=== PATIENT | female | born 1945 | race Caucasian/White ===

== ENCOUNTER 2020-04-23 00:27 | Outpatient (CLI) | payer MEDICARE, SELFPAY ==
[2020-04-23 17:13] LABS: SARS-CoV-2 RNA PCR Negative
== END 2020-04-23 00:28 | disposition home or self-care (01) ==
LOC: ANHCOVIDDT 00:28
PROVIDERS: PCP Internal Medicine; Visit Provider Internal Medicine Gastroenterology
DX: Z01.812 Encounter for preprocedural laboratory examination (principal); Z11.59 Encounter for screening for other viral diseases
CPT/HCPCS: 87635; C9803; U0003

== ENCOUNTER 2020-04-25 02:31 | Day surgery (SDC) | payer MEDICARE, SELFPAY ==
[2020-04-19 12:35] VITALS: BMI 30.2
[2020-04-25 08:34] VITALS: BP 140/75; PULSE 105; RESP 16; TEMP 36.8; O2SAT 99; BMI 28.8
--- NOTE | 2020-04-25 08:42 | WPDANESEPPF ---
Anes - Initial Pre Proc Eval Procedure: Operation Date: 04/25/20 09:30 Proposed Procedures p Screening Colonoscopy - Angel Finch MD Date/Time: 04/25/20 08:42 Surgeon: Angel Finch MD Pre Op Diagnosis: Hx Colon Polyps Patient Data Age: 74 Gender: F Height: 1.57 m Weight: 71.6 kg Last Vital Signs Temp 36.8 C 04/25/20 08:34 Pulse 105 H 04/25/20 08:34 Resp 16 04/25/20 08:34 BP 140/75 04/25/20 08:34 Pulse Ox 99 04/25/20 08:34 Allergies Allergy/AdvReac Type Severity Reaction Status Date / Time No Known Allergies Allergy Verified 04/25/20 08:33 Home Medications Medication Instructions Recorded Confirmed Type No Home Medications 04/19/20 04/25/20 History Patient hx anesthesia problems: none Family hx anesthesia problems: none PMFSH Past Medical History Medical History (Updated 04/24/20 @ 09:02 by Alex Shha DO) Osteoarthritis Surgical History Surgical History (Updated 04/24/20 @ 09:02 by Alex Shah DO) H/O bilateral mastectomy History of partial hysterectomy Family History Family History (Updated 03/21/16 @ 10:16 by DOCTOR UNKNOWN) Other Diabetes mellitus Family history of cardiovascular disease Family history of malignant neoplasm Social History Social History Smoking status: Never smoker Alcohol intake: current Anes - Eval Final PreProcedure Day of Procedure 04/25/20 08:42 Patient weight: obese Heart: regular rate and rhythm Lungs: clear to auscultation and normal air movement Airway: Mallampati scale class III Neurological: alert and oriented Last oral intake: >/= 8 hours ASA classification: II Emergent: no Anesthetic plan: proceed Anesthesia type and monitoring: general GIVS Informed Consent: The patient's anesthetic plan and its attendant risks and benefits were discussed with the patient/family/POA. Questions were solicited and answers provided to the satisfaction of the patient/family/POA.
[2020-04-25] MEDS: LACTATED RINGERS 1,000 ML 150 ML IV CONT (09:02)
--- NOTE | 2020-04-25 09:19 | PM.HPGS ---
History of Present Illness History of Present Illness Consent: Risks, benefits, and alternatives have been discussed and questions answered. Patient agrees to proceed with procedure. Chief complaint: Hx Colon Polyps Narrative: Rosalba Ghosh is a 74 year old W female referred for colonoscopy secondary to history of colonic polyps and also couple year history of intermittent lower abdominal pain associated with gas and bloating. Patient has had no rectal bleeding no weight loss no fever chills or sweats. Last colonoscopy was in 2013 patient is found to have diverticular disease at that time. She has had a previous gastroscopy in 1999 16 revealing esophagitis. [facility] Past Medical History Medical History Osteoarthritis Surgical History Surgical History H/O bilateral mastectomy History of partial hysterectomy Family History Family History Other Diabetes mellitus Family history of cardiovascular disease Family history of malignant neoplasm Social History Social History Smoking status: Never smoker Alcohol intake: current Meds Home Medications and Allergies Home Medications Medication Instructions Recorded Confirmed Type No Home Medications 04/19/20 04/25/20 History Allergies Allergy/AdvReac Type Severity Reaction Status Date / Time No Known Allergies Allergy Verified 04/25/20 08:33 Vital Signs Vital Signs - 24 hr 04/25/20 08:34 Temperature 36.8 C Pulse Rate 105 H Respiratory Rate 16 Blood Pressure 140/75 Pulse Oximetry 99 Exam Const: Orientation/consciousness: patient oriented x3 Resp: Auscultation: clear to auscultation bilaterally Cardio: Rate: regular rate Rhythm: regular rhythm Heart sounds: no murmurs GI: GI Palp: Yes Soft to palpation, No Tenderness to palpation present (GI), Yes No hepatosplenomegaly present and No Palpable mass present Auscultation: normal bowel sounds Neuro: General: patient oriented x3 and no focal motor deficits Extrem: General: no pedal edema Assessment and Plan Additional Plan Screening colonoscopy secondary history of colonic polyps in addition to this lower abdominal pain gas bloating
[2020-04-25 10:23] VITALS: BP 123/67; PULSE 84; RESP 25; O2SAT 96
[2020-04-25 10:33] VITALS: BP 116/46; PULSE 83; RESP 13; O2SAT 100
[2020-04-25 10:43] VITALS: BP 113/44; PULSE 77; RESP 14; O2SAT 100
== END 2020-04-25 11:00 | disposition home or self-care (01) ==
PROVIDERS: PCP Internal Medicine; Visit Provider Internal Medicine Gastroenterology
PROC: 0DJD8ZZ Inspection of Lower Intestinal Tract, Via Natural or Artificial Opening Endoscopic (ICD-10-PCS; CPT 45378; principal; 2020-04-25 09:30)
DX: Z12.11 Encounter for screening for malignant neoplasm of colon (principal); R10.84 Generalized abdominal pain; R14.3 Flatulence; K63.5 Polyp of colon; K57.30 Diverticulosis of large intestine without perforation or abscess without bleeding
CPT/HCPCS: 45380; 88305; J2704; J7120

== ENCOUNTER 2021-03-03 20:42 | Emergency (ER) | payer MEDICARE, SELFPAY ==
[2021-03-03] VITALS (17 sets, daily range): BP systolic 100–168; BP diastolic 60–77; PULSE 75–99; RESP 7–20; O2SAT 97–100
--- NOTE | ~2021-03-03 | XR_ITS ---
EXAMINATION: XR chest 1V portable DATE: 03/03/2021 21:10 INDICATION: Chest pain TECHNIQUE: frontal view of the chest was obtained. COMPARISON: Chest radiograph and CT of the abdomen and pelvis dated 07/28/2016 FINDINGS: Calcified nodules at the left lung base along with calcified mediastinal and bilateral hilar lymph no abram consistent with old granulomatous disease. No other airspace opacities, pulmonary edema, pleural effusion or pneumothorax. Heart size is normal. Tortuous thoracic aorta. Surgical clips at the bilate ral breasts and axilla consistent with prior bilateral mastectomies, axillary lymph node dissections and TRAM flap reconstructions bladder better appreciated on prior CT. Heterotopic ossification likel y related to fat necrosis at the lateral right breast/chest wall. IMPRESSION: 1. No acute cardiopulmonary disease. Reviewed, dictated and finalized at location A.
--- NOTE | 2021-03-03 20:52 | ECG_ITS ---
Measurements Intervals [place] Rate: 83 P: 22 ME: 175 QRS: -3 QRSD: 89 T: 20 QT: 364 QTc: 429 Interpretive Statements SINUS RHYTHM VENTRICULAR PREMATURE COMPLEX EARLY PRECORDIAL R/S TRANSITION VOLTAGE CRITERIA FOR LVH BASELINE ARTIFACT- I, II, AVR, AVL BORDERLINE ECG Electronically Signed On 03-05-2021 15:57:59 CDT by Paras Andrade D.O.
[2021-03-03 21:43] LABS: Basophils Absolute Auto 0.1 K/mm3 (0.0-0.1); Basophils Percent Auto 0.8 % (0.2-1.2); Eosinophils Absolute Auto 0.3 K/mm3 (0-0.3); Eosinophils Percent Auto 3.5 % (0-4.4); Hematocrit 40.3 % (37.0-47.0); Hemoglobin 12.8 g/dL (12.0-15.0); Immature Granulocyte Absolute 0.02 K/mm3 (0.00-0.031); Immature Granulocyte Percent A 0.3 % (0-0.5); Lymphocytes Absolute Auto 1.55 K/mm3 (0.9-3.2); Lymphocytes Percent Auto 19.5 % (18.3-44.2); Mean Corpuscular HGB Conc 31.8 g/dl (32-36); Mean Corpuscular Hemoglobin 30.5 pg (26-34); Mean Platelet Volume 9.2 fl (7.4-10.4); Monocytes Absolute Auto 0.7 K/mm3 (0.1-0.6); Monocytes Percent Auto 8.2 % (2.6-8.5); Neutrophils Absolute Auto 5.4 K/mm3 (1.3-6.7); Neutrophils Percent Auto 67.7 % (45.5-73.1); Platelet Count Result 222 k/mm3 (150-375); Red Cell Distribution Width 13.8 % (11.5-14.5); White Blood Count 7.9 K/mm3 (4.5-10.0)
[2021-03-03 21:53] LABS: Alanine Aminotransferase 19 U/L (4-35); Alkaline Phosphatase 84 U/L (38-126); Anion Gap 6 mmol/L (8-16); Aspartate Amino Transferase 41 U/L (14-36); Bilirubin,Total 0.2 mg/dL (0.2-1.3); Blood Urea Nitrogen 23 mg/dL (7-17); Calcium 9.5 mg/dL (8.4-10.2); Carbon Dioxide 29 mmol/L (22-30); Chloride 102 mmol/L (98-107); Estimated CRCL calculation 52 ml/min; Estimated Glomerular Filt Rate > 60; Glucose 121 mg/dL (65-105); INR 0.9; Potassium 4.2 mmol/L (3.4-5.0); Prothrombin Time 13.1 Seconds (11.1-14.7); Sodium 137 mmol/L (137-145)
[2021-03-03 22:05] LABS: Troponin I < 0.012 ng/mL (0.000-0.034)
--- NOTE | 2021-03-03 22:09 | ED.CHESTPAIN ---
HPI - Chest Pain General Chief Complaint: Chest Pain Stated Complaint: chest discomfort Time Seen by Provider: 03/03/21 20:54 Source: patient and family Mode of arrival: ambulatory Limitations: no limitations History of Present Illness HPI narrative: 75-year-old with no major medical problems presents to the ER with complaints of chest pain associated with diaphoresis and profuse sweating started few hours ago however by the time she came to the ER her pain is much subsided. Patient states that she thought it was gas pain ate several tablets of Tums with no relief. Patient denies any shortness of breath, nausea or vomiting. Patient states that she had a cardiac ablation done 30 years ago. No recent stress test has been done. MD complaint: chest pain Pain location: left chest Pain radiation: abdomen Quality: heaviness Relieving factors: nothing Exacerbating factors: nothing Risk Factors Coronary artery disease risk factors: none Related Data Allergies Allergy/AdvReac Type Severity Reaction Status Date / Time No Known Allergies Allergy Verified 03/03/21 23:36 Review of Systems Review of Systems: All systems reviewed & are unremarkable except as noted in HPI and below Constitutional: Constitutional: Reports no additional constitutional complaints Eyes: Eyes: Reports no additional eye complaints ENT: Reports system reviewed and no additional complaints, except as documented Cardiovascular: Cardiovascular: Reports as per HPI Respiratory: Respiratory: Reports no additional respiratory complaints Gastrointestinal: Gastrointestinal: Reports no additional gastrointestinal complaints Musculoskeletal: Musculoskeletal: Reports no additional musculoskeletal complaints Neurologic: Reports system reviewed and no additional complaints, except as documented PMFSH Past Medical History Medical History (Updated 03/03/21 @ 23:49 by Piotr Pineda MD) Osteoarthritis Surgical History Surgical History H/O bilateral mastectomy History of partial hysterectomy Family History Family History Other Diabetes mellitus Family history of cardiovascular disease Family history of malignant neoplasm Social History Social History Smoking status: Never smoker Alcohol intake: current Exam Narrative: Exam Narrative: GENERAL: Well-appearing, well-nourished, and in no acute distress. HEAD: Normocephalic, atraumatic. EYES: PERRLA and EOMI. NECK: Supple. CHEST: Clear to auscultation. No respiratory distress. HEART: Regular rate and rhythm. No murmur heard. Normal peripheral pulses. ABDOMEN: Soft, nontender, nondistended, normal active bowel sounds. EXTREMITIES: Normal range of motion. No edema. SKIN: Warm, dry, no rash. NEURO: No focal deficits. Alert and oriented x3. PSYCH: Normal mood and affect. Course Course Emergency Course: Patient upon arrival to the ER pain is much subsided EKG is unremarkable. I discussed lab work with the patient. Patient declined admission. She states she wants to follow-up with her primary doctor. Vital Signs Vital signs: Vital Signs Pulse Rate 90 03/03/21 20:45 Respiratory Rate 15 03/03/21 20:45 Blood Pressure 153/77 H 03/03/21 20:45 Pulse Oximetry 97 03/03/21 20:45 Pulse Rate 90 03/03/21 23:19 Respiratory Rate 15 03/03/21 23:19 Blood Pressure 137/71 03/03/21 23:19 Pulse Oximetry 98 03/03/21 23:19 MDM - Chest Pain Lab Data Result diagrams: 03/03/21 21:37 03/03/21 21:37 Labs: Lab Results 03/03/21 03/03/21 03/03/21 Range/Units 21:36 21:37 21:37 WBC 7.9 (4.5-10.0) K/mm3 RBC 4.20 (4.2-5.4) M/mm3 Hgb 12.8 (12.0-15.0) g/dL Hct 40.3 (37.0-47.0) % MCV 96.0 (80-100) fl MCH 30.5 (26-34) pg MCHC 31.8 L (32-36) g/dl RDW 13.8 (
[2021-03-03 22:30] LABS: D Dimer 0.32 ug/mL (<0.48)
--- NOTE | 2021-03-03 23:50 | PC.NURSE ---
Repeat troponin collected and awaiting result. will continue to monitor. pt continues to deny c/o chest pain.
[2021-03-04 00:27] LABS: Troponin I 0.013 ng/mL (0.000-0.034)
== END 2021-03-04 00:56 | disposition home or self-care (01) ==
PROVIDERS: Emergency Provider Family Medicine; PCP Internal Medicine
DX: R07.9 Chest pain, unspecified (principal); M19.90 Unspecified osteoarthritis, unspecified site; Z90.13 Acquired absence of bilateral breasts and nipples; I49.3 Ventricular premature depolarization; R94.31 Abnormal electrocardiogram [ECG] [EKG]
CPT/HCPCS: 36415; 71045; 80053; 84484; 85025; 85380; 85610; 93005; 99284

== ENCOUNTER 2022-11-10 00:48 | Day surgery (SDC) | payer MEDICARE, SELFPAY ==
[2022-10-28 13:49] VITALS: BMI 29.7
--- NOTE | 2022-11-09 08:23 | PM.HPGS ---
History of Present Illness History of Present Illness Consent: Risks, benefits, and alternatives have been discussed and questions answered. Patient agrees to proceed with procedure. Chief complaint: hx of colon polyps Narrative: Rosalba Ghosh is a 77 year old female Referred for colonoscopy because of a history of a sessile serrated polyp removed about 3 years ago. Review of Systems Review of Systems: All systems reviewed & are unremarkable except as noted in HPI and below PMFSH Past Medical History Medical History Osteoarthritis Surgical History Surgical History H/O bilateral mastectomy History of partial hysterectomy Family History Family History Other Diabetes mellitus Family history of cardiovascular disease Family history of malignant neoplasm Social History Social History Smoking status: Never smoker Alcohol intake: current Substance use: never Substance use type: does not use Living arrangements: with family Spiritual care concerns: No Meds Home Medications and Allergies Home Medications Medication Instructions Recorded Confirmed Type alendronate 70 mg tablet 70 mg PO WEEKLY 10/28/22 10/28/22 History hydrocodone 7.5 mg-acetaminophen 1 tablet PO BID PRN Pain 10/28/22 10/28/22 History 325 mg tablet pantoprazole 40 mg tablet,delayed 40 mg PO DAILY 10/28/22 10/28/22 History release Allergies Allergy/AdvReac Type Severity Reaction Status Date / Time No Known Allergies Allergy Verified 11/10/22 09:53 Exam Const: General: alert Orientation/consciousness: patient oriented x3 Resp: Auscultation: clear to auscultation bilaterally Cardio: Rhythm: regular rhythm GI: GI Palp: Yes Soft to palpation and No Tenderness to palpation present (GI) Neuro: General: patient oriented x3 Assessment and Plan Assessment and plan (1) Colon cancer screening: Code(s): Z12.11 - Encounter for screening for malignant neoplasm of colon Status: Acute Assessment and Plan: Colonoscopy with possible biopsy or polypectomy or cautery or injection of substances.
[2022-11-10 09:55] VITALS: BP 143/74; PULSE 100; RESP 18; TEMP 36.8; O2SAT 100
[2022-11-10] MEDS: LACTATED RINGERS 1,000 ML 150 ML IV CONT (09:57)
--- NOTE | 2022-11-10 10:43 | P.PNAN_ITS ---
Anes - Initial Pre Proc Eval Procedure: Operation Date: 11/10/22 11:00 Proposed Procedures p Screening Colonoscopy - Yung Fernandez MD Date/Time: 11/10/22 10:43 Surgeon: Yung Fernandez MD Pre Op Diagnosis: hx of colon polyps Patient Data Age: 77 Gender: F Height: 1.52 m Weight: 69.2 kg Last Vital Signs Temp 98.2 F 11/10/22 09:55 Pulse 100 11/10/22 09:55 Resp 18 11/10/22 09:55 BP 143/74 H 11/10/22 09:55 Pulse Ox 100 11/10/22 09:55 O2 Del Method Room Air 11/10/22 09:55 Allergies Allergy/AdvReac Type Severity Reaction Status Date / Time No Known Allergies Allergy Verified 11/10/22 09:53 Home Medications Medication Instructions Recorded Confirmed Type alendronate 70 mg tablet 70 mg PO WEEKLY 10/28/22 10/28/22 History hydrocodone 7.5 mg-acetaminophen 1 tablet PO BID PRN Pain 10/28/22 10/28/22 History 325 mg tablet pantoprazole 40 mg tablet,delayed 40 mg PO DAILY 10/28/22 10/28/22 History release Patient hx anesthesia problems: none Family hx anesthesia problems: none Results Review: All pre-operative results and documents have been reviewed as part of the pre- operative evaluation. [facility] Past Medical History Medical History Osteoarthritis Surgical History Surgical History H/O bilateral mastectomy History of partial hysterectomy Family History Family History Other Diabetes mellitus Family history of cardiovascular disease Family history of malignant neoplasm Social History Social History Smoking status: Never smoker Alcohol intake: current Substance use: never Substance use type: does not use Living arrangements: with family Spiritual care concerns: No Anes - Eval Final PreProcedure Day of Procedure 11/10/22 10:43 Patient weight: normal Heart: regular rate and rhythm Lungs: clear to auscultation Airway: Mallampati scale class II Neurological: alert and oriented Last oral intake: >/= 8 hours ASA classification: III Emergent: no Anesthetic plan: proceed Anesthesia type and monitoring: general GIVS and standard monitoring Results Review: All pre-operative results and documents have been reviewed as part of the pre- operative evaluation. Informed Consent: The patient's anesthetic plan and its attendant risks and benefits were discussed with the patient/family/POA. Questions were solicited and answers provided to the satisfaction of the patient/family/POA.
[2022-11-10 11:05] VITALS: BP 131/57; PULSE 89; RESP 20; O2SAT 100
[2022-11-10 11:15] VITALS: BP 124/57; PULSE 86; RESP 20; O2SAT 100
[2022-11-10 11:25] VITALS: BP 137/64; PULSE 89; RESP 23; O2SAT 100
== END 2022-11-10 11:40 | disposition home or self-care (01) ==
PROVIDERS: PCP Internal Medicine; Visit Provider Internal Medicine Gastroenterology
PROC: 0DJD8ZZ Inspection of Lower Intestinal Tract, Via Natural or Artificial Opening Endoscopic (ICD-10-PCS; CPT 45378; principal; 2022-11-10 11:00)
DX: Z12.11 Encounter for screening for malignant neoplasm of colon (principal); K64.8 Other hemorrhoids; K57.30 Diverticulosis of large intestine without perforation or abscess without bleeding; Z86.010 Personal history of colon polyps
CPT/HCPCS: G0105; J2001; J2704; J7120

== ENCOUNTER 2023-10-27 00:54 | Day surgery (SDC) | payer MEDICARE, SELFPAY ==
[2023-10-16 15:23] VITALS: BMI 27.8
--- NOTE | 2023-10-23 08:44 | SUR.PREOP ---
Patient called regarding upcoming procedure. Reviewed preop instructions, appointment times, and procedure prep.
--- NOTE | 2023-10-23 13:51 | PM.HPGS ---
History of Present Illness History of Present Illness Consent: Risks, benefits, and alternatives have been discussed and questions answered. Patient agrees to proceed with procedure. Chief complaint: GERD Narrative: Rosalba Ghosh is a 78 year old female was undergoing endoscopy for assessment of reflux symptoms. She has chronic symptoms. She had endoscopy about 6 years ago to investigate acid reflux and was found have mild reflux esophagitis and diffuse gastritis. Review of Systems Review of Systems: All systems reviewed & are unremarkable except as noted in HPI and below PMFSH Past Medical History Medical History Osteoarthritis Surgical History Surgical History H/O bilateral mastectomy History of partial hysterectomy Family History Family History Other Diabetes mellitus Family history of cardiovascular disease Family history of malignant neoplasm Social History Social History Smoking status: Never smoker Alcohol intake: never Substance use: never Substance use type: does not use Living arrangements: with family Spiritual care concerns: No Meds Home Medications and Allergies Home Medications Medication Instructions Recorded Confirmed Type alendronate 70 mg tablet 70 mg PO WEEKLY 10/28/22 10/27/23 History hydrocodone 7.5 mg-acetaminophen 1 tablet PO BID PRN Pain 10/28/22 10/27/23 History 325 mg tablet pantoprazole 40 mg tablet,delayed 40 mg PO DAILY 10/28/22 10/27/23 History release Adults Multivitamin 1 gummy PO DAILY 10/16/23 10/27/23 History Calcium 600 + D(3) 1 tab-cap PO DAILY 10/16/23 10/27/23 History Allergies Allergy/AdvReac Type Severity Reaction Status Date / Time No Known Allergies Allergy Verified 10/27/23 08:07 Exam Const: General: alert Orientation/consciousness: patient oriented x3 Resp: Auscultation: clear to auscultation bilaterally Cardio: Rhythm: regular rhythm GI: GI Palp: Yes Soft to palpation and No Tenderness to palpation present (GI) Neuro: General: patient oriented x3 Assessment and Plan Assessment and plan (1) GERD (gastroesophageal reflux disease): Code(s): K21.9 - Gastro-esophageal reflux disease without esophagitis Status: Acute Assessment and Plan: EGD with possible biopsy or dilatation or cautery.
[2023-10-27 08:08] VITALS: BP 143/66; PULSE 106; RESP 17; TEMP 36.6; O2SAT 97; BMI 27.6
[2023-10-27] MEDS: LACTATED RINGERS 1,000 ML 150 ML IV CONT (08:16)
--- NOTE | 2023-10-27 08:57 | WPDANESEPPF ---
Anes - Initial Pre Proc Eval Procedure: Operation Date: 10/27/23 09:30 Proposed Procedures p Esophagogastroduodenoscopy - Yung Fernandez MD Date/Time: 10/27/23 08:57 Surgeon: Yung Fernandez MD Pre Op Diagnosis: GERD Patient Data Age: 78 Gender: F Height: 1.55 m Weight: 66.2 kg Last Vital Signs Temp 97.8 F 10/27/23 08:08 Pulse 106 H 10/27/23 08:08 Resp 17 10/27/23 08:08 BP 143/66 H 10/27/23 08:08 Pulse Ox 97 10/27/23 08:08 O2 Del Method Room Air 10/27/23 08:08 Allergies Allergy/AdvReac Type Severity Reaction Status Date / Time No Known Allergies Allergy Verified 10/27/23 08:07 Home Medications Medication Instructions Recorded Confirmed Type alendronate 70 mg tablet 70 mg PO WEEKLY 10/28/22 10/27/23 History hydrocodone 7.5 mg-acetaminophen 1 tablet PO BID PRN Pain 10/28/22 10/27/23 History 325 mg tablet pantoprazole 40 mg tablet,delayed 40 mg PO DAILY 10/28/22 10/27/23 History release Adults Multivitamin 1 gummy PO DAILY 10/16/23 10/27/23 History Calcium 600 + D(3) 1 tab-cap PO DAILY 10/16/23 10/27/23 History Patient hx anesthesia problems: none Family hx anesthesia problems: none Results Review: All pre-operative results and documents have been reviewed as part of the pre-operative evaluation. [facility] Past Medical History Medical History Osteoarthritis Surgical History Surgical History H/O bilateral mastectomy History of partial hysterectomy Family History Family History Other Diabetes mellitus Family history of cardiovascular disease Family history of malignant neoplasm Social History Social History Smoking status: Never smoker Alcohol intake: never Substance use: never Substance use type: does not use Living arrangements: with family Spiritual care concerns: No Anes - Eval Final PreProcedure Day of Procedure 10/27/23 08:57 Patient weight: normal Heart: regular rate and rhythm Lungs: clear to auscultation Airway: Mallampati scale class II Neurological: alert and oriented Last oral intake: >/= 8 hours ASA classification: III Emergent: no Anesthetic plan: proceed Anesthesia type and monitoring: general GIVS and standard monitoring Results Review: All pre-operative results and documents have been reviewed as part of the pre-operative evaluation. Informed Consent: The patient's anesthetic plan and its attendant risks and benefits were discussed with the patient/family/POA. Questions were solicited and answers provided to the satisfaction of the patient/family/POA.
[2023-10-27 09:30] VITALS: BP 133/58; PULSE 90; RESP 19; O2SAT 97
[2023-10-27 09:40] VITALS: BP 118/51; PULSE 86; RESP 21; O2SAT 96
[2023-10-27 09:50] VITALS: BP 129/50; PULSE 87; RESP 20; O2SAT 100
== END 2023-10-27 10:01 | disposition home or self-care (01) ==
PROVIDERS: PCP Internal Medicine; Visit Provider Internal Medicine Gastroenterology
PROC: 0DJ08ZZ Inspection of Upper Intestinal Tract, Via Natural or Artificial Opening Endoscopic (ICD-10-PCS; CPT 43235; principal; 2023-10-27 09:30)
DX: K21.9 Gastro-esophageal reflux disease without esophagitis (principal); K29.50 Unspecified chronic gastritis without bleeding; K25.9 Gastric ulcer, unspecified as acute or chronic, without hemorrhage or perforation; Z79.891 Long term (current) use of opiate analgesic; Z79.899 Other long term (current) drug therapy
CPT/HCPCS: 43239; 87081; 88305; J2001; J2704; J7120

== ENCOUNTER 2024-02-11 14:51 | Inpatient (IN) | payer MEDICARE, SELFPAY ==
--- NOTE | ~2024-02-11 | XR_ITS ---
EXAMINATION: XR hip RT 2V w AP pelvis DATE: 02/11/2024 15:33 INDICATION: Fall. TECHNIQUE: An anteroposterior view of the pelvis and 2 views of right hip were obtained. COMPARISON: CT abdomen and pelvis 07/28/2016 FINDINGS: There is lumbar dextroscoliosis and severe spondylosis. There is a subcapital fracture of r ight femoral neck. The distal fracture fragment demonstrates impaction and 25 degrees valgus angulati on. There is mild osteoarthritis of the hips. Osteitis pubis is noted. Surgical clips overlie the abd omen and pelvis. IMPRESSION: 1. Subcapital fracture of right femoral neck. 2. Mild osteoarthritis of the hips. Reviewed, dictated and finalized at location A.
--- NOTE | ~2024-02-11 | XR_ITS ---
EXAMINATION: XR chest 1V DATE: 02/11/2024 15:33 INDICATION: Fall. TECHNIQUE: A single frontal view of the chest was obtained. COMPARISON: None. FINDINGS: There is mild atelectasis at left lung base. Calcified pulmonary nodules and calcified chloe r and mediastinal lymph nodes are consistent with old granulomatous disease. No pleural effusion or p neumothorax. The heart size is normal. Surgical clips overlie the chest and abdomen. IMPRESSION: 1. Mild atelectasis at left lung base. Reviewed, dictated and finalized at location A.
--- NOTE | ~2024-02-11 | XR_ITS ---
EXAMINATION: XR surgery orthopedic DATE: 02/12/2024 10:20 CDT INDICATION: RIGHT HIP PINNING . TECHNIQUE: 2 fluoroscopic images of the right hip were obtained during right hip pinning, performed b diego Dean. I was not present during the procedure. Fluoroscopy exposure time was 1 minute and 56.7 seconds. Air Kerma 43.642 mGy. DAP 0.8651 mGym2. COMPARISON: 02/11/2024 FINDINGS/IMPRESSION: Fluoroscopic documentation of right hip pinning. Please refer to the operative note for complete proc edural details. Reviewed, dictated and finalized at location K.
--- NOTE | ~2024-02-11 | XR_ITS ---
EXAMINATION: XR chest 1V portable DATE: 02/13/2024 16:15 INDICATION: Chest tightness. TECHNIQUE: A single frontal view of the chest was obtained. COMPARISON: Chest single view 02/11/2024 FINDINGS: Calcified pulmonary nodules and calcified hilar and mediastinal lymph nodes are consistent with old granulomatous disease. There is mild atelectasis versus scarring in the lower lung zones. No pleural effusion or pneumothorax. The heart size is normal. Surgical clips overlie the chest. IMPRESSION: 1. Mild atelectasis versus scarring in the lower lung zones. Reviewed, dictated and finalized at location E.
[2024-02-11 14:55] VITALS: BP 153/71; PULSE 100; RESP 20; TEMP 36.6; O2SAT 95
--- NOTE | 2024-02-11 15:12 | ED.FALL ---
HPI - Fall General Chief Complaint: Fall Stated Complaint: fall, hip pain Time Seen by Provider: 02/11/24 14:58 History of Present Illness HPI Narrative: Patient is a 78-year-old female who presents ER after a fall down 2 steps. Landed on her right hip. Unable to get up due to pain. Did not strike her head or lose consciousness. No LOC. No numbness or tingling to the affected extremity. Patient is currently on [place] and amoxicillin for a gum surgery she had by her dentist. Related Data Home Medications Medication Instructions Recorded Confirmed alendronate 70 mg tablet 70 mg PO WEEKLY 10/28/22 11/20/23 hydrocodone 7.5 mg-acetaminophen 1 tablet PO BID PRN Pain 10/28/22 11/20/23 325 mg tablet pantoprazole 40 mg tablet,delayed 40 mg PO DAILY 10/28/22 11/20/23 release Adults Multivitamin 1 gummy PO DAILY 10/16/23 11/20/23 Calcium 600 + D(3) 1 tab-cap PO DAILY 10/16/23 11/20/23 Allergies Allergy/AdvReac Type Severity Reaction Status Date / Time No Known Allergies Allergy Verified 02/11/24 14:59 Review of Systems Review of Systems: All systems reviewed & are unremarkable except as noted in HPI and below Constitutional: Constitutional: Reports no additional constitutional complaints ENT: Reports system reviewed and no additional complaints, except as documented Cardiovascular: Cardiovascular: Reports no additional cardiovascular complaints Respiratory: Respiratory: Reports no additional respiratory complaints Gastrointestinal: Gastrointestinal: Reports no additional gastrointestinal complaints Musculoskeletal: Musculoskeletal: Denies back pain, Reports arthralgias, Denies joint swelling and Denies muscle cramps Neurologic: Reports system reviewed and no additional complaints, except as documented [facility] Past Medical History Medical History (Updated 02/11/24 @ 15:56 by Adriel Hill MD) Osteoarthritis Surgical History Surgical History H/O bilateral mastectomy History of partial hysterectomy Family History Family History Other Diabetes mellitus Family history of cardiovascular disease Family history of malignant neoplasm Social History Social History Smoking status: Never smoker Alcohol intake: never Substance use: never Substance use type: does not use Living arrangements: with family Spiritual care concerns: No Exam Narrative: GENERAL: Well-appearing, well-nourished, and in no acute distress. HEAD: Normocephalic, atraumatic. ENT: Mucous membranes moist. NECK: Supple. CHEST: Clear to auscultation. No respiratory distress. HEART: Regular rate and rhythm. Normal peripheral pulses. ABDOMEN: Soft, nontender, nondistended. EXTREMITIES: Right hip tolerates passive range of motion but has increased pain with internal external rotation. Unable to perform active range of motion due to pain. Neurovascularly intact. Normal upper extremities and left lower extremity. SKIN: Warm, dry, no rash. NEURO: Alert and oriented x3. PSYCH: Normal mood and affect. Course Course Emergency Course: Orthopedic surgery consulted. Admit the hospitalist service service. Patient has been informed of diagnosis and treatment plan. Patient does not require pain medication at this time. Vital Signs Vital signs: Vital Signs Temperature 97.8 F 02/11/24 14:55 Pulse Rate 100 02/11/24 14:55 Respiratory Rate 20 02/11/24 14:55 Blood Pressure 153/71 H 02/11/24 14:55 Pulse Oximetry 95 02/11/24 14:55 Oxygen Delivery Room Air 02/11/24 14:55 Temperature 97.8 F 02/11/24 14:55 Pulse Rate 90 02/11/24 16:43 Respiratory Rate 16 02/11/24 16:43 Blood Pressure 130/83 02/11/24 16:43 Pulse Oximetry 96 02/11/24 16:43 Oxygen Delivery Room Air 02/11/24 14:55 MDM - Fall Lab Data 02/11/24
[2024-02-11 15:50] LABS: Basophils Absolute Auto 0.1 K/mm3 (0.0-0.1); Basophils Percent Auto 0.8 % (0.2-1.2); Eosinophils Absolute Auto 0.1 K/mm3 (0-0.3); Eosinophils Percent Auto 1.7 % (0-4.4); Hematocrit 43.1 % (37.0-47.0); Hemoglobin 13.8 g/dL (12.0-15.0); Immature Granulocyte Absolute 0.04 K/mm3 (0.00-0.031); Immature Granulocyte Percent A 0.7 % (0-0.5); Lymphocytes Absolute Auto 1.79 K/mm3 (0.9-3.2); Lymphocytes Percent Auto 30.1 % (18.3-44.2); Mean Corpuscular Hemoglobin 29.7 pg (26-34); Mean Corpuscular Volume 92.9 fl (80-100); Mean Platelet Volume 10.4 fl (7.4-10.4); Monocytes Absolute Auto 0.6 K/mm3 (0.1-0.6); Monocytes Percent Auto 10.1 % (2.6-8.5); Neutrophils Absolute Auto 3.4 K/mm3 (1.3-6.7); Neutrophils Percent Auto 56.6 % (45.5-73.1); Platelet Count Result 170 k/mm3 (150-375); Red Blood Count 4.64 M/mm3 (4.2-5.4); Red Cell Distribution Width 13.9 % (11.5-14.5); White Blood Count 5.9 K/mm3 (4.5-10.0)
[2024-02-11 16:10] LABS: Alanine Aminotransferase 15 U/L (6-35); Albumin Level 4.3 g/dL (3.5-5.1); Alkaline Phosphatase 51 U/L (38-126); Anion Gap 8 mmol/L (4-12); Aspartate Amino Transferase 41 U/L (14-36); Bilirubin,Total 0.8 mg/dL (0.2-1.3); Blood Urea Nitrogen 15 mg/dL (7-17); Calcium 9.1 mg/dL (8.4-10.2); Carbon Dioxide 26 mmol/L (22-30); Chloride 101 mmol/L (98-107); Estimated CRCL calculation 50 ml/min; Estimated Glomerular Filt Rate > 60; Glucose 112 mg/dL (65-110); Potassium 4.4 mmol/L (3.4-5.0); Sodium 135 mmol/L (137-145)
[2024-02-11 16:15] LABS: Partial Thromboplastin Time 27.7 Seconds (22.3-36.8); Prothrombin Time 13.3 Seconds (11.1-14.7)
[2024-02-11 16:43] VITALS: BP 130/83; PULSE 90; RESP 16; O2SAT 96
--- NOTE | 2024-02-11 18:19 | PM.CNOR ---
Assessment and Plan Assessment and plan (1) Closed subcapital fracture of neck of right femur: Code(s): S72.011A - Unspecified intracapsular fracture of right femur, initial encounter for closed fracture Status: Acute Assessment and Plan: Recommend pinning Right Hip. History of Present Illness HPI Consult date: 02/11/24 Chief complaint: Subcapital Fracture of the Femoral Neck Rt Side Narrative: 78yo WF S/P fall with Right hip fracture. Review of Systems Musculoskeletal: Musculoskeletal: Reports arthralgias, Reports joint swelling and Reports stiffness [facility] Past Medical History Medical History (Updated 02/11/24 @ 15:56 by Adriel Hill MD) Osteoarthritis Surgical History Surgical History H/O bilateral mastectomy History of partial hysterectomy Family History Family History Other Diabetes mellitus Family history of cardiovascular disease Family history of malignant neoplasm Social History Social History Smoking status: Never smoker Alcohol intake: never Substance use: never Substance use type: does not use Living arrangements: with family Spiritual care concerns: No Meds Home Medications and Allergies Home Medications Medication Instructions Recorded Confirmed Type alendronate 70 mg tablet 70 mg PO WEEKLY 10/28/22 11/20/23 History hydrocodone 7.5 mg-acetaminophen 1 tablet PO BID PRN Pain 10/28/22 11/20/23 History 325 mg tablet pantoprazole 40 mg tablet,delayed 40 mg PO DAILY 10/28/22 11/20/23 History release Adults Multivitamin 1 gummy PO DAILY 10/16/23 11/20/23 History Calcium 600 + D(3) 1 tab-cap PO DAILY 10/16/23 11/20/23 History Allergies Allergy/AdvReac Type Severity Reaction Status Date / Time No Known Allergies Allergy Verified 02/11/24 14:59 Vital Signs Vital Signs - 24 hr 02/11/24 14:55 02/11/24 16:43 Temperature 97.8 F Pulse Rate 100 90 Respiratory Rate 20 16 Blood Pressure 153/71 H 130/83 Pulse Oximetry 95 96 Oxygen Delivery Room Air Exam Narrative: Pain with motion Right hip. Wiggle toes. Resp: Effort & Inspection: normal respiratory effort Cardio: Rate: regular rate Rhythm: regular rhythm Results Labs 02/11/24 15:45 02/11/24 15:45 Labs: Abnormal lab results 02/11/24 Range/Units 15:45 Immature Gran % (Auto) 0.7 H (0-0.5) % [place] % (Auto) 10.1 H (2.6-8.5) % Abs Immat Gran (auto) 0.04 H (0.00-0.031) K/mm3 Sodium 135 L (137-145) mmol/L Glucose 112 H (65-110) mg/dL AST 41 H (14-36) U/L H & H 02/11/24 Range/Units 15:45 Hgb 13.8 (12.0-15.0) g/dL Hct 43.1 (37.0-47.0) % Coagulation 02/11/24 Range/Units 15:45 INR 1.0 All other labs normal. [facility] Consult Billing Inpatient Consult Inpatient Consults: 52008 Initial Admit Mod
[2024-02-11] MEDS: MORPHINE SULFATE (*CRX) 2 MG/ML INJ IV PUSH ×3 (18:26→23:29)
[2024-02-11] MEDS: ONDANSETRON INJ 4 MG/2 ML VIAL IV PUSH (20:06)
[2024-02-11 21:13] VITALS: BP 138/58; PULSE 96; RESP 14; TEMP 36.7; O2SAT 95
--- NOTE | 2024-02-11 22:01 | PM.IMHP ---
H&P: HPI History of Present Illness Date/Time: 02/11/24 22:01 Chief Complaint: Fall Narrative: 78 y/o F presents here with fall and R hip pain with PMH of osteoarthritis and breast cancer (s/p bilateral mastectomy around 1999). Patient presents here for further evaluation of right hip pain secondary to ground level fall. Patient reports that she tripped while going down 2 steps with laundry onto her right hip. Patient was unable to ambulate post fall due to pain. Denies head strike, no syncope, or LOC. Denies numbness, tingling, or weakness to RLE. ROM limited due to pain. Patient is currently on norco and amoxicillin secondary to recent oral surgery (02/08) to comes performed by her dentist. Denies palpitations, chest pain, dizziness, lightheadedness, focal weakness, dysarthria, nausea, vomiting, or diarrhea. Does not need an assistive device at baseline, but will occasionally use a cane when she has to stand for long periods due to the curvature of her spine which causes her pain at times. Initial VS at presentation: 97.8? F, HR 100, RR 20, 153/71, and 95% on RA. ED workup showed: No leukocytosis, no anemia, INR 1.0, creatinine 0.7 with GFR >60, glucose 112, AST 41. XR of right hip showed subcapital fracture of the right femoral neck and osteoarthritis of the hips. CXR showed mild atelectasis of the left lung base. Review of Systems Review of Systems: All systems reviewed & are unremarkable except as noted in HPI and below [facility] Past Medical History Medical History (Updated 02/12/24 @ 00:04 by Leonor Rodriguez APRN) Abdominal aortic aneurysm stable, follows with CT Surgery at [facility] Acute biliary pancreatitis secondary to GB disease BRCA1 positive Hx of breast cancer Osteoarthritis Valvular insufficiency told she has a leaky valve , unsure which. Surgical History Surgical History (Updated 02/12/24 @ 00:00 by Leonor Rodriguez APRN) H/O bilateral mastectomy History of cholecystectomy History of partial hysterectomy Family History Family History Other Diabetes mellitus Family history of cardiovascular disease Family history of malignant neoplasm Social History Social History Smoking status: Never smoker Alcohol intake: never Substance use: never Substance use type: does not use Do You Feel Safe in your Home?: Yes Lack of Transportation: No Lack of Food: Never True Current Housing: I Have Housing Concerned About Future Housing: No Difficulty Paying Gas/Electric Bills: No Difficulty Paying for Meds: No Currently Unemployed: No Education: High School Diploma/GED Difficulty w/ Childcare or Family Care: No Living arrangements: with family Spiritual care concerns: No Meds Home Medications and Allergies Home Medications Medication Instructions Recorded Confirmed Type pantoprazole 40 mg tablet,delayed 40 mg PO DAILY 10/28/22 02/11/24 History release amoxicillin 500 mg-potassium 1 tablet PO TID 02/11/24 02/11/24 History clavulanate 125 mg tablet hydrocodone 5 mg-acetaminophen 325 1 tablet PO Q4H PRN Pain 02/11/24 02/11/24 History mg tablet Allergies Allergy/AdvReac Type Severity Reaction Status Date / Time No Known Allergies Allergy Verified 02/11/24 14:59 Vital Signs Vital Signs - 24 hr 02/11/24 14:55 02/11/24 16:43 02/11/24 21:13 Temperature 97.8 F 98.1 F Pulse Rate 100 90 96 Respiratory Rate 20 16 14 Blood Pressure 153/71 H 130/83 138/58 L Pulse Oximetry 95 96 95 Oxygen Delivery Room Air Exam Const: General: comfortable and no acute distress Other: , female, nontoxic apperance HENMT: Face/Nose/Sinus: Normal nares present Mouth: Yes moist mucous membranes Eyes: General: appearance normal, both eyes and all related structures Sclera: sclerae normal Pupils: Equal, round and reactive pupils
[2024-02-11 23:20] VITALS: O2SAT 95
[2024-02-11] MEDS: LACTATED RINGERS 1,000 ML 100 ML IV CONT (23:28)
[2024-02-12] VITALS (16 sets, daily range): BP systolic 105–144; BP diastolic 43–87; PULSE 72–99; RESP 12–20; TEMP 35.8–37; O2SAT 93–100
[2024-02-12] MEDS: MORPHINE SULFATE (*CRX) 2 MG/ML INJ IV PUSH ×4 (03:24→20:17)
[2024-02-12] MEDS: ONDANSETRON INJ 4 MG/2 ML VIAL IV PUSH ×2 (03:24→20:17)
[2024-02-12 06:33] LABS: Basophils Absolute Auto 0.1 K/mm3 (0.0-0.1); Eosinophils Absolute Auto 0.1 K/mm3 (0-0.3); Eosinophils Percent Auto 2.6 % (0-4.4); Hematocrit 37.6 % (37.0-47.0); Hemoglobin 11.8 g/dL (12.0-15.0); Immature Granulocyte Absolute 0.01 K/mm3 (0.00-0.031); Immature Granulocyte Percent A 0.2 % (0-0.5); Lymphocytes Absolute Auto 1.06 K/mm3 (0.9-3.2); Mean Corpuscular HGB Conc 31.4 g/dl (32-36); Mean Corpuscular Hemoglobin 29.3 pg (26-34); Mean Corpuscular Volume 93.3 fl (80-100); Monocytes Absolute Auto 0.6 K/mm3 (0.1-0.6); Monocytes Percent Auto 11.3 % (2.6-8.5); Neutrophils Absolute Auto 3.2 K/mm3 (1.3-6.7); Neutrophils Percent Auto 63.9 % (45.5-73.1); Platelet Count Result 150 k/mm3 (150-375); Red Blood Count 4.03 M/mm3 (4.2-5.4)
[2024-02-12 06:45] LABS: Anion Gap 1 mmol/L (4-12); Blood Urea Nitrogen 10 mg/dL (7-17); Calcium 8.7 mg/dL (8.4-10.2); Carbon Dioxide 31 mmol/L (22-30); Chloride 103 mmol/L (98-107); Estimated CRCL calculation 57 ml/min; Estimated Glomerular Filt Rate > 60; Glucose 96 mg/dL (65-110); Potassium 4.1 mmol/L (3.4-5.0); Sodium 135 mmol/L (137-145)
[2024-02-12] MEDS: PANTOPRAZOLE 40 MG TABLET PO (08:11)
[2024-02-12] MEDS: AMOXICILLIN/CLAVULANATE K 500-125 MG TAB 1 TABLET PO ×3 (08:49→17:18)
--- NOTE | 2024-02-12 08:58 | PM.IMPN ---
Progress Note: A&P Assessment and Plan (1) Closed subcapital fracture of neck of right femur: Code(s): S72.011A - Unspecified intracapsular fracture of right femur, initial encounter for closed fracture Status: Acute Assessment and Plan: - XR hip/pelvis: 1. Subcapital fracture of right femoral neck. 2. Mild osteoarthritis of the hips. - CXR: Mild atelectasis at left lung base. - EKG ordered - echo ordered, none on file and has murmur on exam. told she has a leaky valve previously. - ortho consulted, Jermaine KU recommend hip pinning - NPO at midnight - SCDs - urinary catheter - pain management - not good candidate for muscle relaxer given plan for surgical management and has previously not tolerated diazepam well (believes it made her dizzy) - zofran PRN for nausea - monitor labs in AM - CBC and BMP, add type and screen - bowel regimen: docusate/senna - maintenance fluids: LR 100 mL/hr x 1L 02/11: will plan to discontinue IV fluids when patient tolerating diet postoperative Plan echo pending due to mumur Home Meds/Chronic Conditions - continuing Augmentin from home oral surgery and home pantoprazole Code Status: Full code Time Spent With Patient Time with patient: 25 - 35 minutes Subjective Date/time seen: 02/12/24 08:58 Interval history: This is a 78-year-old female patient generally healthy he had a accidental all this to scabbed and landed on her right hip subcapital fracture planning to go to the operating room today for hip repair. She reports that she had recent oral surgery due to a dental implant that had migrated into her sinuses and she is supposed to be on Augmentin for such which she has missed a few doses already. for needed with nursing staff so patient could receive this medication preoperatively. Review of Systems Review of Systems: All systems reviewed & are unremarkable except as noted in HPI and below Exam Const: General: comfortable and no acute distress Other: , female, nontoxic apperance HENMT: Face/Nose/Sinus: Normal nares present Mouth: Yes moist mucous membranes Eyes: General: appearance normal, both eyes and all related structures Sclera: sclerae normal Pupils: Equal, round and reactive pupils present EOM: EOMs intact bilaterally Resp: Effort & Inspection: normal respiratory effort Auscultation: clear to auscultation bilaterally Cardio: Rate: tachycardic Rhythm: regular rhythm Heart sounds: Murmur heart sound present Other: whooshing quality, moderate. Skin: General skin exam: normal color and no rashes or lesions noted Wounds: no wounds Neuro: Cranial nerves: Yes Equal, round and reactive pupils present Speech: normal speech Motor exam (neuro): 5/5 motor strength present throughout Sensory Exam: normal sensation Other: RLE has limited ROM secondary to pain. A/Ox4. Extrem: General: normal to inspection Other: DP pulses intact bilaterally. Psych: Mental Status: mental status grossly normal Affect: normal affect Other: good insight and judgement. Objective Data Vital Signs Vital Signs: Vital Signs - 24 hr 02/11/24 14:55 02/11/24 16:43 02/11/24 21:13 Temperature 36.6 C 36.7 C Pulse Rate 100 90 96 Respiratory Rate 20 16 14 Blood Pressure 153/71 H 130/83 138/58 L Pulse Oximetry 95 96 95 Oxygen Delivery Room Air 02/11/24 23:20 02/12/24 05:54 Temperature 36.4 C L Pulse Rate 81 Respiratory Rate 14 Blood Pressure 110/44 L Pulse Oximetry 95 96 Oxygen Delivery Autopap Intake/Output Intake/Output: Intake & Output 02/09/24 02/10/24 02/11/24 02/12/24 23:59 23:59 23:59 23:59 Intake Total 250 Output Total 1100 Balance -850 Meds/Results Medications: Active Medications Generic Name Dose Route Start Last Admin Trade Name Freq PRN Reason Stop Dose Admin Acetaminophen 650 mg 02/11/24 15:53 Acetaminophen 325 Mg Tablet PO Q4H PRN Mild Pain (1-3
--- NOTE | 2024-02-12 09:21 | PC.NURSE ---
Addendum entered by Rosibel Chaney RN 02/12/24 09:22: To OR per bed, IV right arm, report given to merry Original Note: To OR per bed, IV Righ. Report given to [ ].
--- NOTE | 2024-02-12 09:36 | WPDANESEPPF ---
Anes - Initial Pre Proc Eval Procedure: Operation Date: 02/12/24 10:00 Proposed Procedures p Right Hip Pinning - Erickson Dean MD Date/Time: 02/12/24 09:36 Surgeon: Mazin Bianchi DO Pre Op Diagnosis: Subcapital Fracture of the Femoral Neck Rt Side Patient Data Age: 78 Gender: F Height: 1.55 m Weight: 62.5 kg Last Vital Signs Temp 36.4 C L 02/12/24 05:54 Pulse 81 02/12/24 05:54 Resp 14 02/12/24 05:54 BP 110/44 L 02/12/24 05:54 Pulse Ox 96 02/12/24 05:54 O2 Del Method Autopap 02/11/24 23:20 Allergies Allergy/AdvReac Type Severity Reaction Status Date / Time No Known Allergies Allergy Verified 02/11/24 14:59 Home Medications Medication Instructions Recorded Confirmed Type pantoprazole 40 mg tablet,delayed 40 mg PO DAILY 10/28/22 02/11/24 History release amoxicillin 500 mg-potassium 1 tablet PO TID 02/11/24 02/11/24 History clavulanate 125 mg tablet hydrocodone 5 mg-acetaminophen 325 1 tablet PO Q4H PRN Pain 02/11/24 02/11/24 History mg tablet Laboratory Tests 02/11/24 02/12/24 02/12/24 15:45 06:06 06:07 WBC 5.9 K/mm3 5.0 K/mm3 (4.5-10.0) (4.5-10.0) RBC 4.64 M/mm3 4.03 L M/mm3 (4.2-5.4) (4.2-5.4) Hgb 13.8 g/dL 11.8 L g/dL (12.0-15.0) (12.0-15.0) Hct 43.1 % 37.6 % (37.0-47.0) (37.0-47.0) MCV 92.9 fl 93.3 fl (80-100) (80-100) MCH 29.7 pg 29.3 pg (26-34) (26-34) MCHC 32.0 g/dl 31.4 L g/dl (32-36) (32-36) RDW 13.9 % 14.0 % (11.5-14.5) (11.5-14.5) Plt Count 170 k/mm3 150 k/mm3 (150-375) (150-375) MPV 10.4 fl 10.0 fl (7.4-10.4) (7.4-10.4) Immature Gran % (Auto) 0.7 H % 0.2 % (0-0.5) (0-0.5) Neut % (Auto) 56.6 % 63.9 % (45.5-73.1) (45.5-73.1) Lymph % (Auto) 30.1 % 21.0 % (18.3-44.2) (18.3-44.2) [place] % (Auto) 10.1 H % 11.3 H % (2.6-8.5) (2.6-8.5) Eos % (Auto) 1.7 % 2.6 % (0-4.4) (0-4.4) Baso % (Auto) 0.8 % 1.0 % (0.2-1.2) (0.2-1.2) Lymph # (Auto) 1.79 K/mm3 1.06 K/mm3 (0.9-3.2) (0.9-3.2) [place] # (Auto) 0.6 K/mm3 0.6 K/mm3 (0.1-0.6) (0.1-0.6) Eos # (Auto) 0.1 K/mm3 0.1 K/mm3 (0-0.3) (0-0.3) Baso # (Auto) 0.1 K/mm3 0.1 K/mm3 (0.0-0.1) (0.0-0.1) Abs Immat Gran (auto) 0.04 H K/mm3 0.01 K/mm3 (0.00-0.031) (0.00-0.031) Absolute Neuts (auto) 3.4 K/mm3 3.2 K/mm3 (1.3-6.7) (1.3-6.7) Absolute Nucleated RBC 0.000 K/mm3 0.000 K/mm3 (0.0-0.012) (0.0-0.012) Nucleated RBC % 0.0 % 0.0 % (0.0-0.2) (0.0-0.2) PT 13.3 Seconds (11.1-14.7) INR 1.0 APTT 27.7 Seconds (22.3-36.8) Sodium 135 L mmol/L 135 L mmol/L (137-145) (137-145) Potassium 4.4 mmol/L 4.1 mmol/L (3.4-5.0) (3.4-5.0) Chloride 101 mmol/L 103 mmol/L (98-107) (98-107) Carbon Dioxide 26 mmol/L 31 H mmol/L (22-30) (22-30) Anion Gap 8 mmol/L 1 L mmol/L (4-12) (4-12) BUN 15 D mg/dL 10 D mg/dL (7-17) (7-17) Creatinine 0.70 mg/dL 0.60 L mg/dL (0.7-1.0) (0.7-1.0) Estim Creat Clear Calc 50 ml/min 57 ml/min Estimated GFR > 60 > 60 (59 - ) (59 - ) Glucose 112 H mg/dL 96 mg/dL (65-110) (65-110) Calcium 9.1 mg/dL 8.7 mg/dL (8.4-10.2) (8.4-10.2) Total Bilirubin 0.8 mg/dL (0.2-1.3) AST 41 H U/L (14-36) ALT 15 U/L (6-35) Alkaline Phosphatase 51 U/L (38-126) Total Protein 7.0 g/dL (6.3-8.2) Albumin 4.3 g/dL (3.5-5.1) Blood Type B Negative Antibody Screen Negative Patient hx anesthesia problems: none Family hx anesthesia problems: none Results Review: All pre-operative results and documents have been reviewed as part of the pre-operative evaluation. [facility] Past Medical History Medical History
--- NOTE | 2024-02-12 09:48 | WPDHPUPDATE1 ---
History and Physical Update Update Date/Time: 02/12/24 09:48 History and Physical has been reviewed, including an updated exam of the patient. There are NO changes in the patient's condition. Risks, benefits, and alternatives have been discussed and questions answered. Patient agrees to proceed with procedure. Discussed Pinning with patient and family. Will only replace if fracture moves.
[2024-02-12] MEDS: ceFAZolin 2 GM/D5W 50 ML 2 GM/50 ML BAG IVPB ×2 (10:06→17:18)
--- NOTE | 2024-02-12 10:53 | W.PM.PROC2 ---
Procedure Note - Detailed Date of Procedure 02/12/24 Pre-op Diagnosis Subcapital Fracture of the Femoral Neck Rt Side Post-op Diagnosis Same Procedure Performed Right Hip Pinning Surgeon Erickson Dean MD Anesthesia General Indications Fracture Description of Procedure Patient brought to operating room number 9. General anesthetic was administered. She was last placed on the fracture table and sterilely prepped and draped in usual manner. At using a C-arm a guide pin was placed in center of the head. Three screws 8585 and 90 were placed around the pin. X-rays in the AP and lateral plane demonstrate good alignment of the fracture and good position of the screws all contained within the femoral head. The wound then irrigated hemostasis obtained closed with 2-0 Vicryl and jam sterile dressing applied patient tolerated the procedure well. Implants Synthesis 7.3mm pins Complications No immediate complications Condition Stable Disposition PACU [facility] Billing Surgery - Charge Forward: Surgery Billing ([id number] Hip Pinning for Femoral Neck Fracture)
--- NOTE | 2024-02-12 11:07 | SUR.OPER ---
7.3 cannulated screws right hip 85 x2, 90 x1
[2024-02-12] MEDS: LACTATED RINGERS 1,000 ML 30 ML IV CONT ×2 (11:09→12:10)
[2024-02-12] MEDS: fentaNYL CITRATE INJ (*CRX) 100 MCG/2 ML VIAL 25 MCG IV PUSH ×7 (11:16→12:32)
--- NOTE | 2024-02-12 12:51 | PC.NURSE ---
Returned from OR per Bed. Report received from Luz Marina GONZALES.
--- NOTE | 2024-02-12 14:48 | PCPTNOTE ---
Attempted PT evaluation, pt refused due to pain. RN aware. Will follow.
[2024-02-12] MEDS: HYDROcodone/acetaminophen (*CRX) 5-325 MG TABLET 2 TAB PO ×2 (14:57→21:14)
--- NOTE | 2024-02-12 16:14 | PC.NURSE ---
Patient not able to use IS related to previous dental surgery. educated patient on take deep breathes without device
[2024-02-12] MEDS: SENNA/DOCUSATE SODIUM TABLET 2 TAB PO (17:18)
[2024-02-12] MEDS: SENNA/DOCUSATE SODIUM TABLET 1 TAB PO (20:18)
[2024-02-13] VITALS (7 sets, daily range): BP systolic 103–149; BP diastolic 40–68; PULSE 72–95; RESP 14–16; TEMP 35.9–36.6; O2SAT 96–100
[2024-02-13] MEDS: ONDANSETRON INJ 4 MG/2 ML VIAL IV PUSH (02:23)
[2024-02-13] MEDS: MORPHINE SULFATE (*CRX) 2 MG/ML INJ IV PUSH (02:24)
[2024-02-13] MEDS: ceFAZolin 2 GM/D5W 50 ML 2 GM/50 ML BAG IVPB ×2 (02:25→11:55)
[2024-02-13] MEDS: SODIUM CHLORIDE 0.9% IV 250 ML 10 ML (03:04)
[2024-02-13] MEDS: HYDROcodone/acetaminophen (*CRX) 5-325 MG TABLET 2 TAB PO ×2 (03:20→20:56)
[2024-02-13 06:40] LABS: Basophils Percent Auto 0.7 % (0.2-1.2); Eosinophils Absolute Auto 0.2 K/mm3 (0-0.3); Eosinophils Percent Auto 2.6 % (0-4.4); Hematocrit 31.9 % (37.0-47.0); Immature Granulocyte Absolute 0.04 K/mm3 (0.00-0.031); Immature Granulocyte Percent A 0.7 % (0-0.5); Immature Platelet Fraction Pct 2.7 % (0.9-11.2); Lymphocytes Absolute Auto 1.03 K/mm3 (0.9-3.2); Lymphocytes Percent Auto 16.9 % (18.3-44.2); Mean Corpuscular HGB Conc 31.3 g/dl (32-36); Mean Corpuscular Hemoglobin 29.5 pg (26-34); Mean Corpuscular Volume 94.1 fl (80-100); Mean Platelet Volume 10.2 fl (7.4-10.4); Monocytes Absolute Auto 0.7 K/mm3 (0.1-0.6); Monocytes Percent Auto 11.5 % (2.6-8.5); Neutrophils Absolute Auto 4.1 K/mm3 (1.3-6.7); Neutrophils Percent Auto 67.6 % (45.5-73.1); Platelet Count Result 142 k/mm3 (150-375); Red Blood Count 3.39 M/mm3 (4.2-5.4); Red Cell Distribution Width 13.7 % (11.5-14.5); White Blood Count 6.1 K/mm3 (4.5-10.0)
[2024-02-13 06:51] LABS: Anion Gap 2 mmol/L (4-12); Blood Urea Nitrogen 7 mg/dL (7-17); Calcium 8.6 mg/dL (8.4-10.2); Carbon Dioxide 32 mmol/L (22-30); Chloride 100 mmol/L (98-107); Estimated CRCL calculation 57 ml/min; Estimated Glomerular Filt Rate > 60; Glucose 99 mg/dL (65-110); Potassium 3.7 mmol/L (3.4-5.0); Sodium 134 mmol/L (137-145)
--- NOTE | 2024-02-13 08:08 | PM.PNORT ---
Progress Note: A&P Assessment and Plan (1) Closed subcapital fracture of neck of right femur: Code(s): S72.011A - Unspecified intracapsular fracture of right femur, initial encounter for closed fracture Status: Acute Assessment and Plan: Patient is status post open reduction internal fixation right hip fracture. She has a hematoma which we will watch. Will try to ambulate her today. Subjective Subjective Date/Time Seen: 02/13/24 08:08 Post Op day: 1 Principal diagnosis: Right femoral neck fracture Interval history: Patient underwent pinning right femoral neck fracture Exam Narrative: This is a hematoma right hip. She wiggles her toes. Objective Data Vital Signs Vital Signs: Vital Signs - 24 hr 02/12/24 09:25 02/12/24 08:50 02/12/24 11:09 Temperature 98.6 F 97.7 F Pulse Rate 82 87 Respiratory Rate 20 17 Blood Pressure 122/51 L 133/67 Pulse Oximetry 100 93 100 Oxygen Delivery Room Air Room Air Simple Face Mask Oxygen Flow Rate 10 02/12/24 11:20 02/12/24 11:35 02/12/24 11:50 Temperature Pulse Rate 75 86 85 Respiratory Rate 12 13 12 Blood Pressure 130/53 L 144/53 H 135/62 Pulse Oximetry 100 100 100 Oxygen Delivery Simple Face Mask Simple Face Mask Simple Face Mask Oxygen Flow Rate 10 10 10 02/12/24 12:05 02/12/24 12:20 02/12/24 12:35 Temperature Pulse Rate 72 88 89 Respiratory Rate 12 16 20 Blood Pressure 127/51 L 107/75 113/51 L Pulse Oximetry 100 100 100 Oxygen Delivery Nasal Cannula Nasal Cannula Nasal Cannula Oxygen Flow Rate 2 2 2 02/12/24 12:50 02/12/24 13:05 02/12/24 13:35 Temperature 96.4 F L 96.8 F L Pulse Rate 75 79 87 Respiratory Rate 16 16 16 Blood Pressure 126/43 L 119/51 L 113/51 L Pulse Oximetry 100 98 100 Oxygen Delivery Oxygen Flow Rate 02/12/24 14:35 02/12/24 16:00 02/12/24 20:50 Temperature 96.4 F L 97.5 F L 97.2 F L Pulse Rate 96 99 82 Respiratory Rate 16 18 14 Blood Pressure 108/87 117/54 L 105/46 L Pulse Oximetry 96 97 96 Oxygen Delivery Oxygen Flow Rate 02/13/24 00:00 02/13/24 04:00 02/13/24 04:20 Temperature 96.7 F L 96.9 F L 96.9 F L Pulse Rate 72 81 Respiratory Rate 14 16 Blood Pressure 103/42 L 112/40 L Pulse Oximetry 97 98 Oxygen Delivery Oxygen Flow Rate Intake/Output Intake/Output: Intake & Output 02/10/24 02/11/24 02/12/24 02/13/24 23:59 23:59 23:59 23:59 Intake Total 2440 500 Output Total 2300 1175 Balance 140 -675 Meds/Results Medications: Active Medications Generic Name Dose Route Start Last Admin Trade Name Freq PRN Reason Stop Dose Admin Acetaminophen 650 mg 02/11/24 15:53 Acetaminophen 325 Mg Tablet PO Q4H PRN Mild Pain (1-3) or Fever Hydrocodone Bitart/Acetaminophen 1 tab 02/11/24 15:53 Hydrocodone/Acetaminophen (*Crx) 5-325 Mg Tablet PO Q4H PRN Pain Rated 4-6 Hydrocodone Bitart/Acetaminophen 2 tab 02/12/24 12:45 02/13/24 03:20 Hydrocodone/Acetaminophen (*Crx) 5-325 Mg Tablet PO 2 tab Q6H PRN Administration Pain Rated 7-10 Amoxicillin/Clavulanate Potassium 1 tablet 02/12/24 09:00 02/12/24 17:18 Amoxicillin/Clavulanate K 500-125 Mg Tab PO 02/18/24 20:00 1 tablet TID MAEGAN Administration Celecoxib 200 mg 02/13/24 08:00 Celecoxib 200 Mg Capsule PO DAILY@0800 MAEGAN Fentanyl Citrate 25 mcg 02/12/24 09:36 02/12/24 12:32 Fentanyl Citrate Inj (*Crx) 100 Mcg/2 Ml Vial IV PUSH 25 mcg Q2M PRN Administration Pain Lactated Ringer's 1,000 mls @ 30 mls/hr 02/12/24 09:40 02/12/24 12:10 Lr - Lactated Ringers Iv IV CONT Infused .Q24H MAEGAN Infusion Lactated Ringer's 1,000 mls @ 30 mls/hr 02/12/24 09:40 02/12/24 12:44 Lr - Lactated Ringers Iv IV CONT Infused .Q24H MAEGAN Infusion Cefazolin Sodium 2 gm in 50 mls @ 100 mls/hr 02/12/24 18:00 02/13/24 02:25 Ancef 2 Gm/D5w 50 Ml IVPB 02/13/24 10:29 100 mls/hr Q8H MAEGAN Administration Morphine Sulfate 2 m
[2024-02-13] MEDS: CELECOXIB 200 MG CAPSULE PO (08:28)
[2024-02-13] MEDS: AMOXICILLIN/CLAVULANATE K 500-125 MG TAB 1 TABLET PO ×3 (08:28→18:20)
[2024-02-13] MEDS: SENNA/DOCUSATE SODIUM TABLET 2 TAB PO ×2 (08:29→18:20)
[2024-02-13] MEDS: PANTOPRAZOLE 40 MG TABLET PO (08:29)
[2024-02-13] MEDS: polyethylene glycoL 3350 17 GM POWD.PACK PO (08:29)
[2024-02-13] MEDS: HYDROcodone/acetaminophen (*CRX) 5-325 MG TABLET 1 TAB PO ×2 (08:33→15:42)
--- NOTE | 2024-02-13 10:22 | PM.IMPN ---
Progress Note: A&P Assessment and Plan (1) Closed subcapital fracture of neck of right femur: Code(s): S72.011A - Unspecified intracapsular fracture of right femur, initial encounter for closed fracture Status: Acute Assessment and Plan: - XR hip/pelvis: 1. Subcapital fracture of right femoral neck. 2. Mild osteoarthritis of the hips. - CXR: Mild atelectasis at left lung base. - EKG ordered - echo ordered, none on file and has murmur on exam. told she has a leaky valve previously. - ortho consulted, Jermaine KU recommend hip pinning - NPO at midnight - SCDs - urinary catheter - pain management - not good candidate for muscle relaxer given plan for surgical management and has previously not tolerated diazepam well (believes it made her dizzy) - zofran PRN for nausea - monitor labs in AM - CBC and BMP, add type and screen - bowel regimen: docusate/senna - maintenance fluids: LR 100 mL/hr x 1L 02/11: will plan to discontinue IV fluids when patient tolerating diet postoperative 02/12: patient tolerating diet. DC IV fluids. Patient participating well with therapy toe-touch weight-bearing right lower extremity. Surgical site hematoma being monitored by Orthopedics. Plan Home Meds/Chronic Conditions - continuing Augmentin from home oral surgery and home pantoprazole Code Status: Full code Time Spent With Patient Time with patient: 25 - 35 minutes Subjective Date/time seen: 02/13/24 10:22 Interval history: Patient is postop day 1 right hip pinning. There is an hematoma at the surgical site wrapped Antonio and being monitored Orthopedics. Patient participating well with therapy. Toe-touch weight-bearing right lower extremity. Patient will likely require rehabilitation at [facility] Prior to going home. Patient complained losing her voice which is likely sequela of endotracheal intubation. No dyspnea. Review of Systems Review of Systems: All systems reviewed & are unremarkable except as noted in HPI and below Exam Narrative: slight laryngitis Const: General: comfortable and no acute distress Other: , female, nontoxic apperance HENMT: Face/Nose/Sinus: Normal nares present Mouth: Yes moist mucous membranes Eyes: General: appearance normal, both eyes and all related structures Sclera: sclerae normal Pupils: Equal, round and reactive pupils present EOM: EOMs intact bilaterally Resp: Effort & Inspection: normal respiratory effort Auscultation: clear to auscultation bilaterally Cardio: Rate: tachycardic Rhythm: regular rhythm Heart sounds: Murmur heart sound present Other: whooshing quality, moderate. Skin: General skin exam: normal color and no rashes or lesions noted Wounds: no wounds Neuro: Cranial nerves: Yes Equal, round and reactive pupils present Speech: normal speech Motor exam (neuro): 5/5 motor strength present throughout Sensory Exam: normal sensation Other: RLE has limited ROM secondary to pain. A/Ox4. Extrem: General: normal to inspection Other: DP pulses intact bilaterally. Surgical site dressing and Antonio wrap right hip, good distal pulse motor and sensation intact Psych: Mental Status: mental status grossly normal Affect: normal affect Other: good insight and judgement. Objective Data Vital Signs Vital Signs: Vital Signs - 24 hr 02/12/24 11:09 02/12/24 11:20 02/12/24 11:35 Temperature 36.5 C Pulse Rate 87 75 86 Respiratory Rate 17 12 13 Blood Pressure 133/67 130/53 L 144/53 H Pulse Oximetry 100 100 100 Oxygen Delivery Simple Face Mask Simple Face Mask Simple Face Mask Oxygen Flow Rate 10 10 10 02/12/24 11:50 02/12/24 12:05 02/12/24 12:20 Temperature Pulse Rate 85 72 88 Respiratory Rate 12 12 16 Blood Pressure 135/62 127/51 L 107/75 Pulse Oximetry 100 100 100 Oxygen Delivery Simple Face Mask Nasal Cannula Nasal Cannula Oxygen Flow Rate 10 2 2 02/12/24 12:35 02/12/24 12:50
--- NOTE | 2024-02-13 16:34 | PC.NURSE ---
On 02/13/24, the PARKING LOT SIGNALER, Jazz, provided care and completed [facility] documentation on this patient. I have reviewed the PARKING LOT SIGNALER's documentation and agree with the findings.
[2024-02-13] MEDS: SENNA/DOCUSATE SODIUM TABLET 1 TAB PO (20:56)
[2024-02-14] MEDS: MORPHINE SULFATE (*CRX) 2 MG/ML INJ IV PUSH (01:58)
[2024-02-14 04:00] VITALS: BP 118/55; PULSE 90; RESP 12; TEMP 37; O2SAT 97
[2024-02-14] MEDS: HYDROcodone/acetaminophen (*CRX) 5-325 MG TABLET 1 TAB PO (06:22)
[2024-02-14 07:41] VITALS: BP 129/56; PULSE 88; RESP 20; TEMP 36.3; O2SAT 96
[2024-02-14] MEDS: CELECOXIB 200 MG CAPSULE PO (08:56)
[2024-02-14] MEDS: AMOXICILLIN/CLAVULANATE K 500-125 MG TAB 1 TABLET PO ×3 (08:57→18:14)
[2024-02-14] MEDS: PANTOPRAZOLE 40 MG TABLET PO (08:57)
[2024-02-14] MEDS: SENNA/DOCUSATE SODIUM TABLET 2 TAB PO (08:57)
--- NOTE | 2024-02-14 11:34 | PM.IMPN ---
Progress Note: A&P Assessment and Plan (1) Closed subcapital fracture of neck of right femur: Code(s): S72.011A - Unspecified intracapsular fracture of right femur, initial encounter for closed fracture Status: Acute Assessment and Plan: - XR hip/pelvis: 1. Subcapital fracture of right femoral neck. 2. Mild osteoarthritis of the hips. - CXR: Mild atelectasis at left lung base. - EKG ordered - echo ordered, none on file and has murmur on exam. told she has a leaky valve previously. - ortho consulted, Jermaine KU recommend hip pinning - NPO at midnight - SCDs - urinary catheter - pain management - not good candidate for muscle relaxer given plan for surgical management and has previously not tolerated diazepam well (believes it made her dizzy) - zofran PRN for nausea - monitor labs in AM - CBC and BMP, add type and screen - bowel regimen: docusate/senna - maintenance fluids: LR 100 mL/hr x 1L 02/11: will plan to discontinue IV fluids when patient tolerating diet postoperative 02/12: patient tolerating diet. DC IV fluids. Patient participating well with therapy toe-touch weight-bearing right lower extremity. Surgical site hematoma being monitored by Orthopedics. 02/13: Patient working with therapy well. Expect discharge to [facility] tomorrow. Plan Home Meds/Chronic Conditions - continuing Augmentin from home oral surgery and home pantoprazole Code Status: Full code Time Spent With Patient Time with patient: 25 - 35 minutes Subjective Date/time seen: 02/14/24 11:34 Interval history: Patient is working well with therapy. Oral pain medicines are affective. Discontinue IV pain medication. Patient will require inpatient rehabilitation prior to discharge home. IRENE looking at patient and will likely be able to take her tomorrow. Patient denies difficulty breathing. Yesterday she was concerned she may have pneumonia but chest x-ray was normal and today she has only at the laryngitis complaint that she had previously mentioned. She remains on oral antibiotics due to oral/ sinus surgery prior to this hospitalization. Review of Systems Review of Systems: All systems reviewed & are unremarkable except as noted in HPI and below Exam Narrative: slight laryngitis Const: General: comfortable and no acute distress Other: , female, nontoxic apperance HENMT: Face/Nose/Sinus: Normal nares present Mouth: Yes moist mucous membranes Eyes: General: appearance normal, both eyes and all related structures Sclera: sclerae normal Pupils: Equal, round and reactive pupils present EOM: EOMs intact bilaterally Resp: Effort & Inspection: normal respiratory effort Auscultation: clear to auscultation bilaterally Cardio: Rate: regular rate Rhythm: regular rhythm Heart sounds: Murmur heart sound present Other: whooshing quality, moderate. Skin: General skin exam: normal color and no rashes or lesions noted Wounds: no wounds Neuro: Cranial nerves: Yes Equal, round and reactive pupils present Speech: normal speech Motor exam (neuro): 5/5 motor strength present throughout Sensory Exam: normal sensation Other: RLE has limited ROM secondary to pain. A/Ox4. Extrem: General: normal to inspection Other: DP pulses intact bilaterally. Surgical site dressing and Antnoio wrap right hip, good distal pulse motor and sensation intact No significant size difference in her postoperative hematoma Psych: Mental Status: mental status grossly normal Affect: normal affect Other: good insight and judgement. Objective Data Vital Signs Vital Signs: Vital Signs - 24 hr 02/13/24 14:30 02/13/24 20:00 02/14/24 04:00 Temperature 36.4 C L 36.6 C 37.0 C Pulse Rate 88 95 90 Respiratory Rate 16 14 12 Blood Pressure 122/44 L 127/48 L 118/55 L Pulse Oximetry 96 99 97 02/14/24 07:41 Temperature 36.3 C L Pulse Rate 88 Respiratory Rate 20 Blood Pressure 129/56 L Pulse Oximetry 96
[2024-02-14] MEDS: HYDROcodone/acetaminophen (*CRX) 5-325 MG TABLET 2 TAB PO ×2 (11:42→20:27)
[2024-02-14 12:04] VITALS: BP 140/58; PULSE 99; RESP 20; TEMP 36.6; O2SAT 96
[2024-02-14 15:52] VITALS: BP 118/56; PULSE 92; RESP 18; TEMP 36.3; O2SAT 100
[2024-02-14] MEDS: SENNA/DOCUSATE SODIUM TABLET 1 TAB PO (20:27)
[2024-02-14 22:06] VITALS: BP 112/59; PULSE 106; RESP 16; TEMP 36.4; O2SAT 97
[2024-02-15] MEDS: HYDROcodone/acetaminophen (*CRX) 5-325 MG TABLET 2 TAB PO ×3 (02:23→20:34)
[2024-02-15] MEDS: MORPHINE SULFATE (*CRX) 2 MG/ML INJ IV PUSH (04:39)
[2024-02-15 05:48] VITALS: BP 118/44; PULSE 82; RESP 14; TEMP 36.6; O2SAT 98
--- NOTE | 2024-02-15 07:11 | PM.PNORT ---
Progress Note: A&P Assessment and Plan (1) Closed subcapital fracture of neck of right femur: Code(s): S72.011A - Unspecified intracapsular fracture of right femur, initial encounter for closed fracture Status: Acute Assessment and Plan: Patient is status post pinning right hip. Pain is resolving swelling is not gotten worse hematoma. Looking at rehab at this time. Follow-up in the office in 2 weeks. Subjective Subjective Date/Time Seen: 02/15/24 07:11 Post Op day: 3 Principal diagnosis: Right hip fracture status post pinning Review of Systems Musculoskeletal: Musculoskeletal: Reports arthralgias, Reports joint swelling and Reports stiffness Exam Narrative: Pain with motion Right hip. Wiggle toes. Resp: Effort & Inspection: normal respiratory effort Cardio: Rate: regular rate Rhythm: regular rhythm Objective Data Vital Signs Vital Signs: Vital Signs - 24 hr 02/14/24 07:41 02/14/24 11:03 02/14/24 08:55 Temperature 97.3 F L Pulse Rate 88 Respiratory Rate 20 Blood Pressure 129/56 L Pulse Oximetry 96 Oxygen Delivery Room Air Room Air 02/14/24 12:04 02/14/24 15:29 02/14/24 15:52 Temperature 97.8 F 97.4 F L Pulse Rate 99 92 Respiratory Rate 20 18 Blood Pressure 140/58 L 118/56 L Pulse Oximetry 96 100 Oxygen Delivery Room Air 02/14/24 22:06 02/15/24 05:48 Temperature 97.5 F L 97.9 F Pulse Rate 106 H 82 Respiratory Rate 16 14 Blood Pressure 112/59 L 118/44 L Pulse Oximetry 97 98 Oxygen Delivery Intake/Output Intake/Output: Intake & Output 02/12/24 02/13/24 02/14/24 02/15/24 23:59 23:59 23:59 23:59 Intake Total 2440 1870 1757 250 Output Total 2300 1175 Balance 595 832 5391 250 Meds/Results Medications: Active Medications Generic Name Dose Route Start Last Admin Trade Name Freq PRN Reason Stop Dose Admin Acetaminophen 650 mg 02/11/24 15:53 Acetaminophen 325 Mg Tablet PO Q4H PRN Mild Pain (1-3) or Fever Hydrocodone Bitart/Acetaminophen 1 tab 02/11/24 15:53 02/14/24 06:22 Hydrocodone/Acetaminophen (*Crx) 5-325 Mg Tablet PO 1 tab Q4H PRN Administration Pain Rated 4-6 Hydrocodone Bitart/Acetaminophen 2 tab 02/12/24 12:45 02/15/24 02:23 Hydrocodone/Acetaminophen (*Crx) 5-325 Mg Tablet PO 2 tab Q6H PRN Administration Pain Rated 7-10 Amoxicillin/Clavulanate Potassium 1 tablet 02/12/24 09:00 02/14/24 18:14 Amoxicillin/Clavulanate K 500-125 Mg Tab PO 02/18/24 20:00 1 tablet TID [facility] Administration Celecoxib 200 mg 02/13/24 08:00 02/14/24 08:56 Celecoxib 200 Mg Capsule PO 200 mg DAILY@0800 [facility] Administration Naloxone HCl 0.1 mg 02/12/24 12:45 Naloxone Hcl 0.4 Mg/Ml Vial IV PUSH Q2M PRN Opiate Reversal Ondansetron HCl 4 mg 02/11/24 15:53 02/13/24 02:23 Ondansetron Inj 4 Mg/2 Ml Vial IV PUSH 4 mg Q4H PRN Administration Nausea Ondansetron HCl 4 mg 02/12/24 09:36 Ondansetron Inj 4 Mg/2 Ml Vial IV PUSH ONCE PRN Nausea Pantoprazole Sodium 40 mg 02/12/24 09:00 02/14/24 08:57 Pantoprazole 40 Mg Tablet PO 40 mg DAILY [facility] Administration Polyethylene Glycol 17 gm 02/13/24 09:00 02/14/24 08:57 Polyethylene Glycol 3350 17 Gm Powd.Pack PO Not Given QAM [facility] Rivaroxaban 10 mg 02/12/24 17:00 Rivaroxaban 10 Mg Tablet PO DAILY@17 [facility] Senna/Docusate Sodium 1 tab 02/12/24 21:00 02/14/24 20:27 Senna/Docusate Sodium Tablet PO 1 tab HS [facility] Administration Senna/Docusate Sodium 2 tab 02/12/24 17:00 02/14/24 18:14 Senna/Docusate Sodium Tablet PO Not Given BID [facility] Radiology Results: ITS Impressions Hip/Pelvis X-Ray 02/11/24 15:34 IMPRESSION: 1. Subcapital fracture of right femoral neck. 2. Mild osteoarthritis of the hips. Chest X-Ray 02/13/24 16:18 IMPRESSION: 1. Mild atelectasis versus scarring in the lower lung zones.
[2024-02-15 08:00] VITALS: PULSE 97; RESP 16; O2SAT 100
[2024-02-15] MEDS: AMOXICILLIN/CLAVULANATE K 500-125 MG TAB 1 TABLET PO ×3 (10:09→16:55)
[2024-02-15] MEDS: CELECOXIB 200 MG CAPSULE PO (10:09)
[2024-02-15] MEDS: PANTOPRAZOLE 40 MG TABLET PO (10:10)
--- NOTE | 2024-02-15 11:11 | PM.IMPN ---
Progress Note: A&P Assessment and Plan (1) Closed subcapital fracture of neck of right femur: Code(s): S72.011A - Unspecified intracapsular fracture of right femur, initial encounter for closed fracture Status: Acute Assessment and Plan: - XR hip/pelvis: 1. Subcapital fracture of right femoral neck. 2. Mild osteoarthritis of the hips. - CXR: Mild atelectasis at left lung base. - EKG ordered - echo ordered, none on file and has murmur on exam. told she has a leaky valve previously. - ortho consulted, Jermaine KU recommend hip pinning - NPO at midnight - SCDs - urinary catheter - pain management - not good candidate for muscle relaxer given plan for surgical management and has previously not tolerated diazepam well (believes it made her dizzy) - zofran PRN for nausea - monitor labs in AM - CBC and BMP, add type and screen - bowel regimen: docusate/senna - maintenance fluids: LR 100 mL/hr x 1L 02/11: will plan to discontinue IV fluids when patient tolerating diet postoperative 02/12: patient tolerating diet. DC IV fluids. Patient participating well with therapy toe-touch weight-bearing right lower extremity. Surgical site hematoma being monitored by Orthopedics. 02/13: Patient working with therapy well. Expect discharge to [facility] tomorrow. 02/14: Overnight right heel pain right knee pain patient received IV pain medication and now cannot go to [facility] today because of this. Plan Home Meds/Chronic Conditions - continuing Augmentin from home oral surgery and home pantoprazole Code Status: Full code Time Spent With Patient Time with patient: 25 - 35 minutes Subjective Date/time seen: 02/15/24 07:11 Interval history: Overnight patient complained of right heel pain and knee pain. She received dose of IV morphine but since this happened now she cannot be discharged to [facility] until tomorrow. Patient has right thigh postoperative hematoma not significantly changed in size the last 2 days. On evaluation this morning patient reported that her knee still ached but heel was much after being elevated pillow. Patient denies any shortness a breath chest pain nausea vomiting or any other concerning symptoms. Review of Systems Review of Systems: All systems reviewed & are unremarkable except as noted in HPI and below Exam Narrative: slight laryngitis Const: General: comfortable and no acute distress Other: , female, nontoxic apperance HENMT: Face/Nose/Sinus: Normal nares present Mouth: Yes moist mucous membranes Eyes: General: appearance normal, both eyes and all related structures Sclera: sclerae normal Pupils: Equal, round and reactive pupils present EOM: EOMs intact bilaterally Resp: Effort & Inspection: normal respiratory effort Auscultation: clear to auscultation bilaterally Cardio: Rate: regular rate and tachycardic Rhythm: regular rhythm Heart sounds: Murmur heart sound present Other: whooshing quality, moderate. Skin: General skin exam: normal color and no rashes or lesions noted Wounds: no wounds Neuro: Cranial nerves: Yes Equal, round and reactive pupils present Speech: normal speech Motor exam (neuro): 5/5 motor strength present throughout Sensory Exam: normal sensation Other: RLE has limited ROM secondary to pain. A/Ox4. Extrem: General: normal to inspection Other: DP pulses intact bilaterally. Surgical site dressing and Antonio wrap right hip, good distal pulse motor and sensation intact No significant size difference in her postoperative hematoma Psych: Mental Status: mental status grossly normal Affect: normal affect Other: good insight and judgement. Objective Data Vital Signs Vital Signs: Vital Signs - 24 hr 02/14/24 12:04 02/14/24 15:29 02/14/24 15:52 Temperature 36.6 C 36.3 C L Pulse Rate 99 92 Respiratory Rate 20 18 Blood Pressure 140/58 L 118/56 L Pulse Oximetry 96 100 Oxygen Delivery Room
[2024-02-15 14:00] VITALS: BP 122/48; PULSE 97; RESP 16; TEMP 36.1; O2SAT 100
[2024-02-15] MEDS: SENNA/DOCUSATE SODIUM TABLET 2 TAB PO (16:53)
[2024-02-15 20:25] VITALS: BP 126/50; PULSE 91; RESP 18; TEMP 36.2; O2SAT 96
[2024-02-15] MEDS: SENNA/DOCUSATE SODIUM TABLET 1 TAB PO (20:35)
[2024-02-16 05:50] VITALS: BP 133/51; PULSE 100; RESP 16; TEMP 36.4; O2SAT 97
[2024-02-16] MEDS: HYDROcodone/acetaminophen (*CRX) 5-325 MG TABLET 1 TAB PO ×2 (06:17→13:29)
[2024-02-16 08:00] VITALS: PULSE 100; RESP 16; O2SAT 97
[2024-02-16] MEDS: CELECOXIB 200 MG CAPSULE PO (09:15)
[2024-02-16] MEDS: PANTOPRAZOLE 40 MG TABLET PO (09:15)
[2024-02-16] MEDS: AMOXICILLIN/CLAVULANATE K 500-125 MG TAB 1 TABLET PO ×2 (09:15→13:29)
--- NOTE | 2024-02-16 10:37 | PM.DS ---
DS: Admitting Diagnosis Discharge Date 02/16/2024 Admitting Diagnosis Closed subcapital fracture him neck of right femur DS: Discharge Diagnosis Discharge Diagnosis (1) Closed subcapital fracture of neck of right femur: Code(s): S72.011A - Unspecified intracapsular fracture of right femur, initial encounter for closed fracture Status: Acute DS: Summary Hospital Course Hospital Course: this is a 78-year-old female patient relatively healthy with recent oral surgery on Augmentin was admitted to the hospital after suffering a fall with a right subcapital fracture the neck of the femur. Patient underwent pinning with Dr. Dean and has been toe-touch weight-bearing. Patient developed a postoperative hematoma so rivaroxaban had been placed on hold by Orthopedics. Patient doing well with therapy pain is treated with oral [place]. Patient accepted to [facility] for acute rehabilitation. Status at Discharge Cognitive/behavioral status at discharge: awake alert oriented and pleasant Functional status at discharge: uses cane/walker Overall status at discharge: patient is progressing back to baseline Time Spent with Patient Time attestation: Total time spent providing and/or coordinating discharge services: 35 minutes Time spent: Greater than 30 minutes Exam Narrative: slight laryngitis Const: General: comfortable and no acute distress Other: , female, nontoxic apperance HENMT: Face/Nose/Sinus: Normal nares present Mouth: Yes moist mucous membranes Eyes: General: appearance normal, both eyes and all related structures Sclera: sclerae normal Pupils: Equal, round and reactive pupils present EOM: EOMs intact bilaterally Resp: Effort & Inspection: normal respiratory effort Auscultation: clear to auscultation bilaterally Cardio: Rate: regular rate and tachycardic Rhythm: regular rhythm Heart sounds: Murmur heart sound present Other: whooshing quality, moderate. Skin: General skin exam: normal color and no rashes or lesions noted Wounds: no wounds Neuro: Cranial nerves: Yes Equal, round and reactive pupils present Speech: normal speech Motor exam (neuro): 5/5 motor strength present throughout Sensory Exam: normal sensation Other: RLE has limited ROM secondary to pain. A/Ox4. Extrem: General: normal to inspection Other: DP pulses intact bilaterally. Surgical site dressing and Antonio wrap right hip, good distal pulse motor and sensation intact No significant size difference in her postoperative hematoma Psych: Mental Status: mental status grossly normal Affect: normal affect Other: good insight and judgement. Discharge Plan Discharge Attending physician on discharge: Kavin Talamantes Consulting providers: Erickson Dean Discharging Clinician: Cristóbal Salter Anticipated Discharge Date/Time: 02/16/24 11:42 Patient Disposition: [facility] Activity: follow weight bearing status Diet: heart healthy and other - see discharge instructions Wound Care Instructions: change dressing daily Discharge Instructions: Diet: Heart healthy, soft and bite sized Activity: PT/OT with TTWB RLE Wound care: Daily 4x4 dressing changes Schedule follow up with Dr. Dean Patient Instructions: Hip Fracture (GEN) Follow-up/Referrals: Erickson Dean MD [Physician] - Call for Appointment Miller,Arun Clemons MD [Primary Care Provider] - Follow Up with Primary Dr Discharge Medications: New sennosides-docusate sodium [Senokot-S] 8.6-50 mg Tablet 1 tab PO HS Qty: 0 0RF celecoxib [Celebrex] 200 mg Capsule 200 mg PO DAILY@0800 Qty: 0 0RF sennosides-docusate sodium [Senokot-S] 8.6-50 mg Tablet 2 tab PO BID Qty: 0 0RF acetaminophen 325 mg Tablet 650 mg PO Q4H PRN (Reason: Mild Pain (1-3) Or Fever) Qty: 0 0RF hydrocodone-acetaminophen 5-325 mg Tablet 1 tab PO Q4H PRN (Reason: Pain Rated 4-6)
[2024-02-16 13:49] VITALS: BP 119/54; PULSE 109; RESP 16; TEMP 36.7; O2SAT 100
== END 2024-02-16 16:30 | DRG 481 ==
LOC: ANHED 15:59 → ANH3MEDSUR 17:38
PROVIDERS: Orthopaedic Surgery; Student in an Organized Health Care Education/Training Program; Admitting Provider Student in an Organized Health Care Education/Training Program; Emergency Provider Emergency Medicine; PCP Internal Medicine; Visit Provider Nurse Practitioner
PROC: 0QH634Z Insertion of Internal Fixation Device into Right Upper Femur, Percutaneous Approach (ICD-10-PCS; principal; 2024-02-12 10:00)
DX: S72.011A Unspecified intracapsular fracture of right femur, initial encounter for closed fracture (principal); L76.32 Postprocedural hematoma of skin and subcutaneous tissue following other procedure; M25.561 Pain in right knee; W10.9XXA Fall (on) (from) unspecified stairs and steps, initial encounter; M16.0 Bilateral primary osteoarthritis of hip; Z90.710 Acquired absence of both cervix and uterus; Z90.13 Acquired absence of bilateral breasts and nipples; Z85.3 Personal history of malignant neoplasm of breast; Z90.49 Acquired absence of other specified parts of digestive tract
CPT/HCPCS: 36415; 71045; 73502; 80048; 80053; 85025; 85055; 85610; 85730; 86850; 86900; 86901; 97110; 97116; 97161; 97165; 97530; 97535; 99199; 99285; A9270; C1713; C1769; J0690; J1100; J2270; J2405; J2704; J3010; J7050; J7120

== ENCOUNTER 2024-09-28 00:45 | Day surgery (SDC) | payer MEDICARE, SELFPAY ==
[2024-09-19 10:34] VITALS: BMI 24.1
[2024-09-28] MEDS: LACTATED RINGERS 1,000 ML 150 ML IV CONT (10:30)
[2024-09-28 10:33] VITALS: BP 153/57; PULSE 109; RESP 16; TEMP 36.4; O2SAT 98; BMI 23.6
--- NOTE | 2024-09-28 11:06 | PM.IMHP ---
H&P: HPI History of Present Illness Date/Time: 09/28/24 11:06 Chief Complaint: Dysphagia-history of ulcers. Narrative: The patient was diagnosed in October 24 with peptic ulcer disease, biopsies negative for malignancy. He is here for follow-up and Documentation of healing ulcer. In addition, patient has been complaining of intermittent dysphagia with pills and solid foods. Review of Systems Review of Systems: All systems reviewed & are unremarkable except as noted in HPI and below PMFSH Past Medical History Medical History Abdominal aortic aneurysm stable, follows with CT Surgery at [facility] BRCA1 positive Hx of breast cancer Osteoarthritis Valvular insufficiency told she has a leaky valve , unsure which. Surgical History Surgical History H/O bilateral mastectomy History of cholecystectomy History of hip surgery History of partial hysterectomy Family History Family History Other Diabetes mellitus Family history of cardiovascular disease Family history of malignant neoplasm Social History Social History Smoking status: Never smoker Alcohol intake: never Substance use: never Substance use type: does not use Do You Feel Safe in your Home?: Yes Lack of Transportation: No Lack of Food: Never True Current Housing: I Have Housing Concerned About Future Housing: No Difficulty Paying Gas/Electric Bills: No Difficulty Paying for Meds: No Currently Unemployed: No Education: High School Diploma/GED Difficulty w/ Childcare or Family Care: No Living arrangements: with family Occupation/Education: retired Spiritual care concerns: No Meds Home Medications and Allergies Home Medications Medication Instructions Recorded Confirmed Type hydrocodone 5 mg-acetaminophen 325 1 tab PO Q4H PRN Pain Rated 4-6 #0 02/16/24 09/28/24 Rx mg tablet tabs esomeprazole magnesium 40 mg 40 mg PO BID #60 caps 09/12/24 09/28/24 Rx capsule,delayed release (Nexium) Allergies Allergy/AdvReac Type Severity Reaction Status Date / Time No Known Allergies Allergy Verified 09/28/24 10:20 Vital Signs Vital Signs - 24 hr 09/28/24 10:33 Temperature 97.6 F Pulse Rate 109 H Respiratory Rate 16 Blood Pressure 153/57 H Pulse Oximetry 98 Oxygen Delivery Room Air Exam Const: General: cooperative and healthy appearing Resp: Effort & Inspection: normal respiratory effort and able to speak in complete sentences Auscultation: clear to auscultation bilaterally Cardio: Rate: regular rate Rhythm: regular rhythm GI: Inspection: normal to inspection GI Palp: No No hepatosplenomegaly present Auscultation: normal bowel sounds Rectal Exam: deferred Skin: General skin exam: normal color Psych: Appearance: grossly normal Mental Status: mental status grossly normal Assessment and Plan Assessment and plan (1) Dysphagia: Code(s): R13.10 - Dysphagia, unspecified Status: Acute Assessment and Plan: The patient is deemed a good candidate for the procedure. Consent signed. Will proceed. Will perform Esophageal dilatation if needed. (2) PUD (peptic ulcer disease): Code(s): K27.9 - Peptic ulcer, site unspecified, unspecified as acute or chronic, without hemorrhage or perforation Status: Acute
--- NOTE | 2024-09-28 11:13 | P.PNAN_ITS ---
Anes - Initial Pre Proc Eval Procedure: Operation Date: 09/28/24 11:30 Proposed Procedures p Esophagogastroduodenoscopy - Jaime Cosby MD Date/Time: 09/28/24 11:13 Surgeon: Jaime Cosby MD Pre Op Diagnosis: Epigastric pain,early satiety,nausea Patient Data Age: 79 Gender: F Height: 1.55 m Weight: 56.6 kg Last Vital Signs Temp 97.6 F 09/28/24 10:33 Pulse 109 H 09/28/24 10:33 Resp 16 09/28/24 10:33 BP 153/57 H 09/28/24 10:33 Pulse Ox 98 09/28/24 10:33 O2 Del Method Room Air 09/28/24 10:33 Allergies Allergy/AdvReac Type Severity Reaction Status Date / Time No Known Allergies Allergy Verified 09/28/24 10:20 Home Medications Medication Instructions Recorded Confirmed Type hydrocodone 5 mg-acetaminophen 325 1 tab PO Q4H PRN Pain Rated 4-6 #0 02/16/24 09/28/24 Rx mg tablet tabs esomeprazole magnesium 40 mg 40 mg PO BID #60 caps 09/12/24 09/28/24 Rx capsule,delayed release (Nexium) Patient hx anesthesia problems: none Family hx anesthesia problems: none Results Review: All pre-operative results and documents have been reviewed as part of the pre- operative evaluation. COUNTS INCLUDE 234 BEDS AT [facility] Past Medical History Medical History Abdominal aortic aneurysm stable, follows with CT Surgery at [facility] BRCA1 positive Hx of breast cancer Osteoarthritis Valvular insufficiency told she has a leaky valve , unsure which. Surgical History Surgical History H/O bilateral mastectomy History of cholecystectomy History of hip surgery History of partial hysterectomy Family History Family History Other Diabetes mellitus Family history of cardiovascular disease Family history of malignant neoplasm Social History Social History Smoking status: Never smoker Alcohol intake: never Substance use: never Substance use type: does not use Do You Feel Safe in your Home?: Yes Lack of Transportation: No Lack of Food: Never True Current Housing: I Have Housing Concerned About Future Housing: No Difficulty Paying Gas/Electric Bills: No Difficulty Paying for Meds: No Currently Unemployed: No Education: High School Diploma/GED Difficulty w/ Childcare or Family Care: No Living arrangements: with family Occupation/Education: retired Spiritual care concerns: No Anes - Eval Final PreProcedure Day of Procedure 09/28/24 11:13 Patient weight: normal Heart: regular rate and rhythm Lungs: clear to auscultation Airway: Mallampati scale class II Neurological: alert and oriented Last oral intake: >/= 8 hours ASA classification: III Emergent: no Anesthetic plan: proceed Anesthesia type and monitoring: general GIVS and standard monitoring Results Review: All pre-operative results and documents have been reviewed as part of the pre- operative evaluation. Informed Consent: The patient's anesthetic plan and its attendant risks and benefits were discussed with the patient/family/POA. Questions were solicited and answers provided to the satisfaction of the patient/family/POA.
[2024-09-28 11:23] VITALS: BP 111/42; PULSE 79; RESP 23; O2SAT 98
[2024-09-28 11:33] VITALS: BP 95/47; PULSE 82; RESP 23; O2SAT 100
[2024-09-28 11:43] VITALS: BP 107/51; PULSE 80; RESP 20; O2SAT 100
== END 2024-09-28 12:07 | disposition home or self-care (01) ==
PROVIDERS: PCP Internal Medicine; Referring Provider Nurse Practitioner; Visit Provider Internal Medicine Gastroenterology
PROC: 0DJ08ZZ Inspection of Upper Intestinal Tract, Via Natural or Artificial Opening Endoscopic (ICD-10-PCS; CPT 43235; principal; 2024-09-28 11:30)
DX: K25.7 Chronic gastric ulcer without hemorrhage or perforation (principal); K29.30 Chronic superficial gastritis without bleeding; I71.40 Abdominal aortic aneurysm, without rupture, unspecified; Z85.3 Personal history of malignant neoplasm of breast
CPT/HCPCS: 43239; 88305; 88342; J2704; J7120

== ENCOUNTER 2025-06-01 14:43 | Outpatient (CLI) | payer MEDICARE, SELFPAY ==
--- NOTE | ~2025-06-01 | XR_ITS ---
XR abdomen/kub 1V 06/01/2025 15:03 INDICATION: Incomplete bowel movement TECHNIQUE: KUB COMPARISON: None FINDINGS: Bowel gas pattern is normal. Moderate colonic fecal loading. There is no evidence of free a ir, mass, organomegaly, ascites or obstruction. No abnormal calculi are seen. Severe lumbar spondylo sis with dextroscoliosis. There are cancellous screws in the right femoral neck. IMPRESSION: 1: No acute abdominal abnormality identified. Reviewed, dictated and finalized at location B.
--- OUTSIDE RECORDS SUMMARY | 2025-06-01 14:47 | XMS_ITS | Clinical Summary ---
Author Organization [facility] Address [address] [place] [address] Care Team Providers Care Furnace Mechanic Name Role Phone Arun Miller MD Primary Care Provider [phone] Source Comments [facility],non-owned Affiliates and Associated Physician Practices is amultiple site organization consisting of ambulatory clinics and hospital sitesin [place], [place], [place] and [place]. This disclosure is being madepursuant to the Care Everywhere program and may not contain all information available regarding this patient. Last updated 18.[facility] Allergies No known active allergies Immunizations Immunization Administration Dates Next Due INFLUENZA VACCINE, HIGH-DOSE , QUADR. 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 Gender Identity Not on file Sexual Orientation Not on file Plan of Treatment Health Maintenance Due Date Last Done Comments BONE DENSITY TESTING 1945 MEDICARE AWV 12 MONTHS 1945 HEPATITIS C SCREENING 08/22/1965 DTAP/TDAP/TD VACCINES (1 - Tdap) 1966 PNEUMOCOCCAL VACCINE 50+ (1 of 1 - PCV) 1997 ZOSTER VACCINE (1 of 2) 1997 Respiratory Syncytial Virus (RSV) Vaccine Pt: or over 60 yrs (1 - 1-dose 75+ series) 2022 COVID-19 VACCINE ( - 2023-2 5 season) 2024 DEPRESSION SCREENING 11/02/2024 INFLUENZA VACCINE (#1) 2025 07/29/2017 HEPATITIS B VACCINE Aged Out No longe r eligible based on patient's age to complete this topic HIB VACCINE Aged Out No longer eligi ble based on patient's age to complete this topic HPV VACCINE Aged Out No longer eligi ble based on patient's age to complete this topic MENINGOCOCCAL (Group B) VACC INE SHARED DECISION-MAKING Aged Out No longer eligibl e based on patient's age to complete this topic MENINGOCOCCAL GROUPS A/C/Y/W VACCINE Aged Out No longer eligible b ased on patient's age to complete this topic Insurance MEDICARE MEDICARE [facility] SELF PAY NO INSURANCE Member Subscriber Plan / Payer (Ef fective for All Dates) Name:Elderisabella Rosalba Member ID:Not on file Relation to Subscriber:Not on file Name:ROSALBA LUA Subscriber ID:Not on file (Home) Address: [address] [place] [address] Payer ID:Not on file Group ID:Not on file Type:Self Pay Address: [place], [place] MEDICARE AAR MEDICARE AARP Care Teams Furnace Mechanic Relationship Specialty Start Date End Date Arun Miller MD [address] [place] [address] [address] [place] [address] PCP - General Internal Medicine 07/29/17
--- OUTSIDE RECORDS SUMMARY | 2025-06-01 14:47 | XMS_ITS | Encounter Summary ---
Author Organization [facility] Address [address] [place] [address] Phone Care Team Providers Care Human Service Specialist Name Role Phone Arun Miller MD Primary Care Provider Johnathon Theodore MD Unavailable [phone] Lashonda Sousa MD Unavailable [phone] Miscellaneous, Not In File Unavailable Unava ilable Sonny Penaloza MD Unavailable Encounter Details Date Type Department Care Team (Late st Contact Info) Description 05/29/2025 Telephone [facility] Cardiology [address] [place] [address] [place] [address] Sonny Penaloza MD [address] [place] [address] Social History Tobacco Use Types Packs/Day Years Used Date Smoking Tobacco: Never Passive Smoke Exposure: Past Smokeless Tobacco: Never Alcohol Use Standard Drinks/Week Comments No 0 (1 standard drink = 0.6 oz pur e alcohol) [facility] Utilities Answer Date Recorded In the past 12 months has e electric, gas, oil, or water company threatened to shut off services in your home? No 03/28/2025 Social Connection and Isolation Panel [NHANES] A nswer Date Recorded In a typical week, how many times do you talk on the phone with family, friends, or neighbors? Three times a week 03/28/2025 How often do you get togethe r with friends or relatives? Three times a week 03/28/2025 How often do you attend chur ch or adventist services? Never 03/28/2025 Do you belong to any clubs o r organizations such as confucianist groups, unions, fraternal or athletic groups, or school groups? No 03/28/2025 How often do you attend meet ings of the clubs or organizations you belong to? Never 03/28/2025 Are you , , di vorced, , never , or living with a partner? 03/28/2025 AUDIT-C Answer Date Recorded Q1: How often do you have a drink containing alcohol? Never 02/02/2025 Q2: How many drinks containi ng alcohol do you have on a typical day when you are drinking? Patient does not drink Q3: How often do you have si x or more drinks on one occasion? Never 02/02/2025 Overall Financial Resource Strain (CARDIA) Answe r Date Recorded How hard is it for you to pa y for the very basics like food, housing, medical care, and heating? Not hard at all 03/28/2025 PHQ-2 Answer Date Recorded PHQ-2 Total Score (If total score is 3 or more points, staff should administer the PHQ-9) 0 03/28/2025 Hunger Vital Sign Answer Date Recorded Within the past 12 months, y ou worried that your food would run out before you got the money to buy more. Never true 03/28/20 25 Within the past 12 months, t he food you bought just didn't last and you didn't have money to get more. Never true 03/28/2025 PRAPARE - Transportation Answer Date Re corded In the past 12 months, has l ack of transportation kept you from medical appointments or from getting medications? No 03/03 In the past 12 months, has l ack of transportation kept you from meetings, work, or from getting things needed for daily living? No 03/28/2025 Housing Stability Vital Sign Answer Johnnie e Recorded In the last 12 months, was t here a time when you were not able to pay the mortgage or rent on time? No 03/28/2025 In the past 12 months, how m any times have you moved where you were living? 0 03/28/2025 At any time in the past 12 m [place], were you homeless or living in a correction (including now)? No 03/28/2025 Personal Safety Answer Date Recorded Have you ever been in or are you currently in a harmful physical or emotional relationship or is someone making you feel afraid or unsafe? Denies 03/24/2025 Comments No Sex and Gender Information Value Date Recorded Sex Assigned at Not on file Legal Sex Female 12:47 AM PATIENT [facility] MGR Gender Identity Not on file Sexual Orientation Not on file documented as of this encounter Miscellaneous Notes * Telephone Encounter - Stacie Hodge RN - 05/31/2025 9:[address] Penaloza Lipid panel, HCRP, lpa, apo b and A1c Pt aware, orders sent * Telephone Encounter - Keely Holden - 05/29/2025 10:41 AM CDT Tremaine Pt calling to speak with a nurse in regards to seeing if she would need to have any lab work done before her appointment on Thursday. documented in this encounter Plan of Treatment Scheduled Orders Name Type Priority Associated Diagnoses Orde r Schedule Lipid panel Lab Routine Aortic valve insufficiency, etiology of cardiac valve disease unspecified Aneurysm of ascending aorta without rupture Expected: 06/01/2025, Expires: 05/31/2026 Hemoglobin A1c Lab Routine Aortic valve insufficiency, etiology of cardiac valve disease unspecified Aneurysm of ascending aorta without rupture Abnormal finding of blood chemistry, unspecified Expected: 06/01/2025, Expires: 05/31/2026 Apolipoprotein B, serum Lab Routine Aortic valve insufficiency, etiology of cardiac valve disease unspecified Aneurysm of ascending aorta without rupture Expected: 06/01/2025, Expires: 05/31/2026 Lipoprotein a (LPa) Lab Routine Aortic valve insufficiency, etiology of cardiac valve disease unspecified Aneurysm of ascending aorta without rupture Encounter for screening for cardiovascular disorders Expected: 06/01/2025, Expires: 05/31/2026 CRP (cardiac risk) Lab Routine Aortic valve insufficiency, etiology of cardiac valve disease unspecified Aneurysm of ascending aorta without rupture Expected: 06/01/2025, Expires: 05/31/2026 documented as of this encounter Visit Diagnoses Diagnosis Aortic valve insufficiency, etiology of cardiac valve disease unspecified- Primary Aneurysm of ascending aorta without rupture Abnormal finding of blood chemistry, unspecified Encounter for screening for cardiovascular disorders documented in this encounter Care Teams Human Service Specialist Relationship Specialty Start Date End Date Arun Miller MD PCP - General 04/20/17 Johnathon Theodore MD [address] [place] [address] Medical Oncologist/Therapeutic Consultant Medical Oncology 01/03/25 Lashonda Sousa MD [address] [place] [address] Surgeon Cardiothoracic Surgery 03/08/25 Miscellaneous, Not In File 03/08/25 Sonny Penaloza MD [address] [address] Consulting Physician Cardiology 03/31/25 documented as of this encounter
--- OUTSIDE RECORDS SUMMARY | 2025-06-01 14:47 | XMS_ITS ---
Author Organization [facility] Address [address] [place] [address] Care Team Providers Care Kettle Skimmer Name Role Phone Arun Miller MD Primary Care Provider Johnathon Theodore MD Unavailable [phone] Lashonda Sousa MD Unavailable [phone] Miscellaneous, Not In File Unavailable Unava ilable Sonny Penaloza MD Unavailable [phone] Active Problems Problem Noted Date Diagnosed Date Wound infection 03/24/2025 Assessment & Plan (03/31/2025 12:52 PM CDT): Rosalba Ghosh is a 79 year old woman with PMH of breast cancer s/p bilateral mastectomy, thoracic aortic aneurysm and severe AR s/p ascending aortic arch replacement and bioAVR with sternal plating 02/28/2025 who presented to the ED 03/24/2025 with drainage from the lower part of the sternal wound consistent with sternal wound surgical site infection, possibly associated with hardware. She underwent bioAVR and ascending aortic arch replacement with sternal plating 02/28/2025. Noticed white drainage from the lower part of the sternal incision starting 03/16. Wound cx 03/22: Pseudomonas aeruginosa and mixed micro She presented to the ED on 03/24 with bilateral chest pain, R>L and ongoing drainage from the site. At presentation, Tamx 37.7 (99.8) and WBC 10.17. CT C/A/P 03/26 showed new rim-enhancing fluid collection 19 x 16 x 24mm in the anterior chest wall and a small rim-enhancing fluid collection anterior to the inferior margin of the second sternal plate and extending to the top of the third sternal plate, no osteomyelitis or mediastinal abscess. No operative plans as no c/f deeper infection/hardware infection. Qtc interval 03/07 440. Recommendations - Recheck qtc interval to ensure <500 - If qtc interval <500, start ciprofloxacin 750mg PO q12, duration 14d total from 03/24-04/06. - If qtc interval is >500 please notify ID, will need alternate plan. - Discontinue cefepime. - ID will sign off. No ID follow up needed. Assessment & Plan (03/26/2025 4:10 PM CDT): Rosalba Ghosh is a 79 year old woman with PMH of breast cancer s/p bilateral mastectomy, thoracic aortic aneurysm and severe AR s/p ascending aortic arch replacement and bioAVR with sternal plating 02/28/2025 who presented to the ED 03/24/2025 with drainage from the lower part of the sternal wound consistent with sternal wound surgical site infection, possibly associated with hardware. She underwent bioAVR and ascending aortic arch replacement with sternal plating 02/28/2025. Noticed white drainage from the lower part of the sternal incision starting 03/16. Wound cx 03/22: Pseudomonas aeruginosa and mixed micro She presented to the ED on 03/24 with bilateral chest pain, R>L and ongoing drainage from the site. At presentation, Tamx 37.7 (99.8) and WBC 10.17. CT C/A/P 03/26 showed new rim-enhancing fluid collection 19 x 16 x 24mm in the anterior chest wall and a small rim-enhancing fluid collection anterior to the inferior margin of the second sternal plate and extending to the top of the third sternal plate, no osteomyelitis or mediastinal abscess Recommendations - Discontinue vancomycin - Continue IV cefepime 2g Q12 hours (higher dose in context of Pseudomonas infection, CrCl 30-59) - CT C/A/P 03/26 is concerning that there is an infected fluid collection by the second and third sternal plates - will need clarification from surgery whether there are any operative plans and concern for hardware associated infection - Further recs pending whether there are any operative plans - Monitor at least weekly CMP and CBC while on IV antibiotics Assessment & Plan (03/30/2025 1:41 PM CDT): Pt underwent Bio Avr/Asc aortic replacement on 02/28/[address] Sousa 03/16 she noted lower sternal drainage, no further drainage She was seen in clinic 03/22 and there was further drainage from the sternum (whitish in color) A wound culture was sent and and Chest CT was obtained Ct without organized fluid collection but culture had rare pseudomonas, she was sent from the clinic to the ED Admitted 03/25 for IV antibiotics and follow up CT to be obtained Monday 03/26 WBC 11, fever max 36.8 May require PRS consult based on CT CT completed 03/26 showed new fluid collection without evidence of osteo and mediastinitis ID consulted No need for daily blood cultures per ID Dc vancomycin per ID 03/29 PET scan: marked hypermetabolism along sternotomy incision, aortic valve (all c/w post surgical inflammation) Dr Hamilton with plastic surgery following patient Atypical lymphocytic infiltrate of skin 03/07/20 Assessment & Plan (03/07/2025 3:01 PM CDT): Patient with rash from [place] - bacitracin and telfa applied [place] removed 03/06 Wound c/s - appreciate recommendations Acute postoperative pain 03/05/2025 Atrial fibrillation 03/03/2025 Assessment & Plan (03/07/2025 3:02 PM CDT): Short run of AF 03/02 Continue telemetry - NSR with a 1st degree on atrial EKG this AM Qtc 428 and TN 216 today Continue metoprolol and titrate as tolerated Decreased amio to 400 daily for Qtc for 539 on 03/04 Daily 12 lead Aortic valve insufficiency, acquired 02/28/2025 Assessment & Plan (03/06/2025 12:46 PM CDT): 02/28 AVR (INSPIRIS 25mm), Ascending aortic replacement (28mm Gelweave graft) Continue ASA, metoprolol, choestid at home, will resume at that time Lasix po daily - would continue for a week (not on home diuretic) Continue Heparin SQ for DVT prophylaxis Bowel regimen on hold PT/OT IS and pulmonary hygiene Calcaneal spur 08/12/2022 Gallstone 08/12/2022 Gastroesophageal reflux disease 08/12/2022 Assessment & Plan (03/02/2025 11:53 AM CDT): Continue Pantoprazole Osteopenia 08/12/2022 Paroxysmal supraventricular tachycardia 08/12/20 22 Assessment & Plan (03/25/2025 2:17 PM CDT): Hx of AF with surgery 02/28/25 Will continue the amiodarone 400 daily Currently in NSR Telemetry Primary malignant neoplasm of female breast 08/02 Breast mass 05/26/2022 History of breast cancer 05/14/2022 Overview (05/14/2022): Added automatically from request for surgery [id number] Hypertrophy of breast 05/14/2022 Overview (05/14/2022): Added automatically from request for surgery [id number] Aftercare following surgery for neoplasm 022 Overview (05/14/2022): Added automatically from request for surgery [id number] Bilateral breast cysts 05/14/2022 Overview (05/14/2022): Added automatically from request for surgery [id number] COVID-19 05/06/2022 Hyperlipidemia 02/12/2022 Assessment & Plan (03/25/2025 2:17 PM CDT): Continue colestid Assessment & Plan (03/06/2025 12:44 PM CDT): Resume home Colestid 1 Gm po q pm at discharge, not on formulary here Heart healthy diet Explore addition of statin Thoracic aortic aneurysm (TAA) 10/02/2021 Assessment & Plan (03/06/2025 12:46 PM CDT): 02/28 AVR (INSPIRIS 25mm), Ascending aortic replacement (28mm Gelweave graft Continue Metoprolol; increase as tolerated (not on BB at home) Goal SBP 130 or < Diuresis as tolerated TTE today, no need for CTA per Dr Sousa Plan for discharge 03/07 to home with HHN Assessment & Plan (04/02/2022 11:17 AM CDT): a. Etiology: i. Yes history of long standing hypertension ii. No history of smoking iii. No family history suggestive of an inherited aortopathy or MCTD iv. No history of trauma v. No history of an inflammatory, infectious etiology b. Interventions: i. Measurements personally reviewed as outlined; ii. At this size and stability, surgical intervention is not indicated iii. Will continue to monitor for progression (>0.5cm/year, or >5.5cm absolute dimension) or concomitant surgical valvular or coronary disease as well as signs/symptoms suggestive of malperfusion. c. Anti-impulse therapy: i. BP Control: Goal as low as tolerableBP <130/80; encouraged BP diary ii. Ambulatory BP monitor ordered iii. HR Control: Goal as low as tolerable; ideally goal resting HR<80 bpm iv. Will initiate losartan 25mg or metoprolol 25mgXL once we have objective BP/HR data. d. Anti-inflammatory Statin Therapy for Aortic Syndrome Prevention: i. Independent of underlying dyslipidemia, statin therapy can help reduce aortic events ii. Recommend 20 mg of rosuvastatin iii. She would like to continue to try conservative management for now; we will readdress at the next visit iv. This is particularly important given coronary/aortic calcifications noted on CTs v. Will obtain lipid panel e. Imaging Screening Intervals: i. Repeat Q12 months; next CTA scan on 10/2022 ii. ECHO will give us another look at her ascending aorta as well as evaluate her AV f. 1st Degree Relatives Imaging Screening: i. Per Thoracic Guidelines, all 1st degree relatives should get an initial aortic imaging evaluation ii. If screened positive, we will discuss the role of genetic testing iii. Resources provided Osteoporosis 06/06/2021 Lump of breast, right 05/22/2021 Acquired absence of both breasts 05/22/2021 BRCA1 gene mutation positive 04/20/2017 Cobalamin deficiency 04/17/2017 Vitamin D deficiency 04/15/2017 Thoracic back pain 02/27/2016 Assessment & Plan (03/06/2025 12:40 PM CDT): Chronic, likely r/t scoliosis Heat/Ice alternating D/c'd oxycodone and put back on home [place] to see if that improved pain control, but pt said she hurt too much Will keep oxycodone and stop the dilaudid (pt going home tomorrow) Tylenol 1 mg Q 6 hours Chantal Lidocaine patch Genetic susceptibility to malignant neoplasm Genetic susceptibility to malignant neoplasm of ovary 07/18/2013 Current Treatment and Therapy Plans No current plan information found. Past Treatment and Therapy Plans No past plan information found. Lifetime Dose Tracking * Chemical Lifetime Dose Automatic Entry Manual Entr y DLP 2,233 mGycm 2,233 mGycm 0 mGycm Resolved Problems Problem Noted Date Diagnosed Date Resolved Date Preoperative cardiovascular examination 05/22/2021 03/25/2025 Assessment & Plan (04/02/2022 11:20 AM CDT): Based on risk factors alone, patient is at intermediate risk for perioperative cardiovascular complications for the planned intermediate risk procedure However, given functional capacity >4METS METS by history, and no active angina, heart failure symptoms, or arrhythmic symptoms at this time no further cardiovascular testing recommended at this time Continue perioperative BP and HR monitoring Recommend routine telemetry monitoring, DVT prophylaxis, and close attention to blood pressure and heart rate. Avoid hypotension, excessive volume/blood loss, and support as needed.
--- OUTSIDE RECORDS SUMMARY | 2025-06-01 14:48 | XMS_ITS | Referral Summary ---
Author Organization [facility] al Address [address] [place] [address] Care Team Providers [facility] Attendant Name Role Phone Arun Miller MD Primary Care Provider Johnathon Theodore MD Unavailable [phone] Lashonda Sousa MD Unavailable [phone] Miscellaneous, Not In File Unavailable Unava ilable Sonny Penaloza MD Unavailable Encounters Date Type Department Care Team Description 05/29/2025 Telephone [facility] Cardiology Formerly [facility], [facility] [facility] Advanced Medicine 8th [place] [address] [place] [id number] Sonny Penaloza MD 05/01/2025 Telephone [facility] Cardiology Formerly [facility], [facility] [facility] Advanced Medicine 8th [place] [address] [place] [phone] Abby Madrigal 04/26/2025 2:00 PM CDT Office Visit [facility] Oncology [address] [facility] Floor 6 [place] [address] Hannah Stewart NP Atypical lymphocytic infiltrate of skin (Primary Dx); Lymphadenopathy 04/26/2025 1:[address] [facility] - Lab Collection [address] [facility] Floor 6 [place] [address] Lymphadenopathy 04/20/2025 Telephone [facility] Cardiothoracic Surgery Formerly [facility], [facility] [facility] Medicine 8th Floor [address] Room [address] [phone] Leonor Celeste NP 04/10/2025 Orders Only [facility] Cardiothoracic Surgery [address] [place] [address] Advanced Medicine 8th Floor [address] Room [address] [place] [phone] Leonor Celeste NP 04/05/2025 3:30 PM CDT Office Visit [facility] Cardiothoracic Surgery [address] [place] [address] Advanced Medicine 8th Floor [address] Room [address] [place] [phone] Leonor Celeste NP Thoracic aortic aneurysm without rupture, unspecified part (Primary Dx) 03/24/2025 9:17 AM CDT - 03/31/2025 3:05 PM CDT Hospital Encounter [address] [address] Shemar Edmonds MD Masood, MD Aretha Jo Richard Thomas, MD Wound infection (Primary Dx); Pseudomonas infection; H/O ascending aortic replacement; Sternal wound infection Discharge Disposition: Discharge to home, home health skilled care 03/22/2025 Documentation [facility] Cardiothoracic Surgery [address] [place] [address] Advanced [facility] 8th Floor [address] Room [address] [place] [phone] Leonor Celeste NP 03/22/2025 2:20 PM CDT - 03/22/2025 11:59 PM CDT Hospital Encounter [address] [address] Thoracic aortic aneurysm without rupture, unspecified part Discharge Disposition: Discharge to home or self care 03/22/2025 2:27 PM CDT - 03/22/2025 11:59 PM CDT Hospital Encounter [facility] [address] [place] [address] Thoracic aortic aneurysm without rupture, unspecified part Discharge Disposition: Discharge to home or self care 03/22/2025 1:30 PM CDT Office Visit [facility] Cardiothoracic Surgery [address] 8[address] Floor [address] Room [address] [place] [phone] Leonor Celeste NP Thoracic aortic aneurysm without rupture, unspecified part (Primary Dx) 03/17/2025 Orders Only [facility] Cardiothoracic Surgery [address] [place] [address] 8th Floor [address] Room [address] [place] [phone] Leonor Celeste NP 03/16/2025 Orders Only [facility] Cardiothoracic Surgery [address] [place] [address] 8th Floor [address] Room [address] [place] [phone] Leonor Celeste NP 03/16/2025 Documentation [facility] Cardiothoracic Surgery [address] [place] [address] 8th Floor [address] Room [address] [place] [phone] Leonor Celeste NP 02/28/2025 5:24 AM CDT - 03/08/2025 2:40 PM CDT Hospital Encounter [facility] [address] [place] [address] Lashonda Sousa MD Acute postoperative pain (Primary Dx); Aneurysm of ascending aorta without rupture; Medication monitoring encounter Discharge Disposition: Discharge to home, home health skilled care 03/07/2025 Orders Only [facility] Cardiothoracic Surgery [address] [place] [address] 8th Floor [address] Room [address] [place] [phone] Leonor Celeste NP Follow-up examination following surgery (Primary Dx) from Last 3 Months Allergies No known active allergies Medications calcium carbonate-vit meredith D3 1,250mg (500mg elemental) - 5 mcg (200 units) per tabletIndicat ions:for supplement Take 1 tablet by mouth every morning Active multivitamin tabletIndicat ions:Vitamin Deficiency Prevention Take 1 tablet by mouth every morning Active esomeprazole DR (NexIUM) 40 mg capsuleIndica tions:gerd Take 1 capsule (40 mg total) by mouth every morning 10/10/20 24 Active colestipoL (COLESTID) 1 gram tablet Take 1 tablet (1 g total) by mouth nightly 10/18/20 24 Active acetaminophen (TYLENOL) 325 mg tablet Take 2 tablets (650 mg total) by mouth every 6 (six) hours as needed for pain 0 03/08/20 25 Active Additional Information Patient not taking.Reported on 04/26/2025 traMADoL (ULTRAM) 50 mg tablet Take 1 tablet (50 mg total) by mouth every 6 (six) hours as needed for pain 21 tablet 03/17/20 25 Active Additional Information Patient not taking.Reported on 04/26/2025 aspirin 81 mg chewable tablet Take 1 tablet (81 mg total) by mouth daily 30 tablet 11 04/10/20 25 026 Active metoprolol XL (TOPROL-XL) 25 mg extended release tablet Take 1 tablet (25 mg total) by mouth daily 30 tablet 1 04/10/20 25 Active amiodarone (PACERONE) 200 mg tablet Take 1 tablet by mouth once daily 30 tablet 05/30/20 25 Active amiodarone (PACERONE) 200 mg tablet Take 2 tablets (400 mg total) by mouth daily 60 tablet 03/09/20 25 025 Discontinued(Re order) amiodarone (PACERONE) 200 mg tablet Take 1 tablet (200 mg total) by mouth daily 30 tablet 05/03/20 25 025 Discontinued Active Problems Problem Noted Date Diagnosed Date Wound infection 03/24/2025 Assessment & Plan (03/31/2025 12:52 PM CDT): Rosalba Lua is a 79 year old woman with [...] & Plan (03/26/2025 4:10 PM CDT): Rosalba Lua is a 79 year old woman with [...] atrial EKG this AM Qtc 428 and GA 216 today Continue metoprolol and titrate as [...] Pantoprazole Osteopenia 08/12/2022 Paroxysmal supraventricular tachycardia 08/12/20 Assessment & Plan (03/25/2025 2:17 PM CDT): Hx of AF with surgery 02/28/25 Will continue the amiodarone 400 daily Currently in NSR Telemetry Primary malignant neoplasm of female breast 08/02 Breast mass 05/26/2022 History of breast cancer 05/14/2022 Overview (05/14/2022): Added automatically from request for surgery [id number] Hypertrophy of breast 05/14/2022 Overview (05/14/2022): Added automatically from request for surgery [id number] Aftercare following surgery for neoplasm 022 Overview (05/14/2022): Added automatically from request for surgery [id number] Bilateral breast cysts 05/14/2022 Overview (05/14/2022): Added automatically from request for surgery [id number] COVID-19 05/06/2022 Hyperlipidemia 02/12/2022 Assessment & Plan [...] D/c'd oxycodone and put back on home [place] to see if that improved pain control, but pt said she hurt too much Will keep oxycodone and stop the dilaudid (pt going home tomorrow) Tylenol 1 mg Q 6 hours Chantal Lidocaine patch 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 Immunizations Immunization Administration Dates Next Due Influenza, Quad, Adjuvantate d, Intramuscular 08/01/2023,08/14/2021,07/30/2020 Influenza, Quadrivalent, Spl it, Intramuscular 08/31/2021 Influenza, Trivalent, High D ose, Split, Preservative Free, Intramuscular 07/28/2019,07/26/2018,07/29/2017,08/19,08/24/2015 Influenza, Trivalent, IM (MDV) 08/17/2014,2012 Influenza, Unspecified 08/14/2023,08/26/2022, Pneumococcal Conjugate PCV 13 10/20/2014 Sars-CoV-2, Unspecified 02/28/2021,01/31/2021 Social History Tobacco Use Types Packs/Day Years Used Date Smoking Tobacco: Never Passive Smoke Exposure: Past Smokeless Tobacco: Never Tobacco Cessation:Counseling Given: Not Answered Alcohol Use Standard Drinks/Week Comments No 0 (1 standard drink = 0.6 oz pur e alcohol) [facility] Utilities Answer Date Recorded In the past 12 months has th e electric, gas, oil, or water company [...] often do you attend chur ch or christianity services? Never 03/28/2025 Do you belong to any clubs o r organizations such as yazidism groups, unions, fraternal or athletic groups, or [...] any time in the past 12 m [facility], were you homeless or living in a detention (including now)? No 03/28/2025 Personal Safety Answer Date Recorded Have you ever been in or are you currently in a harmful physical or emotional relationship or is someone making you feel afraid or unsafe? 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 Gender Identity Not on file Sexual Orientation Not on file Last Filed Vital Signs Vital Sign Reading Time Taken Comments Blood Pressure 122/79 04/26/2025 1:16 PM CDT Pulse 76 04/26/2025 1:16 PM CDT Temperature 36.3 C (97.3 F) 04/26/2025 1:16 PM CDT Respiratory Rate 17 04/26/2025 1:16 PM CDT Oxygen Saturation 97% 04/26/2025 1:16 PM CDT Inhaled Oxygen Concentration - - Weight 59.1 kg (130 lb 3.2 oz) 04/26/2025 1:16 P M CDT Height 149.9 cm (4' 11) 04/26/2025 1:16 PM CDT Body Mass Index 26.3 04/26/2025 1:16 PM CDT Plan of Treatment Not on file Medical Devices Implanted Type Area Laboratory Immunologist Device Identifier Shelf Expiration Date Model / Serial / Lot Terumo Cardio Vascular Gelweave 28mm 30cm Suture Retention Unique Hydrolyzable Abdomen [id number] - [id number] - [id number] Implanted:Qty: 1 on 02/28/2025 by Lashonda Sousa MD at [facility] Graft N/A: Chest [employer] Card[employer] Vascular [id number] 12/31/2027 [id number] / [id number] / [id number] [employer] Inspiris Resilia Leaflet Aortic Valve 25mm [id number] - [id number] - [id number] Implanted:Qty: 1 on 02/28/2025 by Lashonda Sousa MD at [facility] Prosthetic Valve N/A: Heart [employer] [id number] 10/31/2029 [id number] / [id number] / Pin Right: Hip [employer] Marker Tissue Rigid Needle Open Coil Radiopaque Clip Hydromark 18ga Titanium Hydrogel 4020-50-23-T3 - [id number] Implanted:Qty: 1 on 12/08/2024 by Roseanna Ray MD at [facility] Left: Axilla [employer] [id number] 4010-02- 18-T3 / / [id number] [employer] Sternalock 360 Sternal Closure 74-0004 - [id number] Implanted:Qty: 1 on 02/28/2025 by Grace Wilson MD at [facility] N/A: Sternum [employer] [id number] 01/18/2030 74-0004 / / [id number] [employer] Sternalock Lauri 2.4mm 10mm Self Drill Lock Sternum Cancellous 73-2410 - [id number] Implanted:Qty: 2 on 02/28/2025 by Grace Wilson MD at [facility] N/A: Sternum [employer] [id number] / / [employer] Sternalock Lauri 2.4mm 12mm Self Drill Lock Sternum Cancellous 73-2412 - [id number] Implanted:Qty: 14 on 02/28/2025 by Grace Wilson MD at [facility] N/A: Sternum [employer] [id number] / / Procedures Procedure Name Priority Date/Time Associated Diagnosis Comments IRON PROFILE W/ IBC Routine 04/26/2025 1 2:59 PM CDT Lymphadenopathy FERRITIN Routine 04/26/2025 12:59 PM CDT Lymphadenopathy EGFR Routine 04/26/2025 12:59 PM CDT Lymphadenopathy DIFFERENTIAL AUTO Routine 04/26/2025 12: 59 PM CDT Lymphadenopathy BETA 2 MICROGLOBULIN SERUM Routine 04/26/2025 12:59 PM CDT Lymphadenopathy CBC WITH AUTO DIFFERENTIAL Routine 04/26/2025 12:59 PM CDT Lymphadenopathy COMPREHENSIVE METABOLIC PANEL Routine 04/26/2025 12:59 PM CDT Lymphadenopathy LACTATE DEHYDROGENASE Routine 04/26/2025 12:59 PM CDT Lymphadenopathy ECG 12-LEAD Routine 03/31/2025 2:05 PM CDT EGFR Routine 03/30/2025 9:01 PM CDT BASIC METABOLIC PANEL Routine 03/30/2025 9:01 PM CDT CBC WITHOUT DIFFERENTIAL Routine 03/30/2025 9:01 PM CDT POTASSIUM, WHOLE BLOOD Timed 03/30/2025 12:51 AM CDT EGFR Routine 03/29/2025 9:42 PM CDT BASIC METABOLIC PANEL Routine 03/29/2025 9:42 PM CDT CBC WITHOUT DIFFERENTIAL Routine 03/29/2025 9:42 PM CDT PET/CT FDG SKULL TO THIGH IP Routine 03/29/2025 1:20 PM CDT EGFR Routine 03/28/2025 9:44 PM CDT BASIC METABOLIC PANEL Routine 03/28/2025 9:44 PM CDT CBC WITHOUT DIFFERENTIAL Routine 03/28/2025 9:44 PM CDT BLOOD CULTURE Routine 03/28/2025 9:44 PM CDT BLOOD CULTURE Routine 03/28/2025 9:44 PM CDT EGFR Routine 03/27/2025 10:26 PM CDT BASIC METABOLIC PANEL Routine 03/27/2025 10:26 PM CDT CBC WITHOUT DIFFERENTIAL Routine 03/27/2025 10:26 PM CDT BLOOD CULTURE Routine 03/27/2025 10:26 PM CDT BLOOD CULTURE Routine 03/27/2025 10:26 PM CDT EGFR Routine 03/26/2025 9:34 PM CDT BASIC METABOLIC PANEL Routine 03/26/2025 9:34 PM CDT CBC WITHOUT DIFFERENTIAL Routine 03/26/2025 9:34 PM CDT BLOOD CULTURE Routine 03/26/2025 9:34 PM CDT BLOOD CULTURE Routine 03/26/2025 9:[address] CHEST ABDOMEN PELVIS W CONTRAST IP Routine 03/26/2025 6:15 AM CDT EGFR Routine 03/25/2025 8:25 PM CDT BASIC METABOLIC PANEL Routine 03/25/2025 8:25 PM CDT CBC WITHOUT DIFFERENTIAL Routine 03/25/2025 8:25 PM CDT XR CHEST PA LATERAL 2 VIEWS IP Routine 03/24/2025 11:23 PM CDT EGFR Routine 03/24/2025 10:43 PM CDT APTT Routine 03/24/2025 10:43 PM CDT PROTIME-INR Routine 03/24/2025 10:43 PM CDT CBC WITHOUT DIFFERENTIAL Routine 03/24/2025 10:43 PM CDT PHOSPHORUS Routine 03/24/2025 10:43 PM CDT MAGNESIUM Routine 03/24/2025 10:43 PM CDT COMPREHENSIVE METABOLIC PANEL Routine 03/24/2025 10:43 PM CDT EGFR STAT 03/24/2025 10:11 AM CDT DIFFERENTIAL AUTO STAT 03/24/2025 10: 11 AM CDT SEPSIS LACTATE WITH REFLEX STAT 03/24/2025 10:11 AM CDT COMPREHENSIVE METABOLIC PANEL STAT 03/24/2025 10:11 AM CDT CBC WITH AUTO DIFFERENTIAL STAT 03/24/2025 10:11 AM CDT BLOOD CULTURE STAT 03/24/2025 10:11 AM CDT BLOOD CULTURE STAT 03/24/2025 10:11 AM CDT ECG 12-LEAD STAT 03/24/2025 9:10 AM CDT AEROBIC AND ANAEROBIC CULTURE AND GRAM STAIN Routine 03/22/2025 4:21 PM CDT Thoracic aortic aneurysm without rupture, unspecified part CT CHEST WO CONTRAST Schedule Routine, Read Routine (OP Routine) 03/22/2025 2:54 PM CDT Thoracic aortic aneurysm without rupture, unspecified part EGFR Routine 03/07/2025 9:51 PM CDT PHOSPHORUS Routine 03/07/2025 9:51 PM CDT MAGNESIUM Routine 03/07/2025 9:51 PM CDT CBC WITHOUT DIFFERENTIAL Routine 03/07/2025 9:51 PM CDT BASIC METABOLIC PANEL Routine 03/07/2025 9:51 PM CDT SODIUM, WHOLE BLOOD Timed 03/07/2025 9 :06 AM CDT PEP THERAPY Routine 03/07/2025 8:01 AM CDT ECG 12-LEAD Routine 03/07/2025 3:06 AM CDT EGFR Routine 03/06/2025 10:30 PM CDT TYPE AND SCREEN Timed 03/06/2025 10:30 PM CDT PHOSPHORUS Routine 03/06/2025 10:30 PM CDT MAGNESIUM Routine 03/06/2025 10:30 PM CDT CBC WITHOUT DIFFERENTIAL Routine 03/06/2025 10:30 PM CDT BASIC METABOLIC PANEL Routine 03/06/2025 10:30 PM CDT PEP THERAPY Routine 03/06/2025 1:00 PM CDT TRANSTHORACIC ECHO (TTE) COMPLETE W DOPPLER/CF W CONTRAST ED Urgent/IP Urgent 03/06/2025 11:57 AM CDT PEP THERAPY Routine 03/06/2025 8:01 AM CDT ECG 12-LEAD Routine 03/06/2025 5:18 AM CDT EGFR Routine 03/06/2025 12:19 AM CDT PHOSPHORUS Routine 03/06/2025 12:19 AM CDT MAGNESIUM Routine 03/06/2025 12:19 AM CDT CBC WITHOUT DIFFERENTIAL Routine 03/06/2025 12:19 AM CDT BASIC METABOLIC PANEL Routine 03/06/2025 12:19 AM CDT PEP THERAPY Routine 03/05/2025 6:00 PM CDT PEP THERAPY Routine 03/05/2025 1:00 PM CDT PEP THERAPY Routine 03/05/2025 8:00 AM CDT ECG 12-LEAD Routine 03/05/2025 5:46 AM CDT EGFR Routine 03/04/2025 7:55 PM CDT PHOSPHORUS Routine 03/04/2025 7:55 PM CDT MAGNESIUM Routine 03/04/2025 7:55 PM CDT CBC WITHOUT DIFFERENTIAL Routine 03/04/2025 7:55 PM CDT BASIC METABOLIC PANEL Routine 03/04/2025 7:55 PM CDT PEP THERAPY Routine 03/04/2025 6:00 PM CDT PEP THERAPY Routine 03/04/2025 1:00 PM CDT CHIEF CRUISER EVALUATE AND TREAT Routine 03/04/2025 10:58 AM CDT ECG 12-LEAD Routine 03/04/2025 10:04 AM CDT EGFR Routine 03/03/2025 8:18 PM CDT TYPE AND SCREEN Timed 03/03/2025 8:18 PM CDT PHOSPHORUS Routine 03/03/2025 8:18 PM CDT MAGNESIUM Routine 03/03/2025 8:18 PM CDT CBC WITHOUT DIFFERENTIAL Routine 03/03/2025 8:18 PM CDT BASIC METABOLIC PANEL Routine 03/03/2025 8:18 PM CDT PEP THERAPY Routine 03/03/2025 6:00 PM CDT PEP THERAPY Routine 03/03/2025 3:20 PM CDT PEP THERAPY Routine 03/03/2025 3:20 PM CDT PEP THERAPY Routine 03/03/2025 3:20 PM CDT EGFR Routine 03/02/2025 8:36 PM CDT PHOSPHORUS Routine 03/02/2025 8:36 PM CDT MAGNESIUM Routine 03/02/2025 8:36 PM CDT CBC WITHOUT DIFFERENTIAL Routine 03/02/2025 8:36 PM CDT CALCIUM,IONIZED, WHOLE BLOOD Routine 03/02/2025 8:36 PM CDT BASIC METABOLIC PANEL Routine 03/02/2025 8:36 PM CDT XR CHEST PA LATERAL 2 VIEWS Timed 03/02/2025 6:05 PM CDT XR CHEST PA LATERAL 2 VIEWS Timed 03/02/2025 10:15 AM CDT EGFR Routine 03/02/2025 6:03 AM CDT LIDOCAINE LEVEL Timed 03/02/2025 6:03 AM CDT CALCIUM,IONIZED, WHOLE BLOOD Routine 03/02/2025 6:03 AM CDT PHOSPHORUS Routine 03/02/2025 6:03 AM CDT MAGNESIUM Routine 03/02/2025 6:03 AM CDT BASIC METABOLIC PANEL Routine 03/02/2025 6:03 AM CDT CBC WITHOUT DIFFERENTIAL Routine 03/02/2025 6:03 AM CDT POTASSIUM, WHOLE BLOOD Routine 03/02/2025 6:03 AM CDT XR CHEST 1 VIEW IP Routine 03/01/2025 6:50 PM CDT POCT GLUCOSE DEVICE Routine 03/01/2025 1 1:20 AM CDT POCT GLUCOSE DEVICE Routine 03/01/2025 7 :44 AM CDT CRITICAL CARE Routine 03/01/2025 6:44 AM CDT Aneurysm of ascending aorta without rupture LIDOCAINE LEVEL Timed 03/01/2025 5:29 AM CDT POCT GLUCOSE DEVICE Routine 03/01/2025 5 :07 AM CDT POCT GLUCOSE DEVICE Routine 03/01/2025 1 :27 AM CDT EGFR Routine 03/01/2025 1:18 AM CDT CALCIUM,IONIZED, WHOLE BLOOD Routine 03/01/2025 1:18 AM CDT PHOSPHORUS Routine 03/01/2025 1:18 AM CDT MAGNESIUM Routine 03/01/2025 1:18 AM CDT BASIC METABOLIC PANEL Routine 03/01/2025 1:18 AM CDT CBC WITHOUT DIFFERENTIAL Routine 03/01/2025 1:18 AM CDT HEPATITIS C ANTIBODY Routine 01/04/2025 12:34 PM 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 73 m2 Comment: Interpretive Data Reference Interval Normal >/= 90 mL/min/1.73m2 Mildly decreased* 60 - 89 mL/min/1.73m2 Mildly to moderately decreased 45 - 59 mL/min/1.73m2 Moderately to severely decreased 30 - 44 mL/min/1.73m2 Severely decreased 15 - 29 mL/min/1.73m2 Kidney Failure < 15 mL/min/1.73m2 *Relative to young adult level Estimated glomerular filtration rate is determined by the 2020 CKD-EPI equation recommended by the National Kidney Foundation (A Unifying Approach to GFR Estimation: Recommendations of the NKF-ASK Task Force on Reassessing the Inclusion of Race in Diagnosing Kidney Disease, JASN 2020). The CKD-EPI equation should not be used for patients with unstable renal function and has not been validated in children and those over 70. Current interpretive data was last reviewed 2021. Blood 04/26/2025 12:5 9 PM CDT 04/26/2025 1:11 PM CDT us Johnathon Theodore MD LAB BLOOD ORDERABLES Final R esult YAQUELIN FLORES [facility] Department [place] [address] * Differential, auto (04/26/2025 12:59 PM CDT) Neutrophil abs 4.51 1.50 - 6.50 K/cumm Comment:Testing performed by : [facility], [address] [place] [phone] Lymphocyte abs 1.70 0.80 - 3.30 K/cumm [facility] Comment:Testing performed by : [facility], [address] [place] [phone] Monocyte abs 0.65 0.20 - 0.80 K/cumm [facility] Comment:Testing performed by : [facility], [address] [place] [address] Eosinophil abs 0.14 0.00 - 0.50 K/cumm [facility] Comment:Testing performed by : [facility], [address] [place] [address] Basophil abs 0.05 0.00 - 0.10 K/cumm [facility] Comment:Testing performed by : [facility], [address] [place], [place] [phone] Neutrophil pct 63.9 % [facility] Comment: Interpretive Data Percent cell count reference ranges are not reported, since discordance with absolute values may lead to misinterpretation of CBC data. Current Interpretive Data was last revised on 2018. Testing performed by: [facility], [address] [place] [phone] Lymphocyte pct 24.2 % [facility] Comment: Interpretive Data Percent cell count reference ranges are not reported, since discordance with absolute values may lead to misinterpretation of CBC data. Current Interpretive Data was last revised on 2018. Testing performed by: [facility], [address] [place] [phone] Monocyte pct 9.3 % [facility] Comment: Interpretive Data Percent cell count reference ranges are not reported, since discordance with absolute values may lead to misinterpretation of CBC data. Current Interpretive Data was last revised on 2018. Testing performed by: [facility], [address] [place] [phone] Eosinophil pct 2.0 % [facility] Comment: Interpretive Data Percent cell count reference ranges are not reported, since discordance with absolute values may lead to misinterpretation of CBC data. Current Interpretive Data was last revised on 2018. Testing performed by: [facility], [address] [place] [phone] Basophil pct 0.7 % [facility] Comment: Interpretive Data Percent cell count reference ranges are not reported, since discordance with absolute values may lead to misinterpretation of CBC data. Current Interpretive Data was last revised on 2018. Testing performed by: [facility], [address] [place] [phone] Blood 04/26/2025 12:5 9 PM CDT 04/26/2025 1:10 PM CDT us Johnathon Theodore MD LAB BLOOD ORDERABLES Final R esult Performing Organization Address [facility] Co de Phone Number [facility] Department [place] [address] * (ABNORMAL) Iron profile w/ IBC (04/26/2025 12:59 PM CDT) Pathologist [facility] Iron 39 35 - 145 mcg/dL TIBC 334 250 - 400 mcg/dL [facility] Transferrin saturation 12(L) 20 - 50 % [facility] Blood 04/26/2025 12:5 9 PM CDT 04/26/2025 5:08 PM CDT us Arun Miller MD LAB BLOOD ORDERABLES F inal Result Performing Organization Address [facility]/ZIP Co de Phone Number [facility] Department [place] [address] * (ABNORMAL) CBC with auto differential (04/26/2025 12:59 PM CDT) Pathologist [facility] WBC 7.05 3.80 - 9.90 K/cumm Comment:Testing performed by : [facility], [address] [place] [phone] Hgb 10.2(L) 11.9 - 15.5 g/dL [facility] Comment:Testing performed by : [facility], [address] [place] [address] Hct 31.7(L) 35.6 - 45.5 % [facility] Comment:Testing performed by : [facility], [address] [place] [id number] Plt 363 150 - 400 K/cumm CERNER BJ Comment:Testing performed by : [facility], [address] [place], [place] [id number] MPV 6.8 6.8 - 10.4 fL CERNER BJ Comment:Testing performed by : [facility], [address] [place], [place] [id number] RBC 3.81(L) 3.90 - 5.20 M/cumm CERKELLY BJ Comment:Testing performed by : [facility], [address] [place], [place] [id number] MCV 83.0 81.3 - 96.4 fL CERNER BJ Comment:Testing performed by : [facility], [address] [place], [place] [id number] MCH 26.7(L) 27.1 - 33.3 pg CERNER BJ Comment:Testing performed by : [facility], [address] [place] [address] MCHC 32.1(L) 32.3 - 35.7 g/dL CERNER BJ Comment:Testing performed by : [facility], [address] [place] [address] RDW CV 15.6(H) 11.1 - 14.9 % CERNER BJ Comment:Testing performed by : [facility], [address] [place] [address] NRBC abs 0.00 0.00 - 0.01 K/cumm CERNER BJ Comment:Testing performed by : [facility], [address] [place] [address] Blood 04/26/2025 12:5 9 PM CDT 04/26/2025 1:10 PM CDT Johnathon Theodore MD LAB BLOOD ORDERABLES Final R esult Performing Organization Address [facility] Co de Phone Number [facility] [place] [address] * Lactate dehydrogenase (LD) (04/26/2025 12:59 PM CDT) Lactate dehydrogenase (LDH) 181 100 - 250 Units/L Blood 04/26/2025 12:5 9 PM CDT 04/26/2025 1:11 PM CDT Johnathon Theodore MD LAB BLOOD ORDERABLES Final R esult Performing Organization Address [facility] Co de Phone Number [facility] [place] [address] * Ferritin (04/26/2025 12:59 PM CDT) Pathologist [facility] Ferritin 39 13 - 150 ng/mL Blood 04/26/2025 12:5 9 PM CDT 04/26/2025 5:08 PM CDT Arun Miller MD LAB BLOOD ORDERABLES F inal Result Performing Organization Address [facility] Co de Phone Number [facility] [place] [address] * (ABNORMAL) Beta 2 microglobulin, serum (04/26/2025 12:59 PM CDT) Beta 2 Microglobulin, Serum 2.90(H) 1.00 - 2.50 mg/L Comment: Interpretive Data The Patsy Beta-2 microglobulin assay procedure was used. Results from different manufacturers or methods may not be comparable. Serial testing should be performed using the same method. Blood 04/26/2025 12:5 9 PM CDT 04/26/2025 1:37 PM CDT Johnathon Theodore MD LAB BLOOD ORDERABLES Final R esult [facility] Department [place] [address] * Comprehensive metabolic panel (04/26/2025 12:59 PM CDT) Sodium 140 135 - 145 mmol/L Potassium, pl 4.7 3.3 - 4.9 mmol/L [facility] Chloride 102 97 - 110 mmol/L [facility] CO2 31 22 - 32 mmol/L [facility] Anion gap 7 2 - 15 mmol/L [facility] BUN 16 6 - 25 mg/dL [facility] Creatinine 1.02 0.60 - 1.10 mg/dL [facility] Glucose 91 70 - 199 mg/dL [facility] Comment: Interpretive Data Fasting glucose >/= 126 mg/dl is diagnostic for diabetes. Fasting is defined as no caloric intake for at least 8 hours. Fasting glucose between 100 mg/dl to 125 mg/dl is diagnostic of prediabetes. In a patient with classic symptoms of hyperglycemia or hyperglycemic crisis, a random glucose >/= 200 mg/dl is diagnostic for diabetes. In the absence of unequivocal hyperglycemia, results should be confirmed by repeat testing. The classification and Diagnosis of Diabetes Diabetes Care 202; 46: S19-S40. Current interpretive data was last revised 2022. Calcium 9.4 8.5 - 10.3 mg/dL [facility] Bilirubin, total 0.2 0.1 - 1.2 mg/dL [facility] Protein, pl 7.2 6.5 - 8.5 g/dL [facility] Albumin 3.9 3.5 - 5.0 g/dL [facility] Alk phos 95 40 - 130 Units/L [facility] ALT 7 7 - 45 Units/L [facility] AST 17 10 - 45 Units/L [facility] Blood 04/26/2025 12:5 9 PM CDT 04/26/2025 1:11 PM CDT Johnathon Theodore MD LAB BLOOD ORDERABLES Final R esult Performing Organization Address City/[facility]/ZIP Co de Phone Number [facility] Department [place] [address] * ECG 12 lead (03/31/2025 2:05 PM CDT) Ventricular Rate EKG/Min 86 BPM [facility] Atrial Rate 86 BPM [facility] GA-Interval (MSEC) 212 ms [facility] QRS-Interval (MSEC) 76 ms [facility] QT-Interval (MSEC) 366 ms [facility] QTc 437 ms [facility] P [place] 19 degrees [facility] R [place] -23 degrees [facility] T [place] 159 degrees [facility] Diagnosis Sinus rhythm with 1st degree A-V block Left ventricular hypertrophy with repolarization abnormality ( R in aVL ) Possible Lateral infarct , age undetermined Abnormal ECG Confirmed by Bhargav Dominguez MD ([id number]) on 04/03/2025 1:43:29 PM [facility] 03/31/2025 2:05 PM CDT 04/03/2025 1:43 PM CDT us Monica Brown NP ECG ORDERABLES Final Result Performing Organization Address [facility] Co de Phone Number [facility] * (ABNORMAL) eGFR (03/30/2025 9:01 PM CDT) eGFR 59(L) >=60 mL/min/1. 73 m2 Comment: Interpretive Data Reference Interval Normal >/= 90 mL/min/1.73m2 Mildly decreased* 60 - 89 mL/min/1.73m2 Mildly to moderately decreased 45 - 59 mL/min/1.73m2 Moderately to severely decreased 30 - 44 mL/min/1.73m2 Severely decreased 15 - 29 mL/min/1.73m2 Kidney Failure < 15 mL/min/1.73m2 *Relative to young adult level Estimated glomerular filtration rate is determined by the 2020 CKD-EPI equation recommended by the National Kidney Foundation (A Unifying Approach to GFR Estimation: Recommendations of the NKF-ASK Task Force on Reassessing the Inclusion of Race in Diagnosing Kidney Disease, JASN 2020). The CKD-EPI equation should not be used for patients with unstable renal function and has not been validated in children and those over 70. Current interpretive data was last reviewed 2021. Blood 03/30/2025 9:01 PM CDT 03/30/2025 9:46 PM CDT Alejandrina Mclean NP LAB BLOOD ORDERABLES Final Resul t Performing Organization Address City/[facility] Co de Phone Number [facility] Department [place] [employer] [place] [place] [address] * (ABNORMAL) CBC without differential (03/30/2025 9:01 PM CDT) WBC 11.08(H) 3.80 - 9.90 K/cumm Hgb 9.0(L) 11.9 - 15.5 g/dL [facility] Hct 27.3(L) 35.6 - 45.5 % [facility] Plt 517(H) 150 - 400 K/cumm [facility] MPV 8.8(L) 9.1 - 12.3 fL [facility] RBC 3.13(L) 3.90 - 5.20 M/cumm [facility] MCV 87.2 81.3 - 96.4 fL [facility] MCH 28.8 27.1 - 33.3 pg [facility] MCHC 33.0 32.3 - 35.7 g/dL [facility] RDW CV 14.3 11.1 - 14.9 % [facility] RDW SD 45.7 35.7 - 48.1 fL [facility] NRBC abs 0.00 0.00 - 0.01 K/cumm [facility] Blood 03/30/2025 9:01 PM CDT 03/30/2025 9:46 PM CDT us Alejandrina Mclean NP LAB BLOOD ORDERABLES Final Resul t Performing Organization Address City/[facility]/ZIP Co de Phone Number [facility] Department [place] [address] * (ABNORMAL) Basic metabolic panel (03/30/2025 9:01 PM CDT) Sodium 133(L) 135 - 145 mmol/L Potassium, pl 4.8 3.3 - 4.9 mmol/L [facility] Chloride 96(L) 97 - 110 mmol/L [facility] CO2 30 22 - 32 mmol/L [facility] Anion gap 7 2 - 15 mmol/L [facility] BUN 22 6 - 25 mg/dL [facility] Creatinine 0.99 0.60 - 1.10 mg/dL [facility] Glucose 133 70 - 199 mg/dL [facility] Comment: Interpretive Data Fasting glucose >/= 126 mg/dl is diagnostic for diabetes. Fasting is defined as no caloric intake for at least 8 hours. Fasting glucose between 100 mg/dl to 125 mg/dl is diagnostic of prediabetes. In a patient with classic symptoms of hyperglycemia or hyperglycemic crisis, a random glucose >/= 200 mg/dl is diagnostic for diabetes. In the absence of unequivocal hyperglycemia, results should be confirmed by repeat testing. The classification and Diagnosis of Diabetes Diabetes Care 202; 46: S19-S40. Current interpretive data was last revised 2022. Calcium 9.1 8.5 - 10.3 mg/dL [facility] Blood 03/30/2025 9:01 PM CDT 03/30/2025 9:46 PM CDT us Alejandrina Mclean GENERAL MANAGER IN TRAINING LAB BLOOD ORDERABLES Final Resul t [facility] Department [place] [address] * (ABNORMAL) Potassium, whole blood (03/30/2025 12:51 AM CDT) Pathologist [facility] Potassium, bld 3.2(L) 3.3 - 4.9 mmol/L Blood 03/30/2025 12:5 1 AM CDT 03/30/2025 1:06 AM CDT us Marques Lysyy MD LAB BLOOD ORDERABLES Final Resul t Performing Organization Address [facility] Co de Phone Number [facility] Department [place] [address] * (ABNORMAL) eGFR (03/29/2025 9:42 PM CDT) Pathologist [facility] eGFR 42(L) >=60 mL/min/1. 73 m2 Comment: Interpretive Data Reference Interval Normal >/= 90 mL/min/1.73m2 Mildly decreased* 60 - 89 mL/min/1.73m2 Mildly to moderately decreased 45 - 59 mL/min/1.73m2 Moderately to severely decreased 30 - 44 mL/min/1.73m2 Severely decreased 15 - 29 mL/min/1.73m2 Kidney Failure < 15 mL/min/1.73m2 *Relative to young adult level Estimated glomerular filtration rate is determined by the 2020 CKD-EPI equation recommended by the National Kidney Foundation (A Unifying Approach to GFR Estimation: Recommendations of the NKF-ASK Task Force on Reassessing the Inclusion of Race in Diagnosing Kidney Disease, JASN 2020). The CKD-EPI equation should not be used for patients with unstable renal function and has not been validated in children and those over 70. Current interpretive data was last reviewed 2021. Blood 03/29/2025 9:42 PM CDT 03/29/2025 10:48 PM CDT us Alejandrina Mclean NP LAB BLOOD ORDERABLES Final Resul t Performing Organization Address [facility]/ZIP Co de Phone Number [facility] Department [place] [address] * (ABNORMAL) CBC without differential (03/29/2025 9:42 PM CDT) Pathologist [facility] WBC 9.64 3.80 - 9.90 K/cumm Hgb 9.4(L) 11.9 - 15.5 g/dL [facility] Hct 28.9(L) 35.6 - 45.5 % [facility] Plt 564(H) 150 - 400 K/cumm [facility] MPV 8.8(L) 9.1 - 12.3 fL [facility] RBC 3.32(L) 3.90 - 5.20 M/cumm [facility] MCV 87.0 81.3 - 96.4 fL [facility] MCH 28.3 27.1 - 33.3 pg [facility] MCHC 32.5 32.3 - 35.7 g/dL [facility] RDW CV 14.0 11.1 - 14.9 % [facility] RDW SD 44.9 35.7 - 48.1 fL [facility] NRBC abs 0.00 0.00 - 0.01 K/cumm [facility] Blood 03/29/2025 9:42 PM CDT 03/29/2025 10:52 PM CDT us Alejandrina Mclean NP LAB BLOOD ORDERABLES Final Resul t [facility] Department [place] [address] * (ABNORMAL) Basic metabolic panel (03/29/2025 9:42 PM CDT) Sodium 135 135 - 145 mmol/L Potassium, pl 3.2(L) 3.3 - 4.9 mmol/L [facility] Chloride 92(L) 97 - 110 mmol/L [facility] CO2 33(H) 22 - 32 mmol/L [facility] Anion gap 10 2 - 15 mmol/L [facility] BUN 21 6 - 25 mg/dL [facility] Creatinine 1.30(H) 0.60 - 1.10 mg/dL [facility] Glucose 112 70 - 199 mg/dL [facility] Comment: Interpretive Data Fasting glucose >/= 126 mg/dl is diagnostic for diabetes. Fasting is defined as no caloric intake for at least 8 hours. Fasting glucose between 100 mg/dl to 125 mg/dl is diagnostic of prediabetes. In a patient with classic symptoms of hyperglycemia or hyperglycemic crisis, a random glucose >/= 200 mg/dl is diagnostic for diabetes. In the absence of unequivocal hyperglycemia, results should be confirmed by repeat testing. The classification and Diagnosis of Diabetes Diabetes Care 202; 46: S19-S40. Current interpretive data was last revised 2022. Calcium 9.2 8.5 - 10.3 mg/dL [facility] Blood 03/29/2025 9:42 PM CDT 03/29/2025 10:48 PM CDT us Alejandrina Mclean NP LAB BLOOD ORDERABLES Final Resul t [facility] Department [place] [address] * PET/CT FDG Skull to Thigh (03/29/2025 1:20 PM CDT) Anatomical Region Laterality Modality N/A Positron Emissio n Tomography (PET) 03/29/2025 3:35 PM CDT Impressions 03/29/2025 4:55 PM CDT 1. Marked hypermetabolism along the median sternotomy incision compatible with post-surgical infectious/inflammatory change. 2. Hypermetabolism along the aortic valve and aortic root compatible with post-surgical inflammatory change. 3. Waxing and waning areas of bone uptake without CT correlate may represent areas of marrow hyperplasia in keeping with patient's known anemia. Dictated by: Brigette Cross MD The radiology attending physician has personally reviewed this study, and had reviewed and/or edited this written report and agrees with it. Electronically signed by: Litzy Hamilton MD, Ph.D Narrative 03/29/2025 4:55 PM CDT EXAMINATION: TUMOR FDG-PET/CT IMAGING DATE OF STUDY: 03/29/2025 SCANNER: [facility] N PET Vision (NV1). This is a high-resolution scanner, which can result in higher SUVs (and even detection of previously unrecognized small lesions) compared to older scanners. RADIOPHARMACEUTICAL: 14.2 mCi F-18 Fluorodeoxyglucose (FDG) i.v. Injection site: Left posterior forearm HISTORY: 79-year-old woman with sternal wound infection. The study is requested for diagnosis. TECHNIQUE: The patient's fasting blood glucose level, measured by glucometer before injection of FDG, was 111 mg/dL. After intravenous administration of FDG, noncontrast CT images were obtained for attenuation correction and for fusion with emission PET images to allow for anatomical localization of PET findings. Emission PET images were then obtained. The study was interpreted on the [employer] workstation. The mean liver SUV (reported for construction quality control manager purposes) is 2.7. The total scanned area was skull base to proximal thighs. Images of the body were obtained starting 51 minutes after injection of tracer. All reported SUVs are maximum SUVs, unless otherwise specified. COMPARISON: FDG PET/CT dated 01/18/2025 DESCRIPTORS OF LESION FDG AVIDITY: Minimal: <= blood pool Mild: > blood pool and <= liver Moderate: > liver and <= 2x SUVmax liver Moderate to marked: >2x SUVmax liver and <= 3x SUVmax liver Marked: > 3x SUVmax liver FINDINGS: Marked hypermetabolism along the median sternotomy incision. There is soft tissue stranding posterior to the sternum. There is uptake in the aortic root and at the aortic valve compatible with postsurgical change. There are waxing and waning areas of bone uptake. There is new uptake in the right first rib. There is increased focal moderate uptake in the right anterior 4th rib without CT correlate with maximum SUV of 5.1. Focal uptake in the right proximal femur medullary cavity without CT correlate with maximum SUV of 4.3. Resolution of hypermetabolism in the left lateral 8th rib and lateral right clavicle. Additional CT findings: Atherosclerotic calcifications the coronary arteries. Aortic valve replacement. Fine epicardial pacing wires are present. 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 Changes of bilateral mastectomy. The gallbladder is surgically absent. There is severe colonic diverticulosis without evidence of diverticulitis. Apparent fixation of the right femoral neck. S-shaped scoliosis of the spine. Multilevel degenerative changes of spine. Procedure Note Litzy Green MD PhD - 03/29/2025 EXAMINATION: TUMOR FDG-PET/CT IMAGING DATE OF STUDY: 03/29/2025 SCANNER: [facility] [employer] (NV1). This is a high-resolution scanner, which can result in higher SUVs (and even detection of previously unrecognized small lesions) compared to older scanners. RADIOPHARMACEUTICAL: 14.2 mCi F-18 Fluorodeoxyglucose (FDG) i.v. Injection site: Left posterior forearm HISTORY: 79-year-old woman with sternal wound infection. The study is requested for diagnosis. TECHNIQUE: The patient's fasting blood glucose level, measured by glucometer before injection of FDG, was 111 mg/dL. After intravenous administration of FDG, noncontrast CT images were obtained for attenuation correction and for fusion with emission PET images to allow for anatomical localization of PET findings. Emission PET images were then obtained. The study was interpreted on the [employer] workstation. The mean liver SUV (reported for construction quality control manager purposes) is 2.7. The total scanned area was skull base to proximal thighs. Images of the body were obtained starting 51 minutes after injection of tracer. All reported SUVs are maximum SUVs, unless otherwise specified. COMPARISON: FDG PET/CT dated 01/18/2025 DESCRIPTORS OF LESION FDG AVIDITY: Minimal: <= blood pool Mild: > blood pool and <= liver Moderate: > liver and <= 2x SUVmax liver Moderate to marked: >2x SUVmax liver and <= 3x SUVmax liver Marked: > 3x SUVmax liver FINDINGS: Marked hypermetabolism along the median sternotomy incision. There is soft tissue stranding posterior to the sternum. There is uptake in the aortic root and at the aortic valve compatible with postsurgical change. There are waxing and waning areas of bone uptake. There is new uptake in the right first rib. There is increased focal moderate uptake in the right anterior 4th rib without CT correlate with maximum SUV of 5.1. Focal uptake in the right proximal femur medullary cavity without CT correlate with maximum SUV of 4.3. Resolution of hypermetabolism in the left lateral 8th rib and lateral right clavicle. Additional CT findings: Atherosclerotic calcifications the coronary arteries. Aortic valve replacement. Fine epicardial pacing wires are present. 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 Changes of bilateral mastectomy. The gallbladder is surgically absent. There is severe colonic diverticulosis without evidence of diverticulitis. Apparent fixation of the right femoral neck. S-shaped scoliosis of the spine. Multilevel degenerative changes of spine. IMPRESSION: 1. Marked hypermetabolism along the median sternotomy incision compatible with post-surgical infectious/inflammatory change. 2. Hypermetabolism along the aortic valve and aortic root compatible with post-surgical inflammatory change. 3. Waxing and waning areas of bone uptake without CT correlate may represent areas of marrow hyperplasia in keeping with patient's known anemia. Dictated by: Brigette Cross MD The radiology attending physician has personally reviewed this study, and had reviewed and/or edited this written report and agrees with it. Electronically signed by: Litzy Hamilton MD, Ph.D us Josh Trivedi NP IMG PET PROCEDURES Final Re sult * eGFR (03/28/2025 9:44 PM CDT) eGFR 65 >=60 mL/min/1. 73 m2 Comment: Interpretive Data Reference Interval Normal >/= 90 mL/min/1.73m2 Mildly decreased* 60 - 89 mL/min/1.73m2 Mildly to moderately decreased 45 - 59 mL/min/1.73m2 Moderately to severely decreased 30 - 44 mL/min/1.73m2 Severely decreased 15 - 29 mL/min/1.73m2 Kidney Failure < 15 mL/min/1.73m2 *Relative to young adult level Estimated glomerular filtration rate is determined by the 2020 CKD-EPI equation recommended by the National Kidney Foundation (A Unifying Approach to GFR Estimation: Recommendations of the NKF-ASK Task Force on Reassessing the Inclusion of Race in Diagnosing Kidney Disease, JASN 2020). The CKD-EPI equation should not be used for patients with unstable renal function and has not been validated in children and those over 70. Current interpretive data was last reviewed 2021. Blood 03/28/2025 9:44 PM CDT 03/28/2025 10:01 PM CDT us Alejandrina Mclean NP LAB BLOOD ORDERABLES Final Resul t [facility] Department [place] [address] * Blood culture Blood (03/28/2025 9:44 PM CDT) Report Final Report: No growth Blood 03/28/2025 9:44 PM CDT 03/28/2025 9:54 PM CDT Narrative [facility] - 04/04/2025 12:01 PM CDT From a different site than #1. Collection->Peripheral 1. Blood cultures are incubated for 4 days on a continuously monitored blood culture system. The first report of a negative culture is issued within 24 hours of receipt of the specimen in the laboratory. 2. Positive culture results are reported as soon as they are detected. 3. The most important factor for detection of microbes in the setting of bloodstream infection is the volume of blood submitted for culture. Failure to collect an optimal blood volume can result in false negative blood cultures. 4. For pediatric patients, the recommended blood volume to collect follows a weight based strategy. See the electronic test catalog for collection instructions. 5. For positive blood cultures, a rapid molecular test may be performed for organism identification using the [employer]u ePlex blood culture identification panel for gram positive (BCID-GP) and gram negative (BCID-GN) organisms. This nucleic acid amplification test detects microbial DNA in positive blood culture broth. This assay has been cleared by the [place] Food and Drug Administration and its performance characteristics have been verified by the [facility]. For questions about this culture, contact the Microbiology Laboratory at [phone]. Interpretive data was last revised on 24. us Josh Trivedi NP LAB MICROBIOLOGY - GENERAL ORDERABLES Final Result [facility] Department [place] [address] * Blood culture Blood (03/28/2025 9:44 PM CDT) Report Final Report: No growth Blood 03/28/2025 9:44 PM CDT 03/28/2025 9:54 PM CDT Narrative [facility] - 04/02/2025 7:00 AM CDT Collection->Peripheral 1. Blood cultures are incubated for 4 days on a continuously monitored blood culture system. The first report of a negative culture is issued within 24 hours of receipt of the specimen in the laboratory. 2. Positive culture results are reported as soon as they are detected. 3. The most important factor for detection of microbes in the setting of bloodstream infection is the volume of blood submitted for culture. Failure to collect an optimal blood volume can result in false negative blood cultures. 4. For pediatric patients, the recommended blood volume to collect follows a weight based strategy. See the electronic test catalog for collection instructions. 5. For positive blood cultures, a rapid molecular test may be performed for organism identification using the [employer] ePlex blood culture identification panel for gram positive (BCID-GP) and gram negative (BCID-GN) organisms. This nucleic acid amplification test detects microbial DNA in positive blood culture broth. This assay has been cleared by the [place] Food and Drug Administration and its performance characteristics have been verified by the [facility]. For questions about this culture, contact the Microbiology Laboratory at [phone]. Interpretive data was last revised on 24. us Josh Trivedi NP LAB MICROBIOLOGY - GENERAL ORDERABLES Final Result [facility] Department [place] [address] * (ABNORMAL) CBC without differential (03/28/2025 9:44 PM CDT) WBC 9.76 3.80 - 9.90 K/cumm Hgb 9.0(L) 11.9 - 15.5 g/dL [facility] Hct 27.8(L) 35.6 - 45.5 % [facility] Plt 496(H) 150 - 400 K/cumm [facility] MPV 8.7(L) 9.1 - 12.3 fL [facility] RBC 3.16(L) 3.90 - 5.20 M/cumm [facility] MCV 88.0 81.3 - 96.4 fL [facility] MCH 28.5 27.1 - 33.3 pg [facility] MCHC 32.4 32.3 - 35.7 g/dL [facility] RDW CV 14.1 11.1 - 14.9 % [facility] RDW SD 45.4 35.7 - 48.1 fL [facility] NRBC abs 0.00 0.00 - 0.01 K/cumm [facility] Blood 03/28/2025 9:44 PM CDT 03/28/2025 10:01 PM CDT Alejandrina Mclean NP LAB BLOOD ORDERABLES Final Resul t [facility] Department [place] [address] * (ABNORMAL) Basic metabolic panel (03/28/2025 9:44 PM CDT) Sodium 134(L) 135 - 145 mmol/L Potassium, pl 3.8 3.3 - 4.9 mmol/L [facility] Chloride 94(L) 97 - 110 mmol/L [facility] CO2 29 22 - 32 mmol/L [facility] Anion gap 11 2 - 15 mmol/L [facility] BUN 20 6 - 25 mg/dL [facility] Creatinine 0.91 0.60 - 1.10 mg/dL [facility] Glucose 121 70 - 199 mg/dL [facility] Comment: Interpretive Data Fasting glucose >/= 126 mg/dl is diagnostic for diabetes. Fasting is defined as no caloric intake for at least 8 hours. Fasting glucose between 100 mg/dl to 125 mg/dl is diagnostic of prediabetes. In a patient with classic symptoms of hyperglycemia or hyperglycemic crisis, a random glucose >/= 200 mg/dl is diagnostic for diabetes. In the absence of unequivocal hyperglycemia, results should be confirmed by repeat testing. The classification and Diagnosis of Diabetes Diabetes Care 2021; 46: S19-S40. Current interpretive data was last revised 2022. Calcium 9.2 8.5 - 10.3 mg/dL [facility] Blood 03/28/2025 9:44 PM CDT 03/28/2025 10:01 PM CDT Alejandrina Mclean NP LAB BLOOD ORDERABLES Final Resul t Performing Organization Address [facility] Co de Phone Number [facility] Department [place] [address] * eGFR (03/27/2025 10:26 PM CDT) eGFR 68 >=60 mL/min/1. 73 m2 Comment: Interpretive Data Reference Interval Normal >/= 90 mL/min/1.73m2 Mildly decreased* 60 - 89 mL/min/1.73m2 Mildly to moderately decreased 45 - 59 mL/min/1.73m2 Moderately to severely decreased 30 - 44 mL/min/1.73m2 Severely decreased 15 - 29 mL/min/1.73m2 Kidney Failure < 15 mL/min/1.73m2 *Relative to young adult level Estimated glomerular filtration rate is determined by the 2020 CKD-EPI equation recommended by the National Kidney [employer] (A Unifying Approach to GFR Estimation: Recommendations of the NKF-ASK Task Force on Reassessing the Inclusion of Race in Diagnosing Kidney Disease, JASN 2020). The CKD-EPI equation should not be used for patients with unstable renal function and has not been validated in children and those over 70. Current interpretive data was last reviewed 2021. Blood 03/27/2025 10:2 6 PM CDT 03/27/2025 10:44 PM CDT Alejandrina Mclean NP LAB BLOOD ORDERABLES Final Resul t Performing Organization Address [facility] Co de Phone Number [facility] Department [place] [employer] [place] [place] [address] * Blood culture Blood (03/27/2025 10:26 PM CDT) Report Final Report: No growth Blood 03/27/2025 10:2 6 PM CDT 03/27/2025 10:45 PM CDT Narrative [facility] - 04/01/2025 7:00 AM CDT From a different site than #1. Collection->Peripheral Received two aerobic blood culture bottles 1. Blood cultures are incubated for 4 days on a continuously monitored blood culture system. The first report of a negative culture is issued within 24 hours of receipt of the specimen in the laboratory. 2. Positive culture results are reported as soon as they are detected. 3. The most important factor for detection of microbes in the setting of bloodstream infection is the volume of blood submitted for culture. Failure to collect an optimal blood volume can result in false negative blood cultures. 4. For pediatric patients, the recommended blood volume to collect follows a weight based strategy. See the electronic test catalog for collection instructions. 5. For positive blood cultures, a rapid molecular test may be performed for organism identification using the bindu ePlex blood culture identification panel for gram positive (BCID-GP) and gram negative (BCID-GN) organisms. This nucleic acid amplification test detects microbial DNA in positive blood culture broth. This assay has been cleared by the [place] Food and Drug Administration and its performance characteristics have been verified by the [facility]. For questions about this culture, contact the Microbiology Laboratory at [phone]. Interpretive data was last revised on 24. us Josh Trivedi NP LAB MICROBIOLOGY - GENERAL ORDERABLES Final Result [facility] Department [place] [address] * Blood culture Blood (03/27/2025 10:26 PM CDT) Report Final Report: No growth Blood 03/27/2025 10:2 6 PM CDT 03/27/2025 10:45 PM CDT [facility] - 04/01/2025 7:00 AM CDT Collection->Peripheral Received two anaerobic blood culture bottles 1. Blood cultures are incubated for 4 days on a continuously monitored blood culture system. The first report of a negative culture is issued within 24 hours of receipt of the specimen in the laboratory. 2. Positive culture results are reported as soon as they are detected. 3. The most important factor for detection of microbes in the setting of bloodstream infection is the volume of blood submitted for culture. Failure to collect an optimal blood volume can result in false negative blood cultures. 4. For pediatric patients, the recommended blood volume to collect follows a weight based strategy. See the electronic test catalog for collection instructions. 5. For positive blood cultures, a rapid molecular test may be performed for organism identification using the bindu ePlex blood culture identification panel for gram positive (BCID-GP) and gram negative (BCID-GN) organisms. This nucleic acid amplification test detects microbial DNA in positive blood culture broth. This assay has been cleared by the [place] Food and Drug Administration and its performance characteristics have been verified by the [facility]. For questions about this culture, contact the Microbiology Laboratory at [phone]. Interpretive data was last revised on 24. us Josh Trivedi NP LAB MICROBIOLOGY - GENERAL ORDERABLES Final Result [facility] Department [place] [address] * (ABNORMAL) CBC without differential (03/27/2025 10:26 PM CDT) Pathologist [facility] WBC 11.12(H) 3.80 - 9.90 K/cumm Hgb 9.3(L) 11.9 - 15.5 g/dL [facility] Hct 28.9(L) 35.6 - 45.5 % [facility] Plt 550(H) 150 - 400 K/cumm [facility] MPV 8.5(L) 9.1 - 12.3 fL [facility] RBC 3.29(L) 3.90 - 5.20 M/cumm [facility] MCV 87.8 81.3 - 96.4 fL [facility] MCH 28.3 27.1 - 33.3 pg [facility] MCHC 32.2(L) 32.3 - 35.7 g/dL [facility] RDW CV 14.3 11.1 - 14.9 % [facility] RDW SD 46.4 35.7 - 48.1 fL [facility] NRBC abs 0.00 0.00 - 0.01 K/cumm [facility] Blood 03/27/2025 10:2 6 PM CDT 03/27/2025 10:44 PM CDT Alejandrina Mclean NP LAB BLOOD ORDERABLES Final Resul t Performing Organization Address [facility] de Phone Number [facility] Department [place] [address] * Basic metabolic panel (03/27/2025 10:26 PM CDT) [facility] Sodium 137 135 - 145 mmol/L Potassium, pl 4.2 3.3 - 4.9 mmol/L [facility] Chloride 97 97 - 110 mmol/L [facility] CO2 29 22 - 32 mmol/L [facility] Anion gap 11 2 - 15 mmol/L [facility] BUN 19 6 - 25 mg/dL [facility] Creatinine 0.88 0.60 - 1.10 mg/dL [facility] Glucose 127 70 - 199 mg/dL [facility] Comment: Interpretive Data Fasting glucose >/= 126 mg/dl is diagnostic for diabetes. Fasting is defined as no caloric intake for at least 8 hours. Fasting glucose between 100 mg/dl to 125 mg/dl is diagnostic of prediabetes. In a patient with classic symptoms of hyperglycemia or hyperglycemic crisis, a random glucose >/= 200 mg/dl is diagnostic for diabetes. In the absence of unequivocal hyperglycemia, results should be confirmed by repeat testing. The classification and Diagnosis of Diabetes Diabetes Care 202; 46: S19-S40. Current interpretive data was last revised 2022. Calcium 9.5 8.5 - 10.3 mg/dL [facility] Blood 03/27/2025 10:2 6 PM CDT 03/27/2025 10:44 PM CDT Alejandrina Mclean NP LAB BLOOD ORDERABLES Final Resul t Performing Organization Address [facility] de Phone Number [facility] Department [place] [address] * eGFR (03/26/2025 9:34 PM CDT) eGFR 64 >=60 mL/min/1. 73 m2 Comment: Interpretive Data Reference Interval Normal >/= 90 mL/min/1.73m2 Mildly decreased* 60 - 89 mL/min/1.73m2 Mildly to moderately decreased 45 - 59 mL/min/1.73m2 Moderately to severely decreased 30 - 44 mL/min/1.73m2 Severely decreased 15 - 29 mL/min/1.73m2 Kidney Failure < 15 mL/min/1.73m2 *Relative to young adult level Estimated glomerular filtration rate is determined by the 2020 CKD-EPI equation recommended by the National Kidney Foundation (A Unifying Approach to GFR Estimation: Recommendations of the NKF-ASK Task Force on Reassessing the Inclusion of Race in Diagnosing Kidney Disease, JASN 2020). The CKD-EPI equation should not be used for patients with unstable renal function and has not been validated in children and those over 70. Current interpretive data was last reviewed 2021. Blood 03/26/2025 9:34 PM CDT 03/26/2025 9:51 PM CDT us Alejandrina Mclean NP LAB BLOOD ORDERABLES Final Resul t [facility] Department [place] [address] * Blood culture Blood (03/26/2025 9:34 PM CDT) Report Final Report: No growth Blood 03/26/2025 9:34 PM CDT 03/26/2025 9:50 PM CDT Narrative [facility] - 03/31/2025 7:00 AM CDT From a different site than #1. Collection->Peripheral 1. Blood cultures are incubated for 4 days on a continuously monitored blood culture system. The first report of a negative culture is issued within 24 hours of receipt of the specimen in the laboratory. 2. Positive culture results are reported as soon as they are detected. 3. The most important factor for detection of microbes in the setting of bloodstream infection is the volume of blood submitted for culture. Failure to collect an optimal blood volume can result in false negative blood cultures. 4. For pediatric patients, the recommended blood volume to collect follows a weight based strategy. See the electronic test catalog for collection instructions. 5. For positive blood cultures, a rapid molecular test may be performed for organism identification using the bindu ePlex blood culture identification panel for gram positive (BCID-GP) and gram negative (BCID-GN) organisms. This nucleic acid amplification test detects microbial DNA in positive blood culture broth. This assay has been cleared by the [place] Food and Drug Administration and its performance characteristics have been verified by the [facility]. For questions about this culture, contact the Microbiology Laboratory at [phone]. Interpretive data was last revised on 24. us Josh Trivedi NP LAB MICROBIOLOGY - GENERAL ORDERABLES Final Result [facility] Department [place] [address] * Blood culture Blood (03/26/2025 9:34 PM CDT) Report Final Report: No growth Blood 03/26/2025 9:34 PM CDT 03/26/2025 9:50 PM CDT [facility] - 03/31/2025 7:00 AM CDT Collection->Peripheral 1. Blood cultures are incubated for 4 days on a continuously monitored blood culture system. The first report of a negative culture is issued within 24 hours of receipt of the specimen in the laboratory. 2. Positive culture results are reported as soon as they are detected. 3. The most important factor for detection of microbes in the setting of bloodstream infection is the volume of blood submitted for culture. Failure to collect an optimal blood volume can result in false negative blood cultures. 4. For pediatric patients, the recommended blood volume to collect follows a weight based strategy. See the electronic test catalog for collection instructions. 5. For positive blood cultures, a rapid molecular test may be performed for organism identification using the bindu ePlex blood culture identification panel for gram positive (BCID-GP) and gram negative (BCID-GN) organisms. This nucleic acid amplification test detects microbial DNA in positive blood culture broth. This assay has been cleared by the [place] Food and Drug Administration and its performance characteristics have been verified by the [facility]. For questions about this culture, contact the Microbiology Laboratory at [phone]. Interpretive data was last revised on 24. us Josh Trivedi GENERAL MANAGER IN TRAINING LAB MICROBIOLOGY - GENERAL ORDERABLES Final Result Performing Organization Address City/[facility]/ZIP Co de Phone Number [facility] Department [place] [address] * (ABNORMAL) CBC without differential (03/26/2025 9:34 PM CDT) [facility] WBC 10.42(H) 3.80 - 9.90 K/cumm Hgb 9.1(L) 11.9 - 15.5 g/dL [facility] Hct 28.1(L) 35.6 - 45.5 % [facility] Plt 530(H) 150 - 400 K/cumm [facility] MPV 8.5(L) 9.1 - 12.3 fL [facility] RBC 3.18(L) 3.90 - 5.20 M/cumm [facility] MCV 88.4 81.3 - 96.4 fL [facility] MCH 28.6 27.1 - 33.3 pg [facility] MCHC 32.4 32.3 - 35.7 g/dL [facility] RDW CV 14.3 11.1 - 14.9 % [facility] RDW SD 46.3 35.7 - 48.1 fL [facility] NRBC abs 0.00 0.00 - 0.01 K/cumm [facility] Blood 03/26/2025 9:34 PM CDT 03/26/2025 9:51 PM CDT us Alejandrina Mclean GENERAL MANAGER IN TRAINING LAB BLOOD ORDERABLES Final Resul t Performing Organization Address City/[facility]/ZIP Co de Phone Number [facility] Department [place] [address] * (ABNORMAL) Basic metabolic panel (03/26/2025 9:34 PM CDT) Sodium 134(L) 135 - 145 mmol/L Potassium, pl 4.3 3.3 - 4.9 mmol/L [facility] Chloride 98 97 - 110 mmol/L [facility] CO2 28 22 - 32 mmol/L [facility] Anion gap 8 2 - 15 mmol/L [facility] BUN 16 6 - 25 mg/dL [facility] Creatinine 0.92 0.60 - 1.10 mg/dL [facility] Glucose 128 70 - 199 mg/dL [facility] Comment: Interpretive Data Fasting glucose >/= 126 mg/dl is diagnostic for diabetes. Fasting is defined as no caloric intake for at least 8 hours. Fasting glucose between 100 mg/dl to 125 mg/dl is diagnostic of prediabetes. In a patient with classic symptoms of hyperglycemia or hyperglycemic crisis, a random glucose >/= 200 mg/dl is diagnostic for diabetes. In the absence of unequivocal hyperglycemia, results should be confirmed by repeat testing. The classification and Diagnosis of Diabetes Diabetes Care 2021; 46: S19-S40. Current interpretive data was last revised 2022. Calcium 9.1 8.5 - 10.3 mg/dL [facility] Blood 03/26/2025 9:34 PM CDT 03/26/2025 9:51 PM CDT us Alejandrina Mclean NP LAB BLOOD ORDERABLES Final Resul t [facility] Department [place] [address] * CT Chest Abdomen Pelvis W Contrast (03/26/2025 6:15 AM CDT) Anatomical Region Laterality Modality Body N/A Computed Tomogra phy 03/26/2025 7:39 AM CDT Impressions 03/26/2025 7:39 AM CDT 1. New rim-enhancing fluid collection in the subcutaneous tissues deep to the incision site, located anterior to the lower sternal body as described above. This is concerning for an infected fluid collection and may be the cause of the patient's symptoms. No underlying osteomyelitis or mediastinal abscess. Stable healed/healing nondisplaced rib fractures of the anterior right third and fourth ribs. No other cause for chest pain. 2. Stable left axillary lymph node which demonstrated increased uptake on PET/CT of 01/18/2025. 3. No source of infection in the abdomen and pelvis. Electronically signed by: Gi De Guzman M.D. Narrative 03/26/2025 7:39 AM CDT EXAMINATION: Computed tomography of the chest, abdomen and pelvis with intravenous contrast HISTORY: 79-year-old woman with ascending aortic aneurysm and moderate aortic regurgitation status post graft repair of the aorta and aortic valve replacement for on 02/28/2025, presenting with persistent postoperative right chest wall pain. Also has a history of right breast cancer status post bilateral mastectomy, TRAM reconstruction and bilateral oophorectomy in 2000. TECHNIQUE: Transaxial computed tomographic images of the chest, abdomen and pelvis were obtained with intravenous contrast according to the standard protocol after the uneventful administration of 69 mL Opti-Ray 350 intravenous contrast. COMPARISON: CT exams of 03/22/2025 and 10/27/2024, as well as PET/CT of 01/18/2025 FINDINGS: Chest: Postsurgical changes of bilateral mastectomy with multiple surgical clips in the anterior right chest wall in keeping with right breast reconstruction appear unchanged since the prior exams. There are are surgical clips in bilateral axilla compatible with previous lymph node dissection. There is no lymphadenopathy in the chest. No significant change of the morphology and size of the previously seen left axillary lymph node with increased radiotracer uptake on PET/CT of 01/18/2025. It measures 6 x 11 mm (series 2 image #51). Postsurgical changes of graft repair of the ascending aorta appear unchanged since CT of 03/22/2025. Aortic valve replacement again noted. Mild stranding of the mediastinal fat adjacent to the ascending aorta, mild retrosternal/anterior mediastinal fat stranding, and mild thickening of the anterior pericardium represents expected postsurgical changes. No mediastinal hematoma or abscess. There is stable fat stranding in the subcutaneous tissue overlying the sternum along the midline anterior chest wall. There is a new rim-enhancing fluid collection in the anterior chest wall measuring 19 x 16 mm (series 2 image #87). It measures 24 mm craniocaudally. This small rim-enhancing fluid collection is located anterior to the inferior margin of the second sternal plate, extending to the top of the third sternal plate. This is concerning for an infected fluid collection. No underlying erosions or sclerosis of the sternum to suggest osteomyelitis. Mild step-off of the sternotomy appears unchanged. No other chest wall or mediastinal collections. Multiple calcified mediastinal and hilar lymph nodes are sequela of past granulomatous infection. No noncalcified lymphadenopathy in the chest. The aorta is tortuous with atherosclerotic calcification, unchanged since prior exam. Fine reticulations in the periphery of the upper right lung represents stable nonspecific fibrosis. If there is a history of radiation this could represent mild radiation fibrosis. Also, stable reticulations the periphery of bilateral lower lobes, right greater than left, are likely due to sequela of past aspiration. The previous tree-in-bud nodules described on the prior exam are not appreciated on current study. Calcified nodules in bilateral lower lobes and right middle lobe are sequela of past granulomatous infection. No noncalcified pulmonary nodules identified There is no cardiac mass or thrombus. No pleural or pericardial effusion or thickening. Epicardial pacer leads in the mediastinum adjacent to the right border of the heart noted. Abdomen/Pelvis: There is diffuse anasarca with extensive body wall edema, unchanged since the prior studies. Numerous calcified nodules in the liver and spleen are sequela of past granulomatous infection. No focal lesions suggestive of an infectious process. Table hypoattenuating 4 mm lesion in hepatic segment 5 which could represent a hemangioma or a noncalcified granuloma. The gallbladder surgically absent. The pancreas is atrophied and fatty-replaced. No focal pancreatic lesions. The adrenals appear unchanged. There is diffuse thickening of the urothelium of the right renal pelvis and intrarenal collecting system without hydronephrosis. A similar finding with less severity is seen in the left renal collecting system. There is a represent pyelitis due to an infectious cause. No pyelonephrosis. The ureters have a normal caliber with no stones. The bladder appears normal. Extensive diverticulosis of the sigmoid and descending colon without acute diverticulitis. There is no bowel obstruction or focal inflammation. The caliber of the bowel appears normal. Atherosclerotic calcification of the abdominal aorta pelvic arteries noted. Mild fusiform dilation of the infrarenal abdominal aorta is stable. The uterus is atrophied. The ovaries are not seen likely due to past oophorectomy. No adnexal masses. There is no lymphadenopathy or ascites. Diffuse mesenteric and retroperitoneal edema due to fluid overload status noted. No omental thickening or nodularity. Postsurgical changes of anterior abdominal and pelvic wall repair without recurrent hernia. Bones: Marked rotoscoliosis of the spine with dextro curvature of the lower thoracic and upper lumbar spine again noted. This is associated with multilevel degenerative changes of the spine. Diffuse osteopenia. Thickening of the right femoral neck noted. Stable focal sclerosis of the anterior right third and fourth ribs are likely due to healing/healed rib fractures. Procedure Note Gi De Guzman MD - 03/26/2025 EXAMINATION: Computed tomography of the chest, abdomen and pelvis with intravenous contrast HISTORY: 79-year-old woman with ascending aortic aneurysm and moderate aortic regurgitation status post graft repair of the aorta and aortic valve replacement for on 02/28/2025, presenting with persistent postoperative right chest wall pain. Also has a history of right breast cancer status post bilateral mastectomy, TRAM reconstruction and bilateral oophorectomy in 2000. TECHNIQUE: Transaxial computed tomographic images of the chest, abdomen and pelvis were obtained with intravenous contrast according to the standard protocol after the uneventful administration of 69 mL Opti-Ray 350 intravenous contrast. COMPARISON: CT exams of 03/22/2025 and 10/27/2024, as well as PET/CT of 01/18/2025 FINDINGS: Chest: Postsurgical changes of bilateral mastectomy with multiple surgical clips in the anterior right chest wall in keeping with right breast reconstruction appear unchanged since the prior exams. There are are surgical clips in bilateral axilla compatible with previous lymph node dissection. There is no lymphadenopathy in the chest. No significant change of the morphology and size of the previously seen left axillary lymph node with increased radiotracer uptake on PET/CT of 01/18/2025. It measures 6 x 11 mm (series 2 image #51). Postsurgical changes of graft repair of the ascending aorta appear unchanged since CT of 03/22/2025. Aortic valve replacement again noted. Mild stranding of the mediastinal fat adjacent to the ascending aorta, mild retrosternal/anterior mediastinal fat stranding, and mild thickening of the anterior pericardium represents expected postsurgical changes. No mediastinal hematoma or abscess. There is stable fat stranding in the subcutaneous tissue overlying the sternum along the midline anterior chest wall. There is a new rim-enhancing fluid collection in the anterior chest wall measuring 19 x 16 mm (series 2 image #87). It measures 24 mm craniocaudally. This small rim-enhancing fluid collection is located anterior to the inferior margin of the second sternal plate, extending to the top of the third sternal plate. This is concerning for an infected fluid collection. No underlying erosions or sclerosis of the sternum to suggest osteomyelitis. Mild step-off of the sternotomy appears unchanged. No other chest wall or mediastinal collections. Multiple calcified mediastinal and hilar lymph nodes are sequela of past granulomatous infection. No noncalcified lymphadenopathy in the chest. The aorta is tortuous with atherosclerotic calcification, unchanged since prior exam. Fine reticulations in the periphery of the upper right lung represents stable nonspecific fibrosis. If there is a history of radiation this could represent mild radiation fibrosis. Also, stable reticulations the periphery of bilateral lower lobes, right greater than left, are likely due to sequela of past aspiration. The previous tree-in-bud nodules described on the prior exam are not appreciated on current study. Calcified nodules in bilateral lower lobes and right middle lobe are sequela of past granulomatous infection. No noncalcified pulmonary nodules identified There is no cardiac mass or thrombus. No pleural or pericardial effusion or thickening. Epicardial pacer leads in the mediastinum adjacent to the right border of the heart noted. Abdomen/Pelvis: There is diffuse anasarca with extensive body wall edema, unchanged since the prior studies. Numerous calcified nodules in the liver and spleen are sequela of past granulomatous infection. No focal lesions suggestive of an infectious process. Table hypoattenuating 4 mm lesion in hepatic segment 5 which could represent a hemangioma or a noncalcified granuloma. The gallbladder surgically absent. The pancreas is atrophied and fatty-replaced. No focal pancreatic lesions. The adrenals appear unchanged. There is diffuse thickening of the urothelium of the right renal pelvis and intrarenal collecting system without hydronephrosis. A similar finding with less severity is seen in the left renal collecting system. There is a represent pyelitis due to an infectious cause. No pyelonephrosis. The ureters have a normal caliber with no stones. The bladder appears normal. Extensive diverticulosis of the sigmoid and descending colon without acute diverticulitis. There is no bowel obstruction or focal inflammation. The caliber of the bowel appears normal. Atherosclerotic calcification of the abdominal aorta pelvic arteries noted. Mild fusiform dilation of the infrarenal abdominal aorta is stable. The uterus is atrophied. The ovaries are not seen likely due to past oophorectomy. No adnexal masses. There is no lymphadenopathy or ascites. Diffuse mesenteric and retroperitoneal edema due to fluid overload status noted. No omental thickening or nodularity. Postsurgical changes of anterior abdominal and pelvic wall repair without recurrent hernia. Bones: Marked rotoscoliosis of the spine with dextro curvature of the lower thoracic and upper lumbar spine again noted. This is associated with multilevel degenerative changes of the spine. Diffuse osteopenia. Thickening of the right femoral neck noted. Stable focal sclerosis of the anterior right third and fourth ribs are likely due to healing/healed rib fractures. IMPRESSION: 1. New rim-enhancing fluid collection in the subcutaneous tissues deep to the incision site, located anterior to the lower sternal body as described above. This is concerning for an infected fluid collection and may be the cause of the patient's symptoms. No underlying osteomyelitis or mediastinal abscess. Stable healed/healing nondisplaced rib fractures of the anterior right third and fourth ribs. No other cause for chest pain. 2. Stable left axillary lymph node which demonstrated increased uptake on PET/CT of 01/18/2025. 3. No source of infection in the abdomen and pelvis. Electronically signed by: Gi De Guzman M.D. Alejandrina Mclean NP IMG CT PROCEDURES Final Result * (ABNORMAL) eGFR (03/25/2025 8:25 PM CDT) eGFR 59(L) >=60 mL/min/1. 73 m2 Comment: Interpretive Data Reference Interval Normal >/= 90 mL/min/1.73m2 Mildly decreased* 60 - 89 mL/min/1.73m2 Mildly to moderately decreased 45 - 59 mL/min/1.73m2 Moderately to severely decreased 30 - 44 mL/min/1.73m2 Severely decreased 15 - 29 mL/min/1.73m2 Kidney Failure < 15 mL/min/1.73m2 *Relative to young adult level Estimated glomerular filtration rate is determined by the 2020 CKD-EPI equation recommended by the National Kidney Foundation (A Unifying Approach to GFR Estimation: Recommendations of the NKF-ASK Task Force on Reassessing the Inclusion of Race in Diagnosing Kidney Disease, JASN 202). The CKD-EPI equation should not be used for patients with unstable renal function and has not been validated in children and those over 70. Current interpretive data was last reviewed 2021. Blood 03/25/2025 8:25 PM CDT 03/25/2025 8:52 PM CDT us Alejandrina Mclean NP LAB BLOOD ORDERABLES Final Resul t Performing Organization Address City/[facility]/ZIP Co de Phone Number [facility] Department [place] [address] * (ABNORMAL) CBC without differential (03/25/2025 8:25 PM CDT) WBC 10.19(H) 3.80 - 9.90 K/cumm Hgb 9.0(L) 11.9 - 15.5 g/dL [facility] Hct 28.5(L) 35.6 - 45.5 % [facility] Plt 478(H) 150 - 400 K/cumm [facility] MPV 8.5(L) 9.1 - 12.3 fL [facility] RBC 3.17(L) 3.90 - 5.20 M/cumm [facility] MCV 89.9 81.3 - 96.4 fL [facility] MCH 28.4 27.1 - 33.3 pg [facility] MCHC 31.6(L) 32.3 - 35.7 g/dL [facility] RDW CV 14.4 11.1 - 14.9 % [facility] RDW SD 47.3 35.7 - 48.1 fL [facility] NRBC abs 0.00 0.00 - 0.01 K/cumm [facility] Blood 03/25/2025 8:25 PM CDT 03/25/2025 8:52 PM CDT us Alejandrina Mclean NP LAB BLOOD ORDERABLES Final Resul t [facility] Department [place] [address] * (ABNORMAL) Basic metabolic panel (03/25/2025 8:25 PM CDT) Sodium 136 135 - 145 mmol/L Potassium, pl 4.4 3.3 - 4.9 mmol/L [facility] Chloride 96(L) 97 - 110 mmol/L [facility] CO2 30 22 - 32 mmol/L [facility] Anion gap 10 2 - 15 mmol/L [facility] BUN 15 6 - 25 mg/dL [facility] Creatinine 0.99 0.60 - 1.10 mg/dL [facility] Glucose 143 70 - 199 mg/dL [facility] Comment: Interpretive Data Fasting glucose >/= 126 mg/dl is diagnostic for diabetes. Fasting is defined as no caloric intake for at least 8 hours. Fasting glucose between 100 mg/dl to 125 mg/dl is diagnostic of prediabetes. In a patient with classic symptoms of hyperglycemia or hyperglycemic crisis, a random glucose >/= 200 mg/dl is diagnostic for diabetes. In the absence of unequivocal hyperglycemia, results should be confirmed by repeat testing. The classification and Diagnosis of Diabetes Diabetes Care 2021; 46: S19-S40. Current interpretive data was last revised 2022. Calcium 9.1 8.5 - 10.3 mg/dL [facility] Blood 03/25/2025 8:25 PM CDT 03/25/2025 8:52 PM CDT Alejandrina Mclean NP LAB BLOOD ORDERABLES Final Resul t Performing Organization Address [facility] Co de Phone Number [facility] [place] [address] * XR Chest PA Lateral 2 Views (03/24/2025 11:23 PM CDT) Anatomical Region Laterality Modality Body, Chest N/A Computed Radiogr aphy 03/25/2025 9:14 AM CDT Impressions 03/25/2025 12:02 PM CDT Comparison is made to chest radiograph dated 03/02/2025. Postsurgical changes of median sternotomy, aortic valve replacement, and thoracic aortic aneurysm repair. Median sternotomy plates remain aligned and intact. Left axillary surgical clips. No pulmonary consolidation or edema. No pleural effusion or pneumothorax. Cardiomediastinal silhouette is stable. Aortic arch calcifications. Tortuous aorta. Exaggerated thoracic kyphosis. Dictated by: Kevin Barajas M.D. The radiology attending physician has personally reviewed this study, and had reviewed and/or edited this written report and agrees with it. Electronically signed by: Ed Richardson M.D. Narrative 03/25/2025 12:02 PM CDT EXAMINATION: 2 view chest radiograph Procedure Note Ed Richardson MD - 03/25/2025 EXAMINATION: 2 view chest radiograph IMPRESSION: Comparison is made to chest radiograph dated 03/02/2025. Postsurgical changes of median sternotomy, aortic valve replacement, and thoracic aortic aneurysm repair. Median sternotomy plates remain aligned and intact. Left axillary surgical clips. No pulmonary consolidation or edema. No pleural effusion or pneumothorax. Cardiomediastinal silhouette is stable. Aortic arch calcifications. Tortuous aorta. Exaggerated thoracic kyphosis. Dictated by: Kevin Barajas M.D. The radiology attending physician has personally reviewed this study, and had reviewed and/or edited this written report and agrees with it. Electronically signed by: Ed Richardson M.D. Tino Romero MD IMG XR PROCEDURES Final Result * eGFR (03/24/2025 10:43 PM CDT) eGFR 62 >=60 mL/min/1. 73 m2 Comment: Interpretive Data Reference Interval Normal >/= 90 mL/min/1.73m2 Mildly decreased* 60 - 89 mL/min/1.73m2 Mildly to moderately decreased 45 - 59 mL/min/1.73m2 Moderately to severely decreased 30 - 44 mL/min/1.73m2 Severely decreased 15 - 29 mL/min/1.73m2 Kidney Failure < 15 mL/min/1.73m2 *Relative to young adult level Estimated glomerular filtration rate is determined by the 2020 CKD-EPI equation recommended by the National Kidney Foundation (A Unifying Approach to GFR Estimation: Recommendations of the NKF-ASK Task Force on Reassessing the Inclusion of Race in Diagnosing Kidney Disease, JASN 2020). The CKD-EPI equation should not be used for patients with unstable renal function and has not been validated in children and those over 70. Current interpretive data was last reviewed 2021. Blood 03/24/2025 10:4 3 PM CDT 03/24/2025 10:56 PM CDT Tino Romero MD LAB BLOOD ORDERABL ES Final Result Performing Organization Address [facility] de Phone Number [facility] [place] [address] * (ABNORMAL) aPTT (03/24/2025 10:43 PM CDT) aPTT 27(L) 28 - 38 sec Comment: Interpretive Data Heparin therapeutic range: 66.0 - 100.0 seconds. Range based on correlation with therapeutic heparin activity range of 0.3 - 0.7 Units/mL. Current interpretive data was last revised on 2023. Blood 03/24/2025 10:4 3 PM CDT 03/24/2025 10:59 PM CDT Tino Romero MD LAB BLOOD ORDERABL ES Final Result Performing Organization Address [facility] Co de Phone Number [facility] [place] [place] [address] * (ABNORMAL) Protime-INR (03/24/2025 10:43 PM CDT) PT 13.4(H) 9.7 - 13.0 sec INR 1.24(H) 0.90 - 1.20 [facility] Comment: Interpretive data Oral anticoagulant therapeutic ranges: Venous thromboembolism prophylaxis or treatment: 2.0-3.0 CARDIOLOGY Standard range: 2.0-3.0 High-intensity range: 2.5-3.5 Refer to indication-specific guidelines for appropriate target ranges for prosthetic heart valve replacement. Current interpretive data was last revised on 2019. Blood 03/24/2025 10:4 3 PM CDT 03/24/2025 10:59 PM CDT us Tino Romero MD LAB BLOOD ORDERABL ES Final Result Performing Organization Address City/[facility]/ZIP Co de Phone Number [facility] Department [place] [address] * (ABNORMAL) CBC without differential (03/24/2025 10:43 PM CDT) WBC 10.51(H) 3.80 - 9.90 K/cumm Hgb 8.5(L) 11.9 - 15.5 g/dL [facility] Hct 26.6(L) 35.6 - 45.5 % [facility] Plt 441(H) 150 - 400 K/cumm [facility] MPV 8.8(L) 9.1 - 12.3 fL [facility] RBC 3.01(L) 3.90 - 5.20 M/cumm [facility] MCV 88.4 81.3 - 96.4 fL [facility] MCH 28.2 27.1 - 33.3 pg [facility] MCHC 32.0(L) 32.3 - 35.7 g/dL [facility] RDW CV 14.3 11.1 - 14.9 % [facility] RDW SD 46.1 35.7 - 48.1 fL [facility] NRBC abs 0.00 0.00 - 0.01 K/cumm [facility] Blood 03/24/2025 10:4 3 PM CDT 03/24/2025 10:56 PM CDT us Tino Romero MD LAB BLOOD ORDERABL ES Final Result [facility] [place] [address] * Phosphorus (03/24/2025 10:43 PM CDT) [facility] Phosphorus, pl 3.9 2.3 - 4.5 mg/dL Blood 03/24/2025 10:4 3 PM CDT 03/24/2025 10:56 PM CDT us Tino Romero MD LAB BLOOD [place] [address] * Magnesium (03/24/2025 10:43 PM CDT) [facility] Magnesium 2.0 1.4 - 2.5 mg/dL Blood 03/24/2025 10:4 3 PM CDT 03/24/2025 10:56 PM CDT us Tino Romero MD LAB BLOOD ORDERABL ES Final Result Performing Organization Address City/[facility] Co de Phone Number [facility] [place] [address] * (ABNORMAL) Comprehensive metabolic panel (03/24/2025 10:43 PM CDT) [facility] Sodium 137 135 - 145 mmol/L Potassium, pl 4.1 3.3 - 4.9 mmol/L [facility] Chloride 100 97 - 110 mmol/L [facility] CO2 27 22 - 32 mmol/L [facility] Anion gap 10 2 - 15 mmol/L [facility] BUN 12 6 - 25 mg/dL [facility] Creatinine 0.94 0.60 - 1.10 mg/dL [facility] Glucose 129 70 - 199 mg/dL [facility] Comment: Interpretive Data Fasting glucose >/= 126 mg/dl is diagnostic for diabetes. Fasting is defined as no caloric intake for at least 8 hours. Fasting glucose between 100 mg/dl to 125 mg/dl is diagnostic of prediabetes. In a patient with classic symptoms of hyperglycemia or hyperglycemic crisis, a random glucose >/= 200 mg/dl is diagnostic for diabetes. In the absence of unequivocal hyperglycemia, results should be confirmed by repeat testing. The classification and Diagnosis of Diabetes Diabetes Care 2021; 46: S19-S40. Current interpretive data was last revised 2022. Calcium 9.0 8.5 - 10.3 mg/dL [facility] Bilirubin, total 0.2 0.1 - 1.2 mg/dL [facility] Protein, pl 6.4(L) 6.5 - 8.5 g/dL [facility] Albumin 2.9(L) 3.5 - 5.0 g/dL [facility] Alk phos 82 40 - 130 Units/L [facility] ALT 7 7 - 45 Units/L [facility] AST 24 10 - 45 Units/L [facility] Blood 03/24/2025 10:4 3 PM CDT 03/24/2025 10:56 PM CDT us Tino Romero MD LAB BLOOD ORDERABL ES Final Result [facility] Department [place] [employer] [place] [address] * Sepsis Lactate w/ Reflex (03/24/2025 10:11 AM CDT) Pathologist [facility] Sepsis Lactate 2.0 0.7 - 2.0 mmol/L Blood 03/24/2025 10:1 1 AM CDT 03/24/2025 10:28 AM CDT us Yung Tucker MD LAB BLOOD ORDERABLES Final Result [facility] Department [place] [address] * eGFR (03/24/2025 10:11 AM CDT) eGFR 76 >=60 mL/min/1. 73 m2 Comment: Interpretive Data Reference Interval Normal >/= 90 mL/min/1.73m2 Mildly decreased* 60 - 89 mL/min/1.73m2 Mildly to moderately decreased 45 - 59 mL/min/1.73m2 Moderately to severely decreased 30 - 44 mL/min/1.73m2 Severely decreased 15 - 29 mL/min/1.73m2 Kidney Failure < 15 mL/min/1.73m2 *Relative to young adult level Estimated glomerular filtration rate is determined by the 2020 CKD-EPI equation recommended by the National Kidney Foundation (A Unifying Approach to GFR Estimation: Recommendations of the NKF-ASK Task Force on Reassessing the Inclusion of Race in Diagnosing Kidney Disease, JASN 2020). The CKD-EPI equation should not be used for patients with unstable renal function and has not been validated in children and those over 70. Current interpretive data was last reviewed 2021. Blood 03/24/2025 10:1 1 AM CDT 03/24/2025 10:42 AM CDT Yung Tucker MD LAB BLOOD ORDERABLES Final Result [facility] Department [place] [address] * (ABNORMAL) Differential, auto (03/24/2025 10:11 AM CDT) [facility] Neutrophil abs 7.83(H) 1.50 - 6.50 K/cumm Imm gran abs 0.14(H) 0.00 - 0.10 K/cumm [facility] Lymphocyte abs 0.89 0.80 - 3.30 K/cumm [facility] Monocyte abs 1.09(H) 0.20 - 0.80 K/cumm [facility] Eosinophil abs 0.17 0.00 - 0.50 K/cumm [facility] Basophil abs 0.05 0.00 - 0.10 K/cumm [facility] Neutrophil pct 76.9 % [facility] Comment: Interpretive Data Percent cell count reference ranges are not reported, since discordance with absolute values may lead to misinterpretation of CBC data. Current Interpretive Data was last revised on 2018. Imm gran pct 1.4 % [facility] Comment: Interpretive Data Percent cell count reference ranges are not reported, since discordance with absolute values may lead to misinterpretation of CBC data. Current Interpretive Data was last revised on 2018. Lymphocyte pct 8.8 % [facility] Comment: Interpretive Data Percent cell count reference ranges are not reported, since discordance with absolute values may lead to misinterpretation of CBC data. Current Interpretive Data was last revised on 2018. Monocyte pct 10.7 % [facility] Comment: Interpretive Data Percent cell count reference ranges are not reported, since discordance with absolute values may lead to misinterpretation of CBC data. Current Interpretive Data was last revised on 2018. Eosinophil pct 1.7 % [facility] Comment: Interpretive Data Percent cell count reference ranges are not reported, since discordance with absolute values may lead to misinterpretation of CBC data. Current Interpretive Data was last revised on 2018. Basophil pct 0.5 % [facility] Comment: Interpretive Data Percent cell count reference ranges are not reported, since discordance with absolute values may lead to misinterpretation of CBC data. Current Interpretive Data was last revised on 2018. Blood 03/24/2025 10:1 1 AM CDT 03/24/2025 10:42 AM CDT Yung Tucker MD LAB BLOOD ORDERABLES Final Result [facility] Department [place] [address] * (ABNORMAL) CBC with auto differential (03/24/2025 10:11 AM CDT) WBC 10.17(H) 3.80 - 9.90 K/cumm Hgb 9.5(L) 11.9 - 15.5 g/dL [facility] Hct 29.1(L) 35.6 - 45.5 % [facility] Plt 487(H) 150 - 400 K/cumm [facility] MPV 8.7(L) 9.1 - 12.3 fL [facility] RBC 3.26(L) 3.90 - 5.20 M/cumm [facility] MCV 89.3 81.3 - 96.4 fL [facility] MCH 29.1 27.1 - 33.3 pg [facility] MCHC 32.6 32.3 - 35.7 g/dL [facility] RDW CV 14.3 11.1 - 14.9 % [facility] RDW SD 46.4 35.7 - 48.1 fL [facility] NRBC abs 0.00 0.00 - 0.01 K/cumm [facility] Blood Venous blood specimen / Unknown 03/24/2025 10:11 AM CDT 03/24/2025 10:42 AM CDT Yung Tucker MD LAB BLOOD ORDERABLES Final Result [facility] Department [place] [address] * Blood culture Blood (03/24/2025 10:11 AM CDT) Report Final Report: No growth Blood 03/24/2025 10:1 1 AM CDT 03/24/2025 10:32 AM CDT Narrative [facility] - 03/28/2025 12:01 PM CDT From a different site than #1. Collection->Peripheral 1. Blood cultures are incubated for 4 days on a continuously monitored blood culture system. The first report of a negative culture is issued within 24 hours of receipt of the specimen in the laboratory. 2. Positive culture results are reported as soon as they are detected. 3. The most important factor for detection of microbes in the setting of bloodstream infection is the volume of blood submitted for culture. Failure to collect an optimal blood volume can result in false negative blood cultures. 4. For pediatric patients, the recommended blood volume to collect follows a weight based strategy. See the electronic test catalog for collection instructions. 5. For positive blood cultures, a rapid molecular test may be performed for organism identification using the bindu ePlex blood culture identification panel for gram positive (BCID-GP) and gram negative (BCID-GN) organisms. This nucleic acid amplification test detects microbial DNA in positive blood culture broth. This assay has been cleared by the [place] Food and Drug Administration and its performance characteristics have been verified by the [facility]. For questions about this culture, contact the Microbiology Laboratory at [phone]. Interpretive data was last revised on 24. Yung Tucker MD LAB MICROBIOLOGY - GENERAL ORDERABLES Final Result [facility] Department [place] [address] * Blood culture Blood (03/24/2025 10:11 AM CDT) Report Final Report: No growth Blood 03/24/2025 10:1 1 AM CDT 03/24/2025 10:32 AM CDT Narrative [facility] - 03/28/2025 12:00 PM CDT Collection->Peripheral 1. Blood cultures are incubated for 4 days on a continuously monitored blood culture system. The first report of a negative culture is issued within 24 hours of receipt of the specimen in the laboratory. 2. Positive culture results are reported as soon as they are detected. 3. The most important factor for detection of microbes in the setting of bloodstream infection is the volume of blood submitted for culture. Failure to collect an optimal blood volume can result in false negative blood cultures. 4. For pediatric patients, the recommended blood volume to collect follows a weight based strategy. See the electronic test catalog for collection instructions. 5. For positive blood cultures, a rapid molecular test may be performed for organism identification using the bindu ePlex blood culture identification panel for gram positive (BCID-GP) and gram negative (BCID-GN) organisms. This nucleic acid amplification test detects microbial DNA in positive blood culture broth. This assay has been cleared by the [place] Food and Drug Administration and its performance characteristics have been verified by the [facility]. For questions about this culture, contact the Microbiology Laboratory at [phone]. Interpretive data was last revised on 24. us Yung Tucker MD LAB MICROBIOLOGY - GENERAL ORDERABLES Final Result [facility] Department [place] [address] * (ABNORMAL) Comprehensive metabolic panel (03/24/2025 10:11 AM CDT) Sodium 136 135 - 145 mmol/L Potassium, pl 4.1 3.3 - 4.9 mmol/L [facility] Chloride 100 97 - 110 mmol/L [facility] CO2 27 22 - 32 mmol/L [facility] Anion gap 9 2 - 15 mmol/L [facility] BUN 8 6 - 25 mg/dL [facility] Creatinine 0.80 0.60 - 1.10 mg/dL [facility] Glucose 104 70 - 199 mg/dL [facility] Comment: Interpretive Data Fasting glucose >/= 126 mg/dl is diagnostic for diabetes. Fasting is defined as no caloric intake for at least 8 hours. Fasting glucose between 100 mg/dl to 125 mg/dl is diagnostic of prediabetes. In a patient with classic symptoms of hyperglycemia or hyperglycemic crisis, a random glucose >/= 200 mg/dl is diagnostic for diabetes. In the absence of unequivocal hyperglycemia, results should be confirmed by repeat testing. The classification and Diagnosis of Diabetes Diabetes Care 202; 46: S19-S40. Current interpretive data was last revised 2022. Calcium 9.5 8.5 - 10.3 mg/dL [facility] Bilirubin, total 0.2 0.1 - 1.2 mg/dL [facility] Protein, pl 7.1 6.5 - 8.5 g/dL [facility] Albumin 3.1(L) 3.5 - 5.0 g/dL [facility] Alk phos 88 40 - 130 Units/L [facility] ALT 9 7 - 45 Units/L [facility] AST 17 10 - 45 Units/L [facility] Blood Venous blood specimen / Unknown 03/24/2025 10:11 AM CDT 03/24/2025 10:42 AM CDT us Yung Tucker MD LAB BLOOD ORDERABLES Final Result Performing Organization Address City/[facility]/ZIP Co de Phone Number [facility]AQUELIN FLORES [facility] Department [place] [address] * ECG 12-LEAD (03/24/2025 9:10 AM CDT) Narrative [facility] - 03/24/2025 9:10 AM CDT Shemar Edmonds MD 03/24/2025 9:11 AM ECG 12 lead Date/Time: 03/24/2025 9:10 AM Performed by: Shemar Edmonds MD Authorized by: Shemar Edmonds MD Comments: EKG obtained for chest pain, compared to prior from 03/05/2025. Sinus rhythm with first-degree AV block. Normal axis. QT interval normal. Minimal high lateral ST depression, no ST elevation. Nonspecific T-wave changes in the inferolateral leads. us Shemar Edmonds MD ECG ORDERABLE S Final Result Performing Organization Address [facility] Co de Phone Number [facility]AB[facility]EL [facility] * (ABNORMAL) Aerobic and anaerobic culture and gram stain Wound Chest (03/22/2025 4:21 PM CDT) Direct Specimen Exam Stain: Few polymorphonuclear leukocytes seen. No organisms seen. Report Final Report: Few Mixed microorganisms. Includes the following: Few Pseudomonas aeruginosa Few Pseudomonas aeruginosa #2 (.) [facility] Organism MIXED MICROORGANISMS. [facility] Organism PSEUDOMONAS AERUGINOSA [facility] Organism PSEUDOMONAS AERUGINOSA [facility] Wound (Chest) 03/22/2025 4:2 1 PM CDT 03/22/2025 4:54 PM CDT Narrative [facility] - 03/30/2025 1:27 PM CDT Specimen received on an ESwab. Testing performed by [facility] ([phone]) Specimens submitted from normally sterile body sites will have all bacterial morphotypes identified. Specimens that contain grossly mixed shannan and/or are from body sites that are not normally sterile will be examined for Staphylococcus aureus, Pseudomonas aeruginosa, beta-hemolytic strep, vancomycin-resistant Enterococcus, Bacteroides, Parabacteroides, Clostridium perfringens and fungus. If any of these are isolated, the organism will be reported. Current interpretive data was last revised on 2019. Organism Antibiotic Method Susceptibility Pseudomonas aeruginosa Aztreonam INTERPRETATION Susceptible Pseudomonas aeruginosa Ceftazidime INTERPRETATION Susceptible Pseudomonas aeruginosa Ciprofloxacin INTERPRETATION Susceptible Pseudomonas aeruginosa Cefepime INTERPRETATION Susceptible Pseudomonas aeruginosa Imipenem INTERPRETATION Susceptible Pseudomonas aeruginosa Meropenem INTERPRETATION Susceptible Pseudomonas aeruginosa Piperacillin/Tazobactam INTERPR ETATION Susceptible Pseudomonas aeruginosa Tobramycin INTERPRETATION Susceptible Pseudomonas aeruginosa Aztreonam INTERPRETATION Susceptible Pseudomonas aeruginosa Ceftazidime INTERPRETATION Susceptible Pseudomonas aeruginosa Ciprofloxacin INTERPRETATION Susceptible Pseudomonas aeruginosa Cefepime INTERPRETATION Susceptible Pseudomonas aeruginosa Imipenem INTERPRETATION Susceptible Pseudomonas aeruginosa Meropenem INTERPRETATION Susceptible Pseudomonas aeruginosa Piperacillin/Tazobactam INTERPR ETATION Susceptible Pseudomonas aeruginosa Tobramycin INTERPRETATION Susceptible Leonor Celeste NP LAB MICROBIOLOGY - GENERAL ORDERABLES Final Result Performing Organization Address City/State/[facility] Co de Phone Number [facility] Department [place] [address] * CT Chest WO Contrast (03/22/2025 2:54 PM CDT) Anatomical Region Laterality Modality Body N/A Computed Tomogra phy 03/22/2025 3:11 PM CDT Impressions 03/22/2025 3:11 PM CDT 1. Changes of median sternotomy with mild sternal offset but well approximated sternal edges with intact sternal plates and wires. No organized collection. 2. Postsurgical changes of aortic valve replacement with ascending aorta repair Electronically signed by: Anastacio Pierre MD, PHD Narrative 03/22/2025 3:11 PM CDT EXAMINATION: Computed tomography of the chest without intravenous contrast HISTORY: Sternal wound infection TECHNIQUE: Transaxial computed tomographic images of the chest were obtained without intravenous contrast according to the standard protocol. COMPARISON: Head CT 01/18/2025, CTA chest 10/27/2024 FINDINGS: There are changes of median sternotomy. There is expected postsurgical soft tissue stranding in the anterior mediastinum without organized collection. There is mild sternal offset, though sternal edges are well approximated with intact plates and sternotomy wires. Unchanged mild reticulation in the lung periphery consistent with an interstitial lung abnormality. Improving tree-in-bud nodularity in the right lower lobe. There are a few scattered granulomas in both lungs with no suspicious pulmonary nodule. No focal consolidation, pleural effusion, or pneumothorax. Normal heart size with trace pericardial fluid. Postsurgical changes of aortic valve replacement and ascending aorta repair with small volume fluid surrounding the ascending aortic graft. There is persistent moderate at the atherosclerotic disease throughout the aortic arch and mildly tortuous descending thoracic aorta. Mild calcified atherosclerotic disease in the coronary arteries. Left axillary lymphadenopathy has resolved. No supraclavicular, mediastinal, or hilar lymphadenopathy. Numerous partially calcified lymph nodes are seen throughout the mediastinum. Epicardial pacing wires are present. There are granulomas throughout the liver and spleen. Gallbladder is absent. No suspicious osseous lesion. Unchanged scoliosis. Procedure Note Anastacio Pierre MD PhD - 03/22/2025 EXAMINATION: Computed tomography of the chest without intravenous contrast HISTORY: Sternal wound infection TECHNIQUE: Transaxial computed tomographic images of the chest were obtained without intravenous contrast according to the standard protocol. COMPARISON: Head CT 01/18/2025, CTA chest 10/27/2024 FINDINGS: There are changes of median sternotomy. There is expected postsurgical soft tissue stranding in the anterior mediastinum without organized collection. There is mild sternal offset, though sternal edges are well approximated with intact plates and sternotomy wires. Unchanged mild reticulation in the lung periphery consistent with an interstitial lung abnormality. Improving tree-in-bud nodularity in the right lower lobe. There are a few scattered granulomas in both lungs with no suspicious pulmonary nodule. No focal consolidation, pleural effusion, or pneumothorax. Normal heart size with trace pericardial fluid. Postsurgical changes of aortic valve replacement and ascending aorta repair with small volume fluid surrounding the ascending aortic graft. There is persistent moderate at the atherosclerotic disease throughout the aortic arch and mildly tortuous descending thoracic aorta. Mild calcified atherosclerotic disease in the coronary arteries. Left axillary lymphadenopathy has resolved. No supraclavicular, mediastinal, or hilar lymphadenopathy. Numerous partially calcified lymph nodes are seen throughout the mediastinum. Epicardial pacing wires are present. There are granulomas throughout the liver and spleen. Gallbladder is absent. No suspicious osseous lesion. Unchanged scoliosis. IMPRESSION: 1. Changes of median sternotomy with mild sternal offset but well approximated sternal edges with intact sternal plates and wires. No organized collection. 2. Postsurgical changes of aortic valve replacement with ascending aorta repair Electronically signed by: Anastacio Pierre MD, PHD Leonor Celeste GENERAL MANAGER IN TRAINING IMG CT PROCEDURES Final Re sult * eGFR (03/07/2025 9:51 PM CDT) eGFR 66 >=60 mL/min/1. 73 m2 Comment: Interpretive Data Reference Interval Normal >/= 90 mL/min/1.73m2 Mildly decreased* 60 - 89 mL/min/1.73m2 Mildly to moderately decreased 45 - 59 mL/min/1.73m2 Moderately to severely decreased 30 - 44 mL/min/1.73m2 Severely decreased 15 - 29 mL/min/1.73m2 Kidney Failure < 15 mL/min/1.73m2 *Relative to young adult level Estimated glomerular filtration rate is determined by the 2020 CKD-EPI equation recommended by the National Kidney Foundation (A Unifying Approach to GFR Estimation: Recommendations of the NKF-ASK Task Force on Reassessing the Inclusion of Race in Diagnosing Kidney Disease, JASN 2020). The CKD-EPI equation should not be used for patients with unstable renal function and has not been validated in children and those over 70. Current interpretive data was last reviewed 2021. Blood 03/07/2025 9:51 PM CDT 03/07/2025 11:35 PM CDT us Nelsy Velásquez NP LAB BLOOD ORDERABLES Final Result [facility] Department of Laboratories [place], [place] [id number] * (ABNORMAL) CBC without differential (03/07/2025 9:51 PM CDT) Pathologist [facility] WBC 11.52(H) 3.80 - 9.90 K/cumm Hgb 8.8(L) 11.9 - 15.5 g/dL [facility] Hct 26.2(L) 35.6 - 45.5 % [facility] Plt 385 150 - 400 K/cumm [facility] MPV 9.5 9.1 - 12.3 fL [facility] RBC 2.90(L) 3.90 - 5.20 M/cumm [facility] MCV 90.3 81.3 - 96.4 fL [facility] MCH 30.3 27.1 - 33.3 pg [facility] MCHC 33.6 32.3 - 35.7 g/dL [facility] RDW CV 14.6 11.1 - 14.9 % [facility] RDW SD 47.6 35.7 - 48.1 fL [facility] NRBC abs 0.00 0.00 - 0.01 K/cumm [facility] Blood 03/07/2025 9:51 PM CDT 03/07/2025 11:12 PM CDT Nelsy Velásquez GENERAL MANAGER IN TRAINING LAB BLOOD ORDERABLES Final Result [facility] [place] [address] * Phosphorus (03/07/2025 9:51 PM CDT) [facility] Phosphorus, pl 3.6 2.3 - 4.5 mg/dL Blood 03/07/2025 9:51 PM CDT 03/07/2025 11:35 PM CDT Nelsy Velásquez GENERAL MANAGER IN TRAINING LAB BLOOD ORDERABLES Final Result [facility] [place] [address] * Magnesium (03/07/2025 9:51 PM CDT) [facility] Magnesium 2.1 1.4 - 2.5 mg/dL Blood 03/07/2025 9:51 PM CDT 03/07/2025 11:35 PM CDT Nelsy Velásquez GENERAL MANAGER IN TRAINING LAB BLOOD ORDERABLES Final Result Performing Organization Address City/[facility]/ZIP Co de Phone Number [facility] Department [place] [address] * (ABNORMAL) Basic metabolic panel (03/07/2025 9:51 PM CDT) Sodium 135 135 - 145 mmol/L Potassium, pl 4.7 3.3 - 4.9 mmol/L [facility] Chloride 93(L) 97 - 110 mmol/L [facility] CO2 33(H) 22 - 32 mmol/L [facility] Anion gap 9 2 - 15 mmol/L [facility] BUN 13 6 - 25 mg/dL [facility] Creatinine 0.90 0.60 - 1.10 mg/dL [facility] Glucose 114 70 - 199 mg/dL [facility] Comment: Interpretive Data Fasting glucose >/= 126 mg/dl is diagnostic for diabetes. Fasting is defined as no caloric intake for at least 8 hours. Fasting glucose between 100 mg/dl to 125 mg/dl is diagnostic of prediabetes. In a patient with classic symptoms of hyperglycemia or hyperglycemic crisis, a random glucose >/= 200 mg/dl is diagnostic for diabetes. In the absence of unequivocal hyperglycemia, results should be confirmed by repeat testing. The classification and Diagnosis of Diabetes Diabetes Care 2021; 46: S19-S40. Current interpretive data was last revised 2022. Calcium 9.2 8.5 - 10.3 mg/dL [facility] Blood 03/07/2025 9:51 PM CDT 03/07/2025 11:35 PM CDT Nelsy Velásquez GENERAL MANAGER IN TRAINING LAB BLOOD ORDERABLES Final Result Performing Organization Address [facility] Co de Phone Number [facility] Department [place] [address] * Sodium, whole blood (03/07/2025 9:06 AM CDT) Sodium, Whole Blood 135 135 - 145 mmol/L Blood 03/07/2025 9:06 AM CDT 03/07/2025 9:14 AM CDT Ana Loya NP LAB BLOOD ORDERABLES Nancy l Result Performing Organization Address [facility] Co de Phone Number [facility] Department [place] [address] * ECG 12 lead (03/07/2025 3:06 AM CDT) [facility] Ventricular Rate EKG/Min 88 BPM [facility] Atrial Rate 88 BPM [facility] GA-Interval (MSEC) 256 ms [facility] QRS-Interval (MSEC) 76 ms [facility] QT-Interval (MSEC) 354 ms [facility] QTc 428 ms [facility] P [place] 20 degrees [facility] R [place] -24 degrees [facility] T [place] -7 degrees [facility] Diagnosis Sinus rhythm with 1st degree A-V block Minimal voltage criteria for LVH, may be normal variant ( R in aVL ) Nonspecific T wave abnormality Abnormal ECG When compared with ECG of 06-MAR-2025 05:18, No significant change was found Confirmed by Alberto KU, Bhargav ([id number]) on 03/07/2025 4:49:48 PM [facility] 03/07/2025 3:06 AM CDT 03/07/2025 4:49 PM CDT Ana Loya GENERAL MANAGER IN TRAINING ECG ORDERABLES Final Res ult Performing Organization Address [facility] Co de Phone Number [facility] * eGFR (03/06/2025 10:30 PM CDT) [facility] eGFR 72 >=60 mL/min/1. 73 m2 Comment: Interpretive Data Reference Interval Normal >/= 90 mL/min/1.73m2 Mildly decreased* 60 - 89 mL/min/1.73m2 Mildly to moderately decreased 45 - 59 mL/min/1.73m2 Moderately to severely decreased 30 - 44 mL/min/1.73m2 Severely decreased 15 - 29 mL/min/1.73m2 Kidney Failure < 15 mL/min/1.73m2 *Relative to young adult level Estimated glomerular filtration rate is determined by the 2020 CKD-EPI equation recommended by the National Kidney Foundation (A Unifying Approach to GFR Estimation: Recommendations of the NKF-ASK Task Force on Reassessing the Inclusion of Race in Diagnosing Kidney Disease, JASN 202). The CKD-EPI equation should not be used for patients with unstable renal function and has not been validated in children and those over 70. Current interpretive data was last reviewed 2021. Blood 03/06/2025 10:3 0 PM CDT 03/06/2025 10:53 PM CDT us Nelsy Velásquez NP LAB BLOOD ORDERABLES Final Result [facility] Department [place] [address] * (ABNORMAL) CBC without differential (03/06/2025 10:30 PM CDT) WBC 11.13(H) 3.80 - 9.90 K/cumm Hgb 8.4(L) 11.9 - 15.5 g/dL [facility] Hct 24.6(L) 35.6 - 45.5 % [facility] Plt 309 150 - 400 K/cumm [facility] MPV 9.3 9.1 - 12.3 fL [facility] RBC 2.72(L) 3.90 - 5.20 M/cumm [facility] MCV 90.4 81.3 - 96.4 fL [facility] MCH 30.9 27.1 - 33.3 pg [facility] MCHC 34.1 32.3 - 35.7 g/dL [facility] RDW CV 14.2 11.1 - 14.9 % [facility] RDW SD 47.0 35.7 - 48.1 fL [facility] NRBC abs 0.00 0.00 - 0.01 K/cumm [facility] Blood 03/06/2025 10:3 0 PM CDT 03/06/2025 10:53 PM CDT us Nelsy Velásquez GENERAL MANAGER IN TRAINING LAB BLOOD ORDERABLES Final Result Performing Organization Address [facility] de Phone Number [facility] [place] [address] * Type and screen (03/06/2025 10:30 PM CDT) Marco, indirect Negative ABO Rh B Negative [facility] Blood 03/06/2025 10:3 0 PM CDT 03/06/2025 11:00 PM CDT Narrative [facility] - 03/06/2025 11:56 PM CDT Has the patient had Daratumumab or Isatuximab in the past 6 months?->Unknown us Nelsy Velásquez GENERAL MANAGER IN TRAINING LAB BLOOD BANK TEST ORDERA BLES Final Result Performing Organization Address [facility] de Phone Number [facility] Department [place] [address] * Phosphorus (03/06/2025 10:30 PM CDT) Pathologist [facility] Phosphorus, pl 2.9 2.3 - 4.5 mg/dL Blood 03/06/2025 10:3 0 PM CDT 03/06/2025 10:53 PM CDT us Nelsy Velásquez GENERAL MANAGER IN TRAINING LAB BLOOD ORDERABLES Final Result Performing Organization Address [facility] de Phone Number [facility] [place] [address] * Magnesium (03/06/2025 10:30 PM CDT) Pathologist [facility] Magnesium 2.0 1.4 - 2.5 mg/dL Blood 03/06/2025 10:3 0 PM CDT 03/06/2025 10:53 PM CDT Nelsy Velásquez GENERAL MANAGER IN TRAINING LAB BLOOD ORDERABLES Final Result [facility] Department [place] [address] * (ABNORMAL) Basic metabolic panel (03/06/2025 10:30 PM CDT) Pathologist [facility] Sodium 129(L) 135 - 145 mmol/L Potassium, pl 4.7 3.3 - 4.9 mmol/L [facility] Chloride 93(L) 97 - 110 mmol/L [facility] CO2 34(H) 22 - 32 mmol/L [facility] Anion gap 2 2 - 15 mmol/L [facility] BUN 14 6 - 25 mg/dL [facility] Creatinine 0.84 0.60 - 1.10 mg/dL [facility] Glucose 141 70 - 199 mg/dL [facility] Comment: Interpretive Data Fasting glucose >/= 126 mg/dl is diagnostic for diabetes. Fasting is defined as no caloric intake for at least 8 hours. Fasting glucose between 100 mg/dl to 125 mg/dl is diagnostic of prediabetes. In a patient with classic symptoms of hyperglycemia or hyperglycemic crisis, a random glucose >/= 200 mg/dl is diagnostic for diabetes. In the absence of unequivocal hyperglycemia, results should be confirmed by repeat testing. The classification and Diagnosis of Diabetes Diabetes Care 202; 46: S19-S40. Current interpretive data was last revised 2022. Calcium 9.2 8.5 - 10.3 mg/dL [facility] Blood 03/06/2025 10:3 0 PM CDT 03/06/2025 10:53 PM CDT Nelsy Velásquez GENERAL MANAGER IN TRAINING LAB BLOOD ORDERABLES Final Result [facility] [place] [facility] [place] [address] * TRANSTHORACIC ECHO (TTE) COMPLETE W DOPPLER/CF W CONTRAST (03/06/2025 11:57 AM CDT) EF Mod BP 66 % CONS SCIMAGE Anatomical Region Laterality Modality Ultrasound 03/06/2025 10:3 5 AM CDT Narrative 03/06/2025 12:19 PM CDT [facility] [place] [address] Transthoracic Echocardiographic Report Patient Name: ROSALBA LUA J : 1945 (79y 6m) Gender: F Study Date: 03/06/2025 10:35:55 AM Ht(Inch): 59 Wt(Lb): 134.92 BSA: 1.6 Heavy Machinery Assembler: Wang Hwang RDCS Location: [id number] Order Provider: ANA LOYA Heart Rate: 86 BMI: 27.25 BP: 123 / 65 Ref Provider: ANA LOYA PROCEDURES: Echocardiographic Report: Transthoracic complete echo with strain imaging and contrast, 2D, spectral and tissue Doppler, color flow Doppler, M-mode. Contrast: Contrast Enhancement was Employed: After initial imaging due to sub- optimal quality related to co-morbidity defined by patient's body habitus. 1 ml [employer]ison Administered. INDICATIONS: S/p AVR. CONCLUSIONS: 1. Normal left ventricular size based on volume index. Concentric LV hypertrophy. Normal left ventricular systolic function. The Ejection Fraction (Devlin's) is measured at 66 %. Grade I diastolic dysfunction (normal LA pressure). The average global longitudinal strain is abnormal. 2. Normal right ventricular size. Mild right ventricular hypokinesis. 3. A bioprosthetic valve is present in the aortic position. The aortic prosthesis demonstrates normal transvalvular gradient for valve type and size. 4. The estimated pulmonary artery systolic pressure is 25.0 mmHg. ATTESTATION: I have personally reviewed and interpreted this study without fellow or resident. - DISCLAIMER: The study images and the final report will be retained in the patient chart by the Echo Laboratory for the legally required time period. This chart constitutes the legal record of any testing performed. FINDINGS: Left Ventricle: Normal left ventricular size based on volume index. Concentric LV hypertrophy. Normal left ventricular systolic function. The Ejection Fraction (Devlin's) is measured at 66 %. Grade I diastolic dysfunction (normal LA pressure). The average global longitudinal strain is abnormal. The LV global strain is: -13.3 %. A false tendon is seen in the left ventricle, a normal finding. Right Ventricle: Normal right ventricular size. Mild right ventricular hypokinesis. Left Atrium: The left atrium is normal in size. Right Atrium: Right atrial dilatation. Mitral Valve: Normal Mitral Valve Structure. Moderate mitral annular calcification. Mild mitral valve regurgitation. The mean transmitral gradient is: 3 mmHg. Aortic Valve: Aortic valve dimensionless index is 0.63. A bioprosthetic valve is present in the aortic position. The aortic prosthesis demonstrates normal transvalvular gradient for valve type and size. s/p aortic valve replacement with 25 mm Inspiris bioprosthesis. Tricuspid Valve: Mild tricuspid regurgitation. The estimated pulmonary artery systolic pressure is 25.0 mmHg. Pulmonic Valve: Normal Pulmonic Valve Structure. Mild pulmonic regurgitation. Pericardium: Normal pericardium without pericardial effusion. Aorta: Mild aortic root dilation at sinuses of Valsalva. Dilation of the aortic root when indexed. The ascending aorta is normal in size when indexed. PASP: Normal estimated pulmonary artery systolic pressure. Rhythm: Normal Sinus rhythm was seen during the study. MEASUREMENTS: 2D/MM Value Range Doppler Value Range LVIDd 2D 3.28 cm [ 3.80 - 5.20 ] AV Peak Thom 1.6 m/s [ 1.0 - 1.7 ] LVIDs 2D 2.12 cm [ 2.20 - 3.50 ] AV Peak PG 10.24 mmHg IVSd 2D 1.64 cm [ 0.60 - 0.90 ] AV Mean PG 5 mmHg LVPWd 2D 1.13 cm [ 0.60 - 0.90 ] AV VTI 26.9 cm LV Thickness Ratio 1.5 LVOT Peak Thom 1.1 m/s [ 0.7 - 1.1 ] LV FS 2D 35.25 % [ 27.00 - 45.00 ] LVOT Peak PG 4.84 mmHg LV Mass 2D 156.61 g LVOT Mean PG 2 mmHg LV Mass Index 2D 97.88 g/m2 LVOT VTI 17.0 cm RWT 0.69 LVOT Diam 1.81 cm EDV Mod BP 93.52 ml [ 46.00 - 106.00 ] MICHELLE VTI 1.63 cm2 LV EDV Index 58.45 ml/m2 LVOT/AV VTI 0.63 - Dimensionless index (DVI) ESV Mod BP 31.86 ml [ 14.00 - 42.00 ] MV E Peak Thom 1.1 m/s [ 0.6 - 1.3 ] EF Mod BP 66 % [ 54 - 74 ] MV A Peak Thom 1.4 m/s [ 1.0 - 1.2 ] LV GLS -13.3 % [ -25.0 - -18.0 ] MV E/A 0.8 ratio [ 0.8 - 1.5 ] LA Length 4C 5.02 cm MV Peak Thom 1.4 m/s LA Length 2C 5.18 cm MV Peak PG 7.84 mmHg LA Volume BP 51.45 ml MV Mean PG 3 mmHg LA Volume Index 32.16 ml/m2 [ 16.00 - 34.00 ] MV VTI 26.7 cm RV Base Dimen 2D 3.6 cm [ 2.5 - 4.2 ] MV PHT 50.62 msec [ 20.00 - 100.00 ] TAPSE 1.33 cm [ 1.71 - 5.00 ] MVA PHT 4.35 cm2 RA Volume 48.58 ml MV Decel Time 135.22 msec [ 104.00 - 258.00 ] RA Volume Index 30.36 ml/m2 TR Peak Thom 2.4 m/s [ 1.0 - 2.8 ] AoR Diam 2D 3.89 cm [ 2.70 - 3.70 ] TR Peak PG 23.0 mmHg Ao Root Index 2.43 cm/m2 [ 1.00 - 2.00 ] PI ED Thom 121.54 m/sec Asc Ao Diam 2D 2.77 cm Asc Ao Index 1.73 cm/m2 Electronically Signed By: Wilfrido Rice MD 03/06/2025 12:18:32 PM CDT Procedure Note Wilfrido Rice MD - 03/06/2025 [facility] [place] [place] [address] Transthoracic Echocardiographic Report Patient Name: ROSALBA LUA J : 1945 (79y 6m) Gender: F Study Date: 03/06/2025 10:35:55 AM Ht(Inch): 59 Wt(Lb): 134.92 BSA: 1.6 Heavy Machinery Assembler: Wang Hwang RDCS Location: [id number] Order Provider:ANA LOYA Heart Rate: 86 BMI: 27.25 BP: 123 / 65 Ref Provider: ANA LOYA PROCEDURES: Echocardiographic Report: Transthoracic complete echo with strain imagingand contrast, 2D, spectral and tissue Doppler, color flow Doppler, M-mode. Contrast: Contrast Enhancement was Employed: After initial imaging due tosub- optimal quality related to co-morbidity defined by patient's body habitus. 1 mlOptison Administered. INDICATIONS: S/p AVR. CONCLUSIONS: 1. Normal left ventricular size based on volume index. Concentric LVhypertrophy. Normal left ventricular systolic function. The Ejection Fraction (Devlin's) ismeasured at 66 %. Grade I diastolic dysfunction (normal LA pressure). The average globallongitudinal strain is abnormal. 2. Normal right ventricular size. Mild right ventricular hypokinesis. 3. A bioprosthetic valve is present in the aortic position. The aorticprosthesis demonstrates normal transvalvular gradient for valve type and size. 4. The estimated pulmonary artery systolic pressure is 25.0 mmHg. ATTESTATION: I have personally reviewed and interpreted this study without fellow orresident. - DISCLAIMER: The study images and the final report will be retained in the patientchart by the Echo Laboratory for the legally required time period. This chart constitutesthe legal record of any testing performed. FINDINGS: Left Ventricle: Normal left ventricular size based on volume index.Concentric LV hypertrophy. Normal left ventricular systolic function. The EjectionFraction (Devlin's) is measured at 66 %. Grade I diastolic dysfunction (normal LA pressure).The average global longitudinal strain is abnormal. The LV global strain is: -13.3 %.A false tendon is seen in the left ventricle, a normal finding. Right Ventricle: Normal right ventricular size. Mild right ventricularhypokinesis. Left Atrium: The left atrium is normal in size. Right Atrium: Right atrial dilatation. Mitral Valve: Normal Mitral Valve Structure. Moderate mitral annularcalcification. Mild mitral valve regurgitation. The mean transmitral gradient is: 3 mmHg. Aortic Valve: Aortic valve dimensionless index is 0.63. A bioprostheticvalve is present in the aortic position. The aortic prosthesis demonstrates normaltransvalvular gradient for valve type and size. s/p aortic valve replacement with 25 mm Inspirisbioprosthesis. Tricuspid Valve: Mild tricuspid regurgitation. The estimated pulmonaryartery systolic pressure is 25.0 mmHg. Pulmonic Valve: Normal Pulmonic Valve Structure. Mild pulmonicregurgitation. Pericardium: Normal pericardium without pericardial effusion. Aorta: Mild aortic root dilation at sinuses of Valsalva. Dilation of theaortic root when indexed. The ascending aorta is normal in size when indexed. PASP: Normal estimated pulmonary artery systolic pressure. Rhythm: Normal Sinus rhythm was seen during the study. MEASUREMENTS: 2D/MM Value Range DopplerValue Range LVIDd 2D 3.28 cm [ 3.80 - 5.20 ] AV Peak Vel1.6 m/s [ 1.0 - 1.7 ] LVIDs 2D 2.12 cm [ 2.20 - 3.50 ] AV Peak PG10.24 mmHg IVSd 2D 1.64 cm [ 0.60 - 0.90 ] AV Mean PG5 mmHg LVPWd 2D 1.13 cm [ 0.60 - 0.90 ] AV VTI26.9 cm LV Thickness Ratio 1.5 LVOT Peak Vel1.1 m/s [ 0.7 - 1.1 ] LV FS 2D 35.25 % [ 27.00 - 45.00 ] LVOT Peak PG4.84 mmHg LV Mass 2D 156.61 g LVOT Mean PG2 mmHg LV Mass Index 2D 97.88 g/m2 LVOT VTI17.0 cm RWT 0.69 LVOT Diam1.81 cm EDV Mod BP 93.52 ml [ 46.00 - 106.00 ] MICHELLE VTI1.63 cm2 LV EDV Index 58.45 ml/m2 LVOT/AV VTI0.63 - Dimensionless index (DVI) ESV Mod BP 31.86 ml [ 14.00 - 42.00 ] MV E Peak Vel1.1 m/s [ 0.6 - 1.3 ] EF Mod BP 66 % [ 54 - 74 ] MV A Peak Vel1.4 m/s [ 1.0 - 1.2 ] LV GLS -13.3 % [ -25.0 - -18.0 ] MV E/A0.8 ratio [ 0.8 - 1.5 ] LA Length 4C 5.02 cm MV Peak Vel1.4 m/s LA Length 2C 5.18 cm MV Peak PG7.84 mmHg LA Volume BP 51.45 ml MV Mean PG3 mmHg LA Volume Index 32.16 ml/m2 [ 16.00 - 34.00 ] MV VTI26.7 cm RV Base Dimen 2D 3.6 cm [ 2.5 - 4.2 ] MV PHT50.62 msec [ 20.00 - 100.00 ] TAPSE 1.33 cm [ 1.71 - 5.00 ] MVA PHT4.35 cm2 RA Volume 48.58 ml MV Decel Pimm507.22 msec [ 104.00 - 258.00 ] RA Volume Index 30.36 ml/m2 TR Peak Vel2.4 m/s [ 1.0 - 2.8 ] AoR Diam 2D 3.89 cm [ 2.70 - 3.70 ] TR Peak PG23.0 mmHg Ao Root Index 2.43 cm/m2 [ 1.00 - 2.00 ] PI ED Eow527.54 m/sec Asc Ao Diam 2D2.77 cm Asc Ao Index1.73 cm/m2 Electronically Signed By: Wilfrido Rice MD 03/06/2025 12:18:32 PM CDT Ana Loya NP CV ECHO PROCEDURES Final Result * ECG 12 lead (03/06/2025 5:18 AM CDT) Pathologist [facility] Ventricular Rate EKG/Min 100 BPM [facility] Atrial Rate 100 BPM [facility] GA-Interval (MSEC) 216 ms [facility] QRS-Interval (MSEC) 72 ms [facility] QT-Interval (MSEC) 328 ms [facility] QTc 423 ms [facility] R [place] -22 degrees [facility] T [place] -8 degrees [facility] Diagnosis Sinus rhythm with 1st degree A-V block Minimal voltage criteria for LVH, may be normal variant ( R in aVL ) Nonspecific T wave abnormality Abnormal ECG Confirmed by Bhargav Dominguez MD ([id number]) on 03/06/2025 4:34:19 PM [facility] 03/06/2025 5:18 AM CDT 03/06/2025 4:34 PM CDT Ana Loya NP ECG ORDERABLES Final Res ult [facility] * eGFR (03/06/2025 12:19 AM CDT) Pathologist [facility] eGFR 74 >=60 mL/min/1. 73 m2 Comment: Interpretive Data Reference Interval Normal >/= 90 mL/min/1.73m2 Mildly decreased* 60 - 89 mL/min/1.73m2 Mildly to moderately decreased 45 - 59 mL/min/1.73m2 Moderately to severely decreased 30 - 44 mL/min/1.73m2 Severely decreased 15 - 29 mL/min/1.73m2 Kidney Failure < 15 mL/min/1.73m2 *Relative to young adult level Estimated glomerular filtration rate is determined by the 2020 CKD-EPI equation recommended by the National Kidney Foundation (A Unifying Approach to GFR Estimation: Recommendations of the NKF-ASK Task Force on Reassessing the Inclusion of Race in Diagnosing Kidney Disease, JASN 202). The CKD-EPI equation should not be used for patients with unstable renal function and has not been validated in children and those over 70. Current interpretive data was last reviewed 2021. Blood 03/06/2025 12:1 9 AM CDT 03/06/2025 1:22 AM CDT Nelsy Velásquez GENERAL MANAGER IN TRAINING LAB BLOOD ORDERABLES Final Result Performing Organization Address City/[facility] Co de Phone Number [facility] Department [place] [address] * (ABNORMAL) CBC without differential (03/06/2025 12:19 AM CDT) WBC 10.24(H) 3.80 - 9.90 K/cumm Hgb 9.0(L) 11.9 - 15.5 g/dL [facility] Hct 27.6(L) 35.6 - 45.5 % [facility] Plt 300 150 - 400 K/cumm [facility] MPV 9.7 9.1 - 12.3 fL [facility] RBC 3.00(L) 3.90 - 5.20 M/cumm [facility] MCV 92.0 81.3 - 96.4 fL [facility] MCH 30.0 27.1 - 33.3 pg [facility] MCHC 32.6 32.3 - 35.7 g/dL [facility] RDW CV 14.1 11.1 - 14.9 % [facility] RDW SD 47.4 35.7 - 48.1 fL [facility] NRBC abs 0.00 0.00 - 0.01 K/cumm [facility] Blood 03/06/2025 12:1 9 AM CDT 03/06/2025 1:22 AM CDT Nelys Velásquez NP LAB BLOOD ORDERABLES Final Result Performing Organization Address City/[facility]/ZIP Co de Phone Number [facility] [place] [address] * Phosphorus (03/06/2025 12:19 AM CDT) [facility] Phosphorus, pl 3.3 2.3 - 4.5 mg/dL Blood 03/06/2025 12:1 9 AM CDT 03/06/2025 1:22 AM CDT Nelsy Velásquez GENERAL MANAGER IN TRAINING LAB BLOOD ORDERABLES Final Result Performing Organization Address [facility] Co de Phone Number [facility] [place] [address] * Magnesium (03/06/2025 12:19 AM CDT) [facility] Magnesium 2.1 1.4 - 2.5 mg/dL Blood 03/06/2025 12:1 9 AM CDT 03/06/2025 1:22 AM CDT Nelsy Velásquez GENERAL MANAGER IN TRAINING LAB BLOOD ORDERABLES Final Result Performing Organization Address [facility] [place] [address] * (ABNORMAL) Basic metabolic panel (03/06/2025 12:19 AM CDT) [facility] Sodium 135 135 - 145 mmol/L Potassium, pl 4.2 3.3 - 4.9 mmol/L [facility] Chloride 92(L) 97 - 110 mmol/L [facility] CO2 34(H) 22 - 32 mmol/L [facility] Anion gap 9 2 - 15 mmol/L [facility] BUN 13 6 - 25 mg/dL [facility] Creatinine 0.82 0.60 - 1.10 mg/dL [facility] Glucose 118 70 - 199 mg/dL [facility] Comment: Interpretive Data Fasting glucose >/= 126 mg/dl is diagnostic for diabetes. Fasting is defined as no caloric intake for at least 8 hours. Fasting glucose between 100 mg/dl to 125 mg/dl is diagnostic of prediabetes. In a patient with classic symptoms of hyperglycemia or hyperglycemic crisis, a random glucose >/= 200 mg/dl is diagnostic for diabetes. In the absence of unequivocal hyperglycemia, results should be confirmed by repeat testing. The classification and Diagnosis of Diabetes Diabetes Care 2021; 46: S19-S40. Current interpretive data was last revised 2022. Calcium 9.1 8.5 - 10.3 mg/dL [facility] Blood 03/06/2025 12:1 9 AM CDT 03/06/2025 1:22 AM CDT us Nelsy Velásquez GENERAL MANAGER IN TRAINING LAB BLOOD ORDERABLES Final Result [facility] Department [place] [address] * ECG 12 lead (03/05/2025 5:46 AM CDT) Pathologist [facility] Ventricular Rate EKG/Min 86 BPM [facility] Atrial Rate 86 BPM [facility] GA-Interval (MSEC) 292 ms [facility] QRS-Interval (MSEC) 78 ms [facility] QT-Interval (MSEC) 368 ms [facility] QTc 440 ms [facility] P [place] 24 degrees [facility] R [place] -12 degrees [facility] T [place] -4 degrees [facility] Diagnosis Sinus rhythm with 1st degree A-V block Minimal voltage criteria for LVH, may be normal variant ( R in aVL ) Nonspecific T wave abnormality Abnormal ECG Confirmed by Bhargav Dominguez MD ([id number]) on 03/07/2025 4:58:03 PM [facility] 03/05/2025 5:46 AM CDT 03/07/2025 4:58 PM CDT us Ana Loya GENERAL MANAGER IN TRAINING ECG ORDERABLES Final Res ult [facility] * eGFR (03/04/2025 7:55 PM CDT) Pathologist [facility] eGFR 67 >=60 mL/min/1. 73 m2 Comment: Interpretive Data Reference Interval Normal >/= 90 mL/min/1.73m2 Mildly decreased* 60 - 89 mL/min/1.73m2 Mildly to moderately decreased 45 - 59 mL/min/1.73m2 Moderately to severely decreased 30 - 44 mL/min/1.73m2 Severely decreased 15 - 29 mL/min/1.73m2 Kidney Failure < 15 mL/min/1.73m2 *Relative to young adult level Estimated glomerular filtration rate is determined by the 2020 CKD-EPI equation recommended by the National Kidney Foundation (A Unifying Approach to GFR Estimation: Recommendations of the NKF-ASK Task Force on Reassessing the Inclusion of Race in Diagnosing Kidney Disease, JASN 2020). The CKD-EPI equation should not be used for patients with unstable renal function and has not been validated in children and those over 70. Current interpretive data was last reviewed 2021. Blood 03/04/2025 7:55 PM CDT 03/04/2025 8:31 PM CDT us Nelsy Velásquez NP LAB BLOOD ORDERABLES Final Result [facility] Department [place] [address] * (ABNORMAL) CBC without differential (03/04/2025 7:55 PM CDT) [facility] WBC 5.74 3.80 - 9.90 K/cumm Hgb 8.2(L) 11.9 - 15.5 g/dL [facility] Hct 24.8(L) 35.6 - 45.5 % [facility] Plt 196 150 - 400 K/cumm [facility] MPV 9.7 9.1 - 12.3 fL [facility] RBC 2.71(L) 3.90 - 5.20 M/cumm [facility] MCV 91.5 81.3 - 96.4 fL [facility] MCH 30.3 27.1 - 33.3 pg [facility] MCHC 33.1 32.3 - 35.7 g/dL [facility] RDW CV 14.1 11.1 - 14.9 % [facility] RDW SD 47.5 35.7 - 48.1 fL [facility] NRBC abs 0.00 0.00 - 0.01 K/cumm [facility] Blood 03/04/2025 7:55 PM CDT 03/04/2025 8:31 PM CDT us Nelsy Velásquez GENERAL MANAGER IN TRAINING LAB BLOOD ORDERABLES Final Result Performing Organization Address [facility] [place] [address] * Phosphorus (03/04/2025 7:55 PM CDT) Pathologist [facility] Phosphorus, pl 4.3 2.3 - 4.5 mg/dL Blood 03/04/2025 7:55 PM CDT 03/04/2025 8:31 PM CDT us Nelsy Velásquez GENERAL MANAGER IN TRAINING LAB BLOOD ORDERABLES Final Result Performing Organization Address [facility] de Phone Number [facility] Department [place] [employer] [place] [place] [address] * Magnesium (03/04/2025 7:55 PM CDT) Pathologist [facility] Magnesium 1.9 1.4 - 2.5 mg/dL Blood 03/04/2025 7:55 PM CDT 03/04/2025 8:31 PM CDT us Nelsy Velásquez GENERAL MANAGER IN TRAINING LAB BLOOD ORDERABLES Final Result Performing Organization Address [facility] de Phone Number [facility] [place] [address] * (ABNORMAL) Basic metabolic panel (03/04/2025 7:55 PM CDT) Sodium 134(L) 135 - 145 mmol/L Potassium, pl 4.2 3.3 - 4.9 mmol/L [facility] Chloride 91(L) 97 - 110 mmol/L [facility] CO2 33(H) 22 - 32 mmol/L [facility] Anion gap 10 2 - 15 mmol/L [facility] BUN 13 6 - 25 mg/dL [facility] Creatinine 0.89 0.60 - 1.10 mg/dL [facility] Glucose 128 70 - 199 mg/dL [facility] Comment: Interpretive Data Fasting glucose >/= 126 mg/dl is diagnostic for diabetes. Fasting is defined as no caloric intake for at least 8 hours. Fasting glucose between 100 mg/dl to 125 mg/dl is diagnostic of prediabetes. In a patient with classic symptoms of hyperglycemia or hyperglycemic crisis, a random glucose >/= 200 mg/dl is diagnostic for diabetes. In the absence of unequivocal hyperglycemia, results should be confirmed by repeat testing. The classification and Diagnosis of Diabetes Diabetes Care 2021; 46: S19-S40. Current interpretive data was last revised 2022. Calcium 8.3(L) 8.5 - 10.3 mg/dL [facility] Blood 03/04/2025 7:55 PM CDT 03/04/2025 8:31 PM CDT us Nelsy Velásquez NP LAB BLOOD ORDERABLES Final Result [facility] Department [place] [address] * CHIEF CRUISER Evaluation and Treatment (03/04/2025 10:58 AM CDT) Narrative Eileen Hong SLP - 03/04/2025 10:58 AM CDT Eileen Hong SLP 03/04/2025 1:07 PM Speech-Language Pathology: Clinical Bedside Swallow HPI/PMH 79 y.o. yo female w/ PMHx of GERD, scoliosis, breast ca (s/p mastectomy) who presents with ascending aneurysm that now measure 4.5 cm on DAMIR and 46 x 45 mm on CTA and moderate to severe AR. 02/28: s/p bio AVR and ascending aortic replacement with sternal plating. 02/28: passed ana swallow screener Respiratory/Intubation Status: Intubated 02/28 Imaging: CXR 03/02: The lung volumes remain small with unchanged mild bibasilar atelectasis and trace bilateral pleural effusions. No pneumothorax is identified. Precautions: Fall PLOF: No prior CHIEF CRUISER notes Current Diet Order: Mechanical Soft Solids/Thin Liquids per Pt preference Baseline Diet: Regular Solids/Thin liquids General Information Rosalba Lua 03/04/25 General Observations: Pt seen on 7200 unit. Upon arrival Pt was sitting upright in bed. Pt was AOx4 and agreeable to evaluation. Pt reports mild pain/discomfort with swallowing, stating it has significantly improved since being extubated. Pt also reports difficulties with clearing secretions, but reports that the incentive spirometer and Aerobika has significantly helped with this as well. Pain Score: 10 - Worst possible pain If pain >4, was RN notified? Yes Patient Stated Goal/Comments: To be able to eat/drink comfortably. Clinical Impression & Professional Recommendations Diet Solids Recommendation: Regular Diet Liquids Recommendations: Thin/regular Recommended Form of Medications: As tolerated Compensatory Strategies/Modifications: Slow rate Postural Recommendations: Upright Assistance with feeding/swallowing: Assist with aggressive oral hygiene prior to po Specialty Instructions: good oral care 2-3x/day including teeth brushing (gums and tongue) with suction while upright at 90 and with 100% assistance to improve the oral biome and reduce the risk of aspiration related complications (i.e., PNA). Dysphagia Diagnosis: No suspected dysphagia, oral-pharyngeal function appears WFL Overall Clinical Impression/Additional Information: Oral mechanism exam: unremarkable. Voice is a mildly hoarse, but with adequate intensity. Observed with thin liquids, puree, and regular solids. Oral phase WFL. No overt s/s of aspiration observed across consistencies, including large consecutive drinks. Pt would prefer to remain on soft-solids given continued mild throat pain from intubation. Pt may advance to regular solids as she feels comfortable without need for CHIEF CRUISER re-evaluation. CHIEF CRUISER encouraged to continue to utilize incentive spirometer and Aerobika to improve cough strength/productivity. No further acute CHIEF CRUISER needs at this time. CHIEF CRUISER to complete orders. Assessment Details & Results Consistencies Administered: Thin liquids, Purees, Solids MASA: Wilkinson Assessment of Swallowing Ability (MASA) Alertness: Alert Cooperation: Cooperative Auditory Comprehension: No abnormality detected Respiration: Chest clear Respiratory Rate (for swallow): Able to control breath rate for swallow Aphasia: No abnormality detected Apraxia: No abnormality detected Dysarthria: No abnormality detected Saliva: No abnormality detected Lip Seal: No abnormality detected Tongue Movement: Full range of motion Tongue Strength: No abnormality detected Tongue Coordination: No abnormality detected Gag: No gag (DNT) Palate: No abnormality detected Cough Reflex: Weak reflexive cough Voluntary Cough: Attempt, inadequate Voice: No abnormality detected Trach: No trach Oral Preparation: No deficits noted Bolus Clearance: Fully cleared Oral Transit: No deficits noted Pharyngeal Phase: Immediate laryngeal elevation Pharyngeal Response: No deficits noted MASA Score: 189 Dysphagia: No dysphagia detected (178-200) Aspiration Risk: No aspiration risk (170-200) Plan CHIEF CRUISER Frequency of Services during current admission: One-time visit (Discharge from this service) CHIEF CRUISER Recommendation (Add'l Services): No further CHIEF CRUISER indicated Next Visit Plan:No further ST warranted Additional Referrals: n/a Please reference care plan for treatment goals, if indicated. Discharge Summary Statement If this is the last swallow therapy visit, this serves as the discharge summary. Josh Trivedi NP CHIEF CRUISER ORDERABLES Final Resul t * ECG 12 lead (03/04/2025 10:04 AM CDT) [facility] Ventricular Rate EKG/Min 93 BPM [facility] QRS-Interval (MSEC) 76 ms [facility] QT-Interval (MSEC) 434 ms [facility] QTc 539 ms [facility] R [place] -13 degrees [facility] T [place] -13 degrees [facility] Diagnosis Accelerated Junctional rhythm with retrograde atrial activation Minimal voltage criteria for LVH, may be normal variant ( R in aVL ) Anterolateral infarct (cited on or before 04-MAR-2025) Abnormal ECG When compared with ECG of 02-FEB-2025 14:11, Significant changes have occurred Confirmed by YESENIA MCARTHUR M.D ([id number]) on 03/07/2025 12:24:24 PM [facility] 03/04/2025 10:0 4 AM CDT 03/07/2025 12:24 PM CDT Josh Betsey Trivedi GENERAL MANAGER IN TRAINING ECG ORDERABLES Final Resul t Performing Organization Address City/[facility]/ZIP Co de Phone Number [facility] * eGFR (03/03/2025 8:18 PM CDT) Pathologist [facility] eGFR 75 >=60 mL/min/1. 73 m2 Comment: Interpretive Data Reference Interval Normal >/= 90 mL/min/1.73m2 Mildly decreased* 60 - 89 mL/min/1.73m2 Mildly to moderately decreased 45 - 59 mL/min/1.73m2 Moderately to severely decreased 30 - 44 mL/min/1.73m2 Severely decreased 15 - 29 mL/min/1.73m2 Kidney Failure < 15 mL/min/1.73m2 *Relative to young adult level Estimated glomerular filtration rate is determined by the 2020 CKD-EPI equation recommended by the National Kidney Foundation (A Unifying Approach to GFR Estimation: Recommendations of the NKF-ASK Task Force on Reassessing the Inclusion of Race in Diagnosing Kidney Disease, JASN 2020). The CKD-EPI equation should not be used for patients with unstable renal function and has not been validated in children and those over 70. Current interpretive data was last reviewed 2021. Blood 03/03/2025 8:18 PM CDT 03/03/2025 8:59 PM CDT us Nelsy Velásquez NP LAB BLOOD ORDERABLES Final Result Performing Organization Address [facility] Co de Phone Number [facility] Department [place] [address] * (ABNORMAL) CBC without differential (03/03/2025 8:18 PM CDT) [facility] WBC 8.28 3.80 - 9.90 K/cumm Hgb 8.8(L) 11.9 - 15.5 g/dL [facility] Hct 26.7(L) 35.6 - 45.5 % [facility] Plt 183 150 - 400 K/cumm [facility] MPV 10.6 9.1 - 12.3 fL [facility] RBC 2.91(L) 3.90 - 5.20 M/cumm [facility] MCV 91.8 81.3 - 96.4 fL [facility] MCH 30.2 27.1 - 33.3 pg [facility] MCHC 33.0 32.3 - 35.7 g/dL [facility] RDW CV 14.3 11.1 - 14.9 % [facility] RDW SD 48.4(H) 35.7 - 48.1 fL [facility] NRBC abs 0.00 0.00 - 0.01 K/cumm [facility] Blood 03/03/2025 8:18 PM CDT 03/03/2025 9:06 PM CDT us Nelsy Velásquez NP LAB BLOOD ORDERABLES Final Result Performing Organization Address [facility] Co de Phone Number [facility] Department [place] [address] * Type and screen (03/03/2025 8:18 PM CDT) ABO Rh B Negative Marco, indirect Negative [facility] Blood 03/03/2025 8:18 PM CDT 03/03/2025 9:27 PM CDT Narrative [facility] - 03/03/2025 10:22 PM CDT Has the patient had Daratumumab or Isatuximab in the past 6 months?->Unknown us Nelsy Velásquez NP LAB BLOOD BANK TEST ORDERA BLES Final Result [facility] Department [place] [address] * Phosphorus (03/03/2025 8:18 PM CDT) Phosphorus, pl 3.7 2.3 - 4.5 mg/dL Blood 03/03/2025 8:18 PM CDT 03/03/2025 8:59 PM CDT us Nelys Velásquez GENERAL MANAGER IN TRAINING LAB BLOOD ORDERABLES Final Result Performing Organization Address City/[facility]/ZIP Co de Phone Number [facility] Department [place] [address] * Magnesium (03/03/2025 8:18 PM CDT) [facility] Magnesium 2.0 1.4 - 2.5 mg/dL Blood 03/03/2025 8:18 PM CDT 03/03/2025 8:59 PM CDT Nelsydiego Velásquez GENERAL MANAGER IN TRAINING LAB BLOOD ORDERABLES Final Result Performing Organization Address [facility] de Phone Number [facility] Department [place] [address] * (ABNORMAL) Basic metabolic panel (03/03/2025 8:18 PM CDT) [facility] Sodium 135 135 - 145 mmol/L Potassium, pl 4.3 3.3 - 4.9 mmol/L [facility] Chloride 93(L) 97 - 110 mmol/L [facility] CO2 34(H) 22 - 32 mmol/L [facility] Anion gap 8 2 - 15 mmol/L [facility] BUN 15 6 - 25 mg/dL [facility] Creatinine 0.81 0.60 - 1.10 mg/dL [facility] Glucose 153 70 - 199 mg/dL [facility] Comment: Interpretive Data Fasting glucose >/= 126 mg/dl is diagnostic for diabetes. Fasting is defined as no caloric intake for at least 8 hours. Fasting glucose between 100 mg/dl to 125 mg/dl is diagnostic of prediabetes. In a patient with classic symptoms of hyperglycemia or hyperglycemic crisis, a random glucose >/= 200 mg/dl is diagnostic for diabetes. In the absence of unequivocal hyperglycemia, results should be confirmed by repeat testing. The classification and Diagnosis of Diabetes Diabetes Care 2021; 46: S19-S40. Current interpretive data was last revised 2022. Calcium 8.9 8.5 - 10.3 mg/dL [facility] Blood 03/03/2025 8:18 PM CDT 03/03/2025 8:59 PM CDT Nelsy Velásquez GENERAL MANAGER IN TRAINING LAB BLOOD ORDERABLES Final Result [facility] [place] [address] * Calcium, ionized, whole blood (03/02/2025 8:36 PM CDT) Ca, ionized, bld 4.75 4.50 - 5.10 mg/dL Blood 03/02/2025 8:36 PM CDT 03/02/2025 9:18 PM CDT Nelsy Velásquez GENERAL MANAGER IN TRAINING LAB BLOOD ORDERABLES Final Result Performing Organization Address [facility] Co de Phone Number [facility] [place] [address] * eGFR (03/02/2025 8:36 PM CDT) eGFR 64 >=60 mL/min/1. 73 m2 Comment: Interpretive Data Reference Interval Normal >/= 90 mL/min/1.73m2 Mildly decreased* 60 - 89 mL/min/1.73m2 Mildly to moderately decreased 45 - 59 mL/min/1.73m2 Moderately to severely decreased 30 - 44 mL/min/1.73m2 Severely decreased 15 - 29 mL/min/1.73m2 Kidney Failure < 15 mL/min/1.73m2 *Relative to young adult level Estimated glomerular filtration rate is determined by the 2020 CKD-EPI equation recommended by the National Kidney Foundation (A Unifying Approach to GFR Estimation: Recommendations of the NKF-ASK Task Force on Reassessing the Inclusion of Race in Diagnosing Kidney Disease, JASN 2020). The CKD-EPI equation should not be used for patients with unstable renal function and has not been validated in children and those over 70. Current interpretive data was last reviewed 2021. Blood 03/02/2025 8:36 PM CDT 03/02/2025 9:27 PM CDT Nelsy Velásquez GENERAL MANAGER IN TRAINING LAB BLOOD ORDERABLES Final Result Performing Organization Address [facility]/ZIP Co de Phone Number [facility] Department [place] [address] * (ABNORMAL) CBC without differential (03/02/2025 8:36 PM CDT) Pathologist [facility] WBC 10.32(H) 3.80 - 9.90 K/cumm Hgb 9.3(L) 11.9 - 15.5 g/dL [facility] Hct 28.3(L) 35.6 - 45.5 % [facility] Plt 142(L) 150 - 400 K/cumm [facility] MPV 10.6 9.1 - 12.3 fL [facility] RBC 3.03(L) 3.90 - 5.20 M/cumm [facility] MCV 93.4 81.3 - 96.4 fL [facility] MCH 30.7 27.1 - 33.3 pg [facility] MCHC 32.9 32.3 - 35.7 g/dL [facility] RDW CV 14.3 11.1 - 14.9 % [facility] RDW SD 48.3(H) 35.7 - 48.1 fL [facility] NRBC abs 0.00 0.00 - 0.01 K/cumm [facility] Blood 03/02/2025 8:36 PM CDT 03/02/2025 9:27 PM CDT Nelsy Velásquez GENERAL MANAGER IN TRAINING LAB BLOOD ORDERABLES Final Result [facility] Department [place] [address] * (ABNORMAL) Phosphorus (03/02/2025 8:36 PM CDT) Phosphorus, pl 2.1(L) 2.3 - 4.5 mg/dL Blood 03/02/2025 8:36 PM CDT 03/02/2025 9:27 PM CDT us Nelsy Velásquez GENERAL MANAGER IN TRAINING LAB BLOOD ORDERABLES Final Result Performing Organization Address City/[facility] Co de Phone Number [facility] [place] [address] * Magnesium (03/02/2025 8:36 PM CDT) Pathologist [facility] Magnesium 1.9 1.4 - 2.5 mg/dL Blood 03/02/2025 8:36 PM CDT 03/02/2025 9:27 PM CDT Nelsy Velásquez GENERAL MANAGER IN TRAINING LAB BLOOD ORDERABLES Final Result Performing Organization Address [facility] de Phone Number [facility] [place] [address] * (ABNORMAL) Basic metabolic panel (03/02/2025 8:36 PM CDT) [facility] Sodium 137 135 - 145 mmol/L Potassium, pl 3.8 3.3 - 4.9 mmol/L [facility] Chloride 98 97 - 110 mmol/L [facility] CO2 33(H) 22 - 32 mmol/L [facility] Anion gap 6 2 - 15 mmol/L [facility] BUN 17 6 - 25 mg/dL [facility] Creatinine 0.92 0.60 - 1.10 mg/dL [facility] Glucose 130 70 - 199 mg/dL [facility] Comment: Interpretive Data Fasting glucose >/= 126 mg/dl is diagnostic for diabetes. Fasting is defined as no caloric intake for at least 8 hours. Fasting glucose between 100 mg/dl to 125 mg/dl is diagnostic of prediabetes. In a patient with classic symptoms of hyperglycemia or hyperglycemic crisis, a random glucose >/= 200 mg/dl is diagnostic for diabetes. In the absence of unequivocal hyperglycemia, results should be confirmed by repeat testing. The classification and Diagnosis of Diabetes Diabetes Care 2021; 46: S19-S40. Current interpretive data was last revised 2022. Calcium 9.3 8.5 - 10.3 mg/dL [facility] Blood 03/02/2025 8:36 PM CDT 03/02/2025 9:27 PM CDT us Nelsy Velásquez GENERAL MANAGER IN TRAINING LAB BLOOD ORDERABLES Final Result [facility] Department [place] [address] * XR Chest Pa Lateral 2 Views (03/02/2025 6:05 PM CDT) Anatomical Region Laterality Modality Body, Chest N/A Computed Radiogr aphy 03/03/2025 8:13 AM CDT Impressions 03/03/2025 8:13 AM CDT An aortic valve replacement remains present. Mediastinal and pericardial drains have been removed in the interval. Sternal plates remain aligned. Surgical clips project over the axillae bilaterally. The lung volumes remain small with unchanged mild bibasilar atelectasis and trace bilateral pleural effusions. No pneumothorax is identified. The cardiomediastinal silhouette is unchanged. An air-fluid level is again noted within the stomach. Electronically signed by: Nakul Tovar M.D. Narrative 03/03/2025 8:13 AM CDT EXAMINATION: XR CHEST PA LATERAL 2 VIEWS COMPARISON: 03/02/2025 10:00 AM Procedure Note Nakul Tovar MD PhD - 03/03/2025 EXAMINATION: XR CHEST PA LATERAL 2 VIEWS COMPARISON: 03/02/2025 10:00 AM IMPRESSION: An aortic valve replacement remains present. Mediastinal and pericardial drains have been removed in the interval. Sternal plates remain aligned. Surgical clips project over the axillae bilaterally. The lung volumes remain small with unchanged mild bibasilar atelectasis and trace bilateral pleural effusions. No pneumothorax is identified. The cardiomediastinal silhouette is unchanged. An air-fluid level is again noted within the stomach. Electronically signed by: Nakul Tovar M.D. Alex Kent GENERAL MANAGER IN TRAINING IMG XR PROCEDURES Final Re sult * XR Chest Pa Lateral 2 Views (03/02/2025 10:15 AM CDT) Anatomical Region Laterality Modality Body, Chest N/A Computed Radiogr aphy 03/02/2025 10:5 3 AM CDT Impressions 03/02/2025 11:55 AM CDT Comparison radiographs dated 03/01/2025. Sternal plates are aligned. Surgical clips in the bilateral axillary regions. Aortic valve replacement. Mediastinal and pericardial drain are present. Epicardial pacing wires. Improved aeration of the lungs, with residual mild bibasilar atelectasis. Small left pleural effusion. No right pleural effusion or pneumothorax. Stable cardiomediastinal silhouette. Air fluid level in the stomach. Dictated by: Kim Galeana MD The radiology attending physician has personally reviewed this study, and had reviewed and/or edited this written report and agrees with it. Electronically signed by: Jaylon Leggett MD, PHD Narrative 03/02/2025 11:55 AM CDT EXAMINATION: 2 view chest radiograph Procedure Note Jaylon Leggett MD PhD - 03/02/2025 EXAMINATION: 2 view chest radiograph IMPRESSION: Comparison radiographs dated 03/01/2025. Sternal plates are aligned. Surgical clips in the bilateral axillary regions. Aortic valve replacement. Mediastinal and pericardial drain are present. Epicardial pacing wires. Improved aeration of the lungs, with residual mild bibasilar atelectasis. Small left pleural effusion. No right pleural effusion or pneumothorax. Stable cardiomediastinal silhouette. Air fluid level in the stomach. Dictated by: Kim Galeana MD The radiology attending physician has personally reviewed this study, and had reviewed and/or edited this written report and agrees with it. Electronically signed by: Jaylon Leggett MD, PHD Alex Kent GENERAL MANAGER IN TRAINING IMG XR PROCEDURES Final Re sult * Potassium, whole blood (03/02/2025 6:03 AM CDT) Potassium, bld 4.4 3.3 - 4.9 mmol/L Blood 03/02/2025 6:03 AM CDT 03/02/2025 6:09 AM CDT Lashonda Sousa MD LAB BLOOD ORDERABLES Fi nal Result Performing Organization Address City/[facility]/ZIP Co de Phone Number [facility] Department [place] [address] * (ABNORMAL) Calcium, ionized, whole blood (03/02/2025 6:03 AM CDT) Ca, ionized, bld 5.14(H) 4.50 - 5.10 mg/dL Blood 03/02/2025 6:03 AM CDT 03/02/2025 6:09 AM CDT Liliana Tinoco NP LAB BLOOD ORDERABLES Final Re sult Performing Organization Address [facility] Co de Phone Number [facility] Department [place] [address] * eGFR (03/02/2025 6:03 AM CDT) eGFR 83 >=60 mL/min/1. 73 m2 Comment: Interpretive Data Reference Interval Normal >/= 90 mL/min/1.73m2 Mildly decreased* 60 - 89 mL/min/1.73m2 Mildly to moderately decreased 45 - 59 mL/min/1.73m2 Moderately to severely decreased 30 - 44 mL/min/1.73m2 Severely decreased 15 - 29 mL/min/1.73m2 Kidney Failure < 15 mL/min/1.73m2 *Relative to young adult level Estimated glomerular filtration rate is determined by the 2020 CKD-EPI equation recommended by the National Kidney Foundation (A Unifying Approach to GFR Estimation: Recommendations of the NKF-ASK Task Force on Reassessing the Inclusion of Race in Diagnosing Kidney Disease, JASN 2020). The CKD-EPI equation should not be used for patients with unstable renal function and has not been validated in children and those over 70. Current interpretive data was last reviewed 2021. Blood 03/02/2025 6:03 AM CDT 03/02/2025 6:17 AM CDT Monique Javed GENERAL MANAGER IN TRAINING LAB BLOOD ORDERABLES Fi nal Result Performing Organization Address City/[facility]/ZIP Co de Phone Number [facility] Department [place] [address] * Lidocaine level (03/02/2025 6:03 AM CDT) [facility] Lidocaine (Xylocaine) 2.8 1.5 - 5.0 mcg/mL Blood 03/02/2025 6:03 AM CDT 03/02/2025 6:17 AM CDT Adriel Corona GENERAL MANAGER IN TRAINING LAB BLOOD ORDERABLES Final Result Performing Organization Address City/[facility] de Phone Number [facility] [place] [address] * (ABNORMAL) CBC without differential (03/02/2025 6:03 AM CDT) [facility] WBC 10.56(H) 3.80 - 9.90 K/cumm Hgb 8.7(L) 11.9 - 15.5 g/dL [facility] Hct 25.9(L) 35.6 - 45.5 % [facility] Plt 103(L) 150 - 400 K/cumm [facility] MPV 10.4 9.1 - 12.3 fL [facility] RBC 2.85(L) 3.90 - 5.20 M/cumm [facility] MCV 90.9 81.3 - 96.4 fL [facility] MCH 30.5 27.1 - 33.3 pg [facility] MCHC 33.6 32.3 - 35.7 g/dL [facility] RDW CV 14.3 11.1 - 14.9 % [facility] RDW SD 47.5 35.7 - 48.1 fL [facility] NRBC abs 0.00 0.00 - 0.01 K/cumm [facility] Blood 03/02/2025 6:03 AM CDT 03/02/2025 6:17 AM CDT Monique Javed NP LAB BLOOD ORDERABLES Fi nal Result Performing Organization Address City/[facility] Co de Phone Number [facility] [place] [address] * (ABNORMAL) Phosphorus (03/02/2025 6:03 AM CDT) Phosphorus, pl 2.2(L) 2.3 - 4.5 mg/dL Blood 03/02/2025 6:03 AM CDT 03/02/2025 6:17 AM CDT Monique Javed NP LAB BLOOD ORDERABLES Fi nal Result Performing Organization Address [facility] de Phone Number [facility] [place] [address] * Magnesium (03/02/2025 6:03 AM CDT) Magnesium 1.9 1.4 - 2.5 mg/dL Blood 03/02/2025 6:03 AM CDT 03/02/2025 6:17 AM CDT Monique Javed NP LAB BLOOD ORDERABLES Fi nal Result Performing Organization Address [facility] Co de Phone Number [facility] [place] [address] * Basic metabolic panel (03/02/2025 6:03 AM CDT) Sodium 136 135 - 145 mmol/L Potassium, pl 4.6 3.3 - 4.9 mmol/L [facility] Chloride 99 97 - 110 mmol/L [facility] CO2 29 22 - 32 mmol/L [facility] Anion gap 8 2 - 15 mmol/L [facility] BUN 10 6 - 25 mg/dL [facility] Creatinine 0.74 0.60 - 1.10 mg/dL [facility] Glucose 121 70 - 199 mg/dL [facility] Comment: Interpretive Data Fasting glucose >/= 126 mg/dl is diagnostic for diabetes. Fasting is defined as no caloric intake for at least 8 hours. Fasting glucose between 100 mg/dl to 125 mg/dl is diagnostic of prediabetes. In a patient with classic symptoms of hyperglycemia or hyperglycemic crisis, a random glucose >/= 200 mg/dl is diagnostic for diabetes. In the absence of unequivocal hyperglycemia, results should be confirmed by repeat testing. The classification and Diagnosis of Diabetes Diabetes Care 202; 46: S19-S40. Current interpretive data was last revised 2022. Calcium 8.9 8.5 - 10.3 mg/dL [facility] Blood 03/02/2025 6:03 AM CDT 03/02/2025 6:17 AM CDT Monique Javed NP LAB BLOOD ORDERABLES nal Result [facility] Department [place] [address] * XR Chest 1 View - in PM (03/01/2025 6:50 PM CDT) Anatomical Region Laterality Modality Body, Chest N/A Computed Radiogr aphy 03/02/2025 9:03 AM CDT Impressions 03/02/2025 11:53 AM CDT Comparison 02/28/2025. Sternal plates are present. Aortic valve replacement changes. Left the thoracostomy tube is noted. Small lung volume with atelectasis. No consolidation. No edema. No apical pneumothorax. Calcified lymph nodes. Superior part of the mediastinal silhouette remains unchanged. Dictated by: Meghana Cornejo MD The radiology attending physician has personally reviewed this study, and had reviewed and/or edited this written report and agrees with it. Electronically signed by: Jaylon Leggett MD, PHD Narrative 03/02/2025 11:53 AM CDT EXAMINATION: 1 view chest radiograph Procedure Note Jaylon Leggett MD PhD - 03/02/2025 EXAMINATION: 1 view chest radiograph IMPRESSION: Comparison 02/28/2025. Sternal plates are present. Aortic valve replacement changes. Left the thoracostomy tube is noted. Small lung volume with atelectasis. No consolidation. No edema. No apical pneumothorax. Calcified lymph nodes. Superior part of the mediastinal silhouette remains unchanged. Dictated by: Meghana Cornejo MD The radiology attending physician has personally reviewed this study, and had reviewed and/or edited this written report and agrees with it. Electronically signed by: Jaylon Leggett MD, PHD Monique Javed GENERAL MANAGER IN TRAINING IMG XR PROCEDURES Final Result * POCT glucose (03/01/2025 11:20 AM CDT) Glucose, POC 144 70 - 199 mg/dL Blood 03/01/2025 11:2 0 AM CDT 03/01/2025 11:20 AM CDT Lashonda Sousa MD LAB POCT ORDERABLES - D EVICE Final Result Performing Organization Address [facility] Phone Number [facility] Department [place] [address] * POCT glucose (03/01/2025 7:44 AM CDT) Glucose, POC 128 70 - 199 mg/dL Blood 03/01/2025 7:44 AM CDT 03/01/2025 7:44 AM CDT Lashonda Sousa MD LAB POCT ORDERABLES - D EVICE Final Result Performing Organization Address City/[facility]/ZIP Co de Phone Number [facility] [place] [facility] Department [place] [address] * Critical Care (03/01/2025 6:44 AM CDT) Narrative Timbo Lewis MD - 03/01/2025 6:44 AM CDT Timbo Lewis MD 03/01/2025 6:22 PM Critical Care Performed by: Adriel Corona NP Authorized by: Adriel Corona NP CRITICAL CARE: Team: 83 CTICU Shift: AM Level of Billing: Subsequent Hospital Visit Level 3 My time spent with this patient was 60 minutes: Critical Provider Statement: I have seen and examined the patient on this day of service. I have reviewed and confirmed the history, physical exam, laboratory, and radiographic data as documented in the ICU note. I have reviewed and discussed my treatment plan with the patient's team and other medical/internal control consultant staff. This time was in addition to and separate from care provided by other practitioners on this day of service. us Adriel Corona GENERAL MANAGER IN TRAINING IN CLINIC/BEDSIDE ORD ERABLES Final Result * (ABNORMAL) Lidocaine level (03/01/2025 5:29 AM CDT) Lidocaine (Xylocaine) 1.2(L) 1.5 - 5.0 mcg/mL Blood 03/01/2025 5:29 AM CDT 03/01/2025 6:23 AM CDT Narrative [facility] - 03/01/2025 6:55 AM CDT Draw 24 hours after infusion started. us Monique Javed NP LAB BLOOD ORDERABLES Fi nal Result Performing Organization Address [facility]/ZIP Co de Phone Number [facility] [place] [facility] Department [place] [address] * POCT glucose (03/01/2025 5:07 AM CDT) Glucose, POC 130 70 - 199 mg/dL Blood 03/01/2025 5:07 AM CDT 03/01/2025 5:07 AM CDT Lashonda Sousa MD LAB POCT ORDERABLES - D EVICE Final Result Performing Organization Address [facility] Co de Phone Number [facility] [place] [address] * POCT glucose (03/01/2025 1:27 AM CDT) Glucose, POC 141 70 - 199 mg/dL Blood 03/01/2025 1:27 AM CDT 03/01/2025 1:27 AM CDT Lashonda Sousa MD LAB POCT ORDERABLES - D EVICE Final Result Performing Organization Address [facility] de Phone Number [facility] Department [place] [address] * Calcium, ionized, whole blood (03/01/2025 1:18 AM CDT) Pathologist [facility] Ca, ionized, bld 4.78 4.50 - 5.10 mg/dL Blood 03/01/2025 1:18 AM CDT 03/01/2025 1:48 AM CDT Liliana Tinoco NP LAB BLOOD ORDERABLES Final Re sult Performing Organization Address [facility] de Phone Number [facility] [place] [address] * eGFR (03/01/2025 1:18 AM CDT) eGFR 86 >=60 mL/min/1. 73 m2 Comment: Interpretive Data Reference Interval Normal >/= 90 mL/min/1.73m2 Mildly decreased* 60 - 89 mL/min/1.73m2 Mildly to moderately decreased 45 - 59 mL/min/1.73m2 Moderately to severely decreased 30 - 44 mL/min/1.73m2 Severely decreased 15 - 29 mL/min/1.73m2 Kidney Failure < 15 mL/min/1.73m2 *Relative to young adult level Estimated glomerular filtration rate is determined by the 2020 CKD-EPI equation recommended by the National Kidney Foundation (A Unifying Approach to GFR Estimation: Recommendations of the NKF-ASK Task Force on Reassessing the Inclusion of Race in Diagnosing Kidney Disease, JASN 202). The CKD-EPI equation should not be used for patients with unstable renal function and has not been validated in children and those over 70. Current interpretive data was last reviewed 2021. Blood 03/01/2025 1:18 AM CDT 03/01/2025 1:53 AM CDT us Monique Javed NP LAB BLOOD ORDERABLES Fi nal Result [facility] Department [place] [address] * (ABNORMAL) CBC without differential (03/01/2025 1:18 AM CDT) WBC 10.92(H) 3.80 - 9.90 K/cumm Hgb 9.6(L) 11.9 - 15.5 g/dL [facility] Hct 28.0(L) 35.6 - 45.5 % [facility] Plt 155 150 - 400 K/cumm [facility] MPV 10.2 9.1 - 12.3 fL [facility] RBC 3.17(L) 3.90 - 5.20 M/cumm [facility] MCV 88.3 81.3 - 96.4 fL [facility] MCH 30.3 27.1 - 33.3 pg [facility] MCHC 34.3 32.3 - 35.7 g/dL [facility] RDW CV 14.3 11.1 - 14.9 % [facility] RDW SD 46.2 35.7 - 48.1 fL [facility] NRBC abs 0.00 0.00 - 0.01 K/cumm [facility] Blood 03/01/2025 1:18 AM CDT 03/01/2025 1:54 AM CDT Monique Javed NP LAB BLOOD ORDERABLES Fi nal Result Performing Organization Address City/[facility] Co de Phone Number [facility] [place] [address] * Phosphorus (03/01/2025 1:18 AM CDT) [facility] Phosphorus, pl 3.5 2.3 - 4.5 mg/dL Blood 03/01/2025 1:18 AM CDT 03/01/2025 1:53 AM CDT Monique Javed NP LAB BLOOD ORDERABLES Fi nal Result Performing Organization Address [facility] de Phone Number [facility] [place] [address] * Magnesium (03/01/2025 1:18 AM CDT) [facility] Magnesium 2.0 1.4 - 2.5 mg/dL Blood 03/01/2025 1:18 AM CDT 03/01/2025 1:53 AM CDT Monique Javed NP LAB BLOOD ORDERABLES Fi nal Result Performing Organization Address [facility] [place] [address] * Basic metabolic panel (03/01/2025 1:18 AM CDT) [facility] Sodium 137 135 - 145 mmol/L Potassium, pl 4.9 3.3 - 4.9 mmol/L [facility] Chloride 103 97 - 110 mmol/L [facility] CO2 25 22 - 32 mmol/L [facility] Anion gap 9 2 - 15 mmol/L [facility] BUN 14 6 - 25 mg/dL [facility] Creatinine 0.72 0.60 - 1.10 mg/dL [facility] Glucose 139 70 - 199 mg/dL [facility] Comment: Interpretive Data Fasting glucose >/= 126 mg/dl is diagnostic for diabetes. Fasting is defined as no caloric intake for at least 8 hours. Fasting glucose between 100 mg/dl to 125 mg/dl is diagnostic of prediabetes. In a patient with classic symptoms of hyperglycemia or hyperglycemic crisis, a random glucose >/= 200 mg/dl is diagnostic for diabetes. In the absence of unequivocal hyperglycemia, results should be confirmed by repeat testing. The classification and Diagnosis of Diabetes Diabetes Care 202; 46: S19-S40. Current interpretive data was last revised 2022. Calcium 8.8 8.5 - 10.3 mg/dL [facility] Blood 03/01/2025 1:18 AM CDT 03/01/2025 1:53 AM CDT Monique Javed GENERAL MANAGER IN TRAINING LAB BLOOD ORDERABLES Fi nal Result Performing Organization Address City/[facility] Co de Phone Number [facility] Department [place] [address] * Hepatitis C antibody Blood (01/04/2025 12:34 PM RESEARCH INSTRUMENTATION TECHNICIAN) Hep C Ab Nonreactive Nonreactive Comment:Antibodies to HCV no t detected. Does NOT exclude the possibility of recent exposure to HCV. Current interpretive data was last revised on 22 Blood 01/04/2025 12:3 4 PM RESEARCH INSTRUMENTATION TECHNICIAN 01/04/2025 1:13 PM RESEARCH INSTRUMENTATION TECHNICIAN Hannah Stewart NP LAB MICROBIOLO GY - GENERAL ORDERABLES Final Result [facility] Department [place] [address] * Diagnostic Mammogram Bilateral W Mariusz (05/22/2021 12:58 PM CDT) Anatomical Region Laterality Modality Breast Bilateral Mammography 05/22/2021 1:47 PM CDT Impressions 05/22/2021 3:15 PM CDT 1. 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 No mammographic evidence of malignancy in either reconstructed breast. 2. Large peripherally calcified oil cyst within the RIGHT axilla accounts for area of palpable concern in right breast. 3. No mammographic or sonographic correlate for area of clinical concern in left breast. In the absence of imaging findings, decision for further intervention should be based on the clinical assessment. OVERALL FINAL ASSESSMENT: BI-RADS Category 2: Benign. RECOMMENDATION: Continued clinical follow-up is recommended. Dictated by: Florinda Tolentino MD The radiology attending physician has personally reviewed this study, and had reviewed and/or edited this written report and agrees with it. Electronically signed by: Kaia Palma M.D. Narrative 05/22/2021 3:15 PM CDT EXAMINATION: BILATERAL DIGITAL DIAGNOSTIC MAMMOGRAM INCLUDING CAD AND BILATERAL DIGITAL BREAST TOMOSYNTHESIS HISTORY: 75-year-old female with remote history of bilateral mastectomy and TRAM flap reconstruction, today presenting with bilateral palpable masses. The RIGHT breast mass has been present for approximately 4 years and is increasing in size and is now painful. LEFT breast lump is present for approximately one year. COMPARISON: No examinations are available for comparison. TECHNIQUE: Full field digital mammographic views of BOTH breasts were performed, including computer aided detection (CAD) and BILATERAL digital breast tomosynthesis (DBT). MAMMOGRAM FINDINGS: The patient is status post bilateral mastectomy with TRAM flap reconstruction. There is no mass, calcification or architectural distortion suggestive of malignancy in either reconstructed breast. There is a large peripherally calcified oil cyst within the RIGHT axilla measuring up to 7.7 cm. There are multiple surgical clips and benign calcifications in the RIGHT breast. There is no mammographic finding in the area of clinical concern in the left breast. Sonographic findings: There is no focal abnormal solid or cystic lesion suggestive of malignancy in the area of recent concern in the reconstructed LEFT breast at approximately 10:00 12 cm from the nipple. Procedure Note Kaia Palma MD - 05/22/2021 EXAMINATION: BILATERAL DIGITAL DIAGNOSTIC MAMMOGRAM INCLUDING CAD AND BILATERAL DIGITAL BREAST TOMOSYNTHESIS HISTORY: 75-year-old female with remote history of bilateral mastectomy and TRAM flap reconstruction, today presenting with bilateral palpable masses. The RIGHT breast mass has been present for approximately 4 years and is increasing in size and is now painful. LEFT breast lump is present for approximately one year. COMPARISON: No examinations are available for comparison. TECHNIQUE: Full field digital mammographic views of BOTH breasts were performed, including computer aided detection (CAD) and BILATERAL digital breast tomosynthesis (DBT). MAMMOGRAM FINDINGS: The patient is status post bilateral mastectomy with TRAM flap reconstruction. There is no mass, calcification or architectural distortion suggestive of malignancy in either reconstructed breast. There is a large peripherally calcified oil cyst within the RIGHT axilla measuring up to 7.7 cm. There are multiple surgical clips and benign calcifications in the RIGHT breast. There is no mammographic finding in the area of clinical concern in the left breast. Sonographic findings: There is no focal abnormal solid or cystic lesion suggestive of malignancy in the area of recent concern in the reconstructed LEFT breast at approximately 10:00 12 cm from the nipple. IMPRESSION: 1. 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 No mammographic evidence of malignancy in either reconstructed breast. 2. Large peripherally calcified oil cyst within the RIGHT axilla accounts for area of palpable concern in right breast. 3. No mammographic or sonographic correlate for area of clinical concern in left breast. In the absence of imaging findings, decision for further intervention should be based on the clinical assessment. OVERALL FINAL ASSESSMENT: BI-RADS Category 2: Benign. RECOMMENDATION: Continued clinical follow-up is recommended. Dictated by: Florinda Tolentino MD The radiology attending physician has personally reviewed this study, and had reviewed and/or edited this written report and agrees with it. Electronically signed by: Kaia Palma M.D. [facility] IMG MAMMO PROCEDURES Final R esult from Last 3 Months or Most Recently Relevant to Health Maintenance Insurance MEDICARE [facility] [address] [address] MEDICARE [facility] MEDICARE [facility] Member Subscriber Plan / Payer (Ef fective 2017-Present) Name:Rosalba Lua Relation to Subscriber:Self Name:Rosalba Lua Payer ID:[id number] Group ID:[id number] Type:[employer] Address: [facility] [id number] [place] [phone] MEDICARE [facility] Member Subscriber Plan / Payer (Ef fective 2017-Present) Name:Rosalba Lua Relation to Subscriber:Self Name:Rosalba Lua Payer ID:[id number] Group ID:[id number] Type:COMMERCIAL Address: [address] [place] [phone] Advance Directives For more information, please contact: [phone] * Full Code (Latest Code Status on File) Date Activated Date Inactivated Comments 03/24/2025 9:59 PM 03/31/2025 7:37 PM * Full Code Date Activated Date Inactivated Comments 02/28/2025 12:11 PM 03/08/2025 6:51 PM * Full Code Date Activated Date Inactivated Comments 11/01/2024 9:10 AM 11/02/2024 4:50 AM * Full Code Date Activated Date Inactivated Comments 05/26/2022 3:55 PM 05/28/2022 2:37 PM Care Teams [facility] Att[facility] Relationship Specialty Start Date End Date Arun Miller MD PCP - General 04/20/17 Johnathon Theodore MD [address] [place] [address] Medical Oncologist/Shactor Medical Oncology 01/03/25 Lashonda Sousa MD [address] [place] [address] Surgeon Cardiothoracic Surgery 03/08/25 Miscellaneous, Not In File 03/08/25 [place] [address] [place] [id number] Consulting Physician Cardiology 03/31/25
--- OUTSIDE RECORDS SUMMARY | 2025-06-01 14:48 | XMS_ITS | Clinical Summary ---
Author Organization [facility] Address [address] [place] [address] Care Team Providers Care Cost Estimating Manager Name Role Phone Arun Miller MD Primary Care Provider Johnathon Theodore MD Unavailable [phone] Lashonda Sousa MD Unavailable [phone] Miscellaneous, Not In File Unavailable Unava ilable Sonny Penaloza MD Unavailable [phone] Allergies No known active allergies Medications calcium [...] atrial EKG this AM Qtc 428 and WI 216 today Continue metoprolol and titrate as [...] (05/14/2022): Added automatically from request for surgery [id number] Hypertrophy of breast 05/14/2022 Overview (05/14/2022): Added automatically from request for surgery [id number] Aftercare following surgery for neoplasm 022 Overview (05/14/2022): Added automatically from request for surgery [id number] Bilateral breast cysts 05/14/2022 Overview (05/14/2022): Added automatically from request for surgery [id number] COVID-19 05/06/2022 Hyperlipidemia 02/12/2022 Assessment & Plan [...] D/c'd oxycodone and put back on home [place] to see if that improved pain control, [...] excessive volume/blood loss, and support as needed. Encounters Date Type Department Care Team Description 05/29/2025 Telephone [facility] Cardiology [address] [place] [address] Advanced Medicine [facility] [place] [address] [place] [address] Sonny Penaloza MD 05/01/2025 Telephone [facility] Cardiology [address] [place] [address] [place] [address] [place] [address] Abby Madrigal 04/26/2025 2:00 PM CDT Office Visit [facility] Oncology [facility] Floor 6 [place] [address] Hannah Stewart NP Atypical lymphocytic infiltrate of skin (Primary Dx); Lymphadenopathy 04/26/2025 1:00 PM CDT Lab [facility] - Lab Collection [address] [facility] Floor 6 [place] [address] Lymphadenopathy 04/20/2025 Telephone [facility] Cardiothoracic Surgery [address] [place] [address] Floor [address] Room [address] [place] [phone] Leonor Celeste NP 04/10/2025 Orders Only [facility] Cardiothoracic Surgery [address] [place] [address] Floor [address] Room [address] [place] [phone] Leonor Celeste NP 04/05/2025 3:30 PM CDT Office Visit [facility] Cardiothoracic Surgery [address] [facility] Advanced Medicine 8th Floor [address] Room [address] [place] [phone] Leonor Celeste NP Thoracic aortic aneurysm without rupture, unspecified part (Primary Dx) 03/24/2025 9:17 AM CDT - 03/31/2025 3:05 PM CDT Hospital Encounter [facility] [address] [place] [address] Shemar Edmonds MD Masood, MD Aretha Jo Richard Thomas, MD Wound infection (Primary Dx); Pseudomonas infection; H/O ascending aortic replacement; Sternal wound infection Discharge Disposition: Discharge to home, home health skilled care 03/22/2025 2:27 PM CDT - 03/22/2025 11:59 PM CDT Hospital Encounter [facility] Radiology [facility] [address] [place] [phone] Thoracic aortic aneurysm without rupture, unspecified part Discharge Disposition: Discharge to home or self care 03/22/2025 2:20 PM CDT - 03/22/2025 11:59 PM CDT Hospital Encounter [address] [address] Thoracic aortic aneurysm without rupture, unspecified part Discharge Disposition: Discharge to home or self care 03/22/2025 1:30 PM CDT Office Visit [facility] Cardiothoracic Surgery [address] [facility] Advanced Medicine 8th Floor [address] Room [address] [place] [phone] Leonor Celeste NP Thoracic aortic aneurysm without rupture, unspecified part (Primary Dx) 03/22/2025 Documentation [facility] Cardiothoracic Surgery [address] [facility] Advanced Medicine 8th Floor [address] Room [address] [place] [phone] Leonor Celeste NP 03/17/2025 Orders Only [facility] Cardiothoracic Surgery [address] [place] [address] Advanced Medicine 8th Floor [address] Room [address] [place] [phone] Leonor Celeste NP 03/16/2025 Orders Only [facility] Cardiothoracic Surgery [address] [place] [address] Advanced [facility] 8th Floor [address] Room [address] [place] [phone] Leonor Celeste NP 03/16/2025 Documentation [facility] Cardiothoracic Surgery [address] [place] [address] Advanced [facility] 8th Floor [address] Room [address] [place] [phone] Leonor Celeste, STEFANIE 03/07/2025 Orders Only [facility] Cardiothoracic Surgery [address] [place] [address] 8th Floor [address] Room [address] [place] [phone] Leonor Celeste NP Follow-up examination following surgery (Primary Dx) 02/28/2025 5:24 AM CDT - 03/08/2025 2:40 PM CDT Hospital Encounter [facility] [address] [place] [address] Lashonda Sousa MD Acute postoperative pain (Primary Dx); Aneurysm of ascending aorta without rupture; Medication monitoring encounter Discharge Disposition: Discharge to home, home health skilled care from Last 3 Months Immunizations Immunization Administration Dates Next Due Influenza, Quad, Adjuvantate d, Intramuscular 08/01/2023,08/14/2021,07/30/2020 Influenza, Quadrivalent, Spl it, Intramuscular 08/31/2021 Influenza, Trivalent, High D ose, Split, Preservative Free, Intramuscular 07/28/2019,07/26/2018,07/29/2017,08/19,08/24/2015 Influenza, Trivalent, IM (MDV) 08/17/2014,2012 Influenza, Unspecified 08/14/2023,08/26/2022, Pneumococcal Conjugate PCV 13 10/20/2014 Sars-CoV-2, Unspecified 02/28/2021,01/31/2021 Surgical History Surgery Date Site/Laterality Comments [place] OOPHORECTOMY PARTIAL/TOTAL UNI/BI 11/02/2011 - 11/01/2012 Bilateral Oophorectomy - (Added by TW Conv) BREAST BIOPSY 11/02/1999 - 11/01/2000 MASTECTOMY 11/02/2000 - 11/01/2001 Bilateral BREAST SOFT TISSUE MARKER PLACEMENT LEFT 12/08/2024 Left ABDOMINAL AORTIC ANEURYSM REPAIR 02/28/2025 AORTIC VALVE REPLACEMENT 02/28/2025 Medical History Medical History Date Comments Personal history of other di seases of the respiratory system Personal history of asthma - (Added by TW Conv) Encounter for gynecological examination without abnormal finding Encounter for routine gyneco logical examination - (Added by TW Conv) Personal history of malignan t neoplasm of breast History of breast cancer - ( Added by TW Conv) 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 - (Added by TW Conv) Osteoporosis GERD (gastroesophageal reflux disease) Breast cancer (HCC) Thoracic aortic aneurysm (TAA) Osteopenia Family History Medical History Relation Name Comments coal mine accident Father Diabetes Maternal Grandfather Breast cancer Mother Adenocarcinoma of breast - (Added by TW Conv)/Family history of malignant neoplasm of breast - (Added by TW Conv) Cancer Other 1 Cancer - (Added by TW Conv) Breast cancer Other 2 Family history of malignant neoplasm of breast - Relation: Aunt (Added by TW Conv) Pancreatic cancer Sister 1 No Known Problems Sister 2 Anesthesia problems Neg Hx Relation Name Status Comments Father Maternal Grandfather Mother Other 1 Other 2 Sister 1 Sister 2 Alive Social History Tobacco Use Types Packs/Day Years Used Date Smoking Tobacco: Never Passive Smoke Exposure: Past Smokeless Tobacco: Never Tobacco Cessation:Counseling Given: Not Answered Alcohol Use Standard Drinks/Week Comments No 0 (1 standard drink = 0.6 oz pur e alcohol) [facility] Utilities Answer Date Recorded In the past 12 months has [employer], gas, oil, or water [employer] threatened to shut off services in your [...] week 03/28/2025 How often do you attend [facility] services? Never 03/28/2025 Do you belong to any clubs o r organizations such as taoism groups, unions, fraternal or athletic groups, or [...] any time in the past 12 m [facility], were you homeless or living in a jail (including now)? No 03/28/2025 Personal Safety Answer Date Recorded Have you ever been in or are you currently in a harmful physical or emotional relationship or is someone making you feel afraid or unsafe? Denies 03/24/2025 Comments No Sex and Gender Information Value Date Recorded Sex Assigned at Not on file Legal Sex Female 12:47 AM [employer] Gender Identity Not on file Sexual Orientation Not on file Obstetrics History Para Term AB IAB SAB Ectopic Multiple Livin g Live Births 4 3 Date Outcome GA Total Labor Labor/2nd/3rd Weight Sex Type Anes PTL Dasia A1 A5 Name Clin Last Filed Vital Signs Vital Sign Reading [...] 04/26/2025 1:16 PM CDT Plan of Treatment Health Maintenance Due Date Last Done Comments Osteoporosis Screening-Bone Density Scan 1945 DTaP/Tdap/Td Vaccine (1 - Tdap) 1958 Zoster Vaccine (1 of 2) 1997 Well Visit 65+ 2012 Pneumococcal vaccine 65+ (2 of 2 - PPSV23) 10/20/2015 10/20/2014 Covid-19 Vaccine (2023-2 5 season) 2024 03/05/2021, 02/28/2021, 02/11/2021, Additional history exists Influenza Vaccine (#1) 2025 , 08/01/2023, 08/26/2022, Additional history exists Depression Screening 03/24/2026 03/24/2025 Fall Risk Assessment 03/30/2026 03/30/2025 Breast Cancer Screening-Mammogram Discontinued 021 Hepatitis B Screening Completed 01/04/2025 Hepatitis C Screening Completed 01/04/2025 Medical Devices Implanted Type Area Baby Formula Worker Device Identifier Shelf Expiration Date Model / Serial / Lot Terumo Cardio Vascular Gelweave 28mm 30cm Suture Retention Unique Hydrolyzable Abdomen [id number] - [id number] - [id number] Implanted:Qty: 1 on 02/28/2025 by Lashonda Sousa MD at [facility] Graft N/A: Chest [employer] Cardio Vascular [id number] 12/31/2027 [id number] / [id number] / [id number] [employer] Inspiris Resilia Leaflet Aortic Valve 25mm [id number] - [id number] - [id number] Implanted:Qty: 1 on 02/28/2025 by Lashonda Sousa MD at [facility] Prosthetic Valve N/A: Heart [employer] [id number] 10/31/2029 [id number] / [id number] / Pin Right: Hip [employer] Marker Tissue Rigid Needle Open Coil Radiopaque Clip Hydromark 18ga Titanium Hydrogel 1273-33-67-T3 - [id number] Implanted:Qty: 1 on 12/08/2024 by Roseanna Ray MD at [facility] Left: Axilla [employer] [id number] 4010-02- 18-T3 / / [id number] [employer] Sternalock 360 Sternal Closure 74-0004 - [id number] Implanted:Qty: 1 on 02/28/2025 by Grace Wilson MD at [facility] N/A: Sternum [employer] [id number] 01/18/2030 74-0004 / / [id number] [employer] Sternalock Lauri 2.4mm 10mm Self Drill Lock Sternum Cancellous 73-2410 - [id number] Implanted:Qty: 2 on 02/28/2025 by Grace Wilson MD at [facility] N/A: Sternum [employer] [id number] / / [employer] Sternalock Lauri 2.4mm 12mm Self Drill Lock Sternum Cancellous 73-2412 - [id number] Implanted:Qty: 14 on 02/28/2025 by Grace Wilson MD at [facility] N/A: Sternum [employer] 73-2412 / / Procedures Procedure Name Priority Date/Time [...] PEP THERAPY Routine 03/04/2025 1:00 PM CDT ENGRAVER WOOD EVALUATE AND TREAT Routine 03/04/2025 10:58 AM [...] HEPATITIS C ANTIBODY Routine 01/04/2025 12:34 PM [employer] Lymphadenopathy DIAGNOSTIC MAMMOGRAM BILATERAL W MARIUSZ Schedule [...] ORDERABLES Final R esult YAQUELIN FLORES [facility] Department [place] [address] * Differential, auto (04/26/2025 12:59 PM CDT) Neutrophil abs 4.51 1.50 - 6.50 K/cumm Comment:Testing performed by : [facility]e [facility], [address] [place] [phone] Lymphocyte abs 1.70 0.80 - 3.30 K/cumm [facility] Comment:Testing performed by : [facility], [address] [place] [phone] Monocyte abs 0.65 0.20 - 0.80 K/cumm [facility] Comment:Testing performed by : [facility], [address] [place], [place] [phone] Eosinophil abs 0.14 0.00 - 0.50 K/cumm [facility] Comment:Testing performed by : [facility], [address] [place] [phone] Basophil abs 0.05 0.00 - 0.10 K/cumm [facility] Comment:Testing performed by : [facility], [address] [place] [phone] Neutrophil pct 63.9 % [facility] Comment: Interpretive Data Percent cell count reference ranges are not reported, since discordance with absolute values may lead to misinterpretation of CBC data. Current Interpretive Data was last revised on 2018. Testing performed by: [facility], [address] [place] [phone] Lymphocyte pct 24.2 % [facility] Comment: Interpretive Data Percent cell count reference ranges are not reported, since discordance with absolute values may lead to misinterpretation of CBC data. Current Interpretive Data was last revised on 2018. Testing performed by: [facility], [address] [place] [phone] Monocyte pct 9.3 % [facility] Comment: Interpretive Data Percent cell count reference ranges are not reported, since discordance with absolute values may lead to misinterpretation of CBC data. Current Interpretive Data was last revised on 2018. Testing performed by: [facility], [address] [place] [phone] Eosinophil pct 2.0 % [facility] Comment: Interpretive Data Percent cell count reference ranges are not reported, since discordance with absolute values may lead to misinterpretation of CBC data. Current Interpretive Data was last revised on 2018. Testing performed by: [facility], [address] [place] [phone] Basophil pct 0.7 % [facility] Comment: Interpretive Data Percent cell count reference ranges are not reported, since discordance with absolute values may lead to misinterpretation of CBC data. Current Interpretive Data was last revised on 2018. Testing performed by: [facility], [address] [place] [phone] Blood 04/26/2025 12:5 9 PM CDT 04/26/2025 1:10 PM CDT us Johnathon Theodore MD LAB BLOOD ORDERABLES Final R esult [facility] [place] [place] [address] * (ABNORMAL) Iron profile w/ IBC (04/26/2025 12:59 PM CDT) Iron 39 35 - 145 mcg/dL TIBC 334 250 - 400 mcg/dL [facility] Transferrin saturation 12(L) 20 - 50 % [facility] Blood 04/26/2025 12:5 9 PM CDT 04/26/2025 5:08 PM CDT us Arun Miller MD LAB BLOOD ORDERABLES F inal Result [facility] Department [place] [address] * (ABNORMAL) CBC with auto differential (04/26/2025 12:59 PM CDT) WBC 7.05 3.80 - 9.90 K/cumm Comment:Testing performed by : [facility], [address] [place] [address] Hgb 10.2(L) 11.9 - 15.5 g/dL [facility] Comment:Testing performed by : [facility], [address] [place] [address] Hct 31.7(L) 35.6 - 45.5 % [facility] Comment:Testing performed by : [facility], [address] [place] [address] Plt 363 150 - 400 K/cumm [facility] Comment:Testing performed by : [facility], [address] [place] [address] MPV 6.8 6.8 - 10.4 fL [facility] Comment:Testing performed by : [facility], [address] [place] [address] RBC 3.81(L) 3.90 - 5.20 M/cumm [facility] Comment:Testing performed by : [facility], [address] [place] [address] MCV 83.0 81.3 - 96.4 fL [facility] Comment:Testing performed by : [facility], [address] [place] [address] MCH 26.7(L) 27.1 - 33.3 pg [facility] Comment:Testing performed by : [facility], [address] [place] [address] MCHC 32.1(L) 32.3 - 35.7 g/dL [facility] Comment:Testing performed by : [facility], [address] [place] [address] RDW CV 15.6(H) 11.1 - 14.9 % [facility] Comment:Testing performed by : [facility], [address] [place] [phone] NRBC abs 0.00 0.00 - 0.01 K/cumm [facility] Comment:Testing performed by : [facility], [address] [place] [phone] Blood 04/26/2025 12:5 9 PM CDT 04/26/2025 1:10 PM CDT us Johnathon Theodore MD LAB BLOOD ORDERABLES Final R esult [facility] [place] [employer] [place] [address] * Lactate dehydrogenase (LD) (04/26/2025 12:59 PM CDT) Pathologist [facility] Lactate dehydrogenase (LDH) 181 100 - 250 Units/L Blood 04/26/2025 12:5 9 PM CDT 04/26/2025 1:11 PM CDT us Johnathon Theodore MD LAB BLOOD ORDERABLES Final R esult Performing Organization Address [facility] Co de Phone Number [facility] [place] [place] [address] * Ferritin (04/26/2025 12:59 PM CDT) Pathologist [facility] Ferritin 39 13 - 150 ng/mL Blood 04/26/2025 12:5 9 PM CDT 04/26/2025 5:08 PM CDT us Arun Miller MD LAB BLOOD ORDERABLES F inal Result Performing Organization Address [facility] Co de Phone Number [facility] [place] [employer] [place] [address] * (ABNORMAL) Beta 2 microglobulin, serum (04/26/2025 [...] MD LAB BLOOD ORDERABLES Final R esult [facility] Department [place] [address] * Comprehensive metabolic panel (04/26/2025 12:59 PM CDT) Sodium 140 135 - 145 mmol/L Potassium, pl 4.7 3.3 - 4.9 mmol/L [facility] Chloride 102 97 - 110 mmol/L [facility] CO2 31 22 - 32 mmol/L [facility] Anion gap 7 2 - 15 mmol/L [facility] BUN 16 6 - 25 mg/dL [facility] Creatinine 1.02 0.60 - 1.10 mg/dL [facility] Glucose 91 70 - 199 mg/dL [facility] Comment: Interpretive Data Fasting glucose >/= 126 [...] 2022. Calcium 9.4 8.5 - 10.3 mg/dL [facility] Bilirubin, total 0.2 0.1 - 1.2 mg/dL [facility] Protein, pl 7.2 6.5 - 8.5 g/dL [facility] Albumin 3.9 3.5 - 5.0 g/dL [facility] Alk phos 95 40 - 130 Units/L [facility] ALT 7 7 - 45 Units/L [facility] AST 17 10 - 45 Units/L [facility] Blood 04/26/2025 12:5 9 PM CDT 04/26/2025 1:11 PM CDT us Johnathon Theodore MD LAB BLOOD ORDERABLES Final R esult Performing Organization Address City/[facility]/ZIP Co de Phone Number [facility] Department [place] [address] * ECG 12 lead (03/31/2025 2:05 PM CDT) [facility] Ventricular Rate EKG/Min 86 BPM [facility] Atrial Rate 86 BPM [facility] WI-Interval (MSEC) 212 ms [facility] QRS-Interval (MSEC) 76 ms [facility] QT-Interval (MSEC) 366 ms [facility] QTc 437 ms [facility] P [place] 19 degrees [facility] R [place] -23 degrees [facility] T [place] 159 degrees [facility] Diagnosis Sinus rhythm with 1st degree A-V block Left ventricular hypertrophy with repolarization abnormality ( R in aVL ) Possible Lateral infarct , age undetermined Abnormal ECG Confirmed by Alberto KU, [facility] ([id number]) on 04/03/2025 1:43:29 PM [facility] 03/31/2025 2:05 PM CDT 04/03/2025 1:43 PM CDT us Monica Brown NP ECG ORDERABLES Final Result Performing Organization Address [facility] Co de Phone Number [facility] * (ABNORMAL) eGFR (03/30/2025 9:01 PM CDT) Pathologist [facility] eGFR 59(L) >=60 mL/min/1. 73 m2 Comment: [...] NP LAB BLOOD ORDERABLES Final Resul t [facility] Department [place] [address] * (ABNORMAL) CBC without differential (03/30/2025 9:01 PM CDT) WBC 11.08(H) 3.80 - 9.90 K/cumm Hgb 9.0(L) 11.9 - 15.5 g/dL [facility] Hct 27.3(L) 35.6 - 45.5 % [facility] Plt 517(H) 150 - 400 K/cumm [facility] MPV 8.8(L) 9.1 - 12.3 fL [facility] RBC 3.13(L) 3.90 - 5.20 M/cumm [facility] MCV 87.2 81.3 - 96.4 fL [facility] MCH 28.8 27.1 - 33.3 pg [facility] MCHC 33.0 32.3 - 35.7 g/dL [facility] RDW CV 14.3 11.1 - 14.9 % [facility] RDW SD 45.7 35.7 - 48.1 fL [facility] NRBC abs 0.00 0.00 - 0.01 K/cumm [facility] Blood 03/30/2025 9:01 PM CDT 03/30/2025 9:46 PM CDT Alejandrina Mclean NP LAB BLOOD ORDERABLES Final Resul t Performing Organization Address [facility] Co de Phone Number [facility] Department [place] [address] * (ABNORMAL) Basic metabolic panel (03/30/2025 9:01 PM CDT) [facility] Sodium 133(L) 135 - 145 mmol/L Potassium, pl 4.8 3.3 - 4.9 mmol/L [facility] Chloride 96(L) 97 - 110 mmol/L [facility] CO2 30 22 - 32 mmol/L [facility] Anion gap 7 2 - 15 mmol/L [facility] BUN 22 6 - 25 mg/dL [facility] Creatinine 0.99 0.60 - 1.10 mg/dL [facility] Glucose 133 70 - 199 mg/dL [facility] Comment: Interpretive Data Fasting glucose >/= 126 [...] 2022. Calcium 9.1 8.5 - 10.3 mg/dL [facility] Blood 03/30/2025 9:01 PM CDT 03/30/2025 9:46 PM CDT us Alejandrina Mclean NP LAB BLOOD ORDERABLES Final Resul t Performing Organization Address [facility] Co de Phone Number [facility] Department [place] [address] * (ABNORMAL) Potassium, whole blood (03/30/2025 12:51 AM CDT) Potassium, bld 3.2(L) 3.3 - 4.9 mmol/L Blood 03/30/2025 12:5 1 AM CDT 03/30/2025 1:06 AM CDT us Marques Chowdhury MD LAB BLOOD ORDERABLES Final Resul t Performing Organization Address [facility] de Phone Number [facility] [place] [employer] [place] [address] * (ABNORMAL) eGFR (03/29/2025 9:42 PM CDT) eGFR 42(L) >=60 mL/min/1. 73 m2 Comment: [...] ORDERABLES Final Resul t Performing Organization Address [facility] Co de Phone Number [facility] [place] [place] [address] * (ABNORMAL) CBC without differential (03/29/2025 9:42 PM CDT) [facility] WBC 9.64 3.80 - 9.90 K/cumm Hgb 9.4(L) 11.9 - 15.5 g/dL [facility] Hct 28.9(L) 35.6 - 45.5 % [facility] Plt 564(H) 150 - 400 K/cumm [facility] MPV 8.8(L) 9.1 - 12.3 fL [facility] RBC 3.32(L) 3.90 - 5.20 M/cumm [facility] MCV 87.0 81.3 - 96.4 fL [facility] MCH 28.3 27.1 - 33.3 pg [facility] MCHC 32.5 32.3 - 35.7 g/dL [facility] RDW CV 14.0 11.1 - 14.9 % [facility] RDW SD 44.9 35.7 - 48.1 fL [facility] NRBC abs 0.00 0.00 - 0.01 K/cumm [facility] Blood 03/29/2025 9:42 PM CDT 03/29/2025 10:52 PM CDT us Alejandrina Mclean NP LAB BLOOD ORDERABLES Final Resul t [facility] [place] [address] * (ABNORMAL) Basic metabolic panel (03/29/2025 9:42 PM CDT) [facility] Sodium 135 135 - 145 mmol/L Potassium, pl 3.2(L) 3.3 - 4.9 mmol/L [facility] Chloride 92(L) 97 - 110 mmol/L [facility] CO2 33(H) 22 - 32 mmol/L [facility] Anion gap 10 2 - 15 mmol/L [facility] BUN 21 6 - 25 mg/dL [facility] Creatinine 1.30(H) 0.60 - 1.10 mg/dL [facility] Glucose 112 70 - 199 mg/dL [facility] Comment: Interpretive Data Fasting glucose >/= 126 [...] 2022. Calcium 9.2 8.5 - 10.3 mg/dL [facility] Blood 03/29/2025 9:42 PM CDT 03/29/2025 10:48 PM CDT us Alejandrina Mclean NP LAB BLOOD ORDERABLES Final Resul t [facility] Department [place] [address] * PET/CT FDG Skull to Thigh (03/29/2025 [...] FDG-PET/CT IMAGING DATE OF STUDY: 03/29/2025 SCANNER: [facility] PET Vision (NV1). This is a high-resolution [...] obtained. The study was interpreted on the Qardio workstation. The mean liver SUV (reported for quality control coordinator purposes) is 2.7. The total scanned area [...] FDG-PET/CT IMAGING DATE OF STUDY: 03/29/2025 SCANNER: [facility] Retrace (NV1). This is a high-resolution scanner, which [...] obtained. The study was interpreted on the Qardio workstation. The mean liver SUV (reported for quality control coordinator purposes) is 2.7. The total scanned area [...] Litzy Hamilton MD, Ph.D us Josh Trivedi HARNESS INSPECTOR IMG PET PROCEDURES Final Re sult * [...] Inclusion of Race in Diagnosing Kidney Disease, MEGANSTiffani 2020). The CKD-EPI equation should not be used for patients with unstable renal function and has not been validated in children and those over 70. Current interpretive data was last reviewed 2021. Blood 03/28/2025 9:44 PM CDT 03/28/2025 10:01 PM CDT us Alejandrina Mclean HARNESS INSPECTOR LAB BLOOD ORDERABLES Final Resul t [facility] Department [place] [address] * Blood culture Blood (03/28/2025 9:44 PM CDT) Report Final Report: No growth Blood 03/28/2025 9:44 PM CDT 03/28/2025 9:54 PM CDT Narrative [facility] - 04/04/2025 12:01 PM CDT [...] performance characteristics have been verified by the [facility] Microbiology Laboratory. For questions about this culture, contact the Microbiology Laboratory at [phone]. Interpretive data was last revised on 24. us Josh Trivedi HARNESS INSPECTOR LAB MICROBIOLOGY - GENERAL ORDERABLES Final Result Performing Organization Address City[facility]/ZIP Co de Phone Number [facility] Department [place] [address] * Blood culture Blood (03/28/2025 9:44 PM CDT) Report Final Report: No growth Blood 03/28/2025 9:44 PM CDT 03/28/2025 9:54 PM CDT Mary JAMISON [facility] - 04/02/2025 7:00 AM CDT [...] performance characteristics have been verified by the [facility] Microbiology Laboratory. For questions about this culture, contact the Microbiology Laboratory at [phone]. Interpretive data was last revised on 24. us Josh Trivedi NP LAB MICROBIOLOGY - GENERAL ORDERABLES Final Result [facility] Department [place] [address] * (ABNORMAL) CBC without differential (03/28/2025 9:44 PM CDT) WBC 9.76 3.80 - 9.90 K/cumm Hgb 9.0(L) 11.9 - 15.5 g/dL [facility] Hct 27.8(L) 35.6 - 45.5 % [facility] Plt 496(H) 150 - 400 K/cumm [facility] MPV 8.7(L) 9.1 - 12.3 fL [facility] RBC 3.16(L) 3.90 - 5.20 M/cumm [facility] MCV 88.0 81.3 - 96.4 fL [facility] MCH 28.5 27.1 - 33.3 pg [facility] MCHC 32.4 32.3 - 35.7 g/dL [facility] RDW CV 14.1 11.1 - 14.9 % [facility] RDW SD 45.4 35.7 - 48.1 fL [facility] NRBC abs 0.00 0.00 - 0.01 K/cumm [facility] Blood 03/28/2025 9:44 PM CDT 03/28/2025 10:01 PM CDT us Alejandrina Mclean NP LAB BLOOD ORDERABLES Final Resul t [facility] [place] [address] * (ABNORMAL) Basic metabolic panel (03/28/2025 9:44 PM CDT) Sodium 134(L) 135 - 145 mmol/L Potassium, pl 3.8 3.3 - 4.9 mmol/L [facility] Chloride 94(L) 97 - 110 mmol/L [facility] CO2 29 22 - 32 mmol/L [facility] Anion gap 11 2 - 15 mmol/L [facility] BUN 20 6 - 25 mg/dL [facility] Creatinine 0.91 0.60 - 1.10 mg/dL [facility] Glucose 121 70 - 199 mg/dL [facility] Comment: Interpretive Data Fasting glucose >/= 126 [...] Calcium 9.2 8.5 - 10.3 mg/dL [facility] Blood 03/28/2025 9:44 PM CDT 03/28/2025 10:01 PM CDT us Alejandrina Mclean NP LAB BLOOD ORDERABLES Final Resul t Performing Organization Address [facility] Co de Phone Number [facility] [place] [employer] [place] [address] * eGFR (03/27/2025 10:26 PM CDT) eGFR [...] 6 PM CDT 03/27/2025 10:44 PM CDT us Alejandrina Mclean NP LAB BLOOD ORDERABLES Final Resul t Performing Organization Address [facility]/ZIP Co de Phone Number [facility] Department [place] [address] * Blood culture Blood (03/27/2025 10:26 PM CDT) Report Final Report: No growth Blood 03/27/2025 10:2 6 PM CDT 03/27/2025 10:45 PM CDT Narrative YAQUELIN FLORES - 04/01/2025 7:00 AM CDT From a [...] performance characteristics have been verified by the [facility] Microbiology Laboratory. For questions about this culture, contact the Microbiology Laboratory at [phone]. Interpretive data was last revised on 24. us Josh Trivedi NP LAB MICROBIOLOGY - GENERAL ORDERABLES Final Result [facility] Department [place] [address] * Blood culture Blood (03/27/2025 10:26 PM CDT) Report Final Report: No growth Blood 03/27/2025 10:2 6 PM CDT 03/27/2025 10:45 PM CDT Mary YAQUEL[facility] FLOR[facility] - 04/01/2025 7:00 AM CDT [...] performance characteristics have been verified by the [facility] Microbiology Laboratory. For questions about this culture, contact the Microbiology Laboratory at [phone]. Interpretive data was last revised on 24. us Josh Trivedi NP LAB MICROBIOLOGY - GENERAL ORDERABLES Final Result [facility] Department [place] [address] * (ABNORMAL) CBC without differential (03/27/2025 10:26 PM CDT) WBC 11.12(H) 3.80 - 9.90 K/cumm Hgb 9.3(L) 11.9 - 15.5 g/dL [facility] Hct 28.9(L) 35.6 - 45.5 % [facility] Plt 550(H) 150 - 400 K/cumm [facility] MPV 8.5(L) 9.1 - 12.3 fL [facility] RBC 3.29(L) 3.90 - 5.20 M/cumm [facility] MCV 87.8 81.3 - 96.4 fL [facility] MCH 28.3 27.1 - 33.3 pg [facility] MCHC 32.2(L) 32.3 - 35.7 g/dL [facility] RDW CV 14.3 11.1 - 14.9 % [facility] RDW SD 46.4 35.7 - 48.1 fL [facility] NRBC abs 0.00 0.00 - 0.01 K/cumm [facility] Blood 03/27/2025 10:2 6 PM CDT 03/27/2025 10:44 PM CDT us Alejandrina Mclean NP LAB BLOOD ORDERABLES Final Resul t [facility] [place] [address] * Basic metabolic panel (03/27/2025 10:26 PM CDT) Sodium 137 135 - 145 mmol/L Potassium, pl 4.2 3.3 - 4.9 mmol/L [facility] Chloride 97 97 - 110 mmol/L [facility] CO2 29 22 - 32 mmol/L [facility] Anion gap 11 2 - 15 mmol/L [facility] BUN 19 6 - 25 mg/dL [facility] Creatinine 0.88 0.60 - 1.10 mg/dL [facility] Glucose 127 70 - 199 mg/dL [facility] Comment: Interpretive Data Fasting glucose >/= 126 [...] 2022. Calcium 9.5 8.5 - 10.3 mg/dL [facility] Blood 03/27/2025 10:2 6 PM CDT 03/27/2025 10:44 PM CDT Alejandrina Mclean NP LAB BLOOD ORDERABLES Final Resul t Performing Organization Address [facility] de Phone Number [facility] Department [place] [address] * eGFR (03/26/2025 9:34 PM CDT) eGFR [...] ORDERABLES Final Resul t Performing Organization Address [facility] Co de Phone Number [facility] [place] [address] * Blood culture Blood (03/26/2025 9:34 PM CDT) Report Final Report: No growth Blood 03/26/2025 9:34 PM CDT 03/26/2025 9:50 PM CDT Narrative [facility]IN [facility] - 03/31/2025 7:00 AM CDT [...] performance characteristics have been verified by the [facility] Microbiology Laboratory. For questions about this culture, contact the Microbiology Laboratory at [phone]. Interpretive data was last revised on 24. us Josh Trivedi NP LAB MICROBIOLOGY - GENERAL ORDERABLES Final Result [facility] Department [place] [address] * Blood culture Blood (03/26/2025 9:34 PM CDT) Report Final Report: No growth Blood 03/26/2025 9:34 PM CDT 03/26/2025 9:50 PM CDT Narrative Y[facility]QUELIN [facility] - 03/31/2025 7:00 AM CDT [...] performance characteristics have been verified by the [facility] Microbiology Laboratory. For questions about this culture, contact the Microbiology Laboratory at [phone]. Interpretive data was last revised on 24. us Josh Tirvedi NP LAB MICROBIOLOGY - GENERAL ORDERABLES Final Result [facility] Department [place] [address] * (ABNORMAL) CBC without differential (03/26/2025 9:34 PM CDT) WBC 10.42(H) 3.80 - 9.90 K/cumm Hgb 9.1(L) 11.9 - 15.5 g/dL [facility] Hct 28.1(L) 35.6 - 45.5 % [facility] Plt 530(H) 150 - 400 K/cumm [facility] MPV 8.5(L) 9.1 - 12.3 fL [facility] RBC 3.18(L) 3.90 - 5.20 M/cumm [facility] MCV 88.4 81.3 - 96.4 fL [facility] MCH 28.6 27.1 - 33.3 pg [facility] MCHC 32.4 32.3 - 35.7 g/dL [facility] RDW CV 14.3 11.1 - 14.9 % [facility] RDW SD 46.3 35.7 - 48.1 fL [facility] NRBC abs 0.00 0.00 - 0.01 K/cumm [facility] Blood 03/26/2025 9:34 PM CDT 03/26/2025 9:51 PM CDT us Alejandrina Mclean NP LAB BLOOD ORDERABLES Final Resul t Performing Organization Address [facility]/ZIP Co de Phone Number [facility] Department [place] [address] * (ABNORMAL) Basic metabolic panel (03/26/2025 9:34 PM CDT) Pathologist [facility] Sodium 134(L) 135 - 145 mmol/L Potassium, pl 4.3 3.3 - 4.9 mmol/L [facility] Chloride 98 97 - 110 mmol/L [facility] CO2 28 22 - 32 mmol/L [facility] Anion gap 8 2 - 15 mmol/L [facility] BUN 16 6 - 25 mg/dL [facility] Creatinine 0.92 0.60 - 1.10 mg/dL [facility] Glucose 128 70 - 199 mg/dL [facility] Comment: Interpretive Data Fasting glucose >/= 126 [...] 2022. Calcium 9.1 8.5 - 10.3 mg/dL [facility] Blood 03/26/2025 9:34 PM CDT 03/26/2025 9:51 PM CDT us Alejandrina Mclean NP LAB BLOOD ORDERABLES Final Resul t Performing Organization Address [facility] Co de Phone Number [facility] Department [place] [address] * CT Chest Abdomen Pelvis W Contrast [...] Gi De Guzman M.D. Alejandrina Mclean NP IM CT PROCEDURES Final Result * (ABNORMAL) eGFR [...] data was last reviewed 2021. Blood 03/25/2025 8:2 5 PM CDT 03/25/2025 8:52 PM CDT us Alejandrina Mclean NP LAB BLOOD ORDERABLES Final Resul t [facility] Department [place] [address] * (ABNORMAL) CBC without differential (03/25/2025 8:25 PM CDT) WBC 10.19(H) 3.80 - 9.90 K/cumm Hgb 9.0(L) 11.9 - 15.5 g/dL [facility] Hct 28.5(L) 35.6 - 45.5 % [facility] Plt 478(H) 150 - 400 K/cumm [facility] MPV 8.5(L) 9.1 - 12.3 fL [facility] RBC 3.17(L) 3.90 - 5.20 M/cumm [facility] MCV 89.9 81.3 - 96.4 fL [facility] MCH 28.4 27.1 - 33.3 pg [facility] MCHC 31.6(L) 32.3 - 35.7 g/dL [facility] RDW CV 14.4 11.1 - 14.9 % [facility] RDW SD 47.3 35.7 - 48.1 fL [facility] NRBC abs 0.00 0.00 - 0.01 K/cumm [facility] Blood 03/25/2025 8:25 PM CDT 03/25/2025 8:52 PM CDT Alejandrina Mclean NP LAB BLOOD ORDERABLES Final Resul t Performing Organization Address [facility]/ZIP Co de Phone Number [facility] Department [place] [address] * (ABNORMAL) Basic metabolic panel (03/25/2025 8:25 PM CDT) [facility] Signature Sodium 136 135 - 145 mmol/L Potassium, pl 4.4 3.3 - 4.9 mmol/L [facility] Chloride 96(L) 97 - 110 mmol/L [facility] CO2 30 22 - 32 mmol/L [facility] Anion gap 10 2 - 15 mmol/L [facility] BUN 15 6 - 25 mg/dL [facility] Creatinine 0.99 0.60 - 1.10 mg/dL [facility] Glucose 143 70 - 199 mg/dL [facility] Comment: Interpretive Data Fasting glucose >/= 126 [...] 2022. Calcium 9.1 8.5 - 10.3 mg/dL [facility] Blood 03/25/2025 8:25 PM CDT 03/25/2025 8:52 PM CDT Alejandrina Mclean NP LAB BLOOD ORDERABLES Final Resul t Performing Organization Address [facility]/ZIP Co de Phone Number [facility] Department [place] [address] * XR Chest PA Lateral 2 Views [...] it. Electronically signed by: Ed Richardson M.D. us Tino Romero MD IMG XR PROCEDURES Final [...] ORDERABL ES Final Result Performing Organization Address [facility]/ZIP Co de Phone Number [facility] [place] [address] * (ABNORMAL) aPTT (03/24/2025 10:43 PM CDT) [...] MD LAB BLOOD ORDERABL ES Final Result [facility] [place] [employer] [place] [address] * (ABNORMAL) Protime-INR (03/24/2025 10:43 PM CDT) [facility] PT 13.4(H) 9.7 - 13.0 sec INR 1.24(H) 0.90 - 1.20 [facility] Comment: Interpretive data Oral anticoagulant therapeutic ranges: Venous thromboembolism prophylaxis or treatment: 2.0-3.0 CARDIOLOGY Standard range: 2.0-3.0 High-intensity range: 2.5-3.5 Refer to indication-specific guidelines for appropriate target ranges for prosthetic heart valve replacement. Current interpretive data was last revised on 2019. Blood 03/24/2025 10:4 3 PM CDT 03/24/2025 10:59 PM CDT us Tino Romero MD LAB BLOOD ORDERABL ES Final Result [facility] Department [place] [address] * (ABNORMAL) CBC without differential (03/24/2025 10:43 PM CDT) [facility] WBC 10.51(H) 3.80 - 9.90 K/cumm Hgb 8.5(L) 11.9 - 15.5 g/dL [facility] Hct 26.6(L) 35.6 - 45.5 % [facility] Plt 441(H) 150 - 400 K/cumm [facility] MPV 8.8(L) 9.1 - 12.3 fL [facility] RBC 3.01(L) 3.90 - 5.20 M/cumm [facility] MCV 88.4 81.3 - 96.4 fL [facility] MCH 28.2 27.1 - 33.3 pg [facility] MCHC 32.0(L) 32.3 - 35.7 g/dL [facility] RDW CV 14.3 11.1 - 14.9 % [facility] RDW SD 46.1 35.7 - 48.1 fL [facility] NRBC abs 0.00 0.00 - 0.01 K/cumm [facility] Blood 03/24/2025 10:4 3 PM CDT 03/24/2025 10:56 PM CDT Tino Romero MD LAB BLOOD ORDERABL ES Final Result Performing Organization Address [facility]/ZIP Co de Phone Number [facility] [place] [address] * Phosphorus (03/24/2025 10:43 PM CDT) [facility] Phosphorus, pl 3.9 2.3 - 4.5 mg/dL Blood 03/24/2025 10:4 3 PM CDT 03/24/2025 10:56 PM CDT us Tino Romero MD LAB BLOOD ORDERABL ES Final Result Performing Organization Address [facility] Co de Phone Number [facility] [place] [address] * Magnesium (03/24/2025 10:43 PM CDT) [facility] Magnesium 2.0 1.4 - 2.5 mg/dL Blood 03/24/2025 10:4 3 PM CDT 03/24/2025 10:56 PM CDT Tino Romero MD LAB BLOOD ORDERABL ES Final Result Performing Organization Address [facility] [place] [address] * (ABNORMAL) Comprehensive metabolic panel (03/24/2025 10:43 PM CDT) [facility] Sodium 137 135 - 145 mmol/L Potassium, pl 4.1 3.3 - 4.9 mmol/L [facility] Chloride 100 97 - 110 mmol/L [facility] CO2 27 22 - 32 mmol/L [facility] Anion gap 10 2 - 15 mmol/L [facility] BUN 12 6 - 25 mg/dL [facility] Creatinine 0.94 0.60 - 1.10 mg/dL [facility] Glucose 129 70 - 199 mg/dL [facility] Comment: Interpretive Data Fasting glucose >/= 126 [...] 2022. Calcium 9.0 8.5 - 10.3 mg/dL [facility] Bilirubin, total 0.2 0.1 - 1.2 mg/dL [facility] Protein, pl 6.4(L) 6.5 - 8.5 g/dL [facility] Albumin 2.9(L) 3.5 - 5.0 g/dL [facility] Alk phos 82 40 - 130 Units/L [facility] ALT 7 7 - 45 Units/L [facility] AST 24 10 - 45 Units/L [facility] Blood 03/24/2025 10:4 3 PM CDT 03/24/2025 10:56 PM CDT us Tino Romero MD LAB BLOOD ORDERABL ES Final Result [facility] [place] [address] * Sepsis Lactate w/ Reflex (03/24/2025 10:11 AM CDT) Sepsis Lactate 2.0 0.7 - 2.0 mmol/L Blood 03/24/2025 10:1 1 AM CDT 03/24/2025 10:28 AM CDT Yung Tucker MD LAB BLOOD ORDERABLES Final Result Performing Organization Address [facility] Co de Phone Number [facility] [place] [address] * eGFR (03/24/2025 10:11 AM CDT) eGFR [...] BLOOD ORDERABLES Final Result Performing Organization Address City[facility]/ZIP Co de Phone Number [facility] FL[facility] Department [place] [address] * (ABNORMAL) Differential, auto (03/24/2025 10:11 AM CDT) Neutrophil abs 7.83(H) 1.50 - 6.50 K/cumm Imm gran abs 0.14(H) 0.00 - 0.10 K/cumm [facility] Lymphocyte abs 0.89 0.80 - 3.30 K/cumm [facility] Monocyte abs 1.09(H) 0.20 - 0.80 K/cumm [facility] Eosinophil abs 0.17 0.00 - 0.50 K/cumm [facility] Basophil abs 0.05 0.00 - 0.10 K/cumm [facility] Neutrophil pct 76.9 % [facility] Comment: Interpretive Data Percent cell count reference ranges are not reported, since discordance with absolute values may lead to misinterpretation of CBC data. Current Interpretive Data was last revised on 2018. Imm gran pct 1.4 % [facility] Comment: Interpretive Data Percent cell count reference ranges are not reported, since discordance with absolute values may lead to misinterpretation of CBC data. Current Interpretive Data was last revised on 2018. Lymphocyte pct 8.8 % [facility] Comment: Interpretive Data Percent cell count reference ranges are not reported, since discordance with absolute values may lead to misinterpretation of CBC data. Current Interpretive Data was last revised on 2018. Monocyte pct 10.7 % [facility] Comment: Interpretive Data Percent cell count reference ranges are not reported, since discordance with absolute values may lead to misinterpretation of CBC data. Current Interpretive Data was last revised on 2018. Eosinophil pct 1.7 % [facility] Comment: Interpretive Data Percent cell count reference ranges are not reported, since discordance with absolute values may lead to misinterpretation of CBC data. Current Interpretive Data was last revised on 2018. Basophil pct 0.5 % [facility] Comment: Interpretive Data Percent cell count reference ranges are not reported, since discordance with absolute values may lead to misinterpretation of CBC data. Current Interpretive Data was last revised on 2018. Blood 03/24/2025 10:1 1 AM CDT 03/24/2025 10:42 AM CDT Yung Tucker MD LAB BLOOD ORDERABLES Final Result [facility] Department [place] [address] * (ABNORMAL) CBC with auto differential (03/24/2025 10:11 AM CDT) WBC 10.17(H) 3.80 - 9.90 K/cumm Hgb 9.5(L) 11.9 - 15.5 g/dL [facility] Hct 29.1(L) 35.6 - 45.5 % [facility] Plt 487(H) 150 - 400 K/cumm [facility] MPV 8.7(L) 9.1 - 12.3 fL [facility] RBC 3.26(L) 3.90 - 5.20 M/cumm [facility] MCV 89.3 81.3 - 96.4 fL [facility] MCH 29.1 27.1 - 33.3 pg [facility] MCHC 32.6 32.3 - 35.7 g/dL [facility] RDW CV 14.3 11.1 - 14.9 % [facility] RDW SD 46.4 35.7 - 48.1 fL [facility] NRBC abs 0.00 0.00 - 0.01 K/cumm [facility] Blood Venous blood specimen / Unknown 03/24/2025 10:11 AM CDT 03/24/2025 10:42 AM CDT Yung Tucker MD LAB BLOOD ORDERABLES Final Result [facility] Department [place] [address] * Blood culture Blood (03/24/2025 10:11 AM CDT) Report Final Report: No growth Blood 03/24/2025 10:1 1 AM CDT 03/24/2025 10:32 AM CDT Narrative [facility] - 03/28/2025 12:01 PM CDT From a [...] performance characteristics have been verified by the [facility] Microbiology Laboratory. For questions about this culture, contact the Microbiology Laboratory at [phone]. Interpretive data was last revised on 24. Yung Tucker MD LAB MICROBIOLOGY - GENERAL ORDERABLES Final Result YAQUELIN FLORES [facility] Department [place] [address] * Blood culture Blood (03/24/2025 10:11 AM CDT) Report Final Report: No growth Blood 03/24/2025 10:1 1 AM CDT 03/24/2025 10:32 AM [facility]T [facility] 03/28/2025 12:00 PM CDT Collection->Peripheral 1. [...] performance characteristics have been verified by the [facility] Microbiology Laboratory. For questions about this culture, contact the Microbiology Laboratory at [phone]. Interpretive data was last revised on 24. Yung Tucker MD LAB MICROBIOLOGY - GENERAL ORDERABLES Final Result [facility] Department [place] [address] * (ABNORMAL) Comprehensive metabolic panel (03/24/2025 10:11 AM CDT) Sodium 136 135 - 145 mmol/L Potassium, pl 4.1 3.3 - 4.9 mmol/L [facility] Chloride 100 97 - 110 mmol/L [facility] CO2 27 22 - 32 mmol/L [facility] Anion gap 9 2 - 15 mmol/L [facility] BUN 8 6 - 25 mg/dL [facility] Creatinine 0.80 0.60 - 1.10 mg/dL [facility] Glucose 104 70 - 199 mg/dL [facility] Comment: Interpretive Data Fasting glucose >/= 126 [...] 2022. Calcium 9.5 8.5 - 10.3 mg/dL [facility] Bilirubin, total 0.2 0.1 - 1.2 mg/dL [facility] Protein, pl 7.1 6.5 - 8.5 g/dL [facility] Albumin 3.1(L) 3.5 - 5.0 g/dL [facility] Alk phos 88 40 - 130 Units/L [facility] ALT 9 7 - 45 Units/L [facility] AST 17 10 - 45 Units/L [facility] Blood Venous blood specimen / Unknown 03/24/2025 10:11 AM CDT 03/24/2025 10:42 AM CDT Yung Tucker MD LAB BLOOD ORDERABLES Final Result Performing Organization Address [facility]/ZIP Co de Phone Number [facility] Department [place] [address] * ECG 12-LEAD (03/24/2025 9:10 AM CDT) Narrative [facility] - 03/24/2025 9:10 AM CDT Shemar Edmonds [...] Nonspecific T-wave changes in the inferolateral leads. Shemar Edmonds MD ECG ORDERABLE S Final Result Performing Organization Address [facility]/ZIP Co de Phone Number [facility] * (ABNORMAL) Aerobic and anaerobic culture and gram stain Wound Chest (03/22/2025 4:21 PM CDT) Direct Specimen Exam Stain: Few polymorphonuclear leukocytes seen. No organisms seen. Report Final Report: Few Mixed microorganisms. Includes the following: Few Pseudomonas aeruginosa Few Pseudomonas aeruginosa #2 (.) [facility] Organism MIXED MICROORGANISMS. [facility] Organism PSEUDOMONAS AERUGINOSA [facility] Organism PSEUDOMONAS AERUGINOSA [facility] Wound (Chest) 03/22/2025 4:2 1 PM CDT 03/22/2025 4:54 PM CDT Narrative [facility] - 03/30/2025 1:27 PM CDT Specimen received on an ESwab. Testing performed by [facility] Microbiology Laboratory ([phone]) Specimens submitted from normally sterile body sites [...] ETATION Susceptible Pseudomonas aeruginosa Tobramycin INTERPRETATION Susceptible us Leonor Celeste NP LAB MICROBIOLOGY - GENERAL ORDERABLES Final Result [facility] [place] [address] * CT Chest WO Contrast (03/22/2025 2:54 [...] Electronically signed by: Anastacio Pierre MD, PHD us Leonor Celeste HARNESS INSPECTOR IMG CT PROCEDURES Final Re sult * [...] Velásquez NP LAB BLOOD ORDERABLES Final Result [facility] Department [place] [address] * (ABNORMAL) CBC without differential (03/07/2025 9:51 PM CDT) Pathologist [facility] Department WBC 11.52(H) 3.80 - 9.90 K/cumm Hgb 8.8(L) 11.9 - 15.5 g/dL [facility] Hct 26.2(L) 35.6 - 45.5 % [facility] Plt 385 150 - 400 K/cumm [facility] MPV 9.5 9.1 - 12.3 fL [facility] RBC 2.90(L) 3.90 - 5.20 M/cumm [facility] MCV 90.3 81.3 - 96.4 fL [facility] MCH 30.3 27.1 - 33.3 pg [facility] MCHC 33.6 32.3 - 35.7 g/dL [facility] RDW CV 14.6 11.1 - 14.9 % [facility] RDW SD 47.6 35.7 - 48.1 fL [facility] NRBC abs 0.00 0.00 - 0.01 K/cumm [facility] Blood 03/07/2025 9:51 PM CDT 03/07/2025 11:12 PM CDT Nelsy Velásquez HARNESS INSPECTOR LAB BLOOD ORDERABLES Final Result Performing Organization Address [facility] Co de Phone Number [facility] Department [place] [address] * Phosphorus (03/07/2025 9:51 PM CDT) Pathologist [facility] Department Phosphorus, pl 3.6 2.3 - 4.5 mg/dL Blood 03/07/2025 9:51 PM CDT 03/07/2025 11:35 PM CDT Nelsy Velásquez HARNESS INSPECTOR LAB BLOOD ORDERABLES Final Result Performing Organization Address [facility] Co de Phone Number [facility] Department [place] [address] * Magnesium (03/07/2025 9:51 PM CDT) Pathologist [facility] Department Magnesium 2.1 1.4 - 2.5 mg/dL Blood 03/07/2025 9:51 PM CDT 03/07/2025 11:35 PM CDT Nelsy Velásquez HARNESS INSPECTOR LAB BLOOD ORDERABLES Final Result [facility] Department [place] [address] * (ABNORMAL) Basic metabolic panel (03/07/2025 9:51 PM CDT) [facility] Sodium 135 135 - 145 mmol/L Potassium, pl 4.7 3.3 - 4.9 mmol/L [facility] Chloride 93(L) 97 - 110 mmol/L [facility] CO2 33(H) 22 - 32 mmol/L [facility] Anion gap 9 2 - 15 mmol/L [facility] BUN 13 6 - 25 mg/dL [facility] Creatinine 0.90 0.60 - 1.10 mg/dL [facility] Glucose 114 70 - 199 mg/dL [facility] Comment: Interpretive Data Fasting glucose >/= 126 [...] 2022. Calcium 9.2 8.5 - 10.3 mg/dL [facility] Blood 03/07/2025 9:51 PM CDT 03/07/2025 11:35 PM CDT us Nelsy Velásquez HARNESS INSPECTOR LAB BLOOD ORDERABLES Final Result Performing Organization Address [facility] Co de Phone Number [facility] [place] [address] * Sodium, whole blood (03/07/2025 9:06 AM CDT) Pathologist [facility] Sodium, Whole Blood 135 135 - 145 mmol/L Blood 03/07/2025 9:06 AM CDT 03/07/2025 9:14 AM CDT Ana Loya HARNESS INSPECTOR LAB BLOOD ORDERABLES Nancy l Result Performing Organization Address [facility] de Phone Number [facility] [place] [address] * ECG 12 lead (03/07/2025 3:06 AM CDT) Pathologist [facility] Department Ventricular Rate EKG/Min 88 BPM [facility] Atrial Rate 88 BPM [facility] WI-Interval (MSEC) 256 ms [facility] QRS-Interval (MSEC) 76 ms [facility] QT-Interval (MSEC) 354 ms [facility] QTc 428 ms [facility] P [place] 20 degrees [facility] R [place] -24 degrees [facility] T [place] -7 degrees [facility] Diagnosis Sinus rhythm with 1st degree A-V block Minimal voltage criteria for LVH, may be normal variant ( R in aVL ) Nonspecific T wave abnormality Abnormal ECG When compared with ECG of 06-MAR-2025 05:18, No significant change was found Confirmed by Bhargav Dominguez MD ([id number]) on 03/07/2025 4:49:48 PM [facility] 03/07/2025 3:06 AM CDT 03/07/2025 4:49 PM CDT Ana Loya HARNESS INSPECTOR ECG ORDERABLES Final Res ult Performing Organization Address [facility] Co de Phone Number [facility] * eGFR (03/06/2025 10:30 PM CDT) Pathologist [facility] Department eGFR 72 >=60 mL/min/1. 73 m2 Comment: [...] Velásquez NP LAB BLOOD ORDERABLES Final Result [facility] Department [place] [address] * (ABNORMAL) CBC without differential (03/06/2025 10:30 PM CDT) [facility] WBC 11.13(H) 3.80 - 9.90 K/cumm Hgb 8.4(L) 11.9 - 15.5 g/dL [facility] Hct 24.6(L) 35.6 - 45.5 % [facility] Plt 309 150 - 400 K/cumm [facility] MPV 9.3 9.1 - 12.3 fL [facility] RBC 2.72(L) 3.90 - 5.20 M/cumm [facility] MCV 90.4 81.3 - 96.4 fL [facility] MCH 30.9 27.1 - 33.3 pg [facility] MCHC 34.1 32.3 - 35.7 g/dL [facility] RDW CV 14.2 11.1 - 14.9 % [facility] RDW SD 47.0 35.7 - 48.1 fL [facility] NRBC abs 0.00 0.00 - 0.01 K/cumm [facility] Blood 03/06/2025 10:3 0 PM CDT 03/06/2025 10:53 PM CDT us Nelsy Velásquez HARNESS INSPECTOR LAB BLOOD ORDERABLES Final Result Performing Organization Address [facility]/ZIP Co de Phone Number [facility] [place] [address] * Type and screen (03/06/2025 10:30 PM CDT) Marco, indirect Negative ABO Rh B Negative [facility] Blood 03/06/2025 10:3 0 PM CDT 03/06/2025 11:00 PM CDT Narrative [facility] - 03/06/2025 11:56 PM CDT Has the patient had Daratumumab or Isatuximab in the past 6 months?->Unknown us Nelsy Velásquez HARNESS INSPECTOR LAB BLOOD BANK TEST ORDERA BLES Final Result Performing Organization Address [facility] Co de Phone Number [facility] Department [place] [address] * Phosphorus (03/06/2025 10:30 PM CDT) Phosphorus, pl 2.9 2.3 - 4.5 mg/dL Blood 03/06/2025 10:3 0 PM CDT 03/06/2025 10:53 PM CDT us Nelsy Velásquez HARNESS INSPECTOR LAB BLOOD ORDERABLES Final Result Performing Organization Address [facility]/ZIP Co de Phone Number [facility] Department [place] [address] * Magnesium (03/06/2025 10:30 PM CDT) [facility] Magnesium 2.0 1.4 - 2.5 mg/dL Blood 03/06/2025 10:3 0 PM CDT 03/06/2025 10:53 PM CDT Nelsy Velásquez HARNESS INSPECTOR LAB BLOOD ORDERABLES Final Result [facility] Department [place] [address] * (ABNORMAL) Basic metabolic panel (03/06/2025 10:30 PM CDT) [facility] Sodium 129(L) 135 - 145 mmol/L Potassium, pl 4.7 3.3 - 4.9 mmol/L [facility] Chloride 93(L) 97 - 110 mmol/L [facility] CO2 34(H) 22 - 32 mmol/L [facility] Anion gap 2 2 - 15 mmol/L [facility] BUN 14 6 - 25 mg/dL [facility] Creatinine 0.84 0.60 - 1.10 mg/dL [facility] Glucose 141 70 - 199 mg/dL [facility] Comment: Interpretive Data Fasting glucose >/= 126 [...] 2022. Calcium 9.2 8.5 - 10.3 mg/dL [facility] Blood 03/06/2025 10:3 0 PM CDT 03/06/2025 10:53 PM CDT us Nelsy Velásquez HARNESS INSPECTOR LAB BLOOD ORDERABLES Final Result [facility] [place] [address] * TRANSTHORACIC ECHO (TTE) COMPLETE W DOPPLER/CF W CONTRAST (03/06/2025 11:57 AM CDT) EF Mod BP 66 % CONS SCIMAGE Anatomical Region Laterality Modality Ultrasound 03/06/2025 10:3 5 AM CDT Narrative 03/06/2025 12:19 PM CDT [facility] [place] [address] Transthoracic Echocardiographic Report Patient Name: ROSALBA LUA J : 1945 (79y 6m) Gender: F Study Date: 03/06/2025 10:35:55 AM Ht(Inch): 59 Wt(Lb): 134.92 BSA: 1.6 General Practitioner: Wang Hwang RDCS Location: [id number] Order Provider: ANA LOYA Heart Rate: 86 [...] Procedure Note Wilfrido Rice MD - 03/06/2025 [facility] [place] [address] Transthoracic Echocardiographic Report Patient Name: ROSALBA LUA J : 1945 (79y 6m) Gender: F Study Date: 03/06/2025 10:35:55 AM Ht(Inch): 59 Wt(Lb): 134.92 BSA: 1.6 General Practitioner: Wang Hwang RDCS Location: [id number] Order Provider:ANA LOYA Heart Rate: 86 BMI: [...] cm2 RA Volume 48.58 ml MV Decel Swkl913.22 msec [ 104.00 - 258.00 ] RA Volume Index 30.36 ml/m2 TR Peak Vel2.4 m/s [ 1.0 - 2.8 ] AoR Diam 2D 3.89 cm [ 2.70 - 3.70 ] TR Peak PG23.0 mmHg Ao Root Index 2.43 cm/m2 [ 1.00 - 2.00 ] PI ED Pjm905.54 m/sec Asc Ao Diam 2D2.77 cm Asc Ao Index1.73 cm/m2 Electronically Signed By: Wilfrido Rice MD 03/06/2025 12:18:32 PM CDT Ana Loya NP CV ECHO PROCEDURES Final Result * ECG 12 lead (03/06/2025 5:18 AM CDT) Pathologist [facility] Ventricular Rate EKG/Min 100 BPM [facility] Atrial Rate 100 BPM [facility] WI-Interval (MSEC) 216 ms [facility] QRS-Interval (MSEC) 72 ms [facility] QT-Interval (MSEC) 328 ms [facility] QTc 423 ms [facility] R [place] -22 degrees [facility] T [place] -8 degrees [facility] Diagnosis Sinus rhythm with 1st degree A-V block Minimal voltage criteria for LVH, may be normal variant ( R in aVL ) Nonspecific T wave abnormality Abnormal ECG Confirmed by Alberto KU, Bhargav ([id number]) on 03/06/2025 4:34:19 PM [facility] 03/06/2025 5:18 AM CDT 03/06/2025 4:34 PM CDT Ana Loya NP ECG ORDERABLES Final Res ult [facility] * eGFR (03/06/2025 12:19 AM CDT) Pathologist [facility] eGFR 74 >=60 mL/min/1. 73 m2 Comment: [...] 03/06/2025 1:22 AM CDT us Nelsy Velásquez NP LAB BLOOD ORDERABLES Final Result [facility] Department [place] [address] * (ABNORMAL) CBC without differential (03/06/2025 12:19 AM CDT) WBC 10.24(H) 3.80 - 9.90 K/cumm Hgb 9.0(L) 11.9 - 15.5 g/dL [facility] Hct 27.6(L) 35.6 - 45.5 % [facility] Plt 300 150 - 400 K/cumm [facility] MPV 9.7 9.1 - 12.3 fL [facility] RBC 3.00(L) 3.90 - 5.20 M/cumm [facility] MCV 92.0 81.3 - 96.4 fL [facility] MCH 30.0 27.1 - 33.3 pg [facility] MCHC 32.6 32.3 - 35.7 g/dL [facility] RDW CV 14.1 11.1 - 14.9 % [facility] RDW SD 47.4 35.7 - 48.1 fL [facility] NRBC abs 0.00 0.00 - 0.01 K/cumm [facility] Blood 03/06/2025 12:1 9 AM CDT 03/06/2025 1:22 AM CDT us Nelsy Velásquez HARNESS INSPECTOR LAB BLOOD ORDERABLES Final Result Performing Organization Address [facility]/ZIP Co de Phone Number [facility] [place] [employer] [place] [address] * Phosphorus (03/06/2025 12:19 AM CDT) [facility] Phosphorus, pl 3.3 2.3 - 4.5 mg/dL Blood 03/06/2025 12:1 9 AM CDT 03/06/2025 1:22 AM CDT us Nelsy Velásquez HARNESS INSPECTOR LAB BLOOD ORDERABLES Final Result Performing Organization Address [facility] de Phone Number [facility] [place] [employer] [place] [address] * Magnesium (03/06/2025 12:19 AM CDT) [facility] Magnesium 2.1 1.4 - 2.5 mg/dL Blood 03/06/2025 12:1 9 AM CDT 03/06/2025 1:22 AM CDT us Nelsy Velásquez HARNESS INSPECTOR LAB BLOOD ORDERABLES Final Result Performing Organization Address [facility] [place] [address] * (ABNORMAL) Basic metabolic panel (03/06/2025 12:19 AM CDT) Pathologist [facility] Sodium 135 135 - 145 mmol/L Potassium, pl 4.2 3.3 - 4.9 mmol/L [facility] Chloride 92(L) 97 - 110 mmol/L [facility] CO2 34(H) 22 - 32 mmol/L [facility] Anion gap 9 2 - 15 mmol/L [facility] BUN 13 6 - 25 mg/dL [facility] Creatinine 0.82 0.60 - 1.10 mg/dL [facility] Glucose 118 70 - 199 mg/dL [facility] Comment: Interpretive Data Fasting glucose >/= 126 [...] 2022. Calcium 9.1 8.5 - 10.3 mg/dL [facility] Blood 03/06/2025 12:1 9 AM CDT 03/06/2025 1:22 AM CDT us Nelsy Velásquez NP LAB BLOOD ORDERABLES Final Result [facility] Department [place] [address] * ECG 12 lead (03/05/2025 5:46 AM CDT) Ventricular Rate EKG/Min 86 BPM [facility] Atrial Rate 86 BPM [facility] WI-Interval (MSEC) 292 ms [facility] QRS-Interval (MSEC) 78 ms [facility] QT-Interval (MSEC) 368 ms [facility] QTc 440 ms [facility] P [place] 24 degrees [facility] R [place] -12 degrees [facility] T [place] -4 degrees [facility] Diagnosis Sinus rhythm with 1st degree A-V block Minimal voltage criteria for LVH, may be normal variant ( R in aVL ) Nonspecific T wave abnormality Abnormal ECG Confirmed by Bhargav Dominguez MD ([id number]) on 03/07/2025 4:58:03 PM [facility] 03/05/2025 5:46 AM CDT 03/07/2025 4:58 PM CDT us Ana Loya HARNESS INSPECTOR ECG ORDERABLES Final Res ult [facility] * eGFR (03/04/2025 7:55 PM CDT) eGFR 67 >=60 mL/min/1. 73 m2 Comment: [...] 03/04/2025 8:31 PM CDT us Nelsy Velásquez HARNESS INSPECTOR LAB BLOOD ORDERABLES Final Result [facility] [place] [address] * (ABNORMAL) CBC without differential (03/04/2025 7:55 PM CDT) WBC 5.74 3.80 - 9.90 K/cumm Hgb 8.2(L) 11.9 - 15.5 g/dL [facility] Hct 24.8(L) 35.6 - 45.5 % [facility] Plt 196 150 - 400 K/cumm [facility] MPV 9.7 9.1 - 12.3 fL [facility] RBC 2.71(L) 3.90 - 5.20 M/cumm [facility] MCV 91.5 81.3 - 96.4 fL [facility] MCH 30.3 27.1 - 33.3 pg [facility] MCHC 33.1 32.3 - 35.7 g/dL [facility] RDW CV 14.1 11.1 - 14.9 % [facility] RDW SD 47.5 35.7 - 48.1 fL [facility] NRBC abs 0.00 0.00 - 0.01 K/cumm [facility] Blood 03/04/2025 7:55 PM CDT 03/04/2025 8:31 PM CDT Nelsy Velásquez HARNESS INSPECTOR LAB BLOOD ORDERABLES Final Result Performing Organization Address [facility]/ZIP Co de Phone Number [facility] Department [place] [address] * Phosphorus (03/04/2025 7:55 PM CDT) Pathologist [facility] Phosphorus, pl 4.3 2.3 - 4.5 mg/dL Blood 03/04/2025 7:55 PM CDT 03/04/2025 8:31 PM CDT Nelsy Velásquez HARNESS INSPECTOR LAB BLOOD ORDERABLES Final Result [facility] [place] [address] * Magnesium (03/04/2025 7:55 PM CDT) Pathologist [facility] Magnesium 1.9 1.4 - 2.5 mg/dL Blood 03/04/2025 7:55 PM CDT 03/04/2025 8:31 PM CDT Nelsy Velásquez HARNESS INSPECTOR LAB BLOOD ORDERABLES Final Result [facility] Department [place] [address] * (ABNORMAL) Basic metabolic panel (03/04/2025 7:55 PM CDT) Sodium 134(L) 135 - 145 mmol/L Potassium, pl 4.2 3.3 - 4.9 mmol/L [facility] Chloride 91(L) 97 - 110 mmol/L [facility] CO2 33(H) 22 - 32 mmol/L [facility] Anion gap 10 2 - 15 mmol/L [facility] BUN 13 6 - 25 mg/dL [facility] Creatinine 0.89 0.60 - 1.10 mg/dL [facility] Glucose 128 70 - 199 mg/dL [facility] Comment: Interpretive Data Fasting glucose >/= 126 [...] 2022. Calcium 8.3(L) 8.5 - 10.3 mg/dL [facility] Blood 03/04/2025 7:55 PM CDT 03/04/2025 8:31 PM CDT Nelsy Velásquez HARNESS INSPECTOR LAB BLOOD ORDERABLES Final Result Performing Organization Address [facility]/ZIP Co de Phone Number [facility] [place] [address] * ENGRAVER WOOD Evaluation and Treatment (03/04/2025 10:58 AM CDT) Narrative Eileen Hong SLP - 03/04/2025 10:58 AM CDT Eileen Hong, ENGRAVER WOOD 03/04/2025 1:07 PM Speech-Language Pathology: Clinical Bedside Swallow HPI/PMH 79 y.o. yo female w/ PMHx of GERD, scoliosis, breast ca (s/p mastectomy) who presents with ascending aneurysm that now measure 4.5 cm on DAMIR and 46 x 45 mm on CTA and moderate to severe AR. 02/28: s/p bio AVR and ascending aortic replacement with sternal plating. 02/28: passed [place] swallow screener Respiratory/Intubation Status: Intubated 02/28 Imaging: CXR 03/02: The lung volumes remain small with unchanged mild bibasilar atelectasis and trace bilateral pleural effusions. No pneumothorax is identified. Precautions: Fall PLOF: No prior ENGRAVER WOOD notes Current Diet Order: Mechanical Soft Solids/Thin [...] as she feels comfortable without need for ENGRAVER WOOD re-evaluation. ENGRAVER WOOD encouraged to continue to utilize incentive spirometer and Aerobika to improve cough strength/productivity. No further acute ENGRAVER WOOD needs at this time. ENGRAVER WOOD to complete orders. Assessment Details & Results [...] Aspiration Risk: No aspiration risk (170-200) Plan ENGRAVER WOOD Frequency of Services during current admission: One-time visit (Discharge from this service) ENGRAVER WOOD Recommendation (Add'l Services): No further ENGRAVER WOOD indicated Next Visit Plan:No further ST warranted Additional Referrals: n/a Please reference care plan for treatment goals, if indicated. Discharge Summary Statement If this is the last swallow therapy visit, this serves as the discharge summary. us Josh Trivedi NP ENGRAVER WOOD ORDERABLES Final Resul t * ECG 12 lead (03/04/2025 10:04 AM CDT) [facility] Ventricular Rate EKG/Min 93 BPM [facility] QRS-Interval (MSEC) 76 ms [facility] QT-Interval (MSEC) 434 ms [facility] QTc 539 ms [facility] R [place] -13 degrees [facility] T [place] -13 degrees [facility] Diagnosis Accelerated Junctional rhythm with retrograde atrial activation Minimal voltage criteria for LVH, may be normal variant ( R in aVL ) Anterolateral infarct (cited on or before 04-MAR-2025) Abnormal ECG When compared with ECG of 02-FEB-2025 14:11, Significant changes have occurred Confirmed by YESENIA MCARTHUR M.D ([id number]) on 03/07/2025 12:24:24 PM [facility] 03/04/2025 10:0 4 AM CDT 03/07/2025 12:24 PM CDT us Josh Trivedi HARNESS INSPECTOR ECG ORDERABLES Final Resul t [facility] * eGFR (03/03/2025 8:18 PM CDT) eGFR 75 >=60 mL/min/1. 73 m2 Comment: [...] 03/03/2025 8:59 PM CDT us Nelsy Velásquez HARNESS INSPECTOR LAB BLOOD ORDERABLES Final Result [facility] Department [place] [address] * (ABNORMAL) CBC without differential (03/03/2025 8:18 PM CDT) WBC 8.28 3.80 - 9.90 K/cumm Hgb 8.8(L) 11.9 - 15.5 g/dL [facility] Hct 26.7(L) 35.6 - 45.5 % [facility] Plt 183 150 - 400 K/cumm [facility] MPV 10.6 9.1 - 12.3 fL [facility] RBC 2.91(L) 3.90 - 5.20 M/cumm [facility] MCV 91.8 81.3 - 96.4 fL [facility] MCH 30.2 27.1 - 33.3 pg [facility] MCHC 33.0 32.3 - 35.7 g/dL [facility] RDW CV 14.3 11.1 - 14.9 % [facility] RDW SD 48.4(H) 35.7 - 48.1 fL [facility] NRBC abs 0.00 0.00 - 0.01 K/cumm [facility] Blood 03/03/2025 8:18 PM CDT 03/03/2025 9:06 PM CDT Nelsy Velásquez HARNESS INSPECTOR LAB BLOOD ORDERABLES Final Result Performing Organization Address [facility] de Phone Number [facility] [place] [address] * Type and screen (03/03/2025 8:18 PM CDT) ABO Rh B Negative Marco, indirect Negative [facility] Blood 03/03/2025 8:18 PM CDT 03/03/2025 9:27 PM CDT Narrative [facility] - 03/03/2025 10:22 PM CDT Has the patient had Daratumumab or Isatuximab in the past 6 months?->Unknown Nelsy Velásquez NP LAB BLOOD BANK TEST ORDERA BLES Final Result Performing Organization Address [facility]/ZIP Co de Phone Number [facility] [place] [address] * Phosphorus (03/03/2025 8:18 PM CDT) [facility] Phosphorus, pl 3.7 2.3 - 4.5 mg/dL Blood 03/03/2025 8:18 PM CDT 03/03/2025 8:59 PM CDT Nelsy Velásquez HARNESS INSPECTOR LAB BLOOD ORDERABLES Final Result Performing Organization Address [facility] Co de Phone Number [facility] Department [place] [address] * Magnesium (03/03/2025 8:18 PM CDT) [facility] Magnesium 2.0 1.4 - 2.5 mg/dL Blood 03/03/2025 8:18 PM CDT 03/03/2025 8:59 PM CDT Nelsy Velásquez HARNESS INSPECTOR LAB BLOOD ORDERABLES Final Result Performing Organization Address [facility] de Phone Number [facility] Department [place] [address] * (ABNORMAL) Basic metabolic panel (03/03/2025 8:18 PM CDT) [facility] Sodium 135 135 - 145 mmol/L Potassium, pl 4.3 3.3 - 4.9 mmol/L [facility] Chloride 93(L) 97 - 110 mmol/L [facility] CO2 34(H) 22 - 32 mmol/L [facility] Anion gap 8 2 - 15 mmol/L [facility] BUN 15 6 - 25 mg/dL [facility] Creatinine 0.81 0.60 - 1.10 mg/dL [facility] Glucose 153 70 - 199 mg/dL [facility] Comment: Interpretive Data Fasting glucose >/= 126 [...] 2022. Calcium 8.9 8.5 - 10.3 mg/dL [facility] Blood 03/03/2025 8:18 PM CDT 03/03/2025 8:59 PM CDT Nelsy Velásquez HARNESS INSPECTOR LAB BLOOD ORDERABLES Final Result [facility] Department [place] [address] * Calcium, ionized, whole blood (03/02/2025 8:36 PM CDT) Ca, ionized, bld 4.75 4.50 - 5.10 mg/dL Blood 03/02/2025 8:36 PM CDT 03/02/2025 9:18 PM CDT Nelsy Velásquez HARNESS INSPECTOR LAB BLOOD ORDERABLES Final Result Performing Organization Address [facility]/ZIP Co de Phone Number [facility] Department [place] [address] * eGFR (03/02/2025 8:36 PM CDT) eGFR [...] 03/02/2025 9:27 PM CDT us Nelsy Velásquez HARNESS INSPECTOR LAB BLOOD ORDERABLES Final Result [facility] [place] [address] * (ABNORMAL) CBC without differential (03/02/2025 8:36 PM CDT) WBC 10.32(H) 3.80 - 9.90 K/cumm Hgb 9.3(L) 11.9 - 15.5 g/dL [facility] Hct 28.3(L) 35.6 - 45.5 % [facility] Plt 142(L) 150 - 400 K/cumm [facility] MPV 10.6 9.1 - 12.3 fL [facility] RBC 3.03(L) 3.90 - 5.20 M/cumm [facility] MCV 93.4 81.3 - 96.4 fL [facility] MCH 30.7 27.1 - 33.3 pg [facility] MCHC 32.9 32.3 - 35.7 g/dL [facility] RDW CV 14.3 11.1 - 14.9 % [facility] RDW SD 48.3(H) 35.7 - 48.1 fL [facility] NRBC abs 0.00 0.00 - 0.01 K/cumm [facility] Blood 03/02/2025 8:36 PM CDT 03/02/2025 9:27 PM CDT Nelsy Velásquez HARNESS INSPECTOR LAB BLOOD ORDERABLES Final Result Performing Organization Address [facility] Co de Phone Number [facility] [place] [address] * (ABNORMAL) Phosphorus (03/02/2025 8:36 PM CDT) [facility] Phosphorus, pl 2.1(L) 2.3 - 4.5 mg/dL Blood 03/02/2025 8:36 PM CDT 03/02/2025 9:27 PM CDT us Nelsy Velásquez HARNESS INSPECTOR LAB BLOOD ORDERABLES Final Result Performing Organization Address [facility] Co de Phone Number [facility] Department [place] [address] * Magnesium (03/02/2025 8:36 PM CDT) [facility] Magnesium 1.9 1.4 - 2.5 mg/dL Blood 03/02/2025 8:36 PM CDT 03/02/2025 9:27 PM CDT us Nelsy Velásquez HARNESS INSPECTOR LAB BLOOD ORDERABLES Final Result Performing Organization Address [facility] de Phone Number [facility] Department [place] [address] * (ABNORMAL) Basic metabolic panel (03/02/2025 8:36 PM CDT) [facility] Sodium 137 135 - 145 mmol/L Potassium, pl 3.8 3.3 - 4.9 mmol/L [facility] Chloride 98 97 - 110 mmol/L [facility] CO2 33(H) 22 - 32 mmol/L [facility] Anion gap 6 2 - 15 mmol/L [facility] BUN 17 6 - 25 mg/dL [facility] Creatinine 0.92 0.60 - 1.10 mg/dL [facility] Glucose 130 70 - 199 mg/dL [facility] Comment: Interpretive Data Fasting glucose >/= 126 [...] 2022. Calcium 9.3 8.5 - 10.3 mg/dL [facility] Blood 03/02/2025 8:36 PM CDT 03/02/2025 9:27 PM CDT us Nelsy Velásquez NP LAB BLOOD ORDERABLES Final Result [facility] Department [place] [address] * XR Chest Pa Lateral 2 Views [...] signed by: Nakul Tovar M.D. Alex Kent HARNESS INSPECTOR IMG XR PROCEDURES Final Re sult * [...] by: Jaylon Leggett MD, PHD Alex Kent HARNESS INSPECTOR IMG XR PROCEDURES Final Re sult * Potassium, whole blood (03/02/2025 6:03 AM CDT) Pathologist [facility] Potassium, bld 4.4 3.3 - 4.9 mmol/L Blood 03/02/2025 6:03 AM CDT 03/02/2025 6:09 AM CDT Lashonda Sousa MD LAB BLOOD ORDERABLES Fi nal Result Performing Organization Address [facility] Co de Phone Number [facility] Department [place] [address] * (ABNORMAL) Calcium, ionized, whole blood (03/02/2025 6:03 AM CDT) [facility] Ca, ionized, bld 5.14(H) 4.50 - 5.10 mg/dL Blood 03/02/2025 6:03 AM CDT 03/02/2025 6:09 AM CDT Liliana Tinoco NP LAB BLOOD ORDERABLES Final Re sult Performing Organization Address [facility] de Phone Number [facility] [place] [address] * eGFR (03/02/2025 6:03 AM CDT) Pathologist [facility] eGFR 83 >=60 mL/min/1. 73 m2 Comment: [...] CDT 03/02/2025 6:17 AM CDT Monique Javed HARNESS INSPECTOR LAB BLOOD ORDERABLES Fi nal Result Performing Organization Address [facility] Co de Phone Number [facility] Department [place] [address] * Lidocaine level (03/02/2025 6:03 AM CDT) Lidocaine (Xylocaine) 2.8 1.5 - 5.0 mcg/mL Blood 03/02/2025 6:03 AM CDT 03/02/2025 6:17 AM CDT Adriel Corona HARNESS INSPECTOR LAB BLOOD ORDERABLES Final Result Performing Organization Address [facility] Co de Phone Number [facility] [place] [address] * (ABNORMAL) CBC without differential (03/02/2025 6:03 AM CDT) WBC 10.56(H) 3.80 - 9.90 K/cumm Hgb 8.7(L) 11.9 - 15.5 g/dL [facility] Hct 25.9(L) 35.6 - 45.5 % [facility] Plt 103(L) 150 - 400 K/cumm [facility] MPV 10.4 9.1 - 12.3 fL [facility] RBC 2.85(L) 3.90 - 5.20 M/cumm [facility] MCV 90.9 81.3 - 96.4 fL [facility] MCH 30.5 27.1 - 33.3 pg [facility] MCHC 33.6 32.3 - 35.7 g/dL [facility] RDW CV 14.3 11.1 - 14.9 % [facility] RDW SD 47.5 35.7 - 48.1 fL [facility] NRBC abs 0.00 0.00 - 0.01 K/cumm [facility] Blood 03/02/2025 6:03 AM CDT 03/02/2025 6:17 AM CDT Monique Javed NP LAB BLOOD ORDERABLES Fi nal Result Performing Organization Address [facility] Co de Phone Number [facility] Department [place] [address] * (ABNORMAL) Phosphorus (03/02/2025 6:03 AM CDT) Pathologist [facility] Phosphorus, pl 2.2(L) 2.3 - 4.5 mg/dL Blood 03/02/2025 6:03 AM CDT 03/02/2025 6:17 AM CDT Monique Javed HARNESS INSPECTOR LAB BLOOD ORDERABLES Fi nal Result [facility] [place] [address] * Magnesium (03/02/2025 6:03 AM CDT) Pathologist [facility] Magnesium 1.9 1.4 - 2.5 mg/dL Blood 03/02/2025 6:03 AM CDT 03/02/2025 6:17 AM CDT Monique Javed HARNESS INSPECTOR LAB BLOOD ORDERABLES Fi nal Result [facility] Department [place] [address] * Basic metabolic panel (03/02/2025 6:03 AM CDT) Sodium 136 135 - 145 mmol/L Potassium, pl 4.6 3.3 - 4.9 mmol/L [facility] Chloride 99 97 - 110 mmol/L [facility] CO2 29 22 - 32 mmol/L [facility] Anion gap 8 2 - 15 mmol/L [facility] BUN 10 6 - 25 mg/dL [facility] Creatinine 0.74 0.60 - 1.10 mg/dL [facility] Glucose 121 70 - 199 mg/dL [facility] Comment: Interpretive Data Fasting glucose >/= 126 [...] 2022. Calcium 8.9 8.5 - 10.3 mg/dL [facility] Blood 03/02/2025 6:03 AM CDT 03/02/2025 6:17 AM CDT Monique Javed HARNESS INSPECTOR LAB BLOOD ORDERABLES Fi nal Result Performing Organization Address [facility]/ZIP Co de Phone Number [facility] Department [place] [address] * XR Chest 1 View - in [...] Electronically signed by: Jaylon Leggett MD, PHD us Monique Javed HARNESS INSPECTOR IMG XR PROCEDURES Final Result * POCT glucose (03/01/2025 11:20 AM CDT) Glucose, POC 144 70 - 199 mg/dL Blood 03/01/2025 11:2 0 AM CDT 03/01/2025 11:20 AM CDT us Lashonda Sousa MD LAB POCT ORDERABLES - D HEATHICE Final Result [facility] [place] [address] * POCT glucose (03/01/2025 7:44 AM CDT) Glucose, POC 128 70 - 199 mg/dL Blood 03/01/2025 7:44 AM CDT 03/01/2025 7:44 AM CDT Lashonda Sousa MD LAB POCT ORDERABLES - D EVICE Final Result Performing Organization Address [facility]/ZIP Co pr Phone Number [facility] [place] [address] * Critical Care (03/01/2025 6:44 AM CDT) [...] plan with the patient's team and other medical/employee relations consultant staff. This time was in addition to and separate from care provided by other practitioners on this day of service. Adriel Corona HARNESS INSPECTOR IN CLINIC/BEDSIDE ORD ERABLES Final Result * (ABNORMAL) Lidocaine level (03/01/2025 5:29 AM CDT) Lidocaine (Xylocaine) 1.2(L) 1.5 - 5.0 mcg/mL Blood 03/01/2025 5:29 AM CDT 03/01/2025 6:23 AM CDT Narrative [facility] - 03/01/2025 6:55 AM CDT Draw 24 hours after infusion started. Monique Javed NP LAB BLOOD ORDERABLES Fi nal Result Performing Organization Address [facility] Co de Phone Number [facility] [place] [employer] [place] [address] * POCT glucose (03/01/2025 5:07 AM CDT) Glucose, POC 130 70 - 199 mg/dL Blood 03/01/2025 5:07 AM CDT 03/01/2025 5:07 AM CDT Lashonda Sousa MD LAB POCT ORDERABLES - D EVICE Final Result Performing Organization Address [facility] de Phone Number [facility] [place] [employer] [place] [address] * POCT glucose (03/01/2025 1:27 AM CDT) Glucose, POC 141 70 - 199 mg/dL Blood 03/01/2025 1:27 AM CDT 03/01/2025 1:27 AM CDT Lashonda Sousa MD LAB POCT ORDERABLES - D EVICE Final Result Performing Organization Address [facility] Co de Phone Number [facility] [place] [employer] [place] [address] * Calcium, ionized, whole blood (03/01/2025 1:18 AM CDT) Ca, ionized, bld 4.78 4.50 - 5.10 mg/dL Blood 03/01/2025 1:18 AM CDT 03/01/2025 1:48 AM CDT Liliana Tinoco NP LAB BLOOD ORDERABLES Final Re sult Performing Organization Address [facility] Co de Phone Number [facility] [place] [address] * eGFR (03/01/2025 1:18 AM CDT) [facility] eGFR 86 >=60 mL/min/1. 73 m2 Comment: [...] Javed NP LAB BLOOD ORDERABLES nal Result [facility] Department [place] [address] * (ABNORMAL) CBC without differential (03/01/2025 1:18 AM CDT) [facility] WBC 10.92(H) 3.80 - 9.90 K/cumm Hgb 9.6(L) 11.9 - 15.5 g/dL [facility] Hct 28.0(L) 35.6 - 45.5 % [facility] Plt 155 150 - 400 K/cumm [facility] MPV 10.2 9.1 - 12.3 fL [facility] RBC 3.17(L) 3.90 - 5.20 M/cumm [facility] MCV 88.3 81.3 - 96.4 fL [facility] MCH 30.3 27.1 - 33.3 pg [facility] MCHC 34.3 32.3 - 35.7 g/dL [facility] RDW CV 14.3 11.1 - 14.9 % [facility] RDW SD 46.2 35.7 - 48.1 fL [facility] NRBC abs 0.00 0.00 - 0.01 K/cumm [facility] Blood 03/01/2025 1:18 AM CDT 03/01/2025 1:54 AM CDT Monique Javed NP LAB BLOOD ORDERABLES Fi nal Result Performing Organization Address [facility]/ZIP Co de Phone Number [facility] [place] [employer] [place] [address] * Phosphorus (03/01/2025 1:18 AM CDT) Pathologist [facility] Phosphorus, pl 3.5 2.3 - 4.5 mg/dL Blood 03/01/2025 1:18 AM CDT 03/01/2025 1:53 AM CDT Result [facility] Monique Javed NP LAB BLOOD ORDERABLES Fi nal Result Performing Organization Address [facility] Co de Phone Number [facility] [place] [employer] [place] [address] * Magnesium (03/01/2025 1:18 AM CDT) Magnesium 2.0 1.4 - 2.5 mg/dL Blood 03/01/2025 1:18 AM CDT 03/01/2025 1:53 AM CDT Monique Javed NP LAB BLOOD ORDERABLES Fi nal Result Performing Organization Address [facility] Co de Phone Number [facility] [place] [address] * Basic metabolic panel (03/01/2025 1:18 AM CDT) Sodium 137 135 - 145 mmol/L Potassium, pl 4.9 3.3 - 4.9 mmol/L [facility] Chloride 103 97 - 110 mmol/L [facility] CO2 25 22 - 32 mmol/L [facility] Anion gap 9 2 - 15 mmol/L [facility] BUN 14 6 - 25 mg/dL [facility] Creatinine 0.72 0.60 - 1.10 mg/dL [facility] Glucose 139 70 - 199 mg/dL [facility] Comment: Interpretive Data Fasting glucose >/= 126 [...] 2022. Calcium 8.8 8.5 - 10.3 mg/dL [facility] Blood 03/01/2025 1:18 AM CDT 03/01/2025 1:53 AM CDT Monique Javed NP LAB BLOOD ORDERABLES nal Result [facility] [place] [address] * Hepatitis C antibody Blood (01/04/2025 12:34 PM [employer]) Pathologist [facility] Hep C Ab Nonreactive Nonreactive Comment:Antibodies to HCV no t detected. Does NOT exclude the possibility of recent exposure to HCV. Current interpretive data was last revised on 22 Blood 01/04/2025 12:3 4 PM [employer] 01/04/2025 1:13 PM [employer] Hannah Stewart HARNESS INSPECTOR LAB MICROBIOLO GY - GENERAL ORDERABLES Final Result [facility] [place] [address] * Diagnostic Mammogram Bilateral W Mariusz (05/22/2021 [...] Continued clinical follow-up is recommended. Dictated by: Folrinda Tolentino MD The radiology attending physician has personally reviewed this study, and had reviewed and/or edited this written report and agrees with it. Electronically signed by: Kaia Palma M.D. Marian Victor STEEL ERECTOR APPRENTICE IMG MAMMO PROCEDURES Final R esult from Last 3 Months or Most Recently Relevant to Health Maintenance Insurance MEDICARE [facility] MEDICARE [facility] MEDICARE [facility] MEDICARE [facility] Advance Directives For more information, please contact: [phone] * Full Code (Latest Code Status on File) Date Activated Date Inactivated Comments 03/24/2025 9:59 PM 03/31/2025 7:37 PM * Full Code Date Activated Date Inactivated Comments 02/28/2025 12:11 PM 03/08/2025 6:51 PM * Full Code Date Activated Date Inactivated Comments 11/01/2024 9:10 AM 11/02/2024 4:50 AM * Full Code Date Activated Date Inactivated Comments 05/26/2022 3:55 PM 05/28/2022 2:37 PM Care Teams Cost Estimating Manager Relationship Specialty Start Date End Date Arun Miller MD PCP - General 04/20/17 Johnathon Theodore MD [address] [place] [address] Medical Oncologist/Mail Distributor Medical Oncology 01/03/25 Lashonda Sousa MD [address] [place] [address] Surgeon Cardiothoracic Surgery 03/08/25 Miscellaneous, Not In File 03/08/25 Sonny Penaloza MD [address] [address] Consulting Physician Cardiology 03/31/25
--- OUTSIDE RECORDS SUMMARY | 2025-06-01 14:48 | XMS_ITS | Encounter Summary ---
Author Organization [facility] Address [address] [place] [address] Phone Care Team Providers Care Math Coach Name Role Phone Arun Miller MD Primary Care Provider Johnathon Theodore MD Unavailable [phone] Lashonda Sousa MD Unavailable [phone] Miscellaneous, Not In File Unavailable Unava ilable Sonny Penaloza MD Unavailable [phone] Encounter Details Date Type Department Care Team (Latest Contact Info) Description 03/03/2021 Orders Only [facility] Scanning, Provider Social History Tobacco Use Types Packs/Day Years Used Date Smoking Tobacco: Never Smokeless Tobacco: Never Alcohol Use Standard Drinks/Week Comments No 0 (1 standard drink = 0.6 oz pur e alcohol) Comments No Sex and Gender Information Value Date Recorded Sex Assigned at Not on file Legal 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 Gender Identity Not on file Sexual Orientation Not on file documented as of this encounter Plan of Treatment Not on file documented as of this encounter Procedures Procedure Name Priority Date/Time Associated Diagnosis Comments SCAN - RADIOLOGY/IMAGING 03/03/2021 CARDIOLOGY DOCUMENT SCAN 03/03/2021 documented in this encounter Results * SCAN - RADIOLOGY/IMAGING (03/03/2021) Anatomical Region Laterality Modality Other us Provider Scanning Final Result * SCAN - CARDIOLOGY (03/03/2021) Anatomical Region Laterality Modality Other us Provider Scanning CV CARDIAC SERVICES PROCEDURES Final Result documented in this encounter Visit Diagnoses Not on filedocumented in this encounter Additional Health Concerns Infection Onset Date Last Indicated Resolved Time COVID19 Comment:05/19/2022- Tested positive 05/05/22. Meets criteria for Isolation discontinuation. Nivia Escalera 05/05/2022 05/05/2022 05/19/2022 2:36 PM C DT COVID: Recovered Comment:05/19/2022- Tested positive 05/05/22. Meets criteria for COVID Recovered. Results scanned in under Labs. Nivia Escalera 05/19/2022 05/19/2022 09/05/2022 3:05 AM C DT Ring Surveillance: C. auris Comment:C.auris Ring Surveillance Flag is placed and removed manually by IP. However, if the patient is discharged before their swab is collected, it will remain on a patient's chart for 7 days after discharge in case the patient is re-admitted elsewhere. Pt is undergoing Ring Surveillance for admission to [facility] in [place]. JANET Fajardo [facility] 02/28/2025 02/28/2025 03/01/2025 8:06 PM C DT documented as of this encounter Care Teams Math Coach Relationship Specialty Start Date End Date Arun Miller MD PCP - General 04/20/17 Johnathon Theodore MD [address] [place] [address] Medical Oncologist/Curriculum Development Specialist Medical Oncology 01/03/25 Lashonda Sousa MD [address] [place], [place] [id number] Surgeon Cardiothoracic Surgery 03/08/25 Miscellaneous, Not In File 03/08/25 [place] [address] [place] [address] Consulting Physician Cardiology 03/31/25 documented as of this encounter
== END 2025-06-01 14:44 | disposition home or self-care (01) ==
PROVIDERS: PCP Internal Medicine; Visit Provider Nurse Practitioner
DX: K59.00 Constipation, unspecified (principal)
CPT/HCPCS: 74018

== ENCOUNTER 2025-07-20 00:32 | Day surgery (SDC) | payer MEDICARE, SELFPAY ==
[2025-07-05 13:58] VITALS: BMI 26.2
--- OUTSIDE RECORDS SUMMARY | 2025-07-20 00:35 | XMS_ITS | Clinical Summary ---
Author Organization [facility] Address [address] [place] [address] Care Team Providers Care Laborer [facility] Name Role Phone Arun Miller MD Primary Care Provider Johnathon Theodore MD Unavailable [phone] Lashonda Sousa MD Unavailable [phone] Miscellaneous, Not In File Unavailable Unava ilable Sonny Penaloza MD Unavailable [phone] Allergies No known active allergies Medications calcium carbonate-vitam in D3 1,250mg (500mg elemental) - 5 mcg (200 units) per tabletIndicatio ns:for supplement Take 1 tablet by mouth every morning Active multivitamin tabletIndicatio ns:Vitamin Deficiency Prevention Take 1 tablet by mouth every morning Active esomeprazole DR (NexIUM) 40 mg capsuleIndicati ons:gerd Take 1 capsule (40 mg total) by mouth every morning 4 Active colestipoL (COLESTID) 1 gram tablet Take 1 tablet (1 g total) by mouth nightly 4 Active acetaminophen (TYLENOL) 325 mg tablet Take 2 tablets (650 mg total) by mouth every 6 (six) hours as needed for pain 0 5 Active Additional Information Patient not taking.Reported on 06/02/2025 traMADoL (ULTRAM) 50 mg tablet Take 1 tablet (50 mg total) by mouth every 6 (six) hours as needed for pain 21 tablet 5 Active Additional Information Patient not taking.Reported on 06/02/2025 aspirin 81 mg chewable tablet Take 1 tablet (81 mg total) by mouth daily 30 tablet 11 5 04/10/20 26 Active metoprolol XL (TOPROL-XL) 25 mg extended release tablet Take 1 tablet (25 mg total) by mouth daily 90 tablet 3 5 06/02/20 26 Active Active Problems Problem Noted Date Diagnosed Date [...] atrial EKG this AM Qtc 428 and ND 216 today Continue metoprolol and titrate as [...] (05/14/2022): Added automatically from request for surgery [id number] Hypertrophy of breast 05/14/2022 Overview (05/14/2022): Added automatically from request for surgery [id number] Aftercare following surgery for neoplasm 022 Overview (05/14/2022): Added automatically from request for surgery [id number] Bilateral breast cysts 05/14/2022 Overview (05/14/2022): Added automatically from request for surgery [id number] COVID-19 05/06/2022 Hyperlipidemia 02/12/2022 Assessment & Plan [...] D/c'd oxycodone and put back on home [place] to see if that improved pain control, [...] Encounters Date Type Department Care Team Description 07/11/2025 Telephone [facility] Cardiology [address] [place] [address] [place] [address] [place] [address] Sonny Penaloza MD 06/14/2025 Results Follow-Up Cardiology Sonny Penaloza MD Lipid panel, Hemoglobin A1c, Apolipoprotein B, serum, Additional followed-up results: 2 06/06/2025 Orders Only [facility] Stacie Hodge RN 06/02/2025 3:45 PM CDT Office Visit [facility] Cardiology [address] [place] [address] [place] [address] [place] [address] Sonny Penaloza MD Aortic valve insufficiency, etiology of cardiac valve disease unspecified (Primary Dx); Aortic aneurysm without rupture, unspecified portion of aorta; Nonrheumatic aortic valve insufficiency 05/29/2025 Telephone [facility] Cardiology [address] [place] [address] [place] [address] [place] [address] Sonny Penaloza MD 05/01/2025 Telephone [facility] Cardiology [address] [place] [address] [place] [address] [place] [address] Abby Madrigal 04/26/2025 2:00 PM CDT Office Visit [facility] Oncology [address] [address] Hannah Stewart NP Atypical lymphocytic infiltrate of skin (Primary Dx); Lymphadenopathy 04/26/2025 1:00 PM CDT Lab [facility] - Lab Collection [facility] Floor [address] [place] [address] Lymphadenopathy 04/20/[address] [facility] Medicine Cardiothoracic Surgery [address] [facility] 8th Floor [address] Room [address] [id number] Leonor Celeste, STEFANIE from Last 3 Months Immunizations Immunization Administration Dates Next Due Influenza, Quad, Adjuvantate d, Intramuscular 08/01/2023,08/14/2021,07/30/2020 Influenza, Quadrivalent, Spl it, Intramuscular 08/31/2021 Influenza, Trivalent, High D ose, Split, Preservative Free, Intramuscular 07/28/2019,07/26/2018,07/29/2017,08/19,08/24/2015 Influenza, Trivalent, IM (MDV) 08/17/2014,2012 Influenza, Unspecified 08/14/2023,08/26/2022, Pneumococcal Conjugate PCV 13 10/20/2014 Sars-CoV-2, Unspecified 02/28/2021,01/31/2021 Surgical History Surgery Date Site/Laterality Comments ND OOPHORECTOMY PARTIAL/TOTAL UNI/BI 11/02/2011 - 11/01/2012 Bilateral [...] drink = 0.6 oz pur e alcohol) [facility] Utilities Answer Date Recorded In the past 12 months has th e electric, gas, oil, or water [employer] threatened to shut off services in your home? No 03/28/2025 Social Connection and Isolation Panel Answer Date Recorded In a typical week, how many times do you talk on the phone with family, friends, or neighbors? Three times a week 03/28/2025 How often do you get togethe r with friends or relatives? Three times a week 03/28/2025 How often do you attend [facility] or cheondoism services? Never 03/28/2025 Do you belong to any clubs o r organizations such as gnosticism groups, unions, fraternal or athletic groups, or [...] any time in the past 12 [facility], were you homeless or living in a alf (including now)? No 03/28/2025 Personal Safety Answer Date Recorded Have you ever been in or are you currently in a harmful physical or emotional relationship or is someone making you feel afraid or unsafe? 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 Gender Identity Not on file Sexual Orientation Not on file Obstetrics History Para Term AB IAB SAB Ectopic Multiple Livin g Live Births 4 3 Date Outcome GA Total Labor Labor/2nd/3rd Weight Sex Type Anes PTL Dasia A1 A5 Name Clin Last Filed Vital Signs Vital Sign Reading Time Taken Comments Blood Pressure 124/69 06/02/2025 3:42 PM CDT Pulse 75 06/02/2025 3:42 PM CDT Temperature 36.3 C (97.3 F) 04/26/2025 1:16 PM CDT Respiratory Rate 17 04/26/2025 1:16 PM CDT Oxygen Saturation 97% 06/02/2025 3:42 PM CDT Inhaled Oxygen Concentration - - Weight 59.9 kg (132 lb) 06/02/2025 3:42 PM CDT Height 149.9 cm (4' 11) 06/02/2025 3:42 PM CDT Body Mass Index 26.66 06/02/2025 3:42 PM CDT Plan of Treatment Health Maintenance Due Date Last Done Comments Osteoporosis Screening-Bone Density Scan 1945 DTaP/Tdap/Td Vaccine (1 - Tdap) 1958 Zoster Vaccine (1 of 2) 1997 Well Visit 65+ 2012 Pneumococcal vaccine 65+ (2 of 2 - PCV20 or PCV21) 10/20/2015 10/20/2014 Covid-19 Vaccine (5 - 2024-2 6 season) 2025 03/05/2021, 02/28/2021, 02/11/2021, Additional history exists Influenza Vaccine (#1) 2025 , 08/01/2023, 08/26/2022, Additional history exists Depression Screening 03/24/2026 03/24/2025 Fall Risk Assessment 03/30/2026 03/30/2025 Breast Cancer Screening-Mammogram Discontinued 021 Hepatitis B Screening Completed 01/04/2025 Hepatitis C Screening Completed 01/04/2025 Medical Devices Implanted Type Area Drupal Developer Device Identifier Shelf Expiration Date Model / Serial / Lot Terumo Cardio Vascular Gelweave 28mm 30cm Suture Retention Unique Hydrolyzable Abdomen [id number] - [id number] - [id number] Implanted:Qty: 1 on 02/28/2025 by Lashonda Sousa MD at [facility] Graft N/A: Chest Terumo Cardio Vascular [id number] 12/31/2027 [id number] / [id number] / [id number] [employer] Inspiris Resilia Leaflet Aortic Valve 25mm [id number] - [id number] - [id number] Implanted:Qty: 1 on 02/28/2025 by Lashonda Sousa MD at [facility] Prosthetic Valve N/A: Heart [employer] [id number] 10/31/2029 [id number] / [id number] / Pin Right: Hip [employer] Marker Tissue Rigid Needle Open Coil Radiopaque Clip Hydromark 18ga Titanium Hydrogel 4009-12-20-T3 - [id number] Implanted:Qty: 1 on 12/08/2024 by Roseanna Ray MD at [facility] Left: Axilla Devicor [employer] [id number] 4010-02- 18-T3 / / [id number] [employer] Sternalock 360 Sternal Closure 74-0004 - [id number] Implanted:Qty: 1 on 02/28/2025 by Grace Wilson MD at [facility] N/A: Sternum [employer] [id number] 01/18/2030 74-0004 / / [id number] [employer] Sternalock Lauri 2.4mm 10mm Self Drill Lock Sternum Cancellous 73-2410 - [id number] Implanted:Qty: 2 on 02/28/2025 by Grace Wilson MD at [facility] N/A: Sternum [employer] [id number] / / [employer] Sternalock Lauri 2.4mm 12mm Self Drill Lock Sternum Cancellous 73-2412 - [id number] Implanted:Qty: 14 on 02/28/2025 by Grace Wilson MD at [facility] N/A: Sternum [employer] 73-2412 / / Procedures Procedure Name Priority Date/Time Associated Diagnosis Comments SCAN - LABS 06/06/2025 CRP, HIGH SENSITIVITY Routine 06/01/2025 10:24 AM CDT Aortic valve insufficiency, etiology of cardiac valve disease unspecified Aneurysm of ascending aorta without rupture LIPOPROTEIN A (LPA) Routine 06/01/2025 10:24 AM CDT Aortic valve insufficiency, etiology of cardiac valve disease unspecified Aneurysm of ascending aorta without rupture Encounter for screening for cardiovascular disorders APOLIPOPROTEIN B Routine 06/01/2025 10:24 AM CDT Aortic valve insufficiency, etiology of cardiac valve disease unspecified Aneurysm of ascending aorta without rupture HEMOGLOBIN A1C Routine 06/01/2025 10:24 AM CDT Aortic valve insufficiency, etiology of cardiac valve disease unspecified Aneurysm of ascending aorta without rupture Abnormal finding of blood chemistry, unspecified LIPID PANEL Routine 06/01/2025 10:24 AM CDT Aortic valve insufficiency, etiology of cardiac valve disease unspecified Aneurysm of ascending aorta without rupture IRON PROFILE W/ IBC Routine 04/26/2025 12:59 PM CDT Lymphadenopathy FERRITIN Routine 04/26/2025 12:59 PM CDT Lymphadenopathy EGFR Routine 04/26/2025 12:59 PM CDT Lymphadenopathy DIFFERENTIAL AUTO Routine 04/26/2025 12:59 PM CDT Lymphadenopathy BETA 2 MICROGLOBULIN SERUM Routine 04/26/2025 12:59 PM CDT Lymphadenopathy CBC WITH AUTO DIFFERENTIAL Routine 04/26/2025 12:59 PM CDT Lymphadenopathy COMPREHENSIVE METABOLIC PANEL Routine 04/26/2025 12:59 PM CDT Lymphadenopathy LACTATE DEHYDROGENASE Routine 04/26/2025 12:59 PM CDT Lymphadenopathy HEPATITIS C ANTIBODY Routine 01/04/2025 12:34 PM 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 Lymphadenopathy DIAGNOSTIC MAMMOGRAM BILATERAL W MARIUSZ Schedule Routine, Read Routine (OP Routine) 05/22/2021 12:58 PM CDT Mass of right axilla Lump of breast, right Encounter for observation for other suspected diseases and conditions ruled out from Last 3 Months or Most Recently Relevant to Health Maintenance Results * SCAN - LABS (06/06/2025) us Stacie Hodge RN Final Result * Apolipoprotein B, serum (06/01/2025 10:24 AM CDT) Apolipoprotein B 69 mg/dL [facility], Comment: Reference Range: <90 Risk Category: Optimal <90 Moderate 90-129 High > or = 130 A desirable treatment target may be <80 mg/dL or lower depending on the risk category of the patient including patients on lipid lowering therapies, patients with ASCVD, diabetes with >1 risk factors, Stage 3 or greater CKD with albuminuria, or heterozygous familial hypercholesterolemia. ApoB relative risk category cut points are based on AACE/JUDIT and ACC/AHA recommendations (Davis SM, et al. 2019. doi:10.1016/j.jacc.2018.11.002; Junior Y, et al. 2020. doi:10.2783/KU-6100-3970). Blood 06/01/2025 10:2 4 AM CDT 06/01/2025 10:26 AM CDT Narrative [facility] - 06/04/2025 11:31 PM CDT FASTING:YES FASTING: YES Sonny Penaloza MD LAB BLOOD ORDERABLES Final R esult Performing Organization Address [facility] Co de Phone Number [facility] [employer], [address] [place] [address] * (ABNORMAL) Lipoprotein a (LPa) (06/01/2025 10:24 AM CDT) Lipoprotein (A) 154(H) nmol/L [facility] t [facility] Comment: Reference Range <75 Risk: Optimal <75 Moderate 75-125 High >125 Cardiovascular event risk category cut points (optimal, moderate, high) are based on Cristino Sebastian JACC 2017;69:692-711. Blood 06/01/2025 10:2 4 AM CDT 06/01/2025 10:26 AM CDT Narrative [facility] - 06/04/2025 11:31 PM CDT FASTING:YES FASTING: YES us Sonny Penaloza MD LAB BLOOD ORDERABLES Final R esult [facility] [address] [place] [address] * CRP (cardiac risk) (06/01/2025 10:24 AM CDT) Pathologist [facility] hsCRP 3.0 mg/L [employer] [employer] Comment: Reference Range Optimal <1.0 Katalina PS et al. Endocr Pract.2017;23(Suppl 2):1-87. For ages >17 Years: hs-CRP mg/L Risk According to AHA/CDC Guidelines <1.0 Lower relative cardiovascular risk. 1.0-3.0 Average relative cardiovascular risk. 3.1-10.0 Higher relative cardiovascular risk. Consider retesting in 1 to 2 weeks to exclude a benign transient elevation in the baseline CRP value secondary to infection or inflammation. >10.0 Persistent elevation, upon retesting, may be associated with infection and inflammation. Kaylynn TA, Lukas GA, Luis Enrique RW, et al. Markers of inflammation and cardiovascular disease: application to clinical and public health practice: A statement for healthcare professionals from the Centers for Disease Control and Prevention and the [place] Heart Association. Circulation 2003; 107(3): 499-511. Blood 06/01/2025 10:2 4 AM CDT 06/01/2025 10:[address] [facility] - 06/04/2025 11:31 PM CDT FASTING:YES FASTING: YES Sonny Penaloza MD LAB BLOOD ORDERABLES Final R esult [facility] [address] [place] [address] * Hemoglobin A1c (06/01/2025 10:24 AM CDT) [facility] Hgb A1C 5.4 <5.7 % of total Hgb [facility] Comment: For the purpose of screening for the presence of diabetes: <5.7% Consistent with the absence of diabetes 5.7-6.4% Consistent with increased risk for diabetes (prediabetes) > or =6.5% Consistent with diabetes This assay result is consistent with a decreased risk of diabetes. Currently, no consensus exists regarding use of hemoglobin A1c for diagnosis of diabetes in children. According to [place] Diabetes Association (ADA) guidelines, hemoglobin A1c <7.0% represents optimal control in non- diabetic patients. Different metrics may apply to specific patient populations. Standards of Medical Care in Diabetes(ADA). Blood 06/01/2025 10:2 4 AM CDT 06/01/2025 10:[address] [facility] - 06/04/2025 11:31 PM CDT FASTING:YES FASTING: YES us Sonny Penaloza MD LAB BLOOD ORDERABLES Final R esult [facility] [address] [place] [address] * Lipid panel (06/01/2025 10:24 AM CDT) Pathologist [facility] Cholesterol 132 <200 mg/dL [facility] [employer] HDL 50 > OR = 50 mg/dL [employer] [facility] Triglycerides 80 <150 mg/dL [facility] [employer] LDL 66 mg/dL (calc) [employer] Comment: Reference range: <100 Desirable range <100 mg/dL for primary prevention; <70 mg/dL for patients with CHD or diabetic patients with > or = 2 CHD risk factors. LDL-C is now calculated using the Chris-Mikhail calculation, which is a validated novel method providing better accuracy than the Friedewald equation in the estimation of LDL-C. hCris SS et al. JAYDON. 2013;310(19): 6668-1024 (http://education.[employer]/faq/CWO659) Chol/HDL ratio 2.6 <5.0 (calc) [employer] Non-HDL, (LDL+VLDL) 82 <130 mg/dL (calc) [employer] Comment: For patients with diabetes plus 1 major ASCVD risk factor, treating to a non-HDL-C goal of <100 mg/dL (LDL-C of <70 mg/dL) is considered a therapeutic option. Blood 06/01/2025 10:2 4 AM CDT 06/01/2025 10:26 AM CDT Narrative [facility] - 06/04/2025 11:31 PM CDT FASTING:YES FASTING: YES Sonny Penaloza MD LAB BLOOD ORDERABLES Final R esult [facility] [address] [place] [address] * (ABNORMAL) eGFR (04/26/2025 12:59 PM CDT) Pathologist [facility] eGFR 57(L) >=60 mL/min/1. 73 m2 Comment: [...] ORDERABLES Final R esult YAQUELIN FLORES [facility] Department [place] [address] * Differential, auto (04/26/2025 12:59 PM CDT) Neutrophil abs 4.51 1.50 - 6.50 K/cumm Comment:Testing performed by : [facility], [address] [place] [phone] Lymphocyte abs 1.70 0.80 - 3.30 K/cumm [facility] Comment:Testing performed by : [facility] Heme [facility], [facility] [place] [address] Monocyte abs 0.65 0.20 - 0.80 K/cumm [facility] Comment:Testing performed by : [facility]e Lab, [address] [place] [phone] Eosinophil abs 0.14 0.00 - 0.50 K/cumm [facility] Comment:Testing performed by : [facility]e [facility], [address] [place] [phone] Basophil abs 0.05 0.00 - 0.10 K/cumm [facility] Comment:Testing performed by : [facility], [address] [place] [phone] Neutrophil pct 63.9 % [facility] Comment: Interpretive Data Percent cell count reference ranges are not reported, since discordance with absolute values may lead to misinterpretation of CBC data. Current Interpretive Data was last revised on 2018. Testing performed by: [facility], [address] [place] [phone] Lymphocyte pct 24.2 % [facility] Comment: Interpretive Data Percent cell count reference ranges are not reported, since discordance with absolute values may lead to misinterpretation of CBC data. Current Interpretive Data was last revised on 2018. Testing performed by: [facility], [address] [place] [phone] Monocyte pct 9.3 % [facility] Comment: Interpretive Data Percent cell count reference ranges are not reported, since discordance with absolute values may lead to misinterpretation of CBC data. Current Interpretive Data was last revised on 2018. Testing performed by: [facility]e [facility], [address] [place] [phone] Eosinophil pct 2.0 % [facility] Comment: Interpretive Data Percent cell count reference ranges are not reported, since discordance with absolute values may lead to misinterpretation of CBC data. Current Interpretive Data was last revised on 2018. Testing performed by: [facility], [address] [place] [phone] Basophil pct 0.7 % [facility] Comment: Interpretive Data Percent cell count reference ranges are not reported, since discordance with absolute values may lead to misinterpretation of CBC data. Current Interpretive Data was last revised on 2018. Testing performed by: [facility]e [facility], [address] [place] [phone] Blood 04/26/2025 12:5 9 PM CDT 04/26/2025 1:10 PM CDT Johnathon Theodore MD LAB BLOOD ORDERABLES Final R esult Performing Organization Address [facility]/ZIP Co de Phone Number [facility] Department [place] [address] * (ABNORMAL) Iron profile w/ IBC (04/26/2025 12:59 PM CDT) Pathologist [facility] Iron 39 35 - 145 mcg/dL TIBC 334 250 - 400 mcg/dL [facility] Transferrin saturation 12(L) 20 - 50 % [facility] Blood 04/26/2025 12:5 9 PM CDT 04/26/2025 5:08 PM CDT Arun Miller MD LAB BLOOD ORDERABLES F inal Result Performing Organization Address [facility] Co de Phone Number [facility] Department [place] [address] * (ABNORMAL) CBC with auto differential (04/26/2025 12:59 PM CDT) Pathologist [facility] WBC 7.05 3.80 - 9.90 K/cumm Comment:Testing performed by : [facility]e Lab, [address] [place] [phone] Hgb 10.2(L) 11.9 - 15.5 g/dL [facility] Comment:Testing performed by : [facility]e Lab, [address] [place], [place] [phone] Hct 31.7(L) 35.6 - 45.5 % [facility] Comment:Testing performed by : [facility]e Lab, [address] [place], [place] [phone] Plt 363 150 - 400 K/cumm C[facility]ER [facility]J Comment:Testing performed by : [facility]e Lab, [address] [place], [place] [phone] MPV 6.8 6.8 - 10.4 fL [facility] Comment:Testing performed by : [facility]e [facility], [address] [place], [place] [phone] RBC 3.81(L) 3.90 - 5.20 M/cumm C[facility]ER [facility] Comment:Testing performed by : [facility]e [facility], [address] [place], [place] [phone] MCV 83.0 81.3 - 96.4 fL [facility] Comment:Testing performed by : [facility], [address] [place], [place] [phone] MCH 26.7(L) 27.1 - 33.3 pg [facility]ER [facility]J Comment:Testing performed by : [facility]e [facility], [address] [place] [address] MCHC 32.1(L) 32.3 - 35.7 g/dL [facility] Comment:Testing performed by : [facility], [address] [place] [address] RDW CV 15.6(H) 11.1 - 14.9 % [facility] Comment:Testing performed by : [facility], [address] [place] [address] NRBC abs 0.00 0.00 - 0.01 K/cumm [facility] Comment:Testing performed by : [facility], [address] [place] [address] Blood 04/26/2025 12:5 9 PM CDT 04/26/2025 1:10 PM CDT Johnathon Theodore MD LAB BLOOD ORDERABLES Final R esult Performing Organization Address [facility] Co de Phone Number [facility] Department [place] [address] * Lactate dehydrogenase (LD) (04/26/2025 12:59 PM CDT) Pathologist [facility] Lactate dehydrogenase (LDH) 181 100 - 250 Units/L Blood 04/26/2025 12:5 9 PM CDT 04/26/2025 1:11 PM CDT Johnathon Theodore MD LAB BLOOD ORDERABLES Final R esult Performing Organization Address [facility] Co de Phone Number [facility] Department [place] [address] * Ferritin (04/26/2025 12:59 PM CDT) [facility] Ferritin 39 13 - 150 ng/mL Blood 04/26/2025 12:5 9 PM CDT 04/26/2025 5:08 PM CDT Arun Miller MD LAB BLOOD ORDERABLES F inal Result Performing Organization Address [facility] de Phone Number [facility] Department [place] [address] * (ABNORMAL) Beta 2 microglobulin, serum (04/26/2025 12:59 PM CDT) Pathologist [facility] Beta 2 microglobulin, bld 2.90(H) 1.00 - 2.50 mg/L Comment: Interpretive Data The Patsy Beta-2 microglobulin assay procedure was used. Results from different manufacturers or methods may not be comparable. Serial testing should be performed using the same method. Blood 04/26/2025 12:5 9 PM CDT 04/26/2025 1:37 PM CDT us Johnathon Theodore MD LAB BLOOD ORDERABLES Final R esult [facility] Department [place] [address] * Comprehensive metabolic panel (04/26/2025 12:59 PM CDT) Sodium 140 135 - 145 mmol/L Potassium, pl 4.7 3.3 - 4.9 mmol/L [facility] Chloride 102 97 - 110 mmol/L [facility] CO2 31 22 - 32 mmol/L [facility] Anion gap 7 2 - 15 mmol/L [facility] BUN 16 6 - 25 mg/dL [facility] Creatinine 1.02 0.60 - 1.10 mg/dL [facility] Glucose 91 70 - 199 mg/dL [facility] Comment: Interpretive Data Fasting glucose >/= [...] 2022. Calcium 9.4 8.5 - 10.3 mg/dL [facility] Bilirubin, total 0.2 0.1 - 1.2 mg/dL [facility] Protein, pl 7.2 6.5 - 8.5 g/dL [facility] Albumin 3.9 3.5 - 5.0 g/dL [facility] Alk phos 95 40 - 130 Units/L [facility] ALT 7 7 - 45 Units/L [facility] AST 17 10 - 45 Units/L [facility] Blood 04/26/2025 12:5 9 PM CDT 04/26/2025 1:11 PM CDT Johnathon Theodore MD LAB BLOOD ORDERABLES Final R esult [facility] Department [place] [address] * Hepatitis C antibody Blood (01/04/2025 12:34 PM 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) Hep C Ab Nonreactive Nonreactive Comment:Antibodies to HCV no t detected. Does NOT exclude the possibility of recent exposure to HCV. Current interpretive data was last revised on 22 Blood 01/04/2025 12:3 4 PM 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 01/04/2025 1:13 PM 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 Hannah Stewart NP LAB MICROBIOLO GY - GENERAL ORDERABLES Final Result YAQUELIN FLORES [facility] Department [place] [address] * Diagnostic Mammogram Bilateral W Mariusz (05/22/2021 [...] signed by: Kaia Palma M.D. Marian Victor WIRE BRUSH MAKER IMG MAMMO PROCEDURES Final R esult from Last 3 Months or Most Recently Relevant to Health Maintenance Insurance MEDICARE [facility] MEDICARE [facility] MEDICARE [facility] MEDICARE [facility] Advance Directives For more information, please contact: [phone] * Full Code (Latest Code Status on File) Date Activated Date Inactivated Comments 03/24/2025 9:59 PM 03/31/2025 7:37 PM * Full Code Date Activated Date Inactivated Comments 02/28/2025 12:11 PM 03/08/2025 6:51 PM * Full Code Date Activated Date Inactivated Comments 11/01/2024 9:10 AM 11/02/2024 4:50 AM * Full Code Date Activated Date Inactivated Comments 05/26/2022 3:55 PM 05/28/2022 2:37 PM Care Teams Laborer Hide House Relationship Specialty Start Date End Date Arun Miller MD PCP - General 04/20/17 Johnathon Theodore MD [address] [place] [address] Medical Oncologist/Box Puller Medical Oncology 01/03/25 Lashonda Sousa MD [address] [place] [address] Surgeon Cardiothoracic Surgery 03/08/25 Miscellaneous, Not In File 03/08/25 Sonny Penaloza MD [address] [facility] [address] [place] [address] Consulting Physician Cardiology 03/31/25
--- OUTSIDE RECORDS SUMMARY | 2025-07-20 00:35 | XMS_ITS ---
Author Organization [facility] Address [address] [place] [address] Care Team Providers Care Pathology Supervisor Name Role Phone rAun Miller MD Primary Care Provider Johnathon Theodore MD Unavailable [phone] Lashonda Sousa MD Unavailable [phone] Miscellaneous, Not In File Unavailable Unava ilable Sonny Penaloza MD Unavailable [phone] Active Problems Problem Noted Date Diagnosed Date [...] atrial EKG this AM Qtc 428 and [place] 216 today Continue metoprolol and titrate as [...] (05/14/2022): Added automatically from request for surgery [id number] Hypertrophy of breast 05/14/2022 Overview (05/14/2022): Added automatically from request for surgery [id number] Aftercare following surgery for neoplasm 022 Overview (05/14/2022): Added automatically from request for surgery [id number] Bilateral breast cysts 05/14/2022 Overview (05/14/2022): Added automatically from request for surgery [id number] COVID-19 05/06/2022 Hyperlipidemia 02/12/2022 Assessment & Plan [...] D/c'd oxycodone and put back on home [place] to see if that improved pain control, [...]
--- OUTSIDE RECORDS SUMMARY | 2025-07-20 00:35 | XMS_ITS | Encounter Summary ---
Author Organization [facility] Healthcare Address [address] [place] [address] Care Team Providers Care Ship Yard Electrical Person Name Role Phone Arun [place] MD Primary Care Provider Johnathon Theodore MD Unavailable [phone] Lashonda Sousa MD Unavailable Miscellaneous, Not In File Unavailable Unava ilable Sonny Penaloza MD Unavailable [phone] Encounter Details Date Type Department Care Team (Late st Contact Info) Description 06/14/2025 Results Follow-Up Cardiology Sonny Penaloza MD [address] [address] Lipid panel, Hemoglobin A1c, Apolipoprotein B, serum, Additional followed-up results: 2 Social History Tobacco Use Types Packs/Day Years Used Date Smoking Tobacco: Never Passive Smoke Exposure: Past Smokeless Tobacco: Never Alcohol Use Standard Drinks/Week Comments No 0 (1 standard drink = 0.6 oz pur e alcohol) [facility] Utilities Answer Date Recorded In the past 12 months has [employer] electric, gas, oil, or water company threatened [...] week 03/28/2025 How often do you attend [facility] or alevism services? Never 03/28/2025 Do you belong to any clubs o r organizations such as islam groups, unions, fraternal or athletic groups, or [...] any time in the past 12 [facility], were you homeless or living in a long-term (including now)? No 03/28/2025 Personal Safety Answer Date Recorded Have you ever been in or are you currently in a harmful physical or emotional relationship or is someone making you feel afraid or unsafe? 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 May repeat one more time to confirm in the future. documented in this encounter Plan of Treatment Not on file documented as of this encounter Visit Diagnoses Not on filedocumented in this encounter Care Teams Ship Yard Electrical Person Relationship Specialty Start Date End Date Arun Miller MD PCP - General 04/20/17 Johnathon Theodore MD [address] [place], [place] [id number] Medical Oncologist/Artificial Flowers Dyer Medical Oncology 01/03/25 Lashonda Sousa MD [address] [place], [place] [id number] Surgeon Cardiothoracic Surgery 03/08/25 Miscellaneous, Not In File 03/08/25 [place] [address] [place] [address] Consulting Physician Cardiology 03/31/25 documented as of this encounter
--- OUTSIDE RECORDS SUMMARY | 2025-07-20 00:35 | XMS_ITS | Clinical Summary ---
Author Organization [facility] Address [address] [place] [address] Care Team Providers Care Account Executive Sales Representative Name Role Phone Arun Miller MD Primary Care Provider [phone] Source Comments [facility],non-owned Affiliates and Associated Physician Practices is amultiple site organization consisting of ambulatory clinics and hospital sitesin [place], [place], [place] and [place]. This disclosure is being madepursuant to the Care Everywhere program and may not contain all information available regarding this patient. Last updated 18.[facility] Allergies No known active allergies Immunizations Immunization Administration Dates Next Due INFLUENZA VACCINE, HIGH-DOSE , QUADR. 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 Gender Identity Not on file Sexual Orientation [...] yrs (1 - 1-dose 75+ series) 2022 DEPRESSION SCREENING 11/02/2024 COVID-19 VACCINE ( - 2023-2 5 season) 2025 INFLUENZA VACCINE (#1) 2025 07/29/2017 HEPATITIS B [...] to complete this topic Insurance MEDICARE MEDICARE [facility] SELF PAY NO INSURANCE Member Subscriber Plan / Payer (Ef fective for All Dates) Name:Elderisabella Rosalba Member ID:Not on file Relation to Subscriber:Not on file Name:ROSALBA LUA Subscriber ID:Not on file (Home) Address: [address] [place] [address] Payer ID:Not on file Group ID:Not on file Type:Self Pay Address: [place], [place] MEDICARE AAR MEDICARE [employer] Care Teams Account Executive Sales Representative Relationship Specialty Start Date End Date Arun Miller MD [address] [place] [address] [address] [place] [address] PCP - General Internal Medicine 07/29/17
--- OUTSIDE RECORDS SUMMARY | 2025-07-20 00:35 | XMS_ITS | Encounter Summary ---
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 JANET Fajardo [facility] 02/28/2025 02/28/2025 03/01/2025 8:06 PM C DT documented as of this encounter Care Teams Applications Administrator Relationship Specialty Start Date End Date Arun Miller MD PCP - General 04/20/17 Johnathon Theodore MD [address] [place] [address] Medical Oncologist/Professor Of Genetics Medical Oncology 01/03/25 Lashonda Sousa MD [address] [place], [place] [id number] Surgeon Cardiothoracic Surgery 03/08/25 Miscellaneous, Not In File 03/08/25 [place] [address] [place] [address] Consulting Physician Cardiology 03/31/25 documented as of this encounter
[2025-07-20 11:11] VITALS: BP 104/78; PULSE 95; RESP 16; TEMP 36.4; O2SAT 95; BMI 26.6
[2025-07-20] MEDS: LACTATED RINGERS 1,000 ML 150 ML IV CONT (11:21)
[2025-07-20] MEDS: SIMETHICONE ORAL SUSPENSION 20 MG/0.3 ML 30 ML BOTTLE 1.8 ML PO (11:22)
--- NOTE | 2025-07-20 11:43 | WPDANESEPPF ---
Anes - Initial Pre Proc Eval Procedure: Operation Date: 07/20/25 12:30 Proposed Procedures p Esophagogastroduodenoscopy EGD - Jaime Cosby MD Date/Time: 07/20/25 11:43 Surgeon: Jaime Cosby MD Pre Op Diagnosis: GERD, Gastric ulcer Patient Data Age: 79 Gender: F Height: 1.5 m Weight: 60 kg Last Vital Signs Temp 36.4 C 07/20/25 11:11 Pulse 95 07/20/25 11:11 Resp 16 07/20/25 11:11 BP 104/78 07/20/25 11:11 Pulse Ox 95 07/20/25 11:11 O2 Del Method Room Air 07/20/25 11:11 Allergies Allergy/AdvReac Type Severity Reaction Status Date / Time No Known Allergies Allergy Verified 07/20/25 11:10 Home Medications ?Medication ?Instructions ?Recorded ?Confirmed ?Type hydrocodone 5 mg-acetaminophen 325 1 tab PO Q4H PRN Pain Rated 4-6 #0 02/16/24 07/20/25 Rx mg tablet tabs esomeprazole magnesium 40 mg 40 mg PO BID #60 caps 06/01/25 07/20/25 Rx capsule,delayed release (Nexium) metoprolol tartrate 25 mg tablet 25 mg PO DAILY 06/01/25 07/20/25 History sucralfate 1 gram tablet (Carafate) 1 g PO ACHS #120 tabs 06/01/25 07/20/25 Rx aspirin 81 mg tablet,delayed 81 mg PO DAILY 07/05/25 07/20/25 History release (Adult Low Dose Aspirin) calcium carbonate (Calcium 600) 1,200 mg PO DAILY 07/05/25 07/20/25 History multivitamin with minerals-folic 2 tablet PO DAILY 07/05/25 07/05/25 History acid 200 mcg chewable tablet (Multivitamin Gummies) Patient hx anesthesia problems: none Family hx anesthesia problems: none Results Review: All pre-operative results and documents have been reviewed as part of the pre-operative evaluation. [facility] Past Medical History Medical History (Updated 07/20/25 @ 11:48 by Tima Jimenez MD) Thoracic aortic aneurysm (TAA) replaced with Aortic valve 02/24 Hx of breast cancer BRCA1 positive Osteoarthritis Surgical History Surgical History (Updated 07/20/25 @ 11:48 by Tima Jimenez MD) H/O aortic valve replacement History of hip surgery History of cholecystectomy History of partial hysterectomy H/O bilateral mastectomy Family History Family History Other Diabetes mellitus Family history of cardiovascular disease Family history of malignant neoplasm Social History Social History Smoking status: Never smoker Alcohol intake: never Substance use: never Substance use type: does not use Do You Feel Safe in your Home?: Yes Lack of Transportation: No Lack of Food: Never True Current Housing: I Have Housing Concerned About Future Housing: No Difficulty Paying Gas/Electric Bills: No Difficulty Paying for Meds: No Currently Unemployed: No Education: High School Diploma/GED Difficulty w/ Childcare or Family Care: No Living arrangements: with family Occupation/Education: retired Spiritual care concerns: No Anes - Eval Final PreProcedure Day of Procedure 07/20/25 11:43 Patient weight: overweight Heart: regular rate and rhythm Lungs: clear to auscultation Airway: Mallampati scale class II Neurological: alert and oriented Last oral intake: >/= 8 hours ASA classification: III Emergent: no Anesthetic plan: proceed Anesthesia type and monitoring: general GIVS and standard monitoring Results Review: All pre-operative results and documents have been reviewed as part of the pre-operative evaluation. Informed Consent: The patient's anesthetic plan and its attendant risks and benefits were discussed with the patient/family/POA. Questions were solicited and answers provided to the satisfaction of the patient/family/POA.
--- NOTE | 2025-07-20 12:12 | PM.IMHP ---
H&P: HPI History of Present Illness Date/Time: 07/20/25 12:12 Chief Complaint: History of peptic ulcer Narrative: the patient is referred for EGD. She had an ulcer in the pre-pyloric region diagnosed in 09/2024. She does complain of occasional nausea. Review of Systems Review of Systems: All systems reviewed & are unremarkable except as noted in HPI and below PMFSH Past Medical History Medical History (Updated 07/20/25 @ 11:48 by Tima Jimenez MD) Thoracic aortic aneurysm (TAA) replaced with Aortic valve 02/24 Hx of breast cancer BRCA1 positive Osteoarthritis Surgical History Surgical History (Updated 07/20/25 @ 11:48 by Tima Jimenez MD) H/O aortic valve replacement History of hip surgery History of cholecystectomy History of partial hysterectomy H/O bilateral mastectomy Family History Family History Other Diabetes mellitus Family history of cardiovascular disease Family history of malignant neoplasm Social History Social History Smoking status: Never smoker Alcohol intake: never Substance use: never Substance use type: does not use Do You Feel Safe in your Home?: Yes Lack of Transportation: No Lack of Food: Never True Current Housing: I Have Housing Concerned About Future Housing: No Difficulty Paying Gas/Electric Bills: No Difficulty Paying for Meds: No Currently Unemployed: No Education: High School Diploma/GED Difficulty w/ Childcare or Family Care: No Living arrangements: with family Occupation/Education: retired Spiritual care concerns: No Meds Home Medications and Allergies Home Medications ?Medication ?Instructions ?Recorded ?Confirmed ?Type hydrocodone 5 mg-acetaminophen 325 1 tab PO Q4H PRN Pain Rated 4-6 #0 02/16/24 07/20/25 Rx mg tablet tabs esomeprazole magnesium 40 mg 40 mg PO BID #60 caps 06/01/25 07/20/25 Rx capsule,delayed release (Nexium) metoprolol tartrate 25 mg tablet 25 mg PO DAILY 06/01/25 07/20/25 History sucralfate 1 gram tablet (Carafate) 1 g PO ACHS #120 tabs 06/01/25 07/20/25 Rx aspirin 81 mg tablet,delayed 81 mg PO DAILY 07/05/25 07/20/25 History release (Adult Low Dose Aspirin) calcium carbonate (Calcium 600) 1,200 mg PO DAILY 07/05/25 07/20/25 History multivitamin with minerals-folic 2 tablet PO DAILY 07/05/25 07/05/25 History acid 200 mcg chewable tablet (Multivitamin Gummies) Allergies Allergy/AdvReac Type Severity Reaction Status Date / Time No Known Allergies Allergy Verified 07/20/25 11:10 Vital Signs Vital Signs - 24 hr 07/20/25 11:11 Temperature 97.6 F Pulse Rate 95 Respiratory Rate 16 Blood Pressure 104/78 Pulse Oximetry 95 Oxygen Delivery Room Air Exam Const: General: cooperative and healthy appearing Resp: Effort & Inspection: normal respiratory effort and able to speak in complete sentences Auscultation: clear to auscultation bilaterally Cardio: Rate: regular rate Rhythm: regular rhythm GI: Inspection: normal to inspection GI Palp: No No hepatosplenomegaly present Auscultation: normal bowel sounds Rectal Exam: deferred Skin: General skin exam: normal color Psych: Appearance: grossly normal Mental Status: mental status grossly normal Assessment and Plan Assessment and plan (1) PUD (peptic ulcer disease): Code(s): K27.9 - Peptic ulcer, site unspecified, unspecified as acute or chronic, without hemorrhage or perforation Status: Acute Assessment and Plan: The patient is deemed a good candidate for the procedure. Consent signed. Will proceed.
[2025-07-20 12:24] VITALS: BP 112/67; PULSE 86; RESP 20; O2SAT 100
[2025-07-20 12:34] VITALS: BP 107/67; PULSE 82; RESP 17; O2SAT 100
[2025-07-20 12:44] VITALS: BP 116/72; PULSE 78; RESP 19; O2SAT 98
== END 2025-07-20 12:51 | disposition home or self-care (01) ==
PROVIDERS: PCP Internal Medicine; Referring Provider Nurse Practitioner; Visit Provider Internal Medicine Gastroenterology
PROC: 0DJ08ZZ Inspection of Upper Intestinal Tract, Via Natural or Artificial Opening Endoscopic (ICD-10-PCS; CPT 43235; principal; 2025-07-20 12:30)
DX: K21.9 Gastro-esophageal reflux disease without esophagitis (principal); K29.30 Chronic superficial gastritis without bleeding; M19.90 Unspecified osteoarthritis, unspecified site; Z15.01 Genetic susceptibility to malignant neoplasm of breast; Z79.891 Long term (current) use of opiate analgesic; Z79.82 Long term (current) use of aspirin; Z98.890 Other specified postprocedural states; Z95.2 Presence of prosthetic heart valve; Z90.49 Acquired absence of other specified parts of digestive tract; Z90.13 Acquired absence of bilateral breasts and nipples; Z87.11 Personal history of peptic ulcer disease; Z85.3 Personal history of malignant neoplasm of breast; Z86.79 Personal history of other diseases of the circulatory system; Z80.9 Family history of malignant neoplasm, unspecified; Z82.49 Family history of ischemic heart disease and other diseases of the circulatory system
CPT/HCPCS: 43235; J2003; J2704; J7120

== ENCOUNTER 2025-08-21 14:36 | Outpatient (CLI) | payer MEDICARE, SELFPAY ==
--- NOTE | ~2025-08-21 | XR_ITS ---
EXAMINATION: XR chest 2V, 08/21/2025 14:50 CDT HISTORY: ACUTE COUGH COMPARISON: No comparisons available. Technique: 2 views obtained. Findings: The lungs are clear, no effusion. No pneumothorax. Mild cardiomegaly. Mediastinal and hilar contours are within normal limits.Calcified mediastinal lymph nodes, no lymphadenopathy. Post sternotomy. Impression: No acute cardiopulmonary abnormality. Reviewed, dictated and finalized at location P. Impression: No acute cardiopulmonary abnormality.
[2025-08-21 15:58] LABS: Hematocrit 32.0 % (37.0-47.0); Hemoglobin 9.6 g/dL (12.0-15.0); Immature Granulocyte Percent A 0.8 % (0-0.5); Lymphocytes Absolute Auto 1.47 K/mm3 (0.9-3.2); Mean Corpuscular HGB Conc 30.0 g/dl (32-36); Mean Corpuscular Hemoglobin 24.1 pg (26-34); Mean Corpuscular Volume 80.4 fl (80-100); Nucleated Red Blood Cells Absolute Auto 0.000 K/mm3 (0.0-0.012); Nucleated Red Blood Cells Perc 0.0 % (0.0-0.2); Platelet Count Result 266 k/mm3 (150-375); Red Blood Count 3.98 M/mm3 (4.2-5.4); White Blood Count 7.2 K/mm3 (4.5-10.0)
== END 2025-08-21 14:37 | disposition home or self-care (01) ==
PROVIDERS: PCP Internal Medicine; Visit Provider Internal Medicine
DX: R05.1 Acute cough (principal); J20.9 Acute bronchitis, unspecified
CPT/HCPCS: 36415; 71046; 85025

== ENCOUNTER 2025-08-25 07:55 | Emergency (ER) | payer MEDICARE, SELFPAY ==
[2025-08-25] VITALS (8 sets, daily range): BP systolic 130–143; BP diastolic 79–88; PULSE 86–110; RESP 15–21; TEMP 36.8; O2SAT 96–100
--- NOTE | ~2025-08-25 | CT_ITS ---
EXAMINATION: CTA chest PE protocol DATE: 08/25/2025 9:25 CDT INDICATION: Shortness of breath TECHNIQUE: Computed tomographic angiography (CTA) of the chest was performed with 100 mL Omnipaque-350 intravenous contrast. The dose-length product was 286.40 mGy-cm. Maximum intensity projection 3D-reconstructions of the aorta and other arteries were constructed by the technologist on a separate workstation. COMPARISON: None. FINDINGS: There is ectasia of the ascending thoracic aorta with atherosclerosis there is atherosclerosis of the coronary arteries. Heart size upper normal. Study is technically adequate without evidence for pulmonary embolism. There are calcified granulomas of the liver and spleen as well as the lung parenchyma and mediastinum. Thyroid gland appears to be atrophic. No evidence for aortic dissection. No thoracic lymphadenopathy. There is dependent atelectasis. There is scoliosis. There is splenomegaly. There is cirrhosis of the liver. There is fatty replacement of the pancreas. Adrenal glands and kidneys are unremarkable. There are changes of median sternotomy. No focal airspace consolidation. IMPRESSION: 1. No evidence for pulmonary embolism. 2: No acute cardiopulmonary disease. 3: Cirrhosis with splenomegaly. Reviewed, dictated and finalized at location O.
--- NOTE | 2025-08-25 07:57 | ECG_ITS ---
Test Date: 2025-08-25 08:07:43 Measurements Intervals [place] Rate: 88 P: 21 [place]: 183 QRS: -13 QRSD: 78 T: -30 QT: 222 QTc: 269 Interpretive Statements SINUS RHYTHM LOW QRS VOLTAGE IN PRECORDIAL LEADS VOLTAGE CRITERIA FOR LVH POSSIBLE ANTERIOR MYOCARDIAL INFARCTION , PROBABLY OLD BORDERLINE ST-T WAVE ABNORMALITY- ANTEROLAT/INF LEADS BASELINE ARTIFACT- I, II, III, AVR, AVL, AVF, V1, V3-V6 ABNORMAL ECG No previous ECG available for comparison Electronically Signed On 08-25-2025 08:11:45 CDT by Paras Andrade D.O.
[2025-08-25 08:22] LABS: Hematocrit 35.6 % (37.0-47.0); Hemoglobin 10.8 g/dL (12.0-15.0); Immature Granulocyte Percent A 0.9 % (0-0.5); Lymphocytes Absolute Auto 3.39 K/mm3 (0.9-3.2); Mean Corpuscular HGB Conc 30.3 g/dl (32-36); Mean Corpuscular Hemoglobin 24.5 pg (26-34); Mean Corpuscular Volume 80.9 fl (80-100); Nucleated Red Blood Cells Absolute Auto 0.000 K/mm3 (0.0-0.012); Nucleated Red Blood Cells Perc 0.0 % (0.0-0.2); Platelet Count Result 336 k/mm3 (150-375); Red Blood Count 4.40 M/mm3 (4.2-5.4); White Blood Count 10.0 K/mm3 (4.5-10.0)
[2025-08-25 08:33] LABS: Alanine Aminotransferase 16 U/L (6-35); Albumin Level 3.9 g/dL (3.5-5.1); Alkaline Phosphatase 97 U/L (38-126); Anion Gap 10 mmol/L (4-12); Aspartate Amino Transferase 26 U/L (14-36); Bilirubin,Total 0.3 mg/dL (0.2-1.3); Blood Urea Nitrogen 17 mg/dL (7-17); Calcium 9.6 mg/dL (8.4-10.2); Carbon Dioxide 28 mmol/L (22-30); Chloride 95 mmol/L (98-107); Estimated Glomerular Filt Rate 56; Glucose 121 mg/dL (65-110); Potassium 4.2 mmol/L (3.4-5.0); Sodium 133 mmol/L (137-145); Total Protein 7.3 g/dL (6.3-8.2)
[2025-08-25] MEDS: MORPHINE SULFATE (*CRX) 4 MG/ML INJ 2 MG IV PUSH (08:49)
--- OUTSIDE RECORDS SUMMARY | 2025-08-25 09:06 | XMS_ITS ---
Author Organization [facility] Address [address] [place] [address] Care Team Providers Care Employment Specialist Name Role Phone Arun Miller MD Primary Care Provider Johnathon Theodore MD Unavailable [phone] Lashonda Sousa MD Unavailable [phone] Miscellaneous, Not In File Unavailable Unava ilable Sonny Penaloza MD Unavailable [phone] Active Problems Problem Noted Date Diagnosed Date [...] atrial EKG this AM Qtc 428 and [place] 216 today Continue metoprolol and titrate as [...] (05/14/2022): Added automatically from request for surgery [id number] Hypertrophy of breast 05/14/2022 Overview (05/14/2022): Added automatically from request for surgery [id number] Aftercare following surgery for neoplasm 022 Overview (05/14/2022): Added automatically from request for surgery [id number] Bilateral breast cysts 05/14/2022 Overview (05/14/2022): Added automatically from request for surgery [id number] COVID-19 05/06/2022 Hyperlipidemia 02/12/2022 Assessment & Plan [...] D/c'd oxycodone and put back on home [place] to see if that improved pain control, [...]
--- OUTSIDE RECORDS SUMMARY | 2025-08-25 09:06 | XMS_ITS | Clinical Summary ---
Author Organization [facility] Address [address] [place] [address] Care Team Providers Care Clinical Biochemist Name Role Phone Arun Miller MD Primary Care Provider [phone] Source Comments [facility],non-owned Affiliates and Associated Physician Practices is amultiple site organization consisting of ambulatory clinics and hospital sitesin [place], [place], [place] and [place]. This disclosure is being madepursuant to the Care Everywhere program and may not contain all information available regarding this patient. Last updated 18.[facility] Allergies No known active allergies Immunizations Immunization Administration Dates Next Due INFLUENZA VACCINE, HIGH-DOSE , QUADR. 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 Gender Identity Not on file Sexual Orientation [...] to complete this topic Insurance MEDICARE MEDICARE [facility] SELF PAY NO INSURANCE Member Subscriber Plan / Payer (Ef fective for All Dates) Name:Elderisabella Rosalba Member ID:Not on file Relation to Subscriber:Not on file Name:ROSALBA LUA Subscriber ID:Not on file (Home) Address: [address] [place] [address] Payer ID:Not on file Group ID:Not on file Type:Self Pay Address: [place], [place] MEDICARE AAR MEDICARE [employer] Care Teams Clinical Biochemist Relationship Specialty Start Date End Date Arun Miller MD [address] [place] [address] [address] [place] [address] PCP - General Internal Medicine 07/29/17
--- OUTSIDE RECORDS SUMMARY | 2025-08-25 09:06 | XMS_ITS | Clinical Summary ---
Author Organization [facility] Address [address] [place] [address] Care Team Providers Care Airflight Attendants Supervisor Name Role Phone Arun Miller MD Primary Care Provider Johnathon Theodore MD Unavailable [phone] Lashonda Sousa MD Unavailable [phone] Miscellaneous, Not In File Unavailable Unava ilable Sonny Penaloza MD Unavailable Allergies No known active allergies Medications calcium [...] atrial EKG this AM Qtc 428 and NM 216 today Continue metoprolol and titrate as [...] (05/14/2022): Added automatically from request for surgery [id number] Hypertrophy of breast 05/14/2022 Overview (05/14/2022): Added automatically from request for surgery [id number] Aftercare following surgery for neoplasm 022 Overview (05/14/2022): Added automatically from request for surgery [id number] Bilateral breast cysts 05/14/2022 Overview (05/14/2022): Added automatically from request for surgery [id number] COVID-19 05/06/2022 Hyperlipidemia 02/12/2022 Assessment & Plan [...] D/c'd oxycodone and put back on home [place] to see if that improved pain control, [...] Type Department Care Team Description 07/11/2025 Telephone [facility] Cardiology [address] [place] [address] 8th [place] [address] [place] [address] Sonny Penaloza MD 06/14/2025 Results Follow-Up Cardiology Sonny Penaloza MD Lipid panel, Hemoglobin A1c, Apolipoprotein B, serum, Additional followed-up results: 2 06/06/2025 Orders Only [facility] Stacie Hodge RN 06/02/2025 3:45 PM CDT Office Visit [facility] Cardiology [address] [place] [address] 8th [place] [address] [place] [address] Sonny Penaloza MD Aortic valve insufficiency, etiology of cardiac valve disease unspecified (Primary Dx); Aortic aneurysm without rupture, unspecified portion of aorta; Nonrheumatic aortic valve insufficiency 05/29/2025 Telephone [facility] Cardiology [address] [place] [address] 8th [place] [address] [place] [address] Sonny Penaloza MD from Last 3 Months Immunizations Immunization Administration Dates Next Due Influenza, Quad, Adjuvantate d, Intramuscular 08/01/2023,08/14/2021,07/30/2020 Influenza, Quadrivalent, Spl it, Intramuscular 08/31/2021 Influenza, Trivalent, High D ose, Split, Preservative Free, Intramuscular 07/28/2019,07/26/2018,07/29/2017,08/19,08/24/2015 Influenza, Trivalent, IM (MDV) 08/17/2014,2012 Influenza, Unspecified 08/14/2023,08/26/2022, Pneumococcal Conjugate PCV 13 10/20/2014 Sars-CoV-2, Unspecified 02/28/2021,01/31/2021 Surgical History Surgery Date Site/Laterality Comments NM OOPHORECTOMY PARTIAL/TOTAL UNI/BI 11/02/2011 - 11/01/2012 Bilateral [...] drink = 0.6 oz pur e alcohol) [facility] Utilities Answer Date Recorded In the past 12 months has [employer], gas, oil, or water [employer]Hit threatened to shut off services in your [...] often do you attend chur ch or yarsanism services? Never 03/28/2025 Do you belong to any clubs o r organizations such as restorationist groups, unions, fraternal or athletic groups, or [...] any time in the past 12 m [facility], were you homeless or living in a chcf (including now)? No 03/28/2025 Personal Safety Answer Date Recorded Have you ever been in or are you currently in a harmful physical or emotional relationship or is someone making you feel afraid or unsafe? Denies 03/24/2025 Comments No Sex and Gender Information Value Date Recorded Sex Assigned at Not on file Legal Sex Female 12:47 AM PIANO TECHNICIAN Gender Identity Not on file Sexual [...] PCV20 or PCV21) 10/20/2015 10/20/2014 Covid-19 Vaccine (2024-2 6 season) 2025 03/05/2021, 02/28/2021, 02/11/2021, Additional history exists Influenza Vaccine (#1) 2025 3, 08/01/2023, 08/26/2022, Additional history exists Depression Screening 03/24/2026 03/24/2025 Fall Risk Assessment 03/30/2026 03/30/2025 Breast Cancer Screening-Mammogram Discontinued 021 Hepatitis B Screening Completed 01/04/2025 Hepatitis C Screening Completed 01/04/2025 Medical Devices Implanted Type Area Steel Worker Device Identifier Shelf Expiration Date Model / Serial / Lot Terumo Cardio Vascular Gelweave 28mm 30cm Suture Retention Unique Hydrolyzable Abdomen [id number] - [id number] - [id number] Implanted:Qty: 1 on 02/28/2025 by Lashonda Sousa MD at [facility] Graft N/A: Chest Terum[employer] Cardio Vascular [id number] 12/31/2027 [id number] / [id number] / [id number] [employer] Inspiris Resilia Leaflet Aortic Valve 25mm [id number] - [id number] - [id number] Implanted:Qty: 1 on 02/28/2025 by Lashonda Sousa MD at [facility] Prosthetic Valve N/A: Heart [employer] [id number] 10/31/2029 [id number] / [id number] / Pin Right: Hip [employer] Marker Tissue Rigid Needle Open Coil Radiopaque Clip Hydromark 18ga Titanium Hydrogel 4009-12-20-T3 - [id number] Implanted:Qty: 1 on 12/08/2024 by Roseanna Ray MD at [facility] Left: Axilla [employer] [id number] 4010-02- 18-T3 / / [id number] [employer] Sternalock 360 Sternal Closure 74-0004 - [id number] Implanted:Qty: 1 on 02/28/2025 by Grace Wilson MD at [facility] N/A: Sternum [employer] [id number] 01/18/2030 74-0004 / / [id number] [employer] Sternalock Lauri 2.4mm 10mm Self Drill Lock Sternum Cancellous 73-2410 - [id number] Implanted:Qty: 2 on 02/28/2025 by Grace Wilson MD at [facility] N/A: Sternum [employer] [id number] / / [employer] Sternalock Lauri 2.4mm 12mm Self Drill Lock Sternum Cancellous 73-2412 - [id number] Implanted:Qty: 14 on 02/28/2025 by Grace Wilson MD at [facility] N/A: Sternum [employer] [id number] / [...] unspecified Aneurysm of ascending aorta without rupture HEPATITIS C ANTIBODY Routine 01/04/2025 12:34 PM PIANO TECHNICIAN Lymphadenopathy DIAGNOSTIC MAMMOGRAM BILATERAL W MARIUSZ Schedule Routine, Read Routine (OP Routine) 05/22/2021 12:58 PM CDT Mass of right axilla Lump of breast, right Encounter for observation for other suspected diseases and conditions ruled out from Last 3 Months or Most Recently Relevant to Health Maintenance Results * SCAN - LABS (06/06/2025) Stacie Hodge RN Final Result * Apolipoprotein B, serum (06/01/2025 10:24 AM CDT) Apolipoprotein B 69 mg/dL [facility], Comment: Reference Range: <90 Risk Category: Optimal [...] are based on AACE/JUDIT and ACC/AHA recommendations (Oseas SM, et al. 2019. doi:10.1016/j.jacc.2018.11.002; Junior Y, et al. 2020. doi:10.0455/GB-0470-6093). Blood 06/01/2025 10:2 4 AM CDT 06/01/2025 10:26 AM CDT Narrative [facility] - 06/04/2025 11:31 PM CDT FASTING:YES FASTING: YES Sonny Penaloza MD LAB BLOOD ORDERABLES Final R esult [facility], [address] [place] [address] * (ABNORMAL) Lipoprotein a (LPa) (06/01/2025 10:24 AM CDT) Lipoprotein (A) 154(H) nmol/L [facility] Comment: Reference Range <75 Risk: Optimal <75 Moderate 75-125 High >125 Cardiovascular event risk category cut points (optimal, moderate, high) are based on Cristino Sebastian JACC 2017;69:692-711. Blood 06/01/2025 10:2 4 AM CDT 06/01/2025 10:26 AM CDT Narrative [facility] - 06/04/2025 11:31 PM CDT FASTING:YES FASTING: YES Sonny Penaloza MD LAB BLOOD ORDERABLES Final R esult [facility] [address] [place] [address] * CRP (cardiac risk) (06/01/2025 10:24 AM CDT) hsCRP 3.0 mg/L [facility] Comment: Reference Range Optimal <1.0 Jellinger PS et al. Endocr Pract.2017;23(Suppl 2):1-87. For [...] for Disease Control and Prevention and the [place] [employer] Association. Circulation 2003; 107(3): 499-511. Blood 06/01/2025 10:2 4 AM CDT 06/01/2025 10:26 AM CDT Narrative [facility] - 06/04/2025 11:31 PM CDT FASTING:YES FASTING: YES Sonny Penaloza MD LAB BLOOD ORDERABLES Final R esult [facility] [address] [place] [address] * Hemoglobin A1c (06/01/2025 10:24 AM CDT) Pathologist [facility] [place] Hgb A1C 5.4 <5.7 % of total Hgb [facility] Comment: For the purpose of screening for the presence of diabetes: <5.7% Consistent with the absence of diabetes 5.7-6.4% Consistent with increased risk for diabetes (prediabetes) > or =6.5% Consistent with diabetes This assay result is consistent with a decreased risk of diabetes. Currently, no consensus exists regarding use of hemoglobin A1c for diagnosis of diabetes in children. According to [place] Diabetes Association (ADA) guidelines, hemoglobin A1c <7.0% represents optimal control in non- diabetic patients. Different metrics may apply to specific patient populations. Standards of Medical Care in Diabetes(ADA). Blood 06/01/2025 10:2 4 AM CDT 06/01/2025 10:26 AM CDT Narrative [facility] - 06/04/2025 11:31 PM CDT FASTING:YES FASTING: YES us Sonny Penaloza MD LAB BLOOD ORDERABLES Final R esult [facility] [address] [place] [address] * Lipid panel (06/01/2025 10:24 AM CDT) Pathologist [facility] [place] Cholesterol 132 <200 mg/dL [facility] HDL 50 > OR = 50 mg/dL [facility] Triglycerides 80 <150 mg/dL [facility] LDL 66 mg/dL (calc) [facility] Comment: Reference range: <100 Desirable range <100 mg/dL for primary prevention; <70 mg/dL for patients with CHD or diabetic patients with > or = 2 CHD risk factors. LDL-C is now calculated using the Chris-Mikhail calculation, which is a validated novel method providing better accuracy than the Friedewald equation in the estimation of LDL-C. Chris SS et al. JAYDON. 2013;310(19): 5158-7726 (http://education.THYME/faq/HZG008) Chol/HDL ratio 2.6 <5.0 (calc) [facility] Non-HDL, (LDL+VLDL) 82 <130 mg/dL (calc) [facility] Comment: For patients with diabetes plus 1 major ASCVD risk factor, treating to a non-HDL-C goal of <100 mg/dL (LDL-C of <70 mg/dL) is considered a therapeutic option. Blood 06/01/2025 10:2 4 AM CDT 06/01/2025 10:26 AM CDT Narrative [facility] - 06/04/2025 11:31 PM CDT FASTING:YES FASTING: YES Sonny Penaloza MD LAB BLOOD ORDERABLES Final R esult [facility] [address] [place] [address] * Hepatitis C antibody Blood (01/04/2025 12:34 PM PIANO TECHNICIAN) Hep C Ab Nonreactive Nonreactive Comment:Antibodies to HCV no t detected. Does NOT exclude the possibility of recent exposure to HCV. Current interpretive data was last revised on 22 Blood 01/04/2025 12:3 4 PM PIANO TECHNICIAN 01/04/2025 1:13 PM PIANO TECHNICIAN Hannah Stewart NP LAB MICROBIOLO GY - GENERAL ORDERABLES Final Result Performing Organization Address City/[facility] Co de Phone Number YAQUELIN FLORES [facility] Department [place] [address] * Diagnostic Mammogram Bilateral W Mariusz (05/22/2021 [...] Recently Relevant to Health Maintenance Insurance MEDICARE [facility] MEDICARE [facility] [employer] [employer] Advance Directives For more information, please contact: [phone] * Full Code (Latest Code Status on File) Date Activated Date Inactivated Comments 03/24/2025 9:59 PM 03/31/2025 7:37 PM * Full Code Date Activated Date Inactivated Comments 02/28/2025 12:11 PM 03/08/2025 6:51 PM * Full Code Date Activated Date Inactivated Comments 11/01/2024 9:10 AM 11/02/2024 4:50 AM * Full Code Date Activated Date Inactivated Comments 05/26/2022 3:55 PM 05/28/2022 2:37 PM Care Teams Airflight Attendants Supervisor Relationship Specialty Start Date End Date Arun Miller MD PCP - General 04/20/17 Johnathon Theodore MD [address] [place] [address] Medical Oncologist/Poultry Processor Medical Oncology 01/03/25 Lashonda Sousa MD [address] [place] [address] Surgeon Cardiothoracic Surgery 03/08/25 Miscellaneous, Not In File 03/08/25 [place] [address] [place] [address] Consulting Physician Cardiology 03/31/25
--- OUTSIDE RECORDS SUMMARY | 2025-08-25 09:06 | XMS_ITS | Encounter Summary ---
Author Organization [facility] [employer] [facility] Address [address] [place] [address] Phone Care Team Providers Care Desk Clerk Name Role Phone Arun Miller MD Primary Care Provider Johnathon Theodore MD Unavailable [phone] Lashonda Sousa MD Unavailable [phone] Miscellaneous, Not In File Unavailable Unava ilable Sonny Penaloza MD Unavailable [phone] Encounter Details Date Type Department Care Team [...] on file Legal Sex Female 12:47 AM PROCESS ARCHITECT Gender Identity Not on file Sexual Orientation [...] undergoing Ring Surveillance for admission to [facility]. JANET Fajardo [facility] 02/28/2025 02/28/2025 03/01/2025 8:06 PM C DT documented as of this encounter Care Teams Desk Clerk Relationship Specialty Start Date End Date Arun Miller MD PCP - General 04/20/17 Johnathon Theodore MD [address] [place] [address] Medical Oncologist/Skin Therapist Medical Oncology 01/03/25 Lashonda Sousa MD [address] [place], [place] [id number] Surgeon Cardiothoracic Surgery 03/08/25 Miscellaneous, Not In File 03/08/25 [place] [address] [place] [address] Consulting Physician Cardiology 03/31/25 documented as of this encounter
--- NOTE | 2025-08-25 09:19 | ED.GENADULT ---
HPI - General Adult General Chief complaint: Shortness of Breath/Dyspnea Stated complaint: SOB Time Seen by Provider: 08/25/25 07:59 History of Present Illness HPI narrative: Patient is a 79-year-old female who presents ER with pain to the right side of her chest. Ongoing over last week. Worse with touching and movement. Feels burning. She does have a rash going from her mid back around her chest wall towards upper part of her breast. She does not think it shingles and thinks it is related to lying on something or heating pad that she has used over the years. Patient was recently seen in an emergency room in [place] for a enlarged lymph node and was provided some oral antibiotics and steroids to treat the issue. Patient then returned home from [place] and has developed progressive pain. She does have cough. She has pain with deep breath. No hemoptysis. No history of PE. Related Data Home Medications ?Medication ?Instructions ?Recorded ?Confirmed ?Last Taken ?Type metoprolol tartrate 25 mg tablet 25 mg PO DAILY 06/01/25 08/25/25 08/24/25 History aspirin 81 mg tablet,delayed 81 mg PO DAILY 07/05/25 08/25/25 08/24/25 History release (Adult Low Dose Aspirin) doxycycline hyclate 100 mg capsule 100 mg PO Q24H 08/25/25 08/25/25 08/24/25 History methylprednisolone 4 mg tablets in 4 mg PO .COMPLEX 08/25/25 08/25/25 08/24/25 History a dose pack Allergies Allergy/AdvReac Type Severity Reaction Status Date / Time No Known Allergies Allergy Verified 08/25/25 08:14 Review of Systems Review of Systems: All systems reviewed & are unremarkable except as noted in HPI and below Constitutional: Constitutional: Reports no additional constitutional complaints ENT: Reports system reviewed and no additional complaints, except as documented Cardiovascular: Cardiovascular: Reports no additional cardiovascular complaints Respiratory: Respiratory: Reports no additional respiratory complaints Gastrointestinal: Gastrointestinal: Reports no additional gastrointestinal complaints [facility] Past Medical History Medical History (Updated 08/25/25 @ 12:03 by Adriel Hill MD) Thoracic aortic aneurysm (TAA) replaced with Aortic valve 02/24 Hx of breast cancer BRCA1 positive Osteoarthritis Surgical History Surgical History (Updated 07/20/25 @ 11:48 by Tima Jimenez MD) H/O aortic valve replacement History of hip surgery History of cholecystectomy History of partial hysterectomy H/O bilateral mastectomy Family History Family History Other Diabetes mellitus Family history of cardiovascular disease Family history of malignant neoplasm Social History Social History Smoking status: Never smoker Alcohol intake: never Substance use: never Substance use type: does not use Do You Feel Safe in your Home?: Yes Lack of Transportation: No Lack of Food: Never True Current Housing: I Have Housing Concerned About Future Housing: No Difficulty Paying Gas/Electric Bills: No Difficulty Paying for Meds: No Currently Unemployed: No Education: High School Diploma/GED Difficulty w/ Childcare or Family Care: No Living arrangements: with family Occupation/Education: retired Spiritual care concerns: No Exam Narrative: GENERAL: Uncomfortable-appearing, well-nourished, and in no acute distress. HEAD: Normocephalic, atraumatic. ENT: Mucous membranes moist. CHEST: Clear to auscultation. No respiratory distress. HEART: Regular rate and rhythm. Normal peripheral pulses. ABDOMEN: Soft, nontender, nondistended. EXTREMITIES: Normal range of motion. No edema. SKIN: Warm, dry. Splotchy rash moving from the midthoracic area around the chest wall and over the superior aspect of the breast. No vesicles or weeping or scabbing. NEURO: Alert and oriented x3. PSYCH: Normal mood and affect. Course Course Emergency Course: Patient received some IV morphine as well as a GI cocktail for multiple pain issues while in the ER. Ultimately her workup is unremarkable and it is felt that her discomfort is related to shingles across her chest wall. She will be discharged home and can follow up with her primary care physician. Vital Signs Vital signs: Vital Signs Temperature 98.3 F 08/25/25 08:01 Pulse Rate 97 08/25/25 08:01 Respiratory Rate 18 08/25/25 08:01 Blood Pressure 143/83 H 08/25/25 08:01 Pulse Oximetry 99 08/25/25 08:01 Oxygen Delivery Room Air 08/25/25 08:01 Temperature 98.3 F 08/25/25 08:01 Pulse Rate 103 H 08/25/25 11:00 Respiratory Rate 16 08/25/25 11:00 Blood Pressure 139/86 08/25/25 11:00 Pulse Oximetry 96 08/25/25 11:00 Oxygen Delivery Room Air 08/25/25 08:55 Medical Decision Making Differential Diagnosis Differential Diagnosis: STEMI/NSTEMI, PE, pneumonia, pleurisy, rib fracture, shingles Vital Signs Vital Signs: Vital Signs Temperature 98.3 F 08/25/25 08:01 Pulse Rate 97 08/25/25 08:01 Respiratory Rate 18 08/25/25 08:01 Blood Pressure 143/83 H 08/25/25 08:01 Pulse Oximetry 99 08/25/25 08:01 Oxygen Delivery Room Air 08/25/25 08:01 Temperature 98.3 F 08/25/25 08:01 Pulse Rate 103 H 08/25/25 11:00 Respiratory Rate 16 08/25/25 11:00 Blood Pressure 139/86 08/25/25 11:00 Pulse Oximetry 96 08/25/25 11:00 Oxygen Delivery Room Air 08/25/25 08:55 Lab Data Lab results reviewed: Yes I reviewed the patient's lab results. 08/25/25 08:16 08/25/25 08:16 Labs: Lab Results 08/25/25 08/25/25 Range/Units 08:16 11:29 WBC 10.0 (4.5-10.0) K/mm3 RBC 4.40 (4.2-5.4) M/mm3 Hgb 10.8 L (12.0-15.0) g/dL Hct 35.6 L (37.0-47.0) % MCV 80.9 (80-100) fl MCH 24.5 L (26-34) pg MCHC 30.3 L (32-36) g/dl RDW 17.7 H (11.5-14.5) % Plt Count 336 (150-375) k/mm3 MPV 8.4 (7.4-10.4) fl Immature Gran % (Auto) 0.9 H (0-0.5) % Neut % (Auto) 54.2 (45.5-73.1) % Lymph % (Auto) 33.9 (18.3-44.2) % [place] % (Auto) 9.0 H (2.6-8.5) % Eos % (Auto) 1.2 (0-4.4) % Baso % (Auto) 0.8 (0.2-1.2) % Lymph # (Auto) 3.39 H (0.9-3.2) K/mm3 [place] # (Auto) 0.9 H (0.1-0.6) K/mm3 Eos # (Auto) 0.1 (0-0.3) K/mm3 Baso # (Auto) 0.1 (0.0-0.1) K/mm3 Abs Immat Gran (auto) 0.09 H (0.00-0.031) K/mm3 Absolute Neuts (auto) 5.4 (1.3-6.7) K/mm3 Absolute Nucleated RBC 0.000 (0.0-0.012) K/mm3 Nucleated RBC % 0.0 (0.0-0.2) % Sodium 133 L (137-145) mmol/L Potassium 4.2 (3.4-5.0) mmol/L Chloride 95 L (98-107) mmol/L Carbon Dioxide 28 (22-30) mmol/L Anion Gap 10 (4-12) mmol/L BUN 17 (7-17) mg/dL Creatinine 0.96 (0.7-1.0) mg/dL Estim Creat Clear Calc Not Reportable Estimated GFR 56 L (59 - ) Glucose 121 H (65-110) mg/dL Calcium 9.6 (8.4-10.2) mg/dL Total Bilirubin 0.3 (0.2-1.3) mg/dL AST 26 (14-36) U/L ALT 16 (6-35) U/L Alkaline Phosphatase 97 (38-126) U/L Troponin I 0.013 < 0.012 (0.000-0.034) ng/mL Total Protein 7.3 (6.3-8.2) g/dL Albumin 3.9 (3.5-5.1) g/dL Imaging Data Radiologist's impression: ITS Impressions Chest CTA 08/25/25 09:24 IMPRESSION: 1. No evidence for pulmonary embolism. 2: No acute cardiopulmonary disease. 3: Cirrhosis with splenomegaly. Discharge Plan Discharge Clinical Impression: Marianne GERD (gastroesophageal reflux disease) Patient Disposition: Home Condition: Stable Instructions: Marianne (ED) Additional Instructions: Please return to the emergency department if you develop severe and persistent chest pain, difficulty breathing, dizziness, leg swelling or if you are coughing up blood as these can be signs of a medical emergency. Please call your doctor for a follow up appointment to determine the need for further testing. Patient Language: Telugu Prescriptions: New valacyclovir 1 gram tablet 1,000 mg PO TID Qty: 21 0RF hydrocodone-acetaminophen 5-325 mg tablet 1 tablet PO Q6H PRN (Reason: pain) Qty: 12 0RF famotidine 20 mg tablet 20 mg PO BID Qty: 14 0RF No Action metoprolol tartrate 25 mg tablet 25 mg PO DAILY esomeprazole magnesium [Nexium] 40 mg capsule,delayed release(DR/EC) 40 mg PO BID Qty: 60 3RF hydrocodone-acetaminophen 5-325 mg Tablet 1 tab PO Q4H PRN (Reason: Pain Rated 4-6) Qty: 0 0RF doxycycline hyclate 100 mg capsule 100 mg PO Q24H methylprednisolone 4 mg tablets,dose pack 4 mg PO .COMPLEX Rx Instructions: 4 mg orally as directed; aspirin [Adult Low Dose Aspirin] 81 mg tablet,delayed release (DR/EC) 81 mg PO DAILY Follow-up/Referrals: Paul,Arun Clemons MD [Primary Care Provider] - 1 Week
--- NOTE | 2025-08-25 10:12 | ECG_ITS ---
Test Date: 2025-08-25 10:18:08 Measurements Intervals [place] Rate: 106 P: 28 NV: 191 QRS: -19 QRSD: 79 T: -37 QT: 307 QTc: 409 Interpretive Statements SINUS TACHYCARDIA LOW QRS VOLTAGE IN PRECORDIAL LEADS LEFT VENTRICULAR HYPERTROPHY AND ST-T CHANGE POSSIBLE ANTERIOR MYOCARDIAL INFARCTION , PROBABLY OLD BORDERLINE ST-T WAVE ABNORMALITY- ANTEROLAT/INF LEADS BASELINE ARTIFACT- II, III ABNORMAL ECG Compared to ECG 08/25/2025 08:07:43 HEART RATE HAS INCREASED Electronically Signed On 08-25-2025 10:33:22 CDT by Paras Andrade D.O.
[2025-08-25] MEDS: BELLADONNA ALK/PHENOB ELIX 10 ML, MAG HYDROX/ALUMINUM HYD/SIMETH 30 ML, LIDOCAINE 2% VI... PO (10:16)
[2025-08-25 11:12] LABS: Troponin I 0.013 ng/mL (0.000-0.034)
[2025-08-25 11:57] LABS: Troponin I < 0.012 ng/mL (0.000-0.034)
== END 2025-08-25 12:24 | disposition home or self-care (01) ==
PROVIDERS: Emergency Provider Emergency Medicine; PCP Internal Medicine
DX: B02.9 Zoster without complications (principal); K21.9 Gastro-esophageal reflux disease without esophagitis; Z85.3 Personal history of malignant neoplasm of breast; M19.90 Unspecified osteoarthritis, unspecified site; Z95.2 Presence of prosthetic heart valve; Z90.49 Acquired absence of other specified parts of digestive tract; Z90.13 Acquired absence of bilateral breasts and nipples; Z90.711 Acquired absence of uterus with remaining cervical stump; K74.60 Unspecified cirrhosis of liver; R16.1 Splenomegaly, not elsewhere classified; R94.31 Abnormal electrocardiogram [ECG] [EKG]; R00.0 Tachycardia, unspecified; I51.7 Cardiomegaly
CPT/HCPCS: 36415; 71275; 80053; 84484; 85025; 93005; 96374; 99284; A9270; J2270; Q9967